=== PATIENT | female | born 1990 ===

== ENCOUNTER 2023-07-09 13:19 | Outpatient (REF) | payer OTHER, MEDICAID, SELFPAY ==
[2023-07-09 13:30] LABS: Appearance Urine Cloudy; Color Urine Yellow; Glucose Urine UA Negative (Negative); Leukocyte Esterase Urine Small (1+) (Negative); Nitrite Urine Negative (Negative); PH 7.5 (5.0-9.0); Specific Gravity - Urine 1.025 (1.005-1.025); UMIC TRIGGER UACC YES; Urine Blood Negative (Negative); Urine Ketones Negative (Negative); Urine Protein Trace mg/dL (Neg-Trace)
[2023-07-09 13:33] LABS: Bacteria Urine 2+ (None Seen); Hyaline Casts Urine 0-2 /LPF (0-2); UACC Culture Trigger YES
== END 2023-07-09 13:20 | disposition home or self-care (01) ==
LOC: HO.LNP 13:19
PROVIDERS: Visit Provider Family Medicine
DX: N30.00 Acute cystitis without hematuria (principal)
CPT/HCPCS: 81001; 87086

== ENCOUNTER 2023-07-23 13:32 | Outpatient (REF) | payer OTHER, MEDICAID, SELFPAY ==
[2023-07-23 17:03] LABS: Alanine Aminotransferase 17 U/L (0-31); Alkaline Phosphatase 90 U/L (39-117); Anion Gap 10 (12-20); Aspartate Amino Transferase 19 U/L (5-31); Bilirubin Direct 0.2 mg/dL (0.0-0.5); Bilirubin Total 0.3 mg/dL (0.0-1.0); Blood Urea Nitrogen 14 mg/dL (9-16); Calcium 8.4 mg/dL (8.4-10.2); Carbon Dioxide 28 mmol/L (22-29); Chloride 106 mmol/L (96-108); Estimated Glomerular Filt Rate > 60; Glucose Random 71 mg/dL (60-115); Lipase 12 U/L (8-78); Potassium 3.5 mmol/L (3.3-5.1); Sodium 140 mmol/L (135-145); Total Protein 7.1 g/dL (6.5-8.0)
== END 2023-07-23 13:33 | disposition home or self-care (01) ==
LOC: HO.HHCL 13:32
PROVIDERS: Visit Provider Nurse Practitioner Primary Care
DX: R10.84 Generalized abdominal pain (principal)
CPT/HCPCS: 36415; 80048; 80076; 83690

== ENCOUNTER 2023-08-11 10:12 | Emergency (ER) | payer OTHER, MEDICAID, SELFPAY ==
--- NOTE | ~2023-08-11 | CT_ITS ---
EXAMINATION: CT HEAD WITHOUT CONTRAST CLINICAL INFORMATION: Headache and blurred vision. COMPARISON: None available. TECHNIQUE: Contiguous axial imaging was performed from the skull base to vertex without intravenous administration of contrast. This CT examination was performed using dose optimization techniques as appropriate, variously including the following: *Automated exposure control *Adjustment of mA and/or kV according to patient size (this includes techniques or standardized protocols for targeted exams where dose is matched to indication/reason for exam; i.e. extremities or head) *Use of iterative reconstruction technique DLP: 689 mGy-cm FINDINGS: The brain parenchyma has normal attenuation. The anderson-white matter differentiation is well preserved. No evidence of an acute major vascular territory infarction. No intracranial hemorrhage, extra-axial fluid collection, focal mass effect or midline shift. The ventricles have normal size and configuration; no hydrocephalus. There is normal anatomic variation in terms of mild asymmetry of size of frontal horns. The brainstem and cerebellum have a normal appearance. The cerebellar tonsils are in normal position. The calvarium is intact. The visualized paranasal sinuses, mastoid air cells and middle ear cavities are well aerated. The orbits and globes are unremarkable. The temporomandibular joints are normal. CT/CT head/brain wo IV con IMPRESSION: No intracranial mass or hemorrhage. No acute intracranial pathology.
[2023-08-11 11:29] VITALS: BP 123/78; PULSE 79; RESP 18; TEMP 36.3; O2SAT 99; BMI 43.4
--- NOTE | 2023-08-11 11:36 | ED_ITS ---
HPI - Headache General Chief Complaint: Headache Stated Complaint: Migraine-blurry vision Related Data Allergies Allergy/AdvReac Type Severity Reaction Status Date / Time No Known Allergies Allergy Verified 08/11/23 11:27 COUNTS INCLUDE 234 BEDS AT THE [facility] Social History Social History Advance Directives: No Advance Directives Information Provided: No Physical Exam Vital Signs: Vital Signs: Last Vital Signs Temp 97.3 F 08/11/23 11:29 Pulse 79 08/11/23 11:29 Resp 18 08/11/23 11:29 BP 123/78 08/11/23 11:29 Pulse Ox 99 08/11/23 11:29 O2 Del Method Room Air 08/11/23 11:29 BMI result Body Mass Index 43.4 Course Course Course Narrative: This is an RME: Additional HPI, ROS, PE not included below will be deferred to primary provider. This is a 33-year-old female, with no known past medical problems, presenting to the emergency department with complaints of ongoing headache x5 days. She states that her vision is now blurry x 2 days. also having tightness in her bilateral shoulders. She is neurologically intact. GCS15, ambulatory, negative rhomberg. Strength 5/5 in upper and lower extremities she reports that she does not have a history of migraines. vital signs within normal limits. Plan: CT head, further ER evaluation needed Reevaluation(s) Reevaluation #1: pt left prior to completing treatment. Discharge Plan Discharge Clinical Impression: Headache Patient Disposition: Left W/O Completing Treatment Discharge Date/Time: 08/11/23 19:19
== END 2023-08-11 19:19 | disposition left against medical advice (07) ==
LOC: HO.ED 18:59
PROVIDERS: Emergency Provider Emergency Medicine
DX: R51.9 Headache, unspecified (principal)
CPT/HCPCS: 70450; 99281; 99284

== ENCOUNTER 2023-09-01 09:37 | Outpatient (REF) | payer OTHER, MEDICAID, SELFPAY ==
[2023-09-01 11:26] LABS: MANUAL DIFF FLAG NO
[2023-09-01 11:56] LABS: Basophils Absolute Auto 0.1 X10*3/uL (0.0-0.2); Basophils Percent Auto 0.8 % (0-2); Eosinophils Absolute Auto 0.2 X10*3/uL (0.0-0.4); Eosinophils Percent Auto 3.4 % (0-4); Hematocrit 43.7 % (37.0-47.0); Imm Gran Abs Auto 0.02 X10*3/uL (0.00-0.03); Imm Gran Pct Auto 0.3 % (0.0-0.4); Lymphocytes Absolute Auto 1.7 X10*3/uL (1.2-4.9); Lymphocytes Percent Auto 27.8 % (20-40); Mean Corpuscular Hemoglobin 28.2 pg (27.0-33.0); Mean Corpuscular Volume 88.1 fL (80.0-98.0); Mean Platelet Volume 10.8 fL (9.4-12.3); Monocytes Absolute Auto 0.3 X10*3/uL (0.1-1.2); Monocytes Percent Auto 5.4 % (2-11); Neutrophils Absolute Auto 3.8 x10*3/uL (2.0-8.3); Neutrophils Percent Auto 62.3 % (45-73); Platelet Count 296 X10*3/uL (160-400); Red Blood Count 4.96 X10*6/uL (4.20-5.50); Red Cell Distribution Width 13.2 % (11.0-16.0); White Blood Count 6.1 X10*3/uL (4.8-10.8)
[2023-09-01 12:37] LABS: TSH reflex Free T4 2.63 uIU/mL (0.32-4.0); Vitamin D 25-OH Total 9.2 ng/mL (>30)
== END 2023-09-01 09:38 | disposition home or self-care (01) ==
LOC: HO.HHCL 09:37
PROVIDERS: Visit Provider Emergency Medicine
DX: R22.2 Localized swelling, mass and lump, trunk (principal)
CPT/HCPCS: 36415; 82306; 84443; 85025

== ENCOUNTER 2023-09-22 09:41 | Outpatient (AMB) | payer OTHER, MEDICAID, SELFPAY ==
--- NOTE | 2023-09-22 10:00 | A.OFFVIS_ITS ---
Intake Vital Signs 3 09/22/23 10:08 Height 5 ft 6 in Weight 265 lb 6 oz BMI 42.8 BP 137/81 Blood Pressure Location Lt brachial Position Sitting Pulse 72 Intake Visit Reasons: Chest wall mass Intake Note: Patient is seen in office for evaluation and treatment of a chest wall mass. 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 Over the past several months however she began to notice increased discomfort associated with the lesion. She does not feel the lesion has increased in size significantly. She denies any skin changes or discharge. She never underwent surgery or sustain trauma in this location . Previous workup with ultrasound of the soft tissues revealed no suspicious findings in this location. She is very worried about cancer because of family history. [facility] Medical History Hypertension Surgical History Hx of cholecystectomy Hx of foot surgery Family History Maternal Grandmother Liver cancer Social History Alcohol intake: never Patient Tobacco Use Status: Never used Tobacco Review of Systems Const All systems reviewed & are unremarkable except as noted in HPI and below Denies chills, Denies fever(s), Denies headache(s), Denies poor appetite and Denies weakness ENT Denies headache(s) Card Denies chest pain, Denies irregular heart rhythm, Denies palpitations and Denies dyspnea Resp Denies cough, Denies excessive phlegm production and Denies dyspnea GI Denies abdominal pain, Denies bloating, Denies change in bowel habits, Denies constipation, Denies heartburn, Denies diarrhea, Denies nausea and Denies vomiting Denies urinary frequency Musc Denies back pain, Denies muscle weakness and Denies numbness Skin/Breast Denies changing lesions and Denies unusual bruising Neuro Denies headache(s), Denies numbness, Denies paresthesias and Denies weakness Psych Denies anxiety and Denies depression Endo Denies palpitations Sumit/Lymph Denies lymphadenopathy Physical Exam Const General: cooperative and no acute distress Nutritional Appearance: well nourished Orientation/consciousness: patient oriented x3 Limitations: no limitations HEENT Head: Yes normocephalic and Yes atraumatic Ears: hearing grossly normal bilaterally Chest Chest/axillae images: 2 1. Site of palpable soft tissue mass in the subcutaneous tissue over the xiphoid process, mobile within the subcutaneous tissue suggestive of a lipoma. No overlying skin changes are appreciated. Resp Effort & Inspection: normal respiratory effort, no audible wheezes, no cough and no respiratory distress Cardio Jugular venous distension: no JVD GI Inspection: Yes normal to inspection Skin Other: Warm, dry, no rash Neuro General: patient oriented x3 Extrem General: Yes no clubbing, cyanosis or edema Assessment & Plan Assessment & Plan (1) Lipoma: Code(s): D17.9 - Benign lipomatous neoplasm, unspecified Qualifiers: Lipoma location: trunk Qualified Code(s): D17.1 - Benign lipomatous neoplasm of skin and subcutaneous tissue of trunk Plan 33-year-old female patient presenting with a soft tissue mass located in the lower sternum which is now causing discomfort and anxiety. On examination the patient has a soft tissue mass which measures approximately 4 cm in length and 2 cm wide, mobile within the subcutaneous tissue most consistent with a lipoma. Patient is requested excision which can not be performed either under local or as a short-stay surgery. She is nervous about undergoing anesthesia therefore I recommended monitored anesthesia care. After discussion of the procedure, risks, and alternatives, she consents to the surgery. Coding Level of Care Code New Pt Level 4 (60467) Diagnoses Lipoma of torso D17.1 Lipoma location: trunk
[2023-09-22 10:08] VITALS: BP 137/81; PULSE 72; BMI 42.8
== END 2023-09-22 10:24 | disposition home or self-care (01) ==
PROVIDERS: Visit Provider Surgery
DX: D17.1 Benign lipomatous neoplasm of skin and subcutaneous tissue of trunk (principal)
CPT/HCPCS: 99204

== ENCOUNTER → 2023-09-22 09:41 | Outpatient (BNVA) | payer OTHER, SELFPAY | PROVIDERS: Visit Provider Surgery | DX: D17.1 Benign lipomatous neoplasm of skin and subcutaneous tissue of trunk (principal) | CPT/HCPCS: 99202 ==

== ENCOUNTER 2023-10-12 07:52 | Day surgery (SDC) | payer OTHER, SELFPAY ==
[2023-10-08 09:13] VITALS: BMI 42.8
[2023-10-12] VITALS (8 sets, daily range): BP systolic 108–127; BP diastolic 61–77; PULSE 70–112; RESP 16–18; TEMP 36.6–36.9; O2SAT 95–100; BMI 44.0
--- NOTE | 2023-10-12 08:01 | P.CONAN_ITS ---
[facility] Active Problems Active Problems: All Active Problems (Updated 09/22/23 @ 10:23 by Alex Willett MD) Lipoma (Acute) Hypertension (Acute) asthma Past Medical History Medical History Hypertension Family History Family History Maternal Grandmother Liver cancer Surgical History Surgical History Hx of cholecystectomy Hx of foot surgery History of Problems with Anesthesia: No Social History Social History Alcohol intake: never Patient Tobacco Use Status: Never used Tobacco Use of substances other than those prescribed or required for medical reasons: No Are you DNR?: No Advance Directives: No Advance Directives Information Provided: Yes Meds Allergies Allergy/AdvReac Type Severity Reaction Status Date / Time No Known Allergies Allergy Verified 09/22/23 10:05 Active Medications: Current Medications Cefazolin Sodium/Dextrose (Ancef) 2 gm in 50 mls @ 100 mls/hr IV PREOP ONE Stop: 10/12/23 08:23 Lactated Ringer's (Lr) 1,000 mls @ 100 mls/hr IVCONT .Q10H MARY Home Medications Medication Instructions Recorded Confirmed Last Taken Type albuterol sulfate 90 mcg/actuation 2 puff inhalation Q4-6H PRN 10/12/23 Unknown History aerosol inhaler (Ventolin HFA) wheezing cetirizine 10 mg tablet 10 mg PO DAILY 10/12/23 Unknown History cholecalciferol (vitamin D3) 25 25 mcg PO QAM 10/12/23 Unknown History mcg (1,000 unit) tablet epinephrine 0.3 mg/0.3 mL IM DIRECTED 10/12/23 Unknown History injection, auto-injector semaglutide 0.25 mg or 0.5 mg (2 mg subcut 10/12/23 08/09/23 History mg/3 mL) subcutaneous pen injector (Ozempic) sumatriptan succinate 50 mg tablet mg PO 10/12/23 Unknown History tizanidine 2 mg tablet 2 mg PO QD-TID PRN muscle pain 10/12/23 Unknown History topiramate 25 mg tablet mg PO 10/12/23 Unknown History valacyclovir 1 gram tablet 1,000 mg PO TID 10/12/23 Unknown History Exam Height,Weight and Vital Signs: Height 5 ft 6 in Weight 123.604 kg Airway Mallampati Class: II TM Dist: >3cm Neck ROM: Full Loose/Missing/Broken Teeth: No Heart: RRR Lungs: CTA Assessment and Plan Assessment Anesthesia Assessment: Anesthesia Plan Discussed and Chart Reviewed Final Anesthetic Review History of Problems with Anesthesia: No NPO: Yes ASA Class: III Final Preanesthetic Review: Meds/Allgs Chart Reviewed, Consent Obtained/Reviewed and Anes Risks/Benef Reviewed Patient Risk: Intermediate Procedure Risk: Low Anesthetic Plan Anesthetic Plan: GA Disposition: Standard PACU
[2023-10-12 08:24] LABS: UPreg QC Valid YES; Urine Pregnancy NEGATIVE (NEGATIVE)
[2023-10-12] MEDS: Lactated Ringers 1,000 ML 100 ML IVCONT (08:38)
--- NOTE | 2023-10-12 08:46 | MHC.SHP ---
Pre-Procedural Eval Section A - 24 Hr Update-Section A only Date of Service: 10/12/23 The patient is an INPATIENT: No Changes since office visit: Yes Patient answered all questions; No Cold of Flu in the past 2 weeks, No New Medical Problems and No Changes in Medication The patient has been examined within 24 hours of the surgical procedure. The History & Physical has been completed within 30 days and I have reviewed it.: Yes Section B - Complete if H&P > 30 days Chief Complaint: Benign lipomatous neoplasm of skin and subcutaneou Allergies: Allergies Allergy/AdvReac Type Severity Reaction Status Date / Time No Known Allergies Allergy Verified 09/22/23 10:05 Plan Diagnosis/Plan: Unchanged I have reviewed the history and physical and performed a pertinent physical examination on my patient. No changes have occurred unless specified. Time Spent With Patient Time: Total time managing care of this patient today ____ minutes.
--- NOTE | 2023-10-12 09:25 | W.PM.OPN ---
Operative Note Operative Note Date of Service: 10/12/23 Narrative: Preoperative diagnosis: Lipoma mid chest Postoperative diagnosis: Same Procedure: Excision of lipoma mid chest Surgeon: Alex Willett MD Core Sucker: Ana Roth PA-C Anesthesia: General LMA Indications for procedure: 33-year-old female patient presenting with a painful lipoma of the mid chest measuring approximately 3 cm in diameter. Operative findings: Lipoma mid chest 3 cm diameter Specimen: Lipoma mid chest Estimated blood loss: Less than 2 mL Complications: None Procedure details: Patient was brought to the OR placed in a supine position. After administering general anesthesia the patient's mid chest was prepped with ChloraPrep and draped in a sterile fashion. A surgical time-out was called the consent confirmed. Patient received preoperative antibiotics and Venodyne boots were placed. Local anesthesia was then infiltrated over the lipoma in a transverse fashion. Incision was then made over the lipoma and carried out through subcutaneous tissue. Electrocautery was then used to dissect the palpable lipoma from the surrounding subcutaneous tissue. This was sent to pathology for further examination. Hemostasis was then assured using electrocautery. Wounds were irrigated with saline solution and suctioned dry. Deep subcutaneous tissue was then reapproximated using interrupted 3-0 Polysorb sutures. Dermis was reapproximated using interrupted 3-0 Polysorb sutures. Skin was closed using a running subcuticular 4-0 Polysorb suture. Steri-Strips, 2 x 2 gauze and Tegaderm were then applied. The patient tolerated the procedure well. Sponge, instrument, needle counts reported as correct. The patient was transferred to PACU in stable condition.
[2023-10-12] MEDS: oxyCODONE HCl Immed Release 5 MG TABLET PO (09:57)
[2023-10-12] MEDS: Albuterol Sulfate (0.083%) 2.5 MG/3 ML VIAL.NEB INHALE (09:59)
== END 2023-10-12 10:48 | disposition home or self-care (01) ==
PROVIDERS: PCP Nurse Practitioner Primary Care; Visit Provider Surgery
PROC: (CPT 21552; principal; 2023-10-12 09:00)
DX: D17.1 Benign lipomatous neoplasm of skin and subcutaneous tissue of trunk (principal); I10 Essential (primary) hypertension; J45.909 Unspecified asthma, uncomplicated; Z79.899 Other long term (current) drug therapy; Z79.85 Long-term (current) use of injectable non-insulin antidiabetic drugs; Z98.890 Other specified postprocedural states
CPT/HCPCS: 21552; 81025; 88304; 94640; J0690; J1100; J1885; J2250; J2405; J2704; J2795; J3010

== ENCOUNTER → 2023-10-12 07:52 | Outpatient (BNV) | payer OTHER, SELFPAY | PROVIDERS: PCP Nurse Practitioner Primary Care; Visit Provider Surgery | DX: D17.1 Benign lipomatous neoplasm of skin and subcutaneous tissue of trunk (principal) | CPT/HCPCS: 21552 ==

== ENCOUNTER → 2023-10-19 09:17 | Outpatient (BNVA) | payer OTHER, SELFPAY | PROVIDERS: PCP Nurse Practitioner Primary Care; Visit Provider Surgery | DX: Z48.00 Encounter for change or removal of nonsurgical wound dressing (principal) | CPT/HCPCS: 99211 ==

== ENCOUNTER 2023-10-23 11:18 | Outpatient (AMB) | payer OTHER, SELFPAY ==
--- NOTE | 2023-10-23 11:23 | A.OFFVIS_ITS ---
Intake Vital Signs 10/23/23 11:29 Height 5 ft 6 in Weight 273 lb 6 oz BMI 44.1 BP 132/77 Blood Pressure Location Lt brachial Position Sitting Pulse 77 Intake Visit Reasons: s/p excision chest wall Intake Note: Patient is seen in office for post op assessment post excision of chest wall mass. 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 She tolerated the procedure well. Pathology confirmed a lipoma. She returns today for wound check. [facility] Medical History Hypertension Surgical History S/P excision of lipoma (10/12/23) Hx of cholecystectomy Hx of foot surgery Family History Maternal Grandmother Liver cancer Social History Alcohol intake: never Patient Tobacco Use Status: Never used Tobacco Physical Exam Vital Signs: Last Vital Signs Pulse 77 10/23/23 11:29 BP 132/77 10/23/23 11:29 BMI result Body Mass Index 44.1 Chest Other: Transverse incision in the anterior chest is clean, dry and intact. Steri- Strips are off. Extrem General: No edema Assessment & Plan Assessment & Plan (1) Lipoma: Code(s): D17.9 - Benign lipomatous neoplasm, unspecified Qualifiers: Lipoma location: trunk Qualified Code(s): D17.1 - Benign lipomatous neoplasm of skin and subcutaneous tissue of trunk Plan Sweta returns 1 week following excision of a lipoma of the anterior chest. Pathology did confirm a lipoma. She tolerated the procedure well and denies any ongoing symptoms. She should follow up as needed. Coding Level of Care Code Global (04918) Diagnoses Lipoma of torso D17.1 Lipoma location: trunk
[2023-10-23 11:29] VITALS: BP 132/77; PULSE 77; BMI 44.1
== END 2023-10-23 11:42 | disposition home or self-care (01) ==
PROVIDERS: PCP Nurse Practitioner Primary Care; Visit Provider Surgery
DX: D17.1 Benign lipomatous neoplasm of skin and subcutaneous tissue of trunk (principal)
CPT/HCPCS: 99024

== ENCOUNTER → 2023-10-23 11:18 | Outpatient (BNVA) | payer OTHER, SELFPAY | PROVIDERS: PCP Nurse Practitioner Primary Care; Visit Provider Surgery | DX: Z09 Encounter for follow-up examination after completed treatment for conditions other than malignant neoplasm (principal); D17.1 Benign lipomatous neoplasm of skin and subcutaneous tissue of trunk | CPT/HCPCS: 99212 ==

== ENCOUNTER 2023-10-28 06:53 | Emergency (ER) | payer OTHER, SELFPAY ==
--- NOTE | 2023-10-28 | ECG_ITS ---
Test Reason : cp Blood Pressure : / mmHG Vent. Rate : 092 BPM Atrial Rate : 092 BPM P-R Int : 138 ms QRS Dur : 080 ms QT Int : 352 ms P-R-T Axes : 032 038 018 degrees QTc Int : 435 ms Normal sinus rhythm Normal ECG No previous ECGs available Referred By: Generic ED Physician Electronically Signed By:JANIYA HOLCOMB
--- NOTE | ~2023-10-28 | XR_ITS ---
EXAMINATION: XR CHEST 2 VIEW CLINICAL INFORMATION: Cough COMPARISON: None TECHNIQUE: PA and lateral views of the chest obtained. FINDINGS: The lungs are clear. There are no pleural effusions. The cardiomediastinal silhouette is normal. XR/XR chest 2V IMPRESSION: No acute cardiopulmonary disease.
[2023-10-28 07:21] VITALS: BP 122/78; PULSE 91; RESP 20; TEMP 36.6; O2SAT 97; BMI 42.0
--- NOTE | 2023-10-28 07:27 | ED.URI ---
HPI - URI/Sore Throat General Chief Complaint: Upper Respiratory Symptoms Stated Complaint: chest pain induced by cough Time Seen by Provider: 10/28/23 07:26 Source: patient Mode of arrival: ambulatory Limitations: no limitations History of Present Illness HPI Narrative: 33 year old female with pmhx significant for hypertension presents to the ED today for evaluation cough, headache, nasal congestion, and fever (T-max 102? last night) that began yesterday. Additionally she endorses chest pain on coughing. She has been taking Robitussin, theraflu and Tylenol at home without relief. She last took Tylenol at 2100 last night. She reports taking TheraFlu around 2:00 a.m. this morning. She admits that her son tested positive for flu 5 days ago and her daughter tested positive for flu 2 days ago. She began having symptoms yesterday. Denies recent travel or long car rides. Denies chills, sore throat, palpitations, shortness of breath, wheezing, dyspnea, nausea vomiting, abdominal pain. Related Data Home Medications Medication Instructions Recorded Confirmed albuterol sulfate 90 mcg/actuation 2 puff inhalation Q4-6H PRN 10/12/23 aerosol inhaler (Ventolin HFA) wheezing cetirizine 10 mg tablet 10 mg PO DAILY 10/12/23 cholecalciferol (vitamin D3) 25 25 mcg PO QAM 10/12/23 mcg (1,000 unit) tablet epinephrine 0.3 mg/0.3 mL IM DIRECTED 10/12/23 injection, auto-injector semaglutide 0.25 mg or 0.5 mg (2 mg subcut 10/12/23 mg/3 mL) subcutaneous pen injector (Ozempic) sumatriptan succinate 50 mg tablet mg PO 10/12/23 tizanidine 2 mg tablet 2 mg PO QD-TID PRN muscle pain 10/12/23 topiramate 25 mg tablet mg PO 10/12/23 valacyclovir 1 gram tablet 1,000 mg PO TID 10/12/23 Previous Rx's Medication Instructions Recorded benzonatate 100 mg capsule 100 mg PO BID PRN cough #20 caps 10/28/23 Allergies Allergy/AdvReac Type Severity Reaction Status Date / Time No Known Allergies Allergy Verified 10/28/23 07:21 Review of Systems Review of Systems: Constitutional: No fever, chills, fatigue, night sweats, weight changes ENT/Mouth: No ear pain, hearing loss, sinus pain, rhinorrhea, sore throat, + congestion Eyes: No eye pain, swelling, redness, vision changes, discharge Cardio: No chest pain, palpitations, MIRZA, orthopnea, peripheral edema Pulm: No SOB, sputum, wheezing, dyspnea, hemoptysis, + cough GI: No nausea, vomiting, hematemesis, abdominal pain, diarrhea, constipation, hematochezia, melena : No irregular bleeding, dysuria, frequency, urgency, hesitancy, hematuria, flank pain, urinary flow changes, urinary incontinence or retention MSK: No back pain, neck pain, joint pain, +myalgias Skin: No lesions, rashes Neuro: No weakness, numbness, paresthesias, LOC, dizziness, +headache Psych: No anxiety/panic, depression, SI/HI, AH/VH All other systems reviewed and are negative. [facility] Past Medical History Attestation statement: The following information was validated with the patient. Source: old records reviewed and nursing notes reviewed Medical History Hypertension Surgical History S/P excision of lipoma (10/12/23) Hx of cholecystectomy Hx of foot surgery Family History Family History Maternal Grandmother Liver cancer Social History Social History Alcohol intake: never Patient Tobacco Use Status: Never used Tobacco Advance Directives: No Advance Directives Information Provided: No Physical Exam Vital Signs: Vital Signs: Last Vital Signs Temp 97.9 F 10/28/23 07:21 Pulse 91 10/28/23 07:21 Resp 20 10/28/23 07:21 BP 122/78 10/28/23 07:21 Pulse Ox 97 10/28/23 07:21 O2 Del Method Room Air 10/28/23 07:21 BMI result Body Mass Index 42.0 Vital signs stable, afebrile Const: General: cooperative, healthy appearing, comfortable and no acute distress Orientation/consciousness: patient oriented x3 Limitations: no limitations HEENT: Other: + posterior oropharynx without erythema edema. No tonsillar exudates or peritonsillar masses. Uvula midline. Controlling secretions speaking in complete sentences. Head: Yes normal to inspection, Yes No palpable skull fracture present, Yes normocephalic and Yes atraumatic Ears: hearing grossly normal bilaterally, external ears normal, TM's normal bilaterally, EAC's normal, mastoids normal and no periauricular adenopathy General nose exam: Normal external nose present and No nasal discharge present Eyes: General: appearance normal, both eyes and all related structures Conjunctivae: conjunctivae normal Sclerae: sclerae normal Pupils: Equal, round and reactive pupils present Neck: Other: + no cervical, submental or submandibular lymphadenopathy Neck: Yes normal visual inspection, Yes full ROM and Yes no meningeal signs Chest: Chest palpation & inspection: normal inspection of the chest and normal palpation of entire chest wall Resp: Effort & Inspection: normal respiratory effort and able to speak in complete sentences Auscultation: clear to auscultation bilaterally, no crackles and no wheezes Cardio: Jugular venous distension: no JVD Rate: regular rate Rhythm: regular rhythm GI: Inspection: Yes normal to inspection Palpation (GI): Soft to palpation and nontender : General: Yes no CVA tenderness Back/Spine/Pelvis: Back: no CVA tenderness Skin: General skin exam: no rashes or lesions noted Neuro: General: patient oriented x3 and no meningeal signs Cranial nerves: Yes Equal, round and reactive pupils present Extrem: General: Yes normal to inspection, Yes full ROM, Yes capillary refill normal and Yes no calf tenderness Course Course Course Narrative: 829-- Patient tested negative for COVID, flu, RSV. Chest x-ray unremarkable. On my interpretation, no signs of pneumonia or effusion. Discussed all results with patient. Will send her home with Evangelina Ring. Patient has remained stable throughout ED visit today. Discussed worrisome signs and symptoms and when to return to the ED. All questions answered at this time. Patient is agreeable with disposition and stable for discharge. Medical Decision Making Medical Decision Making MDM Narrative: 33 year old female with pmhx significant for hypertension presents to the ED today for evaluation cough, headache, nasal congestion, and fever (T-max 102? last night) that began yesterday. Vital signs stable, afebrile. She is nontoxic-appearing and in no acute distress. Lungs are CTA bilaterally. No crackles, rhonchi or wheezes. Actively coughing on exam. RRR. No JVD or peripheral edema. No calf tenderness bilaterally. Ambulating with steady gait. Differential diagnosis includes viral syndrome, pneumonia, bronchitis. Low suspicion for mono, strep throat, [employer], retropharyngeal abscess, epiglottitis, pleural effusion, pulmonary embolism, ACS, arrhythmia. Favor viral etiology, EKG, chest x-ray and re-evaluation. Differential Diagnosis Differential Diagnoses: The differential diagnosis associated with the presentation includes As above Admission/Observation Consideration of admission/observation: Escalation of care including admission/observation considered Not indicated Lab Data MDM Lab Attestation statement: I reviewed the patient's lab results. As above Labs: Lab Results 10/28/23 Range/Units 07:06 Influenza Type A (PCR) NEGATIVE (Negative) Influenza Type B (PCR) NEGATIVE (Negative) RSV RNA Qual (PCR) NEGATIVE (Negative) SARS-CoV-2 RNA (RT-PCR) NEGATIVE (Negative) Independent Interpretation I performed an independent interpretation of an: EKG and Plain X-Ray Interpretation: EKG showing normal sinus rhythm at a rate of 92 beats per minute, QT 352, QTC 435, no acute ischemic changes or ST elevations. I personally reviewed chest x-ray and agree with radiologist's interpretation. Radiology Impression Discussion of test interpretation with radiology: I have reviewed the radiologist's reading. Radiologist Impression: EXAMINATION: XR CHEST 2 VIEW CLINICAL INFORMATION: Cough COMPARISON: None TECHNIQUE: PA and lateral views of the chest obtained. FINDINGS: The lungs are clear. There are no pleural effusions. The cardiomediastinal silhouette is normal. XR/XR chest 2V IMPRESSION: No acute cardiopulmonary disease. External Record Review External record reviewed: Inpatient record, Office record, Outpatient record, Prior outpatient labs, Prior outpatient radiology, Primary care record and Outside ED record Prescription Management I considered prescription management with: Other (Tessalon Perles, Chloraseptic spray) Social Determinants Patient?s care significantly limited by Social Determinants of Health including: Other Social Determinant of Health Discharge Plan Discharge Clinical Impression: Viral infection Patient Disposition: Home, Self-Care Instructions: Viral Syndrome (ED) Additional Instructions: You tested negative for COVID, flu, and RSV. Your chest x-ray does not show signs of pneumonia. Your EKG is normal. You likely have a viral upper respiratory infection that does not require antibiotic treatment. Evangelina Ring and sent to your pharmacy for you to take for cough. Keep these out of reach of children as they can be toxic. Alter ibuprofen and Tylenol for fevers and body aches. You may also purchase [id number] Chloraseptic spray tp spray at the back of the throat for throat pain. Follow-up with your PCP. If symptoms persist or worsen please return to the emergency department. The case of an emergency call 911. Prescriptions: New benzonatate 100 mg capsule 100 mg PO BID PRN (Reason: cough) Qty: 20 0RF No Action tizanidine 2 mg tablet 2 mg PO QD-TID PRN (Reason: muscle pain) cetirizine 10 mg tablet 10 mg PO DAILY valacyclovir 1 gram tablet 1,000 mg PO TID sumatriptan succinate 50 mg tablet PO topiramate 25 mg tablet PO epinephrine 0.3 mg/0.3 mL auto-injector IM DIRECTED albuterol sulfate [Ventolin HFA] 90 mcg/actuation HFA aerosol inhaler 2 puff INHALATION Q4-6H PRN (Reason: wheezing) cholecalciferol (vitamin D3) 25 mcg (1,000 unit) tablet 25 mcg PO QAM Ozempic 0.25 mg or 0.5 mg (2 mg/3 mL) pen injector subcut Stand Alone Forms: Work/School Release
[2023-10-28 08:08] LABS: Influenza A PCR NEGATIVE (Negative); Influenza B PCR NEGATIVE (Negative); Resp Syncy Virus RNA Qual PCR NEGATIVE (Negative); SARS COV2 PCR INHOUSE NEGATIVE (Negative)
[2023-10-28 09:21] VITALS: BP 126/68; PULSE 86; RESP 20; TEMP 37.1; O2SAT 97
== END 2023-10-28 09:22 | disposition home or self-care (01) ==
PROVIDERS: Emergency Provider Emergency Medicine; PCP Nurse Practitioner Primary Care
DX: B34.9 Viral infection, unspecified (principal); I10 Essential (primary) hypertension; Z11.52 Encounter for screening for COVID-19; Z20.828 Contact with and (suspected) exposure to other viral communicable diseases
CPT/HCPCS: 0241U; 71046; 93005; 99283

== ENCOUNTER → 2023-10-28 07:02 | Outpatient (BNV) | payer OTHER, SELFPAY | PROVIDERS: Emergency Provider Emergency Medicine; PCP Nurse Practitioner Primary Care; Visit Provider Internal Medicine | DX: R07.9 Chest pain, unspecified (principal) | CPT/HCPCS: 93010 ==

== ENCOUNTER 2024-01-05 20:08 | Outpatient (REF) | payer OTHER, SELFPAY | END 2024-01-05 20:09 | disposition home or self-care (01) | LOC: HO.HHCLNP 20:08 | PROVIDERS: Visit Provider Nurse Practitioner Family | DX: R35.0 Frequency of micturition (principal) | CPT/HCPCS: 87086 ==

== ENCOUNTER 2024-01-12 09:35 | Outpatient (REF) | payer OTHER, SELFPAY ==
--- NOTE | ~2024-01-12 | US_ITS ---
EXAMINATION: US ABDOMEN COMPLETE CLINICAL INFORMATION: Abdominal pain x3 months, increasingly getting worse. COMPARISON: None available. TECHNIQUE: Real-time imaging of the abdominal viscera. FINDINGS: PANCREAS: The pancreas could not be evaluated as it was obscured by bowel gas. ABDOMINAL AORTA: Only the proximal aorta could be seen and was of normal caliber. The mid and distal abdominal aorta could not be visualized secondary to overlying bowel gas. INFERIOR VENA CAVA: Visualized portions are normal. LIVER: The liver is normal in size. The liver contour is normal. There is slightly increased liver parenchymal echogenicity suggesting hepatic steatosis. No focal hepatic lesion. There is no intrahepatic biliary duct dilatation seen. GALLBLADDER: Surgically absent. COMMON BILE DUCT: Normal in caliber measuring 0.2 cm in diameter. RIGHT KIDNEY: Normal. No hydronephrosis. No renal calculi or focal parenchymal lesions. The kidney measures 11.6 cm in maximum dimension. LEFT KIDNEY: Normal. No hydronephrosis. No renal calculi or focal parenchymal lesions. The kidney measures 12.2 cm in maximum dimension. SPLEEN: Normal. The spleen measures 10.5 cm in maximum dimension. FREE FLUID: None. US/US abdomen complete IMPRESSION: Echogenic liver suggesting hepatic steatosis.
== END 2024-01-12 09:36 | disposition home or self-care (01) ==
LOC: HO.US 09:35
PROVIDERS: PCP Nurse Practitioner Primary Care; Visit Provider Nurse Practitioner Family
DX: R10.84 Generalized abdominal pain (principal)
CPT/HCPCS: 76700

== ENCOUNTER 2024-01-19 09:13 | Emergency (ER) | payer OTHER, SELFPAY ==
[2024-01-19 09:32] VITALS: BP 132/93; PULSE 72; RESP 18; TEMP 37; O2SAT 96; BMI 45.2
[2024-01-19 09:58] LABS: MANUAL DIFF FLAG NO
[2024-01-19 09:59] LABS: Basophils Absolute Auto 0.1 X10*3/uL (0.0-0.2); Basophils Percent Auto 0.8 % (0-2); Eosinophils Absolute Auto 0.1 X10*3/uL (0.0-0.4); Eosinophils Percent Auto 2.3 % (0-4); Hematocrit 42.1 % (37.0-47.0); Hemoglobin 13.7 g/dl (12.0-16.0); Imm Gran Abs Auto 0.01 X10*3/uL (0.00-0.03); Imm Gran Pct Auto 0.2 % (0.0-0.4); Lymphocytes Absolute Auto 1.8 X10*3/uL (1.2-4.9); Lymphocytes Percent Auto 29.9 % (20-40); Mean Corpuscular HGB Conc 32.5 g/dl (31.0-35.0); Mean Corpuscular Hemoglobin 28.1 pg (27.0-33.0); Mean Corpuscular Volume 86.3 fL (80.0-98.0); Mean Platelet Volume 9.7 fL (9.4-12.3); Monocytes Absolute Auto 0.4 X10*3/uL (0.1-1.2); Monocytes Percent Auto 6.5 % (2-11); Neutrophils Absolute Auto 3.6 x10*3/uL (2.0-8.3); Neutrophils Percent Auto 60.3 % (45-73); Platelet Count 308 X10*3/uL (160-400); Red Blood Count 4.88 X10*6/uL (4.20-5.50); Red Cell Distribution Width 13.2 % (11.0-16.0)
[2024-01-19 10:21] LABS: Alanine Aminotransferase 24 U/L (0-31); Alkaline Phosphatase 86 U/L (39-117); Anion Gap 11 (12-20); Aspartate Amino Transferase 20 U/L (5-31); Bilirubin Direct 0.2 mg/dL (0.0-0.5); Bilirubin Total 0.5 mg/dL (0.0-1.0); Blood Urea Nitrogen 13 mg/dL (9-16); Calcium 8.8 mg/dL (8.4-10.2); Carbon Dioxide 27 mmol/L (22-29); Chloride 105 mmol/L (96-108); Creatinine Clr Calc Pharmacy 165.8; Estimated Glomerular Filt Rate > 60; Glucose Random 101 mg/dL (60-115); Lipase 10 U/L (8-78); Sodium 139 mmol/L (135-145); Total Protein 7.1 g/dL (6.5-8.0)
[2024-01-19 11:00] VITALS: BP 122/69; PULSE 64; RESP 18; TEMP 36.7; O2SAT 99
--- NOTE | 2024-01-19 11:05 | ED_ITS ---
HPI - Abdominal Pain General Chief Complaint: Abdominal Pain Stated Complaint: stomach pain Time Seen by Provider: 01/19/24 11:02 Source: patient Mode of arrival: ambulatory Limitations: no limitations History of Present Illness ED Provider: Leonard Arevalo PA-C HPI narrative: 33 y/o female with history of HTN, morbid obesity, s/p cholecystectomy in the past presents to the ER for evaluation of intermittent right upper quadrant pain for the last 2 months. Patient states last night it got worse and she did not sleep, prompting ER evaluation today. She denies any associated nausea or vomiting. She has had change in bowel habits where she had 1 episode of green stool 2 days ago and then 1 episode of ?shredded? stool yesterday. No blood in her bowel movements. She reports the pain is worse with eating. It is along the right side of her abdomen, mostly in the upper portion. No back pain. She has an IUD and does not get her period. Denies any vaginal bleeding or discharge. No urinary symptoms aside from increased urinary frequency. MD elicited complaint: abdominal pain Pertinent past history: other (History of cholecystectomy) Onset (ago): month(s) Pain Consistency: intermittent Location: RUQ Severity: moderate Pain scale (0-10): 7 Quality: stabbing Radiation: none Migration to: no migration Exacerbating factors: eating Relieving factors: nothing Context: history of similar episodes Associated symptoms: diarrhea Related Data Home Medications ?Medication ?Instructions ?Recorded ?Confirmed albuterol sulfate 90 mcg/actuation 2 puff inhalation Q4-6H PRN 10/12/23 aerosol inhaler (Ventolin HFA) wheezing cetirizine 10 mg tablet 10 mg PO DAILY 10/12/23 cholecalciferol (vitamin D3) 25 25 mcg PO QAM 10/12/23 mcg (1,000 unit) tablet epinephrine 0.3 mg/0.3 mL IM DIRECTED 10/12/23 injection, auto-injector semaglutide 0.25 mg or 0.5 mg (2 mg subcut 10/12/23 mg/3 mL) subcutaneous pen injector (Ozempic) sumatriptan succinate 50 mg tablet mg PO 10/12/23 tizanidine 2 mg tablet 2 mg PO QD-TID PRN muscle pain 10/12/23 topiramate 25 mg tablet mg PO 10/12/23 valacyclovir 1 gram tablet 1,000 mg PO TID 10/12/23 Previous Rx's ?Medication ?Instructions ?Recorded albuterol sulfate 90 mcg/actuation 1 inh inhalation Q20M PRN 10/28/23 aerosol inhaler shortness of breath or wheezing #8.5 grams benzonatate 100 mg capsule 100 mg PO BID PRN cough #20 caps 10/28/23 dicyclomine 20 mg tablet 20 mg PO TID PRN abdominal pain 01/19/24 #20 tabs famotidine 40 mg tablet (Pepcid) 40 mg PO DAILY #14 tabs 01/19/24 nitrofurantoin 100 mg PO Q12H 5 days #10 caps 01/19/24 monohydrate/macrocrystals 100 mg capsule (Macrobid) Allergies Allergy/AdvReac Type Severity Reaction Status Date / Time No Known Allergies Allergy Verified 01/19/24 09:35 Review of Systems Review of Systems Yes all other systems are reviewed and are negative [facility] Past Medical History Medical History Hypertension Surgical History S/P excision of lipoma (10/12/23) Hx of cholecystectomy Hx of foot surgery Family History Family History Maternal Grandmother Liver cancer Social History Social History Alcohol intake: never Patient Tobacco Use Status: Never used Tobacco Advance Directives: No Advance Directives Information Provided: No Physical Exam ED Vital Signs: Vital Signs - 24 hr 01/19/24 09:32 01/19/24 11:00 01/19/24 12:04 Temperature 98.6 F 98.1 F 98.1 F Pulse Rate 72 64 64 Respiratory Rate 18 18 18 Blood Pressure 132/93 H 122/69 122/69 Pulse Oximetry 96 99 99 Oxygen Delivery Method Room Air Room Air BMI result Body Mass Index 45.2 Appearance: Alert. Oriented X3. No acute distress. Head: normocephalic, atraumatic. Eyes: Pupils equal, round and reactive to light. ENT: Pharynx normal. No tonsillar swelling or exudate. Neck: Normal inspection. Neck supple. CVS: Normal heart rate and rhythm. Pulses normal. Respiratory: No respiratory distress. Breath sounds normal. Abdomen: Obese Soft with mild diffuse tenderness, no rebound or guarding, normal active +BS x4 Skin: Skin warm and dry. Normal skin color. Normal skin turgor. No rashes. Extremities: No lower extremity edema. No joint swelling. Neuro/psych: Oriented X 3. No motor deficit. No sensory deficit. CN II-XII intact. Normal speech and cognition. Medical Decision Making Medical Decision Making [facility] Narrative: 33-year-old female status post cholecystectomy urethral several years ago presents to the ER for evaluation of intermittent right upper quadrant pain for the last several months. Pain is worse with food. She had an outpatient ultrasound that is still pending. Lab workup today is unremarkable with normal LFTs, normal CBC. Her exam revealing for a soft abdomen was diffuse tenderness, slightly worse on the right. No guarding or rebound. Nonacute abdomen. Her urinalysis is concerning for infection. She has no symptoms of UTI aside from urinary frequency. No CVA tenderness on examination. Low clinical suspicion for pyelonephritis in the absence of leukocytosis and fever. Patient frustrated that her outpatient ultrasound is still pending. Attempted to call [facility], the report is dictated and done however unable to be read per their report. Unknown when this will be available for review as they are experiencing down time right now. Discussed this with the patient. She would like to go home with treatment for UTI, will start PPI and Bentyl for abdominal pain. She will keep a food diary and follow-up with Gastroenterology. She will also follow-up with [facility] for results of her ultrasound. She was given strict return precautions and will come back if her symptoms get significantly worse. Comfortable discharge home with outpatient follow-up. Differential Diagnosis Differential Diagnoses: The differential diagnosis associated with the presentation includes Retained common bile duct stone, ascending cholangitis, UTI, pyelonephritis, GERD, IBS, appendicitis Admission/Observation Consideration of admission/observation: Escalation of care including admission/observation considered Worsening pain, considered observation/admission Lab Data [facility] Lab Attestation statement: I reviewed the patient's lab results. No leukocytosis, normal renal function and LFTs 01/19/24 09:50 01/19/24 09:50 Labs: Lab Results 01/19/24 01/19/24 Range/Units 09:50 11:13 WBC 6.0 (4.8-10.8) X10*3/uL RBC 4.88 (4.20-5.50) X10*6/uL Hgb 13.7 (12.0-16.0) g/dl Hct 42.1 (37.0-47.0) % MCV 86.3 (80.0-98.0) fL MCH 28.1 (27.0-33.0) pg MCHC 32.5 (31.0-35.0) g/dl RDW 13.2 (11.0-16.0) % Plt Count 308 (160-400) X10*3/uL MPV 9.7 (9.4-12.3) fL Immature Gran % (Auto) 0.2 (0.0-0.4) % Neut % (Auto) 60.3 (45-73) % Lymph % (Auto) 29.9 (20-40) % Petroleum % (Auto) 6.5 (2-11) % Eos % (Auto) 2.3 (0-4) % Baso % (Auto) 0.8 (0-2) % Lymph # (Auto) 1.8 (1.2-4.9) X10*3/uL Petroleum # (Auto) 0.4 (0.1-1.2) X10*3/uL Eos # (Auto) 0.1 (0.0-0.4) X10*3/uL Baso # (Auto) 0.1 (0.0-0.2) X10*3/uL Abs Immat Gran (auto) 0.01 (0.00-0.03) X10*3/uL Absolute Neuts (auto) 3.6 (2.0-8.3) x10*3/uL Absolute Nucleated RBC 0.000 (0.0-0.012) X10*3/uL Nucleated RBC % (auto) 0.0 (0.0-0.2) /100WBC Sodium 139 (135-145) mmol/L Potassium 4.0 (3.3-5.1) mmol/L Chloride 105 (96-108) mmol/L Carbon Dioxide 27 (22-29) mmol/L Anion Gap 11 L (12-20) BUN 13 (9-16) mg/dL Creatinine 0.67 (0.5-1.4) mg/dL Estim Creat Clear Calc 165.8 Estimated GFR > 60 Random Glucose 101 (60-115) mg/dL Calcium 8.8 (8.4-10.2) mg/dL Total Bilirubin 0.5 (0.0-1.0) mg/dL Direct Bilirubin 0.2 (0.0-0.5) mg/dL AST 20 (5-31) U/L ALT 24 (0-31) U/L Alkaline Phosphatase 86 (39-117) U/L Total Protein 7.1 (6.5-8.0) g/dL Albumin 4.0 (3.5-5.0) g/dL Lipase 10 (8-78) U/L Urine Color Yellow Urine Appearance Cloudy Urine pH 7.5 (5.0-9.0) Ur Specific [place] 1.020 (1.005-1.025) Urine Protein Trace (Neg-Trace) mg/dL Urine Glucose (UA) Negative (Negative) mg/dL Urine Ketones Negative (Negative) mg/dL Urine Blood Negative (Negative) Urine Nitrite Negative (Negative) Ur Leukocyte Esterase Large (3+) H (Negative) Urine RBC 0-2 (0-2) /HPF Urine WBC 21-50 H (0-5) /HPF Ur Squamous Epith Cells 3-5 (0-2) /HPF Urine Bacteria 4+ (None Seen) Hyaline Casts 0-2 (0-2) /LPF Urine Test NEGATIVE (NEGATIVE) Independent Interpretation I performed an independent interpretation of an: Ultrasound Interpretation: Overlying bowel gas, no significant abnormality appreciated External Record Review External record reviewed: Outpatient record, Prior outpatient labs and Prior outpatient radiology Prescription Management I considered prescription management with: Pain Medication and Antibiotic Chronic Conditions Patient?s care impacted by: Other (Obesity) Critical Care Time Critical Care Time Critical Care Time: No Discharge Plan Discharge Clinical Impression: Abdominal pain Qualifiers: Abdominal location: right upper quadrant Qualified Code(s): R10.11 - Right upper quadrant pain UTI (urinary tract infection) Qualifiers: Urinary tract infection type: acute cystitis Hematuria presence: without hematuria Qualified Code(s): N30.00 - Acute cystitis without hematuria Patient Disposition: Home, Self-Care Instructions: Urinary Tract Infection in Women (DC), Abdominal Pain (ED) Additional Instructions: Your lab workup today was normal which is reassuring. Your right upper quadrant ultrasound is read however we are unable to see it due to downtime on the radiology and. It is unknown when the report will be available. Follow-up with the [facility] as they will hopefully get the read soon. Recommend following a both Gastroenterology, call for an appointment. Name and number below. Recommend keeping a food diary to see if there any specific foods that make her pain worse. Take the prescribed medication as needed for abdominal pain. Your urine test showed infection. Take the prescribed antibiotics as directed, complete the entire course and do not miss any doses Drink plenty of fluids. If you develop new or worsening symptoms call 911 or come back to the ER for further evaluation. Prescriptions: New nitrofurantoin monohyd/m-cryst [Macrobid] 100 mg capsule 100 mg PO Q12H 5 Days Qty: 10 0RF Rx Instructions: must administer with a meal/food dicyclomine 20 mg tablet 20 mg PO TID PRN (Reason: abdominal pain) Qty: 20 0RF famotidine [Pepcid] 40 mg tablet 40 mg PO DAILY Qty: 14 0RF No Action benzonatate 100 mg capsule 100 mg PO BID PRN (Reason: cough) Qty: 20 0RF albuterol sulfate 90 mcg/actuation HFA aerosol inhaler 1 inh inhalation Q20M PRN (Reason: shortness of breath or wheezing) Qty: 8.5 0RF tizanidine 2 mg tablet 2 mg PO QD-TID PRN (Reason: muscle pain) cetirizine 10 mg tablet 10 mg PO DAILY valacyclovir 1 gram tablet 1,000 mg PO TID sumatriptan succinate 50 mg tablet PO topiramate 25 mg tablet PO epinephrine 0.3 mg/0.3 mL auto-injector IM DIRECTED albuterol sulfate [Ventolin HFA] 90 mcg/actuation HFA aerosol inhaler 2 puff INHALATION Q4-6H PRN (Reason: wheezing) cholecalciferol (vitamin D3) 25 mcg (1,000 unit) tablet 25 mcg PO QAM Ozempic 0.25 mg or 0.5 mg (2 mg/3 mL) pen injector subcut Interventions: ED Discharge Assessment Last Done: 01/19/24 12:04 Discharge Date/Time: 01/19/24 12:04 Print Language: [place]
[2024-01-19 11:21] LABS: Appearance Urine Cloudy; Color Urine Yellow; Glucose Urine UA Negative (Negative); Leukocyte Esterase Urine Large (3+) (Negative); Nitrite Urine Negative (Negative); PH 7.5 (5.0-9.0); UMIC TRIGGER UACC YES; Urine Blood Negative (Negative); Urine Ketones Negative (Negative); Urine Protein Trace mg/dL (Neg-Trace)
[2024-01-19 11:24] LABS: Bacteria Urine 4+ (None Seen); Hyaline Casts Urine 0-2 /LPF (0-2); RBC Urine 0-2 /HPF (0-2); UACC Culture Trigger YES; UPreg QC Valid YES; Urine Pregnancy NEGATIVE (NEGATIVE); WBC Urine 21-50 /HPF (0-5)
[2024-01-19 12:04] VITALS: BP 122/69; PULSE 64; RESP 18; TEMP 36.7; O2SAT 99
== END 2024-01-19 12:04 | disposition home or self-care (01) ==
PROVIDERS: Physician Assistant; Emergency Provider Emergency Medicine; PCP Nurse Practitioner Primary Care
DX: N30.00 Acute cystitis without hematuria (principal); R10.11 Right upper quadrant pain; Z79.899 Other long term (current) drug therapy
CPT/HCPCS: 36415; 80053; 81001; 81025; 82248; 83690; 85025; 87086; 99283; 99284

== ENCOUNTER 2024-05-17 08:47 | Outpatient (AMB) | payer OTHER, SELFPAY ==
--- NOTE | 2024-05-17 08:51 | MHC.OFFVIS ---
Vital Signs 05/17/24 09:03 Height 5 ft 6 in Weight 280 lb BMI 45.2 BP 160/90 H Blood Pressure Location Lt brachial Position Sitting Pulse 68 Intake Visit Reasons: Lipoma chest growing and painful Intake Note: Patient is seen in office for recurrent lipoma of the chest. Pt c/o: recurrent lipoma, onset about a month ago, painful when lifting more than 30 lbs, denies discharge, redness or other concerns Underwriting Support Specialist Required: No Accompanied by: Self / Same As Patient Allergies No Known Allergies Allergy (Verified 01/19/24 09:35) Medication List - Last Reconciled 05/17/24 by Alex Willett MD albuterol sulfate 90 mcg/actuation (Ventolin HFA) 2 puffs inhalation Q4-6H PRN albuterol sulfate 90 mcg/actuation 1 inh inhalation Q20M PRN benzonatate 100 mg PO BID PRN cetirizine 10 mg PO DAILY cholecalciferol (vitamin D3) 25 mcg PO QAM dicyclomine 20 mg PO TID PRN epinephrine IM DIRECTED famotidine (Pepcid) 40 mg PO DAILY nitrofurantoin monohyd/m-cryst 100 mg (Macrobid) 100 mg PO Q12H 5 days semaglutide (Ozempic) mg subcut sumatriptan succinate mg PO tizanidine 2 mg PO QD-TID PRN topiramate mg PO valacyclovir 1,000 mg PO TID HPI Comments Details: 34-year-old female patient with a previous history of lipoma in the mid chest status post excision now presenting with complaints of pain at the site of previous surgery. She reports feeling swelling in this location and feels the lipoma as increased in size. She reports having difficulty lifting more than 30 lb due to the pain. She reports taking Motrin for the pain. [facility] Medical History Hypertension Surgical History S/P excision of lipoma (10/12/23) Hx of cholecystectomy Hx of foot surgery Family History Maternal Grandmother Liver cancer Social History Alcohol intake: never Patient Tobacco Use Status: Never used Tobacco Review of Systems Const All systems reviewed & are unremarkable except as noted in HPI and below Physical Exam Vital Signs: Last Vital Signs Pulse 68 05/17/24 09:03 BP 160/90 H 05/17/24 09:03 BMI result Body Mass Index 45.2 Const General: no acute distress Nutritional Appearance: obese Orientation/consciousness: patient oriented x3 Limitations: no limitations Chest Chest/axillae images: 1. Previous incision over the xiphoid. Patient points to this area as the site of a lipoma although examination reveals no definite lipoma. There is tenderness to deep palpation over the chest wall. No overlying skin changes noted. Resp Effort & Inspection: normal respiratory effort, no audible wheezes, no cough and no respiratory distress Skin General skin exam: no rashes or lesions noted Neuro General: patient oriented x3 Extrem General: Yes no clubbing, cyanosis or edema Assessment & Plan Assessment & Plan (1) Lipoma: Code(s): D17.9 - Benign lipomatous neoplasm, unspecified Category: Medical Qualifiers: Lipoma location: trunk Qualified Code(s): D17.1 - Benign lipomatous neoplasm of skin and subcutaneous tissue of trunk Plan Patient presents with pain at the site of her previous excision site in the lower chest. Examination today reveals no definite recurrent lipoma to my examination. I recommended further evaluation with ultrasound of the chest wall. She should return following the study to review the results and discuss treatment options. Orders: Orders US chest Today D17.1 - Benign lipomatous neoplasm of skin and subcutaneous tissue of trunk Coding Level of Care Code Est Pt Level 3 (40533) Diagnoses Lipoma of torso D17.1 Lipoma location: trunk
[2024-05-17 09:03] VITALS: BP 160/90; PULSE 68; BMI 45.2
== END 2024-05-17 09:57 | disposition home or self-care (01) ==
PROVIDERS: PCP Nurse Practitioner Primary Care; Visit Provider Surgery
DX: D17.1 Benign lipomatous neoplasm of skin and subcutaneous tissue of trunk (principal)
CPT/HCPCS: 99213

== ENCOUNTER → 2024-05-17 08:47 | Outpatient (BNVA) | payer OTHER, SELFPAY | PROVIDERS: PCP Nurse Practitioner Primary Care; Visit Provider Surgery | DX: Z98.890 Other specified postprocedural states (principal); Z87.2 Personal history of diseases of the skin and subcutaneous tissue | CPT/HCPCS: 99212 ==

== ENCOUNTER 2024-05-20 15:20 | Outpatient (REF) | payer OTHER, SELFPAY ==
--- NOTE | ~2024-05-20 | US_ITS ---
EXAMINATION: US CHEST CLINICAL INFORMATION: History of lipoma excision adjacent to the xiphoid process. COMPARISON: None available. TECHNIQUE: Targeted sonographic evaluation of the soft tissues adjacent to a surgical scar within the mid line chest, xiphoid region. FINDINGS: Adjacent to the surgical scar in the superficial soft tissues, there is a 0.9 x 0.3 x 2.8 cm mildly heterogeneous hypoechoic nodularity without associated vascularity on color Doppler. US/US chest IMPRESSION: Indeterminate 2.8 cm nodule adjacent to the surgical scar, differential considerations include but are not limited to nodular-like scarring and atypical lipoma. Recommend clinical correlation and follow up accordingly with short-term ultrasound or further characterization with MRI. Electronically signed by: Lydia Murray MD 05/26/2024 11:18 AM EDT
== END 2024-05-20 15:21 | disposition home or self-care (01) ==
LOC: HO.HMGCX 15:20
PROVIDERS: PCP Nurse Practitioner Primary Care; Visit Provider Surgery
DX: D17.1 Benign lipomatous neoplasm of skin and subcutaneous tissue of trunk (principal)
CPT/HCPCS: 76604

== ENCOUNTER 2024-07-22 15:34 | Outpatient (REF) | payer OTHER, SELFPAY ==
[2024-07-22 17:25] LABS: MANUAL DIFF FLAG NO
[2024-07-22 17:46] LABS: Basophils Absolute Auto 0.1 X10*3/uL (0.0-0.2); Basophils Percent Auto 0.6 % (0-2); Eosinophils Absolute Auto 0.1 X10*3/uL (0.0-0.4); Eosinophils Percent Auto 1.3 % (0-4); Hematocrit 41.8 % (37.0-47.0); Hemoglobin 13.4 g/dl (12.0-16.0); Imm Gran Abs Auto 0.03 X10*3/uL (0.00-0.03); Imm Gran Pct Auto 0.4 % (0.0-0.4); Lymphocytes Absolute Auto 1.9 X10*3/uL (1.2-4.9); Lymphocytes Percent Auto 22.4 % (20-40); Mean Corpuscular HGB Conc 32.1 g/dl (31.0-35.0); Mean Corpuscular Hemoglobin 27.7 pg (27.0-33.0); Mean Corpuscular Volume 86.4 fL (80.0-98.0); Mean Platelet Volume 10.2 fL (9.4-12.3); Monocytes Absolute Auto 0.5 X10*3/uL (0.1-1.2); Monocytes Percent Auto 5.7 % (2-11); Neutrophils Absolute Auto 5.8 x10*3/uL (2.0-8.3); Neutrophils Percent Auto 69.6 % (45-73); Platelet Count 336 X10*3/uL (160-400); Red Blood Count 4.84 X10*6/uL (4.20-5.50); Red Cell Distribution Width 13.2 % (11.0-16.0); White Blood Count 8.4 X10*3/uL (4.8-10.8)
[2024-07-22 17:49] LABS: Alanine Aminotransferase 20 U/L (0-31); Albumin Level 3.9 g/dL (3.5-5.0); Alkaline Phosphatase 86 U/L (39-117); Anion Gap 10 (12-20); Aspartate Amino Transferase 23 U/L (5-31); Bilirubin Direct 0.1 mg/dL (0.0-0.5); Bilirubin Total 0.3 mg/dL (0.0-1.0); Blood Urea Nitrogen 15 mg/dL (9-16); Calcium 8.8 mg/dL (8.4-10.2); Carbon Dioxide 31 mmol/L (22-29); Chloride 103 mmol/L (96-108); Estimated Glomerular Filt Rate > 60; Glucose Random 95 mg/dL (60-115); Iron 35 mcg/dL (30-160); Lipase 14 U/L (8-78); Percent Iron Saturation 12 % (15-50); Potassium 3.7 mmol/L (3.3-5.1); Sodium 140 mmol/L (135-145); Total Iron Binding Capacity 282 mcg/dL (228-428); Total Protein 6.9 g/dL (6.5-8.0); Unsaturated Iron Binding 247 ug/dL
[2024-07-22 17:49] LABS: Estimated Average Glucose 105 mg/dL; Hemoglobin A1c % 5.3 % (<6.0); Total Hemoglobin (HGBA1C) 3426.8809 umol/L
[2024-07-22 17:49] LABS: Estimated Average Glucose 105 mg/dL; Hemoglobin A1c % 5.3 % (<6.0); Total Hemoglobin (HGBA1C) 3444.0261 umol/L
[2024-07-22 18:09] LABS: Ferritin 42 ng/mL (10-122); HCG Quantitative < 2 mIU/mL; TSH reflex Free T4 3.95 uIU/mL (0.32-4.0); Vitamin D 25-OH Total 18.1 ng/mL (>30)
[2024-07-22 18:15] LABS: Folate 18.2 ng/mL (> or = 4.0); Vitamin B12 372 pg/mL (200-900)
[2024-07-23 08:43] LABS: HIV AB/AG Nonreactive (Nonreactive); HIV Num 1 0.11 S/CO (0.00-0.99); ~HepC Num1 0.14 S/CO (0.00-0.79); ~Hepatitis C Antibody Nonreactive (Nonreactive)
== END 2024-07-22 15:35 | disposition home or self-care (01) ==
LOC: HO.HHCL 15:34
PROVIDERS: Nurse Practitioner Primary Care; Visit Provider Internal Medicine
DX: G47.10 Hypersomnia, unspecified (principal); N92.6 Irregular menstruation, unspecified; R10.84 Generalized abdominal pain; R53.83 Other fatigue; Z13.1 Encounter for screening for diabetes mellitus
CPT/HCPCS: 36415; 80053; 82248; 82306; 82607; 82728; 82746; 83036; 83540; 83690; 84443; 84702; 85025; 86803; 87389

== ENCOUNTER 2024-09-07 11:04 | Emergency (ER) | payer OTHER, SELFPAY ==
--- NOTE | ~2024-09-07 | US_ITS ---
EXAMINATION: US PELVIS TRANSABDOMINAL AND TRANSVAGINAL HISTORY: pelvic pain with vaginal bleeding COMPARISON: There are no prior studies for comparison. TECHNIQUE: Transabdominal and endovaginal real-time 2D anderson-scale ultrasound was performed. Color Doppler was also performed. FINDINGS: Uterus: The uterus is normal in size, measuring 8.5 x 5.3 x 5.3 cm. Myometrium has a normal echotexture. No fibroids are identified. Endometrium: The endometrial stripe in the fundus measures 5 mm in thickness. However, there is focal thickening of the endometrial stripe in the midportion of the uterus measuring up to 8 mm in thickness. Right ovary: The right ovary measures 4.9 x 2.8 x 3.6 cm. There is a 2.2 x 3.2 x 2.2 cm septated cyst. Left ovary: The left ovary is not identified. Pelvic fluid: There is a small amount of free fluid in the cul-de-sac. US/US pelvic and transvaginal IMPRESSION: 1. Focal thickening of the endometrial stripe in the midportion of the uterus. This could represent a polyp. Hysteroscopy should be considered. 2. 2.2 x 3.2 x 2.2 cm septated right ovarian cyst. Follow-up is recommended to document resolution. Electronically signed by: Carlin Rivera MD 09/07/2024 03:38 PM [facility]
[2024-09-07 11:36] VITALS: BP 149/87; PULSE 70; RESP 19; TEMP 36.1; O2SAT 100; BMI 45.0
--- NOTE | 2024-09-07 11:39 | ED_ITS ---
HPI - Abdominal Pain General Chief Complaint: Vaginal Bleeding Stated Complaint: Abdominal Pain Time Seen by Provider: 09/07/24 12:14 History of Present Illness ED Provider: Christiano Ye DO HPI narrative: 34-year-old female with past medical history of hypertension, morbid obesity, status post cholecystectomy presents to the emergency department for vaginal bleeding over the last 18 days. Patient states she had her IUD removed in May 2024. She had a couple of weeks of bleeding at that time but has not had a menstrual periods since. She reports bilateral lower abdominal pain over the last 2 days today. She states she is sexually active and she denies dysuria, urgency, frequency or better on discharge. She states her last sexual contact was a month ago and she did not use contraception. She denies fevers or chills. She states she was going through a pad every 15 minutes which prompted her visit today. The bleeding has been variable, occasionally slowing down. She has had some dizziness no near syncope or syncope. She denies anticoagulation use. She denies trauma. Related Data Home Medications ?Medication ?Instructions ?Recorded ?Confirmed albuterol sulfate 90 mcg/actuation 2 puff inhalation Q4-6H PRN 10/12/23 05/17/24 aerosol inhaler (Ventolin HFA) wheezing cetirizine 10 mg tablet 10 mg PO DAILY 10/12/23 05/17/24 cholecalciferol (vitamin D3) 25 25 mcg PO QAM 10/12/23 05/17/24 mcg (1,000 unit) tablet epinephrine 0.3 mg/0.3 mL IM DIRECTED 10/12/23 05/17/24 injection, auto-injector semaglutide 0.25 mg or 0.5 mg (2 mg subcut 10/12/23 mg/3 mL) subcutaneous pen injector (Ozempic) sumatriptan succinate 50 mg tablet mg PO 10/12/23 05/17/24 tizanidine 2 mg tablet 2 mg PO QD-TID PRN muscle pain 10/12/23 topiramate 25 mg tablet mg PO 10/12/23 valacyclovir 1 gram tablet 1,000 mg PO TID 10/12/23 Previous Rx's ?Medication ?Instructions ?Recorded albuterol sulfate 90 mcg/actuation 1 inh inhalation Q20M PRN 10/28/23 aerosol inhaler shortness of breath or wheezing #8.5 grams benzonatate 100 mg capsule 100 mg PO BID PRN cough #20 caps 10/28/23 dicyclomine 20 mg tablet 20 mg PO TID PRN abdominal pain 01/19/24 #20 tabs famotidine 40 mg tablet (Pepcid) 40 mg PO DAILY #14 tabs 01/19/24 nitrofurantoin 100 mg PO Q12H 5 days #10 caps 01/19/24 monohydrate/macrocrystals 100 mg capsule (Macrobid) azithromycin 250 mg tablet 250 mg PO DAILY 6 days #6 tabs 09/07/24 Allergies Allergy/AdvReac Type Severity Reaction Status Date / Time doxycycline Allergy Dizziness Verified 09/07/24 17:01 Review of Systems Review of Systems Yes all other systems are reviewed and are negative [facility] Past Medical History Medical History Hypertension Surgical History S/P excision of lipoma (10/12/23) Hx of cholecystectomy Hx of foot surgery Family History Family History Maternal Grandmother Liver cancer Social History Social History Alcohol intake: never Patient Tobacco Use Status: Never used Tobacco Advance Directives: No Advance Directives Information Provided: Yes Do you have a plan to hurt others: No Plan Physical Exam ED Vital Signs: Vital Signs - 24 hr 09/07/24 11:36 09/07/24 16:20 Temperature 97 F 98.5 F Pulse Rate 70 65 Respiratory Rate 19 18 Blood Pressure 149/87 H 122/68 Pulse Oximetry 100 99 Oxygen Delivery Method Room Air Room Air BMI result Body Mass Index 45.0 Constitutional: ?Alert, oriented, speaking in full sentences HEENT: ?Normocephalic, atraumatic. ?Moist mucous membranes Eyes: ?PERRL, EOMI Neck: ?Supple, nontender Chest: ?No chest wall tenderness Respiratory: ?Lungs clear to auscultation, no increased work of breathing Cardio: ?Regular rate and rhythm, no murmur, 2+ radial and DP pulses symmetrically GI: ?Soft, nondistended, mild tenderness to palpation diffusely but greatest in the lower abdomen. : Exam performed with retail event and sales assistant, Martha, bertrand. There is a small amount of blood noted in the vaginal vault, cleared with 3 cotton swabs. There is a small amount of mucus that appears yellow and thick from the cervical os. No vaginal wall lacerations. Bimanual exam shows no mass, some bilateral adnexal tenderness as well as cervical motion tenderness. Back: ?Normal range of motion, nontender Skin: ?No rash, no lesions Neuro: ?Alert and oriented to person, place and time, moves all 4 extremities, no focal deficits Extremities: ?No swelling or tenderness, full range of motion Psych: ?Calm, alert and cooperative, appropriate behavior Course Course Course Narrative: This is an RME: Additional HPI, ROS, PE not included below will be deferred to primary provider. RME assessment and note performed by: Nadja Gilliland PA-C This is a 34-year-old female who presents emergency department with complaints of vaginal bleeding x2 weeks. Patient states that she had her IUD removed in May. She bled for 2 weeks after the removal in May, has not had a menstrual period since. She states that over the last 2 days she has had lower abdominal pain. She was sexually active. No urinary symptoms. She states that she was going through a pad every 15 minutes. She does endorse some dizziness. Denies history of similar symptoms in the past. Plan: Labs, pelvic examination plus or minus diagnostic imaging. Medical Decision Making Medical Decision Making MDM Narrative: Patient presenting with vaginal bleeding and lower abdominal pain. Differential diagnosis includes ectopic , vaginal bleeding in the setting of the menstrual cycle without IUD, infection or mass. Patient noted to have mild hypertension which is expected given her history, otherwise unremarkable vital signs. Her hemoglobin today is 12.8 which is similar to priors. Unremarkable chemistry with negative hCG. Equivocal urinalysis for cystitis but no symptoms to suggest so. Exam shows only a small amount of blood. The patient does have a little bit of discharge and will be tested for sexually transmitted infection versus bacterial vaginosis. We will also further evaluate with pelvic ultrasound given her pain. No recurrent vaginal bleeding. We will treat empirically for PID. Ultrasound shows septal ovarian cysts and possible polyp. The patient has close follow up with OBGYN which has been instructed. She has an ultrasound again tomorrow. Return precautions provided for any worsening condition including persistent and profuse vaginal bleeding. Patient reported that she has significant dizziness to doxycycline in the past and does not want to take it. I discussed with her that this medication has much better coverage for treatment for pelvic inflammatory disorder. She instead would prefer to take azithromycin. Prior to discharge, the Trichomonas prep returns negative. We will discontinue metronidazole. Admission/Observation Consideration of admission/observation: Escalation of care including admission/observation considered Lab Data 09/07/24 12:24 09/07/24 12:24 Labs: Lab Results 09/07/24 09/07/24 09/07/24 Range/Units 12:24 13:02 16:11 WBC 7.5 (4.8-10.8) X10*3/uL RBC 4.60 (4.20-5.50) X10*6/uL Hgb 12.8 (12.0-16.0) g/dl Hct 40.3 (37.0-47.0) % MCV 87.6 (80.0-98.0) fL MCH 27.8 (27.0-33.0) pg MCHC 31.8 (31.0-35.0) g/dl RDW 13.1 (11.0-16.0) % Plt Count 276 (160-400) X10*3/uL MPV 9.9 (9.4-12.3) fL Immature Gran % (Auto) 0.3 (0.0-0.4) % Neut % (Auto) 66.2 (45-73) % Lymph % (Auto) 24.7 (20-40) % Power % (Auto) 6.0 (2-11) % Eos % (Auto) 2.0 (0-4) % Baso % (Auto) 0.8 (0-2) % Lymph # (Auto) 1.8 (1.2-4.9) X10*3/uL Power # (Auto) 0.5 (0.1-1.2) X10*3/uL Eos # (Auto) 0.2 (0.0-0.4) X10*3/uL Baso # (Auto) 0.1 (0.0-0.2) X10*3/uL Abs Immat Gran (auto) 0.02 (0.00-0.03) X10*3/uL Absolute Neuts (auto) 4.9 (2.0-8.3) x10*3/uL Absolute Nucleated RBC 0.000 (0.0-0.012) X10*3/uL Nucleated RBC % (auto) 0.0 (0.0-0.2) /100WBC PT 12.4 (10.9-12.4) SEC INR 1.1 (0.9-1.1) Sodium 137 (135-145) mmol/L Potassium 4.0 (3.3-5.1) mmol/L Chloride 107 (96-108) mmol/L Carbon Dioxide 27 (22-29) mmol/L Anion Gap 7 L (12-20) BUN 13 (9-16) mg/dL Creatinine 0.73 (0.5-1.4) mg/dL Estim Creat Clear Calc 150.5 Estimated GFR > 60 Random Glucose 89 (60-115) mg/dL Calcium 8.1 L D (8.4-10.2) mg/dL Magnesium 2.0 (1.6-2.6) mg/dL Total Bilirubin 0.3 (0.0-1.0) mg/dL Direct Bilirubin 0.1 (0.0-0.5) mg/dL AST 20 (5-31) U/L ALT 16 (0-31) U/L Alkaline Phosphatase 81 (39-117) U/L Total Protein 6.9 (6.5-8.0) g/dL Albumin 3.7 (3.5-5.0) g/dL Beta HCG, Quant < 2 mIU/mL Urine Color Red A Urine Appearance Turbid Urine pH 8.0 (5.0-9.0) Ur Specific Willits 1.025 (1.005-1.025) Urine Protein 30 (1+) H (Neg-Trace) mg/dL Urine Glucose (UA) Negative (Negative) mg/dL Urine Ketones Negative (Negative) mg/dL Urine Blood Large (3+) H (Negative) Urine Nitrite Negative (Negative) Ur Leukocyte Esterase Small (1+) H (Negative) Urine RBC >20 H (0-2) /HPF Urine WBC 11-20 H (0-5) /HPF Ur Squamous Epith Cells 0-2 (0-2) /HPF Urine Bacteria Trace (None Seen) Hyaline Casts 0-2 (0-2) /LPF T. vaginalis Amp RNA Cancelled Blood Type A Positive Antibody Screen NEGATIVE Independent Interpretation I performed an independent interpretation of an: EKG Interpretation: Normal sinus rhythm at 63 beats per minute, normal axis, unremarkable intervals, no diagnostic ST or T-wave abnormalities. Medications Administered Discontinued Medications Generic Name Dose Route Start Last Admin Trade Name Yelena PRN Reason Stop Dose Admin Doxycycline Monohydrate 100 mg 09/07/24 16:30 09/07/24 17:03 Doxycycline Monohydrate 100 Mg Capsule PO 09/07/24 16:31 Not Given ONCE ONE Ketorolac Tromethamine 15 mg 09/07/24 13:49 09/07/24 13:57 Ketorolac Tromethamine 15 Mg/Ml Vial IVPUSH 09/07/24 13:50 15 mg ONCE ONE Administration Discharge Plan Discharge Clinical Impression: Vaginal bleeding, Vaginal discharge Patient Disposition: Home, Self-Care Instructions: Menorrhagia (ED), Vaginal Discharge (ED) Additional Instructions: You were evaluated for vaginal bleeding. This seemed to slow down and your hemoglobin was close to your normal value at 12.8 today. Your test was negative. Based on the discharge noted on speculum exam and abdominal pain, we will treat you for possible pelvic inflammatory disorder. Your swabs are pending and if the results are positive or negative, you will receive further instructions to either continue the antibiotics were stopped the antibiotics. Until you finish the complete course of antibiotics or told that you do not have infection, please avoid sexual intercourse. If you are positive for infection it is very important that your partner is treated to help prevent recurrent infections as well as treat your partner. Return with any persistent vaginal bleeding, especially if your soaking through a pad every hour for at least 4 hours or if you develop fevers or any other acute concerns. Follow-up with your webfocus developer due to possible polyp that could cause a bleeding as well as a septated cyst which can be further evaluated with repeat ultrasound. Please take ibuprofen 600 mg every 6 hours with food which will help with the pain and possibly with the bleeding. Ultrasound IMPRESSION: 1. Focal thickening of the endometrial stripe in the midportion of the uterus. This could represent a polyp. Hysteroscopy should be considered. 2. 2.2 x 3.2 x 2.2 cm septated right ovarian cyst. Follow-up is recommended to document resolution. Prescriptions: New azithromycin 250 mg tablet 250 mg PO DAILY 6 Days Qty: 6 0RF Rx Instructions: start on day 2 of therapy No Action benzonatate 100 mg capsule 100 mg PO BID PRN (Reason: cough) Qty: 20 0RF albuterol sulfate 90 mcg/actuation HFA aerosol inhaler 1 inh inhalation Q20M PRN (Reason: shortness of breath or wheezing) Qty: 8.5 0RF nitrofurantoin monohyd/m-cryst [Macrobid] 100 mg capsule 100 mg PO Q12H 5 Days Qty: 10 0RF Rx Instructions: must administer with a meal/food dicyclomine 20 mg tablet 20 mg PO TID PRN (Reason: abdominal pain) Qty: 20 0RF famotidine [Pepcid] 40 mg tablet 40 mg PO DAILY Qty: 14 0RF tizanidine 2 mg tablet 2 mg PO QD-TID PRN (Reason: muscle pain) cetirizine 10 mg tablet 10 mg PO DAILY valacyclovir 1 gram tablet 1,000 mg PO TID sumatriptan succinate 50 mg tablet PO topiramate 25 mg tablet PO epinephrine 0.3 mg/0.3 mL auto-injector IM DIRECTED albuterol sulfate [Ventolin HFA] 90 mcg/actuation HFA aerosol inhaler 2 puff INHALATION Q4-6H PRN (Reason: wheezing) cholecalciferol (vitamin D3) 25 mcg (1,000 unit) tablet 25 mcg PO QAM Ozempic 0.25 mg or 0.5 mg (2 mg/3 mL) pen injector subcut Stand Alone Forms: Work/School Release Print Language: Cypriot
--- NOTE | 2024-09-07 11:40 | ECG_ITS ---
Test Reason : DIZZY Blood Pressure : */* mmHG Vent. Rate : 63 BPM Atrial Rate : 63 BPM P-R Int : 116 ms QRS Dur : 82 ms QT Int : 418 ms P-R-T Axes : 48 49 28 degrees QTcB Int : 427 ms Normal sinus rhythm Normal ECG When compared with ECG of 28-Oct-2023 07:02, T wave amplitude has increased in Anterior leads Referred By: Nadja Gilliland Electronically Signed By: JANIYA HOLCOMB
[2024-09-07 12:28] LABS: MANUAL DIFF FLAG NO
[2024-09-07 12:30] LABS: Basophils Absolute Auto 0.1 X10*3/uL (0.0-0.2); Basophils Percent Auto 0.8 % (0-2); Eosinophils Absolute Auto 0.2 X10*3/uL (0.0-0.4); Hematocrit 40.3 % (37.0-47.0); Hemoglobin 12.8 g/dl (12.0-16.0); Imm Gran Abs Auto 0.02 X10*3/uL (0.00-0.03); Imm Gran Pct Auto 0.3 % (0.0-0.4); Lymphocytes Absolute Auto 1.8 X10*3/uL (1.2-4.9); Lymphocytes Percent Auto 24.7 % (20-40); Mean Corpuscular HGB Conc 31.8 g/dl (31.0-35.0); Mean Corpuscular Hemoglobin 27.8 pg (27.0-33.0); Mean Corpuscular Volume 87.6 fL (80.0-98.0); Mean Platelet Volume 9.9 fL (9.4-12.3); Monocytes Absolute Auto 0.5 X10*3/uL (0.1-1.2); Neutrophils Absolute Auto 4.9 x10*3/uL (2.0-8.3); Neutrophils Percent Auto 66.2 % (45-73); Platelet Count 276 X10*3/uL (160-400); Red Cell Distribution Width 13.1 % (11.0-16.0); White Blood Count 7.5 X10*3/uL (4.8-10.8)
[2024-09-07 12:38] LABS: INTERNATIONAL NORM RATIO 1.1 (0.9-1.1); Prothrombin Time 12.4 SEC (10.9-12.4)
[2024-09-07 12:52] LABS: Alanine Aminotransferase 16 U/L (0-31); Albumin Level 3.7 g/dL (3.5-5.0); Alkaline Phosphatase 81 U/L (39-117); Anion Gap 7 (12-20); Aspartate Amino Transferase 20 U/L (5-31); Bilirubin Direct 0.1 mg/dL (0.0-0.5); Bilirubin Total 0.3 mg/dL (0.0-1.0); Blood Urea Nitrogen 13 mg/dL (9-16); Calcium 8.1 mg/dL (8.4-10.2); Carbon Dioxide 27 mmol/L (22-29); Chloride 107 mmol/L (96-108); Creatinine Clr Calc Pharmacy 150.5; Estimated Glomerular Filt Rate > 60; Glucose Random 89 mg/dL (60-115); HCG Quantitative < 2 mIU/mL; Sodium 137 mmol/L (135-145); Total Protein 6.9 g/dL (6.5-8.0)
[2024-09-07 13:23] LABS: Appearance Urine Turbid; Color Urine Red; Glucose Urine UA Negative (Negative); Leukocyte Esterase Urine Small (1+) (Negative); Nitrite Urine Negative (Negative); Specific Gravity - Urine 1.025 (1.005-1.025); UMIC TRIGGER UACC YES; Urine Blood Large (3+) (Negative); Urine Ketones Negative (Negative); Urine Protein 30 (1+) mg/dL (Neg-Trace)
[2024-09-07 13:25] LABS: Bacteria Urine Trace (None Seen); Hyaline Casts Urine 0-2 /LPF (0-2); RBC Urine >20 /HPF (0-2); Squamous Epithelial Cell Urine 0-2 /HPF (0-2); UACC Culture Trigger YES
[2024-09-07] MEDS: Ketorolac Tromethamine 15 MG/ML VIAL IVPUSH (13:57)
--- OUTSIDE RECORDS SUMMARY | 2024-09-07 14:40 | XMS_ITS | Clinical Summary ---
Author Organization [facility] ity Address [address] [place] [address] Care Team Providers Care Painter Ordnance Name Role Phone Unavailable Primary Care Provider Unavailabl e Social History Tobacco Use Types Packs/Day Years Used Date Smoking Tobacco: Never Assessed Sex and Gender Information Value Date Recorded Sex Assigned at Not on file Gender Identity Not on file Sexual Orientation Not on file Plan of Treatment Health Maintenance Due Date Last Done Comments DTaP,Tdap,and Td Vaccines (6 - Tdap) 2003 05/04/1996, 05/20/1995, 05/20/1995, Additional history exists Cervical Cancer Screening: Pap Smear 2013 Depression Screening 07/13/2022 HIV Screening 07/13/2022 Hepatitis C Screening 07/13/2022 Social Influencers of Health Screening 07/13/2022 COVID-19 Vaccine ( season) 2024 Influenza Vaccine (#1) 2024 Hepatitis B Vaccines Completed 1992, 1992, 1992 HIB Vaccines Completed 05/20/1995, 08/1992, 1992 IPV Vaccines Completed 05/04/1996, 05/10, 11/11/1993, Additional history exists MMR Vaccines Completed 02/12/1998, 05/20/1995 HPV Vaccines Aged Out No longer eligi ble based on patient's age to complete this topic Hepatitis A Vaccines Aged Out No long er eligible based on patient's age to complete this topic Meningococcal ACWY Vaccine Aged Out N o longer eligible based on patient's age to complete this topic Pneumococcal Vaccine: Pediatrics (0 to 5 Years) and At-Risk Patients (6 to 64 Years) Aged Out No longer eligible based on patient's age to complete this topic RSV Immunization Patients Under 20 months Aged Out No longer eligible based on patient's age to complete this topic Varicella Vaccines Aged Out No longer eligible based on patient's age to complete this topic
--- OUTSIDE RECORDS SUMMARY | 2024-09-07 14:40 | XMS_ITS | Encounter Summary ---
Author Organization [employer] Address [address] [place] [address] [address] [place] [address] Care Team Providers Care Concrete Mixer Truck Driver Name Role Phone Disha Lackey Primary Care Provider [phone] Reason for Visit * Reason Onset Date Comments Results 01/07/2024 Encounter Details Date Type Department Care Team ([facility] st Contact Info) Description 01/07/2024 Telephone [facility] [address], [place] [phone] Disha Lackey ANP [address] [place], [place] [phone] Results Social History Tobacco Use Types Packs/Day Years Used Date Smoking Tobacco: Never Passive Smoke Exposure: Never Smokeless Tobacco: Never Alcohol Use Standard Drinks/Week Comments Never 0 (1 standard drink = 0.6 oz pur e alcohol) Depression Answer Date Recorded Patient Health Questionnaire-9 Score 0 01/09/2023 Housing Stability Answer Date Recorded What is your housing situation today? I have katecory steiner 06/08/[address] you li ve. Do you have problems with any of the following? None of the above 06/08/2023 Food Insecurity Answer Date Recorded Within the past 12 months, y ou worried that your food would run out before you got money to buy more: Never True 06/08/2023 Within the past 12 months,th e food you bought just didn't last and you didn't have enough money to get more: Never True Transportation Answer Date Recorded In the past 12 months, has l ack of transportation kept you from medical appts, meetings, work or from getting things needed for daily living? No 06/08/2023 Utilities Answer Date Recorded In the past 12 months, has t he electric, gas, oil or water company threatened to shut off services in your home? No 06/08/2023 Depression Answer Date Recorded Patient Health Questionnaire-2 Score 0 01/09/2023 Comments Unknown Sex and Gender Information Value Date Recorded Sex Assigned at Female 11/06/2022 10:17 AM EDT Legal Sex Female 10:14 AM EDT Gender Identity Female 11/06/2022 10:17 AM EDT Sexual Orientation Choose not to disclose 2022 10:17 AM EDT documented as of this encounter Miscellaneous Notes * Telephone Encounter - Maurizio Shields RN - 01/07/2024 10:28 AM EDT Please review and advise for below request. Result is in pt.'s chart. * Telephone Encounter - Tammy Antony - 01/07/2024 9:38 AM EDT TC from pt requesting call back regarding Results. Type of results: culture Date when done: 01/04 Facility: [facility] Please contact pt at [phone] documented in this encounter Plan of Treatment Upcoming Encounters Date Type Department Care Team (Late st Contact Info) Description 09/08/2024 11:30 AM EST Office Visit [facility] [address] [place] [phone] Disha Lackey ANP [address] [place] [address] documented as of this encounter Visit Diagnoses Not on filedocumented in this encounter Additional Health Concerns Assessment Noted Time PHQ-9 Depression Total Score: 0 01/10/20 1:11 PM EDT documented as of this encounter Care Teams Concrete Mixer Truck Driver Relationship Specialty Start Date End Date Disha Lackey ANP [address] [place] [phone] PCP - General Family Medicine 01/09/23 documented as of this encounter
--- OUTSIDE RECORDS SUMMARY | 2024-09-07 14:42 | XMS_ITS | Encounter Summary ---
Author Organization [employer] Address [address] [place] [address] [address] [place] [address] Care Team Providers Care Relay Operator Name Role Phone Disha Lackey Primary Care Provider [phone] Encounter Details Date Type Department Care Team (Late st Contact Info) Description 09/07/2024 Orders Only GENERIC EXTERNAL DATA DEPARTMENT Provider, Generic External Data Social History Tobacco Use Types Packs/Day Years Used Date Smoking Tobacco: Never Passive Smoke Exposure: Never Smokeless Tobacco: Never Alcohol Use Standard Drinks/Week Comments Never 0 (1 standard drink = 0.6 oz pur e alcohol) Depression Answer Date Recorded Patient Health Questionnaire-9 Score 0 01/09/2023 Housing Stability Answer Date Recorded What is your housing situation today? I have kate steiner 06/08/[address] you [...] Recorded Patient Health Questionnaire-2 Score 0 01/09/2023 Internet Access Answer Date Recorded Internet Access Q1 Yes 04/11/2024 Internet Access Q2 Not on file 04/11/2024 Comments Unknown Sex and Gender Information Value Date Recorded Sex Assigned at Female 11/06/2022 10:17 AM EDT Legal Sex Female 10:14 AM EDT Gender Identity Female 11/06/2022 10:17 AM EDT Sexual Orientation Choose not to disclose 2022 10:17 AM EDT documented as of this encounter Plan of Treatment Upcoming Encounters Date Type Department Care Team (Late st Contact Info) Description 09/08/2024 11:30 AM EST Office Visit [facility] [address] [place], [place] [phone] Disha Lackey, ANP [address] [place] [address] documented as of this encounter Procedures Procedure Name Priority Date/Time Associated Diagnosis Comments URINALYSIS, COMPLETE, WITH REFLEX TO CULTURE Routine 09/07/2024 1:02 PM EST CBC WITH AUTO DIFFERENTIAL Routine 09/07/2024 12:24 PM EST PROTHROMBIN TIME-INR Routine 09/07/2024 12:24 PM EST TYPE AND SCREEN Routine 09/07/2024 12:24 PM EST HCG, TOTAL, QN Routine 09/07/2024 12:24 PM EST MAGNESIUM Routine 09/07/2024 12:24 PM EST HEPATIC FUNCTION PANEL Routine 09/07/2024 12:24 PM EST BASIC METABOLIC PANEL Routine 09/07/2024 12:24 PM EST documented in this encounter Results * (ABNORMAL) Urinalysis, Complete, with Reflex to Culture (09/07/2024 1:02 PM EST) Color Urine Red(A) [facility] Appearance Urine Turbid [facility] PH 8.0 5.0 - 9.0 [facility] Glucose Urine UA Negative Negative mg/dL [facility] Urine Blood Large (3+)(A) Negative [facility] Specific [place] - Urine 1.025 1.005 - 1.025 [facility] Urine Protein 30 (1+)(A) Neg-Trace mg/dL [facility] Urine Ketones Negative Negative mg/dL [facility] Nitrite Urine Negative Negative [facility] Leukocyte Esterase Urine Small (1+)(A) Negative [facility] RBC Urine >20(A) 0 - 2 /HPF [facility] Urine WBC 11-20(A) 0 - 5 /HPF [facility] Urine Squamous Epithelial Cell 0-2 0 - 2 /HPF [facility] Urine Bacteria Trace None Seen [facility] Hyaline Casts, Urine 0-2 0 - 2 /LPF [facility] 09/07/2024 1:02 PM EST 09/07/2024 1:17 PM EST Narrative [facility] - 09/07/2024 1:25 PM EST Urine, Clean Catch Generic External Data Provider LAB URINE ORDERAB LES Final Result Performing Organization Address [facility] de Phone Number [facility] [address] [place] [phone] * Type and screen (09/07/2024 12:24 PM EST) [facility] Blood Type AP [facility] Comment:RH IMMUNE GLOBULIN I NDICATED: NO Antibody Screen NEGATIVE [facility] 09/07/2024 12:2 4 PM EST 09/07/2024 12:29 PM EST Narrative [facility] - 09/07/2024 1:14 PM EST n Generic External Data Provider LAB BLOOD BANK TE ST ORDERABLES Final Result Performing Organization Address [facility] Co de Phone Number [facility] [address] [place] [address] [phone] * hCG, Total, Quantitative (09/07/2024 12:24 PM EST) [facility] HCG Quantitative <2 mIU/mL [facility] Comment:Weeks post LMP Appro ximate hCG(Last Menstrual Period) Range (mIU/ml)3 - 4 weeks 9 - 1304 - 5 weeks 75 - 2,6005 - 6 weeks 850 - 20,8006 - 7 weeks 4000 - 100,2007 - 12 weeks 11,500 - 289,71739 - 16 weeks 18,300 - 137,34406 - 29 weeks (2nd trimester) 1,400 - 53,43121 - 41 weeks (3rd trimester) 940 - 60,000The Vargas B- hCG assay is used for the early detection ofpregnancy; it cannot be used to diagnose any conditionunrelated to . If a B-hCG level is not supportedby the clinical evidence, results should be confirmed by analternative method (qualitative urine hCG, for example). 09/07/2024 12:2 4 PM EST 09/07/2024 12:27 PM EST Generic External Data Provider LAB BLOOD ORDERAB LES Final Result Performing Organization Address [facility]/ZIP Co de Phone Number [facility] [address] [place] [phone] * Magnesium (09/07/2024 12:24 PM EST) [facility] Magnesium 2.0 1.6 - 2.6 mg/dL [facility] 09/07/2024 12:2 4 PM EST 09/07/2024 12:27 PM EST [employer] External Data Provider LAB BLOOD ORDERAB LES Final Result Performing Organization Address [facility] Co de Phone Number [facility] [address] [place] [phone] * (ABNORMAL) Basic Metabolic Panel (09/07/2024 12:24 PM EST) [facility] Sodium 137 135 - 145 mmol/L [facility] Potassium 4.0 3.3 - 5.1 mmol/L [facility] Chloride 107 96 - 108 mmol/L [facility] Carbon Dioxide 27 22 - 29 mmol/L [facility] Anion Gap 7(L) 12 - 20 [facility] Urea Nitrogen (BUN) 13 9 - 16 mg/dL [facility] Creatinine, Serum 0.73 0.5 - 1.4 mg/dL [facility] Creatinine Clr Calc Pharmacy 150.5 [facility] Comment:Provided height and weight: 167.64 cm,126.552 kg.eGFR (calculated from the MDRD study equation) and eCrCl(calculated from the Cockcroft-Gault equation) are based ondifferent parameters and may not yield comparable results.If eCrCl result is absurd, please check patient'sheight/weight. Estimated Glomerular Filt Rate >60 [facility] Comment:Chronic Kidney Disea se: Estimated GFR < 60 mL/min/[id number] Kidney Disease: Estimated GFR < 15 mL/min/1.73m2 Glucose 89 60 - 115 mg/dL [facility] Calcium 8.1(L) 8.4 - 10.2 mg/dL [facility] 09/07/2024 12:2 4 PM EST 09/07/2024 12:27 PM EST us Generic External Data Provider LAB BLOOD ORDERAB LES Final Result [facility] [address] [place] [phone] * Hepatic Function Panel (09/07/2024 12:24 PM EST) Bilirubin, Total 0.3 0.0 - 1.0 mg/dL [facility] Bilirubin, Direct 0.1 0.0 - 0.5 mg/dL [facility] Aspartate Amino Transferase 20 5 - 31 U/L [facility] Alanine Aminotransferase 16 0 - 31 U/L [facility] Total Protein 6.9 6.5 - 8.0 g/dL [facility] Albumin Level 3.7 3.5 - 5.0 g/dL [facility] Alkaline Phosphatase 81 39 - 117 U/L [facility] 09/07/2024 12:2 4 PM EST 09/07/2024 12:27 PM EST Generic External Data Provider LAB BLOOD ORDERAB LES Final Result Performing Organization Address [facility] Co de Phone Number [facility] [address] [place] [phone] * Prothrombin Time-INR (09/07/2024 12:24 PM EST) Prothrombin Time 12.4 10.9 - 12.4 SEC [facility] INTERNATIONAL NORM RATIO 1.1 0.9 - 1.1 [facility] Comment:INTERNATIONAL NORMAL IZED RATIO (INR) REFERENCE RANGES Reference RangeFor patients not on anticoagulant therapy: 0.9 - 1.1INR ranges for oral anticoagulanttherapy:For prevention and treatment of venous thrombosis and pulmonary embolism: 2.0 - 3.0For acute myocardial infarction with aspirin therapy: 2.0 - 3.0For acute myocardial infarction without aspirin therapy: 3.0 - 4.0For patients with mechanical prosthetic heart valves: 2.5 - 3.5 09/07/2024 12:2 4 PM EST 09/07/2024 12:27 PM EST us Generic External Data Provider LAB BLOOD ORDERAB LES Final Result Performing Organization Address City/[facility] Co de Phone Number [facility] [address] [place] [address] [phone] * CBC auto differential (09/07/2024 12:24 PM EST) White Blood Count 7.5 4.8 - 10.8 X10*3/uL [facility] Red Blood Count 4.60 4.20 - 5.50 X10*6/uL [facility] Hemoglobin 12.8 12.0 - 16.0 g/dl [facility] Hematocrit 40.3 37.0 - 47.0 % [facility] Mean Corpuscular Volume 87.6 80.0 - 98.0 fL [facility] Mean Corpuscular Hemoglobin 27.8 27.0 - 33.0 pg [facility] Mean Corpuscular HGB Conc 31.8 31.0 - 35.0 g/dl [facility] Red Cell Distribution Width 13.1 11.0 - 16.0 % [facility] Platelet Count 276 160 - 400 X10*3/uL [facility] Mean Platelet Volume 9.9 9.4 - 12.3 fL [facility] Neutrophils Percent Auto 66.2 45 - 73 % [facility] Imm Gran Pct Auto 0.3 0.0 - 0.4 % [facility] Lymphocytes Percent Auto 24.7 20 - 40 % [facility] Monocytes Percent Auto 6.0 2 - 11 % [facility] Eosinophils Percent Auto 2.0 0 - 4 % [facility] Basophils Percent Auto 0.8 0 - 2 % [facility] NRBC Pct Auto 0.0 0.0 - 0.2 /100WBC [facility] Neutrophils Absolute Auto 4.9 2.0 - 8.3 x10*3/uL [facility] Imm Gran Abs Auto 0.02 0.00 - 0.03 X10*3/uL [facility] Lymphocytes Absolute Auto 1.8 1.2 - 4.9 X10*3/uL [facility] Monocytes Absolute Auto 0.5 0.1 - 1.2 X10*3/uL [facility] Eosinophils Absolute Auto 0.2 0.0 - 0.4 X10*3/uL [facility] Basophils Absolute Auto 0.1 0.0 - 0.2 X10*3/uL [facility] NRBC Abs Auto 0.000 0.0 - 0.012 X10*3/uL [facility] 09/07/2024 12:2 4 PM EST 09/07/2024 12:27 PM EST us Generic External Data Provider LAB BLOOD ORDERAB LES Final Result [facility] [address] [place] [phone] documented in this encounter Visit Diagnoses Not on filedocumented in this encounter Additional Health Concerns Assessment Noted Time PHQ-9 Depression Total Score: 0 01/10/20 23 1:11 PM EDT documented as of this encounter Care Teams Relay Operator Relationship Specialty Start Date End Date Disha Lackey ANP [address] [place] [address] PCP - General Family Medicine 01/09/23 documented as of this encounter
--- OUTSIDE RECORDS SUMMARY | 2024-09-07 14:42 | XMS_ITS | Clinical Summary ---
Author Organization [employer] Address [address] [place] [address] [address] [place] [address] Care Team Providers Care Senior Javascript Developer Name Role Phone Disha Lackey Primary Care Provider [phone] Allergies Active Allergy Reactions Criticality Noted Date Comments [place] Oil Anaphylaxis High 11/06/2022 Doxycycline 11/06/2022 Other reaction(s): Gastrointestinal upset Potato 11/06/2022 Other reaction(s): Hives Medications EPINEPHrine (Epipen) 0.3 MG/0.3ML injection syringeIndications :Food allergy Inject 0.3 mL (0.3 mg) as directed 1 (one) time for 1 dose. use as directed for allergic reaction and then call 911 2 each 1 01/10/20 23 Active semaglutide (Ozempic) 2 MG/1.5ML solution pen-injectorIndica tions:BMI 40.0-44.9, adult ([facility]),Hidraden itis suppurativa,Class 3 severe obesity with body mass index (BMI) of 45.0 to 49.9 in adult, unspecified obesity type, unspecified whether serious comorbidity present ([facility]) Inject 0.25 mg under the skin 1 (one) time per week. For 4 weeks, then increase dose to 0.5mg once weekly 1 each 12 04/30/20 23 Active SUMAtriptan (Imitrex) 50 MG tabletIndications: Migraine without aura and without status migrainosus, not intractable Take 1 tablet (50 mg) by mouth 1 (one) time if needed for migraine. May repeat dose once in 2 hours if no relief. Do not exceed 2 doses in 24 hours. 9 tablet 08/13/19 24 Active triamcinolone (Kenalog) 0.1 % creamIndications:E czema, unspecified type Apply topically if needed in the morning and at bedtime for rash. 30 g 09/18/19 24 Active losartan (Cozaar) 25 MG tabletIndications: Primary hypertension Take 1 tablet (25 mg) by mouth in the morning. 90 tablet 1 09/18/19 24 Active ipratropium-albute rol (Duo-Neb) 0.5-2.5 mg/3 mL nebulizer solutionIndication s:Mild persistent asthma with exacerbation Take 3 mL by nebulization every 6 (six) hours if needed for wheezing. 360 mL 11/03/19 24 Active albuterol 108 (90 Base) MCG/ACT inhalerIndications :Mild asthma without complication, unspecified whether persistent 2 puffs as needed every 4-6 hrs for wheezing 18 g 1 11/24/19 24 Active cetirizine (ZyrTEC) 10 MG tabletIndications: Non-seasonal allergic rhinitis due to other allergic trigger Take 1 tablet (10 mg) by mouth Once per day. 90 tablet 1 12/11/19 24 Active cromolyn (Opticrom) 4 % ophthalmic solutionIndication s:Allergic conjunctivitis of both eyes 1-2 drops into each eye 4-6 times daily as needed for allergies 10 mL 12/11/19 24 Active albuterol (2.5 MG/3ML) 0.083% nebulizer solutionIndication s:Moderate persistent asthma with acute exacerbation Take 3 mL (2.5 mg) by nebulization every 6 (six) hours if needed for wheezing or shortness of breath. 75 mL 1 12/11/19 24 025 Active Nebulizer misc 1 Device every 6 (six) hours if needed. The patient was prescribed a nebulizer from the [facility] vendor [employer] on 12/11/23. Instructions on how to use the nebulizer were provided. Active fluticasone furoate (Arnuity Ellipta) 100 MCG/ACT inhalerIndications :Asthma Inhale 1 PUFF EVERY DAY RINSE MOUTH AFTER USING. 30 each 2 12/21/19 24 Active omeprazole OTC (PriLOSEC OTC) 20 MG EC tablet Take 1 tablet (20 mg) by mouth before breakfast. Do not crush, chew, or split. 30 tablet 01/19/20 24 025 Active cholecalciferol (Vitamin D-3) 25 MCG (1000 UT) tablet Take 1 tablet (25 mcg) by mouth Once per day. 30 tablet 11 01/19/20 24 Active cyclobenzaprine (Flexeril) 5 MG tablet TAKE 1 TABLET BY MOUTH 3 TIMES A DAY NEEDED FOR MUSCLE SPASM 12/26/19 24 Active dicyclomine (Bentyl) 20 MG tablet TAKE 1 TAB (20 MG) ORALLY 3 TIMES A DAY NEEDED FOR ABDOMINAL PAIN 01/19/20 24 Active famotidine (Pepcid) 40 MG tablet Take 40 mg by mouth Once per day. 01/19/20 24 Active nitrofurantoin, macrocrystal-monoh ydrate, (Macrobid) 100 MG capsule TAKE 1 CAPSULE BY MOUTH EVERY 12 HOURS FOR 5 DAYS MUST ADMINISTER WITH A MEAL/FOOD 01/19/20 24 Active omeprazole (PriLOSEC) [address] capsule TAKE 1 CAPSULE BY MOUTH EVERY DAY , DO NOT BREAK, CRUSH, DISSOLVE OR CHEW 01/19/20 24 Active COVID-19 Antigen Test kit 1 each by In Vitro route if needed each day (COVID symptoms). 4 kit 3 03/23/20 24 Active Nirmatrelvir&Riton avir 300/100 (Paxlovid, 300/100,) 20 x 150 MG & 10 x 100MG tablet therapy packIndications:Ac rosanne COVID-19 Take 1 Dose by mouth 2 times daily. 30 each 03/23/20 24 Active ferrous sulfate (Fe Tabs) 325 (65 Fe) MG EC tabletIndications: Iron deficiency Take 1 tablet (325 mg) by mouth every other day. Do not crush, chew, or split. 15 tablet 2 07/27/20 24 025 Active cholecalciferol (Vitamin D-3) 25 MCG (1000 UT) tabletIndications: Vitamin D deficiency Take 1 tablet (25 mcg) by mouth Once per day. 60 tablet 1 07/27/20 24 Active Blood Pressure kit 1 each 2 times daily. 1 kit 09/01/19 24 025 Active Problems Problem Noted Date Diagnosed Date Hypersomnia 07/22/2024 Assessment & Plan (07/22/2024 4:38 PM EST): Labs ordered patient will be contacted with results F/u with PCP Loud snoring 07/22/2024 Missed period 07/22/2024 Acute COVID-19 03/23/2024 Assessment & Plan (03/23/2024 3:26 PM EDT): Paxlovid (normal kidney function) Additional COVID tests ordered Tylenol/Motrin for pain and fever Letter for work to cover next three days, return to work with a mask x 5 days on 03/28/24 Alarm symptoms for chest pain, SOB, no improvement with Paxlovid to ER Mild persistent asthma with exacerbation 024 Assessment & Plan (11/08/2023 11:52 AM EDT): Pt with persistent nocturnal wheeze post viral uri and subsequent asthma exacerbation Reassuring pulmonary exam today Add inahled steroid Medication Indications, side effects and duration of therapy reviewed, pt aware to call clinic for worsening symptoms or failure to resolve Dyspepsia 10/30/2023 Headache 10/30/2023 Hypertension 10/30/2023 Lipoma 10/30/2023 Morbid obesity with BMI of 45.0-49.9, adult 10/09 Severe obesity 10/30/2023 Elevated blood pressure read ing in office without diagnosis of hypertension 09/18/2023 Cholelithiases 01/09/2023 Overview (01/09/2023): [facility] w/o contrast 05/27/14; no acute process. bilat cystic adenexal mass, similar to 2013 study/ s/p cholecystectomy Cyst of ovary 01/09/2023 Eczema 01/09/2023 Hidradenitis suppurativa 01/09/2023 Vitamin D deficiency 01/09/2023 Lump in chest 02/15/2022 Overview (10/30/2023): 02/14/2022: US of chest: [facility]: Impression; No suspicious finding at the area of concern and over the sternum. Allergic rhinitis 11/13/2014 Tinea pedis 11/13/2014 Asthma 08/30/2014 Proteinuria 08/30/2014 Low back pain at multiple sites 11/23/2013 Encounters Date Type Department Care Team Description 09/07/2024 Orders Only GENERIC EXTERNAL DATA DEPARTMENT Provider, Generic External Data 09/07/[address] [address] Aretha Almendarez MA chart prep 08/31/[address] [address] Disha Lackey ANP ER Follow-up 08/30/2024 Orders Only [address] [address] Sravani Groves MD Hypersomnia (Primary Dx) 08/30/2024 Telephone [place] [facility] [address] [place] [phone] Sravani Groves MD 07/27/2024 Telephone [facility] [address] [place] [phone] Sravani Groves MD 07/27/2024 Orders Only [address] [address] Sravani Groves MD Iron deficiency (Primary Dx); Vitamin D deficiency 07/25/[address] [address] Disha Lackey ANP Results 07/22/2024 3:00 PM EST Office Visit [facility] [address] [address] Sravani Groves MD Hypersomnia (Primary Dx); Loud snoring; Missed period 07/22/2024 Orders Only [address] [address] Disha Lackey ANP 07/22/2024 Telephone [facility] [address] [place] [phone] Roz Petty RN 07/09/24 Visit note [facility] 07/21/[address] [address] Disha Lackey ANP Nurse Triage 07/15/[address] [place] [address] Sushma Fonseca, RN NTTS from Last 3 Months Immunizations Name Administration Dates Next Due HPV, Quadrivalent 07/04/2019,12/11/2015 Hep B, adult 1992 HepB-CpG 02/11/2022 Influenza, IIV3, injectable 07/04/2019, 6,05/31/2014 MMR 1993 Tdap 10/03/2020,11/30/2016,06/12/2016 Social History Tobacco Use Types Packs/Day Years Used Date Smoking Tobacco: Never Passive Smoke Exposure: Never Smokeless Tobacco: Never Tobacco Cessation:Counseling Given: Not Answered Alcohol Use Standard Drinks/Week Comments Never 0 (1 standard drink = 0.6 oz pur e alcohol) Depression Answer Date Recorded Patient Health Questionnaire-9 Score 0 01/09/2023 Housing Stability Answer Date Recorded What is your housing situation today? I have kate stenier 06/08/[address] you li [...] not to disclose 2022 10:17 AM EDT Last Filed Vital Signs Vital Sign Reading Time Taken Comments Blood Pressure 131/82 07/22/2024 2:47 PM EST Pulse 81 07/22/2024 2:47 PM EST Temperature 36.6 ??C (97.9 ??F) 07/22/2024 2:47 PM ES T Respiratory Rate 17 07/22/2024 2:47 PM EST Oxygen Saturation 100% 07/22/2024 2:47 PM EST Inhaled Oxygen Concentration - - Weight 99.4 kg (219 lb 3.2 oz) 07/22/2024 2:47 P M EST Height 167.6 cm (5' 6 ) 12/11/2023 11:27 AM EDT Body Mass Index 35.38 12/11/2023 11:27 AM EDT Plan of Treatment Upcoming Encounters Date Type Department Care Team (Late st Contact Info) Description 09/08/2024 11:30 AM EST Office Visit [facility] [address] [place], [place] [phone] Disha Lackey, ANP [address] [place] [address] Health Maintenance Due Date Last Done Comments Dental Oral Exam 1992 Dental Prophylaxis 1992 Dental X-Ray: Full Mouth 1992 Lipid Panel 1992 IPV Vaccines (4 of 4 - 4-dose series) 1996 05/20/1995, 1992, 1992 Alcohol/Substance Use Screening 2004 Family Planning (PISQ) 2007 Pneumococcal Vaccine: Pediatrics (0 to 5 Years) and At-Risk Patients (6 to 49) Years) (1 of 2 - PCV) 2011 HPV Vaccines (3 - 3-dose series) 09/26/2019 07/04/2019, 12/11/2015 Dental X-Ray: Bitewings 11/08/2023 11/06/2022 Depression Screening 01/10/2024 01/09/2023, 01/10/20 23 COVID-19 Vaccine ( season) 2024 11/25/2021, 11/04/2021 Influenza Vaccine (#1) 2024 9, 07/04/2019, 11/26/2015, Additional history exists SDOH Screening 09/08/2024 09/08/2023 Tobacco Screening 03/23/2025 03/23/2024 Cervical Cancer Screening 05/29/2026 HPV/Cotest 05/29/2026 05/29/2021 Pap Smear 05/29/2026 05/29/2021 DTaP/Tdap/Td Vaccines (9 - Td or Tdap) 10/03/2030 10/03/2020, 11/30/2016, 06/12/2016, Additional history exists Zoster Vaccines (1 of 2) 2042 RSV Patients and Patients Aged 60 years or older (1 - 1-dose 75+ series) 2067 HIB Vaccines Completed 05/20/1995, 08/1992, 1992 Hepatitis B Vaccines Completed 02/11/2022, 1992, 1992, Additional history exists HIV Screening Completed 07/22/2024 Hepatitis C Screening Completed 07/22/2024 Hepatitis A Vaccines Aged Out No long er eligible based on patient's age to complete this topic Meningococcal Vaccine Aged Out No ulisses coretta eligible based on patient's age to complete this topic RSV under 20 months Aged Out No longe r eligible based on patient's age to complete this topic Rotavirus Vaccines Aged Out No longer eligible based on patient's age to complete this topic Procedures Procedure Name Priority Date/Time Associated Diagnosis Comments URINALYSIS, COMPLETE, WITH REFLEX TO CULTURE Routine 09/07/2024 1:02 PM EST TYPE AND SCREEN Routine 09/07/2024 12:24 PM EST HCG, TOTAL, QN Routine 09/07/2024 12:24 PM EST MAGNESIUM Routine 09/07/2024 12:24 PM EST BASIC METABOLIC PANEL Routine 09/07/2024 12:24 PM EST HEPATIC FUNCTION PANEL Routine 12:24 PM EST PROTHROMBIN TIME-INR Routine 09/07/2024 12:24 PM EST CBC WITH AUTO DIFFERENTIAL Routine 09/07/2024 12:24 PM EST VITAMIN B12/FOLATE, SERUM PANEL Routine 07/22/2024 3:38 PM EST Hypersomnia HEPATITIS C AB W/REFL TO HCV RNA, QN, PCR Routine 07/22/2024 3:38 PM EST Hypersomnia HIV 1/2 ANTIGEN/ANTIBODY, FOURTH GENERATION W/RFL Routine 07/22/2024 3:38 PM EST Hypersomnia CBC WITH AUTO DIFFERENTIAL Routine 07/22/2024 3:38 PM EST Hypersomnia HEMOGLOBIN A1C Routine 07/22/2024 3:38 PM EST Other fatigue LIPASE Routine 07/22/2024 3:34 PM EST HEPATIC FUNCTION PANEL Routine 3:34 PM EST HCG, TOTAL, QN Routine 07/22/2024 3:34 PM EST Missed period FERRITIN Routine 07/22/2024 3:34 PM EST Hypersomnia IRON AND TOTAL IRON BINDING CAPACITY Routine 07/22/2024 3:34 PM EST Hypersomnia TSH W/REFLEX TO FT4 Routine 07/22/2024 3 :34 PM EST Hypersomnia VITAMIN D,25-OH,TOTAL,IA Routine 07/22/2024 3:34 PM EST Hypersomnia COMPREHENSIVE METABOLIC PANEL Routine 07/22/2024 3:34 PM EST Hypersomnia POCT , URINE Routine 07/22/2024 3:32 PM EST Hypersomnia HEMOGLOBIN A1C Routine 07/22/2024 3:30 PM EST Hypersomnia BITEWING - SINGLE RADIOGRAPHIC IMAGE Routine 11/06/2022 1:00 PM EDT Maxillary sinusitis, unspecified chronicity HM PAP/HPV Routine 05/29/2021 from Last 3 Months or Most Recently Relevant to Health Maintenance Results * (ABNORMAL) Urinalysis, Complete, with Reflex to Culture (09/07/2024 1:02 PM EST) Color Urine Red(A) [facility] Appearance Urine Turbid [facility] PH 8.0 5.0 - 9.0 [facility] Glucose Urine UA Negative Negative mg/dL [facility] Urine Blood Large (3+)(A) Negative [facility] Specific [place] - Urine 1.025 1.005 - 1.025 [facility] Urine Protein 30 (1+)(A) Neg-Trace mg/dL [facility] Urine Ketones Negative Negative mg/dL [facility] Nitrite Urine Negative Negative [facility] Leukocyte Esterase Urine Small (1+)(A) Negative [facility] RBC Urine >20(A) 0 - 2 /HPF [facility] Urine WBC 11-20(A) 0 - 5 /HPF [facility] Urine Squamous Epithelial Cell 0-2 0 - 2 /HPF [facility] Urine Bacteria Trace None Seen [facility] Hyaline Casts, Urine 0-2 0 - 2 /LPF [facility] 09/07/2024 1:0 2 PM EST 09/07/2024 1:17 PM EST Narrative [facility] - 09/07/2024 1:25 PM EST Urine, Clean Catch us Generic External Data Provider LAB URINE ORDERAB LES Final Result [facility] [address] [place] [phone] * CBC auto differential (09/07/2024 12:24 PM EST) Only the most recent of2 resultswithin the time period is included. White Blood Count 7.5 4.8 - 10.8 X10*3/uL [facility] Red Blood Count 4.60 4.20 - 5.50 X10*6/uL [facility] Hemoglobin 12.8 12.0 - 16.0 g/dl [facility] Hematocrit 40.3 37.0 - 47.0 % [facility] Mean Corpuscular Volume 87.6 80.0 - 98.0 fL [facility] Mean Corpuscular Hemoglobin 27.8 27.0 - 33.0 pg [facility] Mean Corpuscular HGB Conc 31.8 31.0 - 35.0 g/dl [facility] Red Cell Distribution Width 13.1 11.0 - 16.0 % [facility] Platelet Count 276 160 - 400 X10*3/uL [facility] Mean Platelet Volume 9.9 9.4 - 12.3 fL [facility] Neutrophils Percent Auto 66.2 45 - 73 % [facility] Imm Gran Pct Auto 0.3 0.0 - 0.4 % [facility] Lymphocytes Percent Auto 24.7 20 - 40 % [facility] Monocytes Percent Auto 6.0 2 - 11 % [facility] Eosinophils Percent Auto 2.0 0 - 4 % [facility] Basophils Percent Auto 0.8 0 - 2 % [facility] NRBC Pct Auto 0.0 0.0 - 0.2 /100WBC [facility] Neutrophils Absolute Auto 4.9 2.0 - 8.3 x10*3/uL [facility] Imm Gran Abs Auto 0.02 0.00 - 0.03 X10*3/uL [facility] Lymphocytes Absolute Auto 1.8 1.2 - 4.9 X10*3/uL [facility] Monocytes Absolute Auto 0.5 0.1 - 1.2 X10*3/uL [facility] Eosinophils Absolute Auto 0.2 0.0 - 0.4 X10*3/uL [facility] Basophils Absolute Auto 0.1 0.0 - 0.2 X10*3/uL [facility] NRBC Abs Auto 0.000 0.0 - 0.012 X10*3/uL [facility] 09/07/2024 12:2 4 PM EST 09/07/2024 12:27 PM EST Generic External Data Provider LAB BLOOD ORDERAB LES Final Result Performing Organization Address [facility] Co de Phone Number [facility] [address] [place] [phone] * Prothrombin Time-INR (09/07/2024 12:24 PM EST) Prothrombin Time 12.4 10.9 - 12.4 SEC [facility] INTERNATIONAL NORM RATIO 1.1 0.9 - 1.1 [facility] Comment:INTERNATIONAL NORMAL IZED RATIO (INR) REFERENCE [...] 4 PM EST 09/07/2024 12:27 PM EST [email or web address] External Data Provider LAB BLOOD ORDERAB LES Final Result Performing Organization Address [facility] Co de Phone Number [facility] [address] [place] [phone] * Type and screen (09/07/2024 12:24 PM EST) Blood Type AP [facility] Comment:RH IMMUNE GLOBULIN I NDICATED: NO Antibody Screen NEGATIVE [facility] 09/07/2024 12:2 4 PM EST 09/07/2024 12:29 PM EST Narrative [facility] - 09/07/2024 1:14 PM EST n Generic External Data Provider LAB BLOOD BANK TE ST ORDERABLES Final Result Performing Organization Address [facility]/ZIP Co de Phone Number [facility] [address] [place] [address] [phone] * hCG, Total, Quantitative (09/07/2024 12:24 PM EST) Only the most recent of2 resultswithin the time period is included. HCG Quantitative <2 mIU/mL [facility] Comment:Weeks post LMP Appro ximate hCG(Last Menstrual Period) Range (mIU/ml)3 - 4 weeks 9 - 1304 - 5 weeks 75 - 2,6005 - 6 weeks 850 - 20,8006 - 7 weeks 4000 - 100,2007 - 12 weeks 11,500 - 289,36416 - 16 weeks 18,300 - 137,66829 - 29 weeks (2nd trimester) 1,400 - 53,27150 - 41 weeks (3rd trimester) 940 - [...] ORDERAB LES Final Result Performing Organization Address [facility]/ZIP Co de Phone Number [facility] [address] [place] [phone] [phone] * Magnesium (09/07/2024 12:24 PM EST) Magnesium 2.0 1.6 - 2.6 mg/dL [facility] 09/07/2024 12:2 4 PM EST 09/07/2024 12:27 PM EST Generic External Data Provider LAB BLOOD ORDERAB LES Final Result Performing Organization Address [facility]/ZIP Co de Phone Number [facility] [address] [place] [phone] * Hepatic Function Panel (09/07/2024 12:24 PM EST) Only the most recent of2 resultswithin the time period is included. Bilirubin, Total 0.3 0.0 - 1.0 mg/dL [facility] Bilirubin, Direct 0.1 0.0 - 0.5 mg/dL [facility] Aspartate Amino Transferase 20 5 - 31 U/L [facility] Alanine Aminotransferase 16 0 - 31 U/L [facility] Total Protein 6.9 6.5 - 8.0 g/dL [facility] Albumin Level 3.7 3.5 - 5.0 g/dL [facility] Alkaline Phosphatase 81 39 - 117 U/L [facility] 09/07/2024 12:2 4 PM EST 09/07/2024 12:27 PM EST Generic External Data Provider LAB BLOOD ORDERAB LES Final Result Performing Organization Address [facility] Co de Phone Number [facility] [address] [place] [phone] * (ABNORMAL) Basic Metabolic Panel (09/07/2024 12:24 PM EST) Sodium 137 135 - 145 mmol/L [facility] Potassium 4.0 3.3 - 5.1 mmol/L [facility] Chloride 107 96 - 108 mmol/L [facility] Carbon Dioxide 27 22 - 29 mmol/L [facility] Anion Gap 7(L) 12 - 20 [facility] Urea Nitrogen (BUN) 13 9 - 16 mg/dL [facility] Creatinine, Serum 0.73 0.5 - 1.4 mg/dL [facility] Creatinine Clr Calc Pharmacy 150.5 [facility] Comment:Provided height and weight: 167.64 cm,126.552 kg.eGFR (calculated from the MDRD study equation) and eCrCl(calculated from the Cockcroft-Gault equation) are based ondifferent parameters and may not yield comparable results.If eCrCl result is absurd, please check patient'sheight/weight. Estimated Glomerular Filt Rate >60 [facility] Comment:Chronic Kidney Disea se: Estimated GFR < 60 mL/min/[id number] Kidney Disease: Estimated GFR < 15 mL/min/1.73m2 Glucose 89 60 - 115 mg/dL [facility] Calcium 8.1(L) 8.4 - 10.2 mg/dL [facility] 09/07/2024 12:2 4 PM EST 09/07/2024 12:27 PM EST us Generic External Data Provider LAB BLOOD ORDERAB LES Final Result Performing Organization Address City/State/[facility] Co de Phone Number [facility] [address] [place] [phone] * Vitamin B12 (Cobalamin) and Folate Panel, Serum (07/22/2024 3:38 PM EST) Vitamin B12 372 200 - 900 pg/mL [facility] Comment:NORMAL 200-900 PG/ML INDETERMINATE 160-199 PG/ML DEFICIENT < 160 PG/ML Folate 18.2 > or = 4.0 ng/mL [facility] Comment:Reference Values:> o r = 4.0 ng/mL< 4.0 ng/mL suggests folate deficiency Methotrexate, aminopterin and folinic acid(leucovorin) are chemotherapeutic agents whose molecularstructures are similar to folate; therefore, the Architectfolate assay cannot be used for patients using these drugs. Blood Venous blood specimen / Unknown 07/22/2024 3:38 PM EST 07/22/2024 5:20 PM EST us Sravani Haines MD LAB BLOOD ORDERABLES Final Result Performing Organization Address City/State/[facility] Co de Phone Number [facility] [address] [place] [phone] * Hepatitis C Antibody with Reflex to HCV, RNA, Quantitative, Real-Time PCR (07/22/2024 3:38 PM EST) Hepatitis C Antibody Nonreactive Nonreactive [facility] Comment:Antibodies to HCV no t detected; does not exclude early acuteHCV infection. Blood Venous blood specimen / Unknown 07/22/2024 3:38 PM EST 07/22/2024 5:20 PM EST us Sravani Haines MD LAB BLOOD ORDERABLES Final Result Performing Organization Address [facility] de Phone Number [facility] [address] [place] [phone] * HIV-1/2 Antigen and Antibodies, Fourth Generation, with Reflexes (07/22/2024 3:38 PM EST) HIV AB/AG Nonreactive Nonreactive [facility] Comment:HIV-1 p24 Ag and/or HIV-1/HIV-2 Ab not detected.A test result that is nonreactive does not exclude thepossibility of exposure to or infection with HIV-1 and/orHIV-2. Nonreactive results in this assay for individualswith prior exposure to HIV-1 and/or HIV-2 may be due toantigen and antibody levels that are below the limit ofdetection of this assay.The [employer] HIV Ag/Ab Combo assay result andsupplemental assay results should be interpreted inconjunction with the patient's clinical presentation,history and other laboratory results. If the results areinconsistent with clinical evidence, additional testing issuggested to confirm the result. Blood Venous blood specimen / Unknown 07/22/2024 3:38 PM EST 07/22/2024 5:20 PM EST us Sravani Haines MD LAB BLOOD ORDERABLES Final Result Performing Organization Address [facility] Co de Phone Number [facility] [address] [place] [address] [phone] * Hemoglobin A1c (07/22/2024 3:38 PM EST) Only the most recent of2 resultswithin the time period is included. Hemoglobin A1c 5.3 <6.0 % [facility] Comment:Hemoglobin A1C Refer ence Range Adults: 4.8 - 6.0 % Non diabetic: < 6.0 % Goal: < 7.0 %Additional Action Suggested: > 8.0 %Note: Hemoglobin A1c results are invalid for patients with abnormal amounts of HbF. Blood transfusions may impact the HbA1c concentration in the patient sample. Estimated Average Glucose 105 mg/dL [facility] Comment:eAG = Estimated ave rage glucose which is %A1C expressed asaverage glucose, using the formula of the S5T-GpjajksSzsqtkh Glucose study (ADAG), Diabetes Care, Vol.31,#8,2007 Blood Venous blood specimen / Unknown 07/22/2024 3:38 PM EST 07/22/2024 5:20 PM EST [facility] LAB BLOOD ORDERABLES Final Resul t Performing Organization Address [facility]/ZIP Co de Phone Number [facility] [address] [place] [phone] * (ABNORMAL) Vitamin D, 25-Hydroxy, Total, Immunoassay (07/22/2024 3:34 PM EST) Vitamin D 25-OH Total 18.1(L) >30 ng/mL [facility] Comment:Health Based Referen ce Values*< 20 ng/mL Rxdtirxaf37-33 ng/mL Insufficient> 30 ng/mL Sufficient*Laura AGUIRRE. N Engl J Med. 2007;357:266-280Care must be taken in interpreting Vitamin D results fromdifferent laboratories and methodologies. Published datademonstrated that results from patients undergoinghemodialysis may show a negative bias when tested withvarious automated 25-OH vitamin D assays when compared toLC-MS/MS.When testing samples from patients whose predominant form ofVitamin D is Vitamin D2, such as patients receiving VitaminD2 supplementation, results that are subtherapeutic shouldbe confirmed with another method such as LC-MS/MS. Blood Venous blood specimen / Unknown 07/22/2024 3:34 PM EST 07/22/2024 5:20 PM EST us Sravani Haines MD LAB BLOOD ORDERABLES Final Result Performing Organization Address [facility] Co de Phone Number [facility] [address] [place] [phone] * TSH with Reflex to Free T4 (07/22/2024 3:34 PM EST) TSH reflex Free T4 3.95 0.32 - 4.0 uIU/mL [facility] Blood Venous blood specimen / Unknown 07/22/2024 3:34 PM EST 07/22/2024 5:20 PM EST us Sravani Haines MD LAB BLOOD ORDERABLES Final Result Performing Organization Address [facility] de Phone Number [facility] [address] [place] [phone] * (ABNORMAL) Iron And Total Iron Binding Capacity (07/22/2024 3:34 PM EST) Iron 35 30 - 160 mcg/dL [facility] Total Iron Binding Capacity 282 228 - 428 mcg/dL [facility] Percent Iron Saturation 12(L) 15 - 50 % [facility] Unsaturated Iron Binding 247 ug/dL [facility] Blood Venous blood specimen / Unknown 07/22/2024 3:34 PM EST 07/22/2024 5:20 PM EST us Sravani Haines MD LAB BLOOD ORDERABLES Final Result Performing Organization Address [facility] Co de Phone Number [facility] [address] [place] [phone] * Lipase (07/22/2024 3:34 PM EST) Pathologist [facility] Lipase 14 8 - 78 U/L [facility] 07/22/2024 3:34 PM EST 07/22/2024 5:20 PM EST us Disha FONSECA LAB BLOOD ORDERABLES Final Resul t Performing Organization Address City/[facility]/ZIP Co de Phone Number [facility] [address] [place] [phone] * Ferritin (07/22/2024 3:34 PM EST) Pathologist [facility] Ferritin 42 10 - 122 ng/mL [facility] Blood Venous blood specimen / Unknown 07/22/2024 3:34 PM EST 07/22/2024 5:20 PM EST us Sravani Haines MD LAB BLOOD ORDERABLES Final Result Performing Organization Address [facility] Co de Phone Number [facility] [address] [place] [phone] * (ABNORMAL) Comprehensive Metabolic Panel (07/22/2024 3:34 PM EST) Pathologist [facility] Sodium 140 135 - 145 mmol/L [facility] Potassium 3.7 3.3 - 5.1 mmol/L [facility] Chloride 103 96 - 108 mmol/L [facility] Carbon Dioxide 31(H) 22 - 29 mmol/L [facility] Anion Gap 10(L) 12 - 20 [facility] Urea Nitrogen (BUN) 15 9 - 16 mg/dL [facility] Creatinine, Serum 0.85 0.5 - 1.4 mg/dL [facility] Estimated Glomerular Filt Rate >60 [facility] Comment:Chronic Kidney Disea se: Estimated GFR < 60 mL/min/1.58i3Ojqfda Kidney Disease: Estimated GFR < 15 mL/min/1.73m2 Glucose 95 60 - 115 mg/dL [facility] Calcium 8.8 8.4 - 10.2 mg/dL [facility] Bilirubin, Total 0.3 0.0 - 1.0 mg/dL [facility] Aspartate Amino Transferase 23 5 - 31 U/L [facility] Alanine Aminotransferase 20 0 - 31 U/L [facility] Total Protein 6.9 6.5 - 8.0 g/dL [facility] Albumin Level 3.9 3.5 - 5.0 g/dL [facility] Alkaline Phosphatase 86 39 - 117 U/L [facility] Blood Venous blood specimen / Unknown 07/22/2024 3:34 PM EST 07/22/2024 5:20 PM EST Result [facility] Sravani Haines MD LAB BLOOD ORDERABLES Final Result Performing Organization Address City/State/[facility] Co de Phone Number [facility] [address] [place] [phone] * POCT , urine manually resulted (07/22/2024 3:32 PM EST) Preg Test, Ur Negative Negative, Indeterminate, None Detected, Invalid, Specimen unsatisfactory for evaluation, Weakly Positive Urine 07/22/2024 3:32 PM EST Result [facility] Sravani Haines MD POINT OF CARE TEST EN TER/EDIT ORDERABLES Final Result * Hm Pap Smear (05/29/2021) Pap Negative for intraephithelial lesion or malignancy Negative for intraephithelial lesion or malignancy, Other HPV Undetected Undetected, Indeterminate, Quantitative, Not Detected Rusty Nickerson MD HEALTH MAINTENANCE Final Result from Last 3 Months or Most Recently Relevant to Health Maintenance Insurance [facility] MEDICA[employer] STAND ADULT Care Teams Senior Javascript Developer Relationship Specialty Start Date End Date Disha Lackey ANP [address] [place] [phone] PCP - General Family Medicine 01/09/23
--- OUTSIDE RECORDS SUMMARY | 2024-09-07 14:42 | XMS_ITS | Encounter Summary ---
Author Organization [employer] Address [address] [place] [address] 7[address] [place] [address] Care Team Providers Care Retail Support Specialist Name Role Phone Disha Lackey Primary Care Provider [phone] Reason for Referral * Hospital - Outpatient (Routine) - Pending Review Specialty Diagnoses / Procedures Referred By Antoni fischer Referred To Contact Diagnoses Hypersomnia Procedures Home sleep test Sravani Groves MD [address] [place] [address] Phone: tel: fax: [address] Phone: tel: fax: Referral ID Status Reason Start Date Expiration Date V isits Requested Visits Authorized [id number] Pending Review 08/30/2024 08/30/2025 1 1 Encounter Details Date Type Department Care Team (Late st Contact Info) Description 08/30/2024 Orders Only [facility] [address] [place], [place] [phone] Sravani Groves MD [address] [place], [place] [phone] Hypersomnia (Primary Dx) Social History Tobacco Use Types Packs/Day Years [...] Description 09/08/2024 11:30 AM EST Office Visit [facility] [address] [place] [address] Disha Lackey ANP [address] [place] [address] Scheduled Orders Name Type Priority Associated Diagnoses Orde r Schedule Home sleep test Sleep Center Routine Hypersomnia Expected: 08/30/2024 (Approximate), Expires: 08/30/2025 documented as of this encounter Visit Diagnoses Diagnosis Hypersomnia- Primary Hypersomnia, unspecified documented in this encounter Additional Health Concerns Assessment Noted Time PHQ-9 Depression Total Score: 0 01/10/20 23 1:11 PM EDT documented as of this encounter Care Teams Retail Support Specialist Relationship Specialty Start Date End Date Disha Lackey ANP [address] [place] [address] PCP - General Family Medicine 01/09/23 documented as of this encounter
--- OUTSIDE RECORDS SUMMARY | 2024-09-07 14:42 | XMS_ITS | Encounter Summary ---
Author Organization [employer] Address [address] [facility] 7t [place] [address] Care Team Providers Care Garment Looper Name Role Phone Disha Lackey Primary Care Provider [phone] Encounter Details Date Type Department Care Team (Late st Contact Info) Description 08/30/2024 Telephone [employer] [facility] [address] [place], [place] [phone] Sravani Groves MD [address] [place] [address] Social History Tobacco Use Types Packs/Day Years [...] encounter Miscellaneous Notes * Telephone Encounter - Stacie Bolanos - 08/30/2024 10:06 AM EST Per Izabela at [facility] , patient was not interested in scheduling an in-lab sleep study and prefers a Home Sleep study. Please review and advise . documented in this encounter Plan of Treatment Upcoming Encounters Date Type Department Care Team (Late st Contact Info) Description 09/08/2024 11:30 AM EST Office Visit [facility] [address] [place] [address] Disha Lackey ANP [address] [place] [address] documented as of this encounter Visit Diagnoses Not on filedocumented in this encounter Additional Health Concerns Assessment Noted Time PHQ-9 Depression Total Score: 0 01/10/20 23 1:11 PM EDT documented as of this encounter Care Teams Garment Looper Relationship Specialty Start Date End Date Disha Lackey ANP [address] [place] [address] PCP - General Family Medicine 01/09/23 documented as of this encounter
--- OUTSIDE RECORDS SUMMARY | 2024-09-07 14:42 | XMS_ITS | Encounter Summary ---
Author Organization [employer] Address [address] [facility] 7t [place] [address] Care Team Providers Care Insulation Engineman Name Role Phone Disha Lackey Primary Care Provider Reason for Visit * Reason Onset Date Comments chart prep 09/07/2024 Encounter Details Date Type Department Care Team (Late st Contact Info) Description 09/07/2024 Telephone [facility] [address] [place], [place] [phone] Aretha Almendarez MA chart prep Social History Tobacco Use Types Packs/Day Years [...] encounter Miscellaneous Notes * Telephone Encounter - Aretha Almendarez MA - 09/07/2024 11:21 AM EST Chart Prep Labs: done Images: done Vaccines due: yes Referrals: pending Screenings: none Overdue care gaps: Sbirt, PHQ-9 documented in this encounter Plan of Treatment Upcoming Encounters Date Type Department Care Team (Late st Contact Info) Description 09/08/2024 11:30 AM EST Office Visit [facility] [address] [place] [address] Disha Lackey ANP [address] [place] [address] documented as of this encounter Visit Diagnoses Not on filedocumented in this encounter Additional Health Concerns Assessment Noted Time PHQ-9 Depression Total Score: 0 01/10/20 23 1:11 PM EDT documented as of this encounter Care Teams Insulation Engineman Relationship Specialty Start Date End Date Disha Lackey ANP [address] [place] [address] PCP - General Family Medicine 01/09/23 documented as of this encounter
--- OUTSIDE RECORDS SUMMARY | 2024-09-07 14:42 | XMS_ITS | Encounter Summary ---
Author Organization [employer] Address [address] [place] [address] 7t [place] [address] Care Team Providers Care Leader Assembler Name Role Phone Aleah Scherer Primary Care Provider [phone] Reason for Referral * Imaging (Routine) - Closed Specialty Diagnoses / Procedures Referred By Antoni fischer Referred To Contact Radiology Diagnoses Generalized abdominal pain Procedures US Abdomen Complete Annetta Mead FNP [address] [place] [address] Phone: tel: fax: [address] Phone: tel: fax: Referral ID Status Reason Start Date Expiration Date Visits Re quested Visits Authorized [id number] Closed 01/08/2024 01/07/2025 1 1 Encounter Details Date Type Department Care Team ([facility] st Contact Info) Description 01/08/[address] [facility] [address] [place], [place] [phone] Annetta Mead FNP [address] [place] [address] Generalized abdominal pain (Primary Dx) Social History Tobacco Use Types [...] Description 09/08/2024 11:30 AM EST Office [address] [facility]IC[facility] [address] [place] [address] Aleah Scherer ANP [address] [place] [address] documented as of this encounter Procedures Procedure Name Priority Date/Time Associated Diagnosis Comments US ABDOMEN COMPLETE Routine 01/12/2024 1 0:07 AM EDT Generalized abdominal pain documented in this encounter Results * US Abdomen Complete (01/12/2024 10:07 AM EDT) Anatomical Region Laterality Modality Abdomen Ultrasound 01/12/2024 10:0 7 AM EDT Narrative 01/19/2024 11:45 AM EDT ? [facility] ?[address] ?[place] [address] ? Ultrasound Report ? Signed ? Patient: Corbin,Sweta ?MR#: [id number] ?? 6 ? : 1990 ?Acct:[id number] ? Age/Sex: 33 / F ?ADM Date: 01/12/24 ? Loc: HO.US ? Attending Dr: Annetta Mead WALL INSULATION SPRAYER ? Ordering Physician: Annetta Mead NP ?? Date of Service: 01/12/24 ?? Procedure(s): US abdomen complete ?? Accession Number(s): [id number] ? cc: Annetta Mead WALL INSULATION SPRAYER; ALEAH SCHERER WALL INSULATION SPRAYER ? EXAMINATION: ?? US ABDOMEN COMPLETE ? CLINICAL INFORMATION: ?? Abdominal pain x3 months, increasingly getting worse. ? COMPARISON: ?? None available. ? TECHNIQUE: ?? Real-time imaging of the abdominal viscera. ? FINDINGS: ? PANCREAS: The pancreas could not be evaluated as it was obscured by ?? bowel gas. ? ABDOMINAL AORTA: Only the proximal aorta could be seen and was of ?? normal caliber. The mid and distal abdominal aorta could not be ?? visualized secondary to overlying bowel gas. ? INFERIOR VENA CAVA: Visualized portions are normal. ? LIVER: The liver is normal in size. The liver contour is normal. There ?? is slightly increased liver parenchymal echogenicity suggesting hepatic ?? steatosis. No focal hepatic lesion. There is no intrahepatic biliary ?? duct dilatation seen. ? GALLBLADDER: Surgically absent. ? COMMON BILE DUCT: Normal in caliber measuring 0.2 cm in diameter. ? RIGHT KIDNEY: Normal. No hydronephrosis. No renal calculi or focal ?? parenchymal lesions. The kidney measures 11.6 cm in maximum dimension. ? LEFT KIDNEY: Normal. No hydronephrosis. No renal calculi or focal ?? parenchymal lesions. The kidney measures 12.2 cm in maximum dimension. ? SPLEEN: Normal. The spleen measures 10.5 cm in maximum dimension. ? FREE FLUID: None. ? US/US abdomen complete ?? IMPRESSION: ?? Echogenic liver suggesting hepatic steatosis. ? Dictated By: ?Christiano Cantu MD ? Signed By: ?<Electronically signed by Christiano Cantu MD in OV> ? 01/19/24 0945 ? DD/ 1007 ? TD/TT: ? Historiography Teacher: SS ? Procedure Note Donotuseinterpreter, Image - 01/19/[address] [address] Ultrasound Report Signed Patient: Sweta CorbinMR#: [id number] 6 : 1990Acct:[id number] Age/Sex: 33 / FADM Date: 01/12/24 Loc: HO.US Attending Dr: Annetta Mead NP Ordering Physician: Annetta Mead NP Date of Service: 01/12/24 Procedure(s): US abdomen complete Accession Number(s): [id number] cc: Annetta Mead WALL INSULATION SPRAYER; ALEAH SCHERER NP EXAMINATION: US ABDOMEN COMPLETE CLINICAL INFORMATION: Abdominal pain x3 months, increasingly getting worse. COMPARISON: None available. TECHNIQUE: Real-time imaging of the abdominal viscera. FINDINGS: PANCREAS: The pancreas could not be evaluated as it was obscured by bowel gas. ABDOMINAL AORTA: Only the proximal aorta could be seen and was of normal caliber. The mid and distal abdominal aorta could not be visualized secondary to overlying bowel gas. INFERIOR VENA CAVA: Visualized portions are normal. LIVER: The liver is normal in size. The liver contour is normal. There is slightly increased liver parenchymal echogenicity suggesting hepatic steatosis. No focal hepatic lesion. There is no intrahepatic biliary duct dilatation seen. GALLBLADDER: Surgically absent. COMMON BILE DUCT: Normal in caliber measuring 0.2 cm in diameter. RIGHT KIDNEY: Normal. No hydronephrosis. No renal calculi or focal parenchymal lesions. The kidney measures 11.6 cm in maximum dimension. LEFT KIDNEY: Normal. No hydronephrosis. No renal calculi or focal parenchymal lesions. The kidney measures 12.2 cm in maximum dimension. SPLEEN: Normal. The spleen measures 10.5 cm in maximum dimension. FREE FLUID: None. US/US abdomen complete IMPRESSION: Echogenic liver suggesting hepatic steatosis. Dictated By: Christiano Cantu MD Signed By: <Electronically signed by Christiano Cantu MD in OV> 01/19/24 0945 DD/ 1007 TD/TT: Historiography Teacher: ANGELIQUE us Annetta Mead RIM FIRE PRIMING OPERATOR IMG US PROCEDURES Final Result documented in this encounter Visit Diagnoses Diagnosis Generalized abdominal pain- Primary Abdominal pain, generalized documented in this encounter Additional Health Concerns Assessment Noted Time PHQ-9 Depression Total Score: 0 01/10/20 1:11 PM EDT documented as of this encounter Care Teams Leader Assembler Relationship Specialty Start Date End Date Aleah Scherer ANP [address] [place] [phone] PCP - General Family Medicine 01/09/23 documented as of this encounter
--- OUTSIDE RECORDS SUMMARY | 2024-09-07 14:42 | XMS_ITS | Encounter Summary ---
Author Organization [employer] Address [address] [place] [address] 7t [place] [address] Care Team Providers Care Blending Tank Helper Name Role Phone Disha Lackey Primary Care Provider [phone] Reason for Visit * Reason Onset Date Comments Results 01/22/2024 Encounter Details Date Type Department Care Team ([facility] st Contact Info) Description 01/22/2024 Telephone [facility] MED[facility]INE [address] [place], [place] [phone] Disha Lackey ANP [address] [place], [place] [phone] Results Social History Tobacco Use Types Packs/Day [...] encounter Miscellaneous Notes * Telephone Encounter - Kishor Romero - 01/22/2024 9:48 AM EDT TC from pt requesting call back regarding Results. Type of results: Ultrasound Date when done: 01/11 Facility: [facility] documented in this encounter Plan of Treatment Upcoming Encounters Date Type Department Care Team (Late st Contact Info) Description 09/08/2024 11:30 AM EST Office Visit [facility] MED[facility] [address] [place] [address] Disha Lackey ANP [address] [place] [address] documented as of this encounter Visit Diagnoses Not on filedocumented in this encounter Additional Health Concerns Assessment Noted Time PHQ-9 Depression Total Score: 0 01/10/20 1:11 PM EDT documented as of this encounter Care Teams Blending Tank Helper Relationship Specialty Start Date End Date Disha Lackey ANP [address] [place] [address] PCP - General Family Medicine 01/09/23 documented as of this encounter
--- OUTSIDE RECORDS SUMMARY | 2024-09-07 14:42 | XMS_ITS | Encounter Summary ---
Author Organization [employer] Address [address] [place] [address] 7t [place] [address] Care Team Providers Care Cash Applications Associate Name Role Phone Disha Lackey Primary Care Provider [phone] Reason for Visit * Reason Onset Date Comments ER Follow-up 08/31/2024 Encounter Details Date Type Department Care Team ([facility] st Contact Info) Description 08/31/2024 Telephone [facility] [address] [place], [place] [phone] Disha Lackey ANP [address] [place], [place] [phone] ER Follow-up Social History Tobacco Use Types Packs/Day Years [...] encounter Miscellaneous Notes * Telephone Encounter - Zohreh Cotton RN - 08/31/2024 12:29 PM EST Triage call Pt was seen in ED, [facility], 08/29/24. Pt had IUD removed 3 months ago and had vaginal bleeding for 2 weeks not long after that. Pt had no further bleeding until recently. Pt has had vaginal bleeding for 2 weeks with cramping . Pt is neg for . Pt was prescribed provera 10mgdaily for 5 days and has been compliant. Pt continues to have vaginal bleeding and cramping. ED follow up apt with PCP offered 09/05/24 but, Pt declined. ASK apt with PCP Lackey 09/08/24 @ 1130am. Pt agrees with disposition. Insurance is verified as active prior to booking. Protocol Used: Vaginal Bleeding - Abnormal (Adult) Protocol-Based Disposition: See in Office or Video Visit within 2 Weeks Positive Triage Questions: * Periods last > 7 days * Missed period has occurred 2 or more times in the last year and the cause is not known * All higher-acuity triage questions were negative Care Advice Discussed: * Reasons To Call Back - Severe abdomen pain or lightheadedness occurs - test is positive - Bleeding worsens - Bleeding or spotting lasts over 7 days - You become worse * Telephone Encounter - Cody Banks - 08/31/2024 11:24 AM EST Patient calling to report ED visit on : Date: 08/29 Hospital: [facility] Seen for: Excessive Bleeding Symptomatic Yes *if yes message should go to Triage Patient advised will forward to team nurse for follow up Contact pt at [phone] documented in this encounter Plan of Treatment Upcoming Encounters Date Type Department Care Team (Late st Contact Info) Description 09/08/2024 11:30 AM EST Office Visit [facility] [address] [place] [address] Disha Lackey ANP [address] [place] [address] documented as of this encounter Visit Diagnoses Not on filedocumented in this encounter Additional Health Concerns Assessment Noted Time PHQ-9 Depression Total Score: 0 01/10/20 23 1:11 PM EDT documented as of this encounter Care Teams Cash Applications Associate Relationship Specialty Start Date End Date Disha Lackey ANP [address] [place] [phone] PCP - General Family Medicine 01/09/23 documented as of this encounter
--- OUTSIDE RECORDS SUMMARY | 2024-09-07 14:42 | XMS_ITS | Encounter Summary ---
Author Organization [employer] Address [address] [facility] 7t [place] [address] Care Team Providers Care Suction Roller Name Role Phone Disha Lackey Primary Care Provider [phone] Reason for Visit * Reason Comments Med Refill Encounter Details Date Type Department Care Team (Late st Contact Info) Description 04/14/2024 Refill [facility] MEDICINE [address] [place], [place] [phone] Lauren Vizcarra MD [address] [place], [place] [phone] Acute COVID-19 Social History Tobacco Use Types Packs/Day Years [...] 11:30 AM EST Office Visit [facility] MEDICINE [address] [place] [address] Disha Lackey ANP [address] [place] [address] documented as of this encounter Visit Diagnoses Diagnosis Acute COVID-19 documented in this encounter Additional Health Concerns Assessment Noted Time PHQ-9 Depression Total Score: 0 01/10/20 23 1:11 PM EDT documented as of this encounter Care Teams Suction Roller Relationship Specialty Start Date End Date Disha Lackey ANP [address] [place] [address] PCP - General Family Medicine 01/09/23 documented as of this encounter
[2024-09-07 16:20] VITALS: BP 122/68; PULSE 65; RESP 18; TEMP 36.9; O2SAT 99
[2024-09-07 17:29] LABS: Bacterial Vaginosis PCR POSITIVE (Negative); Candida Group PCR NOT DETECTED (Not Detect); Candida glab krusei PCR NOT DETECTED (Not Detect); Trichomonas vaginalis PCR NOT DETECTED (Not Detect)
[2024-09-07] MEDS: cefTRIAXone sodium 500 MG VIAL IM (17:30)
[2024-09-07] MEDS: Azithromycin 500 MG in 0.9 % Sodium Chloride 250 ML 125 MG IV (17:36)
[2024-09-07 18:00] LABS: CT PCR NOT DETECTED (Not Detect.); NG PCR NOT DETECTED (Not Detect.)
[2024-09-07 18:12] VITALS: BP 122/68; PULSE 65; RESP 18; TEMP 36.9; O2SAT 99
== END 2024-09-07 18:13 | disposition home or self-care (01) ==
PROVIDERS: Physician Assistant Medical; Emergency Provider Emergency Medicine; PCP Nurse Practitioner Primary Care
DX: N83.201 Unspecified ovarian cyst, right side (principal); R10.2 Pelvic and perineal pain; N89.8 Other specified noninflammatory disorders of vagina; R42 Dizziness and giddiness; Z79.899 Other long term (current) drug therapy
CPT/HCPCS: 36415; 76830; 76856; 80048; 80076; 81001; 81515; 83735; 84702; 85025; 85610; 86850; 86900; 86901; 87086; 87491; 87591; 93005; 96372; 96374; 96375; 99284; J0456; J0696; J1885

== ENCOUNTER → 2024-09-07 11:40 | Outpatient (BNV) | payer OTHER, SELFPAY | PROVIDERS: Emergency Provider Emergency Medicine; PCP Nurse Practitioner Primary Care; Visit Provider Internal Medicine | DX: R42 Dizziness and giddiness (principal) | CPT/HCPCS: 93010 ==

== ENCOUNTER → 2024-09-07 13:50 | Outpatient (BNV) | payer OTHER, SELFPAY | PROVIDERS: Emergency Provider Emergency Medicine; PCP Nurse Practitioner Primary Care; Visit Provider Radiology Diagnostic Radiology | DX: R10.2 Pelvic and perineal pain (principal) | CPT/HCPCS: 76830; 76856 ==

== ENCOUNTER 2024-09-11 00:49 | Emergency (ER) | payer OTHER, SELFPAY ==
[2024-09-11 00:58] VITALS: BP 141/97; PULSE 71; RESP 18; TEMP 36.6; O2SAT 98; BMI 41.9
--- NOTE | 2024-09-11 01:42 | PC.NURSE ---
pt reports large amount of blood when peeing at this time, architectural design professor made aware.
[2024-09-11 02:22] LABS: MANUAL DIFF FLAG NO
--- OUTSIDE RECORDS SUMMARY | 2024-09-11 02:23 | XMS_ITS | Encounter Summary ---
Author Organization [employer] Address [address] [place] [address] 7t [place] [address] Care Team Providers Care Counselor Education Professor Name Role Phone Disha Lackey Primary Care Provider Reason for Referral * Hospital - Outpatient (Routine) - Pending Review Specialty Diagnoses / Procedures Referred By Antoni fischer Referred To Contact Diagnoses Hypersomnia Procedures Home sleep test Sravani Groves MD [address] [place] [address] Phone: tel: fax: [address] Phone: tel: fax: Referral ID Status Reason Start Date Expiration Date V isits Requested Visits Authorized [id number] Pending Review 08/30/2024 08/30/2025 1 1 Encounter Details Date Type Department Care Team (Late st Contact Info) Description 08/30/2024 Orders Only [facility] MEDICINE [address] [place], [place] [phone] Sravani Groves MD [address] [place], [place] [phone] Hypersomnia (Primary Dx) Social History Tobacco Use [...] as of this encounter Plan of Treatment Scheduled Orders Name Type Priority Associated Diagnoses Orde r Schedule Home sleep test Sleep Center Routine Hypersomnia Expected: 08/30/2024 (Approximate), Expires: 08/30/2025 documented as of this encounter Visit Diagnoses Diagnosis Hypersomnia- Primary Hypersomnia, unspecified documented in this encounter Additional Health Concerns Assessment Noted Time PHQ-9 Depression Total Score: 0 01/10/20 23 1:11 PM EDT documented as of this encounter Care Teams Counselor Education Professor Relationship Specialty Start Date End Date Disha Lackey ANP [address] [place] [address] PCP - General Family Medicine 01/09/23 documented as of this encounter
--- OUTSIDE RECORDS SUMMARY | 2024-09-11 02:23 | XMS_ITS | Encounter Summary ---
Author Organization [employer] Address [address] [place] [address] 7t [place] [address] Care Team Providers Care Packing Line Worker Name Role Phone Disha Lackey Primary Care Provider Reason for Visit * Reason Onset Date Comments Results 01/22/2024 Encounter Details Date Type Department Care Team ([facility] st Contact Info) Description 01/22/2024 Telephone [facility] MEDICINE [address] [place], [place] [phone] Disha Lackey ANP [address] [place], [place] [phone] Results Social History Tobacco Use Types Packs/Day [...] results: Ultrasound Date when done: 01/11 Facility: [facility] documented in this encounter Plan of Treatment Not on file documented as of this encounter Visit Diagnoses Not on filedocumented in this encounter Additional Health Concerns Assessment Noted Time PHQ-9 Depression Total Score: 0 01/10/20 1:11 PM EDT documented as of this encounter Care Teams Packing Line Worker Relationship Specialty Start Date End Date Disha Lackey ANP [address] [place] [address] PCP - General Family Medicine 01/09/23 documented as of this encounter
--- OUTSIDE RECORDS SUMMARY | 2024-09-11 02:23 | XMS_ITS | Clinical Summary ---
Author Organization [facility] Address [address] [place] [address] Care Team Providers Care Windshield Repair Technician Name Role Phone Unavailable Primary Care Provider [...]
--- OUTSIDE RECORDS SUMMARY | 2024-09-11 02:23 | XMS_ITS | Encounter Summary ---
Author Organization [employer] Address [address] [place] [address] 7t [place] [address] Care Team Providers Care Concrete Precast Moulder Name Role Phone Disha Lackey Primary Care Provider [phone] Encounter Details Date Type Department Care Team (Latest Contact Info) Description 09/08/2024 Travel Social History Tobacco Use Types Packs/Day Years [...] as of this encounter Plan of Treatment Not on file documented as of this encounter Visit Diagnoses Not on filedocumented in this encounter Additional Health Concerns Assessment Noted Time PHQ-9 Depression Total Score: 0 01/10/20 1:11 PM EDT documented as of this encounter Care Teams Concrete Precast Moulder Relationship Specialty Start Date End Date Disha Lackey ANP [address] [place] [address] PCP - General Family Medicine 01/09/23 documented as of this encounter
--- OUTSIDE RECORDS SUMMARY | 2024-09-11 02:23 | XMS_ITS | Encounter Summary ---
Author Organization [employer] Address [address] [facility] 7t [place] [address] Care Team Providers Care Putty Tinter Maker Name Role Phone Disha Laceky Primary Care Provider [phone] Reason for Visit * Reason Onset Date Comments chart prep 09/07/2024 Encounter Details Date Type Department Care Team (Late st Contact Info) Description 09/07/2024 Telephone [facility] MEDICINE [address] [place], [place] [phone] Aretha Almendarez [place] chart prep Social History [...] documented as of this encounter Care Teams Putty Tinter Maker Relationship Specialty Start Date End Date Disha Lackey ANP 230 [place] [address] PCP - General Family Medicine 01/09/23 documented as of this encounter
--- OUTSIDE RECORDS SUMMARY | 2024-09-11 02:23 | XMS_ITS | Encounter Summary ---
Author Organization [employer] Address [address] [place] [address] 7t [place] [address] Care Team Providers Care Sustainability Executive Director Name Role Phone Aleah Scherer Primary Care Provider [phone] Reason for Referral * Imaging (Routine) - Closed Specialty Diagnoses / Procedures Referred By Antoni fischer Referred To Contact Radiology Diagnoses Generalized abdominal pain Procedures US Abdomen Complete Annetta Mead FNP [address] [place] [address] Phone: tel: fax: [address] Phone: tel: fax: Referral ID Status Reason Start Date Expiration Date Visits Re quested Visits Authorized [id number] Closed 01/08/2024 01/07/2025 1 1 Encounter Details Date Type Department Care Team (Late st Contact Info) Description 01/08/2024 Orders Only [facility] [address] [place], [place] [phone] Annetta Mead FNP [address] [place] [address] Generalized abdominal pain (Primary Dx) Social History [...] on file documented as of this encounter Procedures Procedure Name Priority Date/Time Associated Diagnosis Comments US ABDOMEN COMPLETE Routine 01/12/2024 1 0:07 AM EDT Generalized abdominal pain documented in this encounter Results * US Abdomen Complete (01/12/2024 10:07 AM EDT) Anatomical Region Laterality Modality Abdomen Ultrasound 01/12/2024 10:0 7 AM EDT Narrative 01/19/2024 11:45 AM EDT ? [facility] ?[address] ?[place] [address] ? Ultrasound Report ? Signed ? Patient: Corbin,Sweta ?MR#: [id number] ?? 6 ? : 1990 ?Acct:[id number] ? Age/Sex: 33 / F ?ADM Date: 06/04/24 ? Loc: HO.US ? Attending Dr: Annetta Mead PET CREMATORY WORKER ? Ordering Physician: Annetta Mead PET CREMATORY WORKER ?? Date of Service: 01/12/24 ?? Procedure(s): US abdomen complete ?? Accession Number(s): [id number] ? cc: Annetta Mead PET CREMATORY WORKER; ALEAH SCHERER PET CREMATORY WORKER ? EXAMINATION: ?? US ABDOMEN COMPLETE ? [...] 0945 ? DD/ 1007 ? TD/TT: ? Polysomnography Tech: SS ? Procedure Note Mendy Collins - 01/19/[address] [address] Ultrasound Report Signed Patient: Aroldo CorbinLasha#: [id number] 6 : 1990Acct:[id number] Age/Sex: 33 / FADM Date: 01/12/24 Loc: HO.US Attending Dr: Annetta Mead PET CREMATORY WORKER Ordering Physician: Annetta Mead NP Date of Service: 01/12/24 Procedure(s): US abdomen complete Accession Number(s): [id number] cc: Annetta Mead PET CREMATORY WORKER; ALEAH SCHERER PET CREMATORY WORKER EXAMINATION: US ABDOMEN COMPLETE CLINICAL INFORMATION: Abdominal [...] in OV> 01/19/24 0945 DD/ 1007 TD/TT: Polysomnography Tech: SS Annetta Mead REFRIGERATION TECHNICIAN IMG US PROCEDURES Final Result documented in this encounter Visit Diagnoses Diagnosis Generalized abdominal pain- Primary Abdominal pain, generalized documented in this encounter Additional Health Concerns Assessment Noted Time PHQ-9 Depression Total Score: 0 01/10/20 23 1:11 PM EDT documented as of this encounter Care Teams Sustainability Executive Director Relationship Specialty Start Date End Date Aleah Scherer ANP [address] [place] [address] PCP - General Family Medicine 01/09/23 documented as of this encounter
--- OUTSIDE RECORDS SUMMARY | 2024-09-11 02:23 | XMS_ITS | Encounter Summary ---
Author Organization [employer] Address [address] [facility] 7t [place] [address] Care Team Providers Care Painter And Decorator Apprentice Name Role Phone Disha Lackey Primary Care Provider [phone] Encounter Details Date Type Department Care Team (Late st Contact Info) Description 08/30/2024 Telephone [facility] [address] [place], [place] [phone] Sravani Groves MD [address] [place] [address] Social History Tobacco Use Types Packs/Day Years [...] 08/30/2024 10:06 AM EST Per Izabela at [facility] , patient was not interested in scheduling [...] documented as of this encounter Care Teams Painter And Decorator Apprentice Relationship Specialty Start Date End Date Disha Lackey ANP [address] [place] [address] PCP - General Family Medicine 01/09/23 documented as of this encounter
--- OUTSIDE RECORDS SUMMARY | 2024-09-11 02:23 | XMS_ITS | Encounter Summary ---
Author Organization [employer] Address [address] [facility] 7t [place] [address] Care Team Providers Care Crystalizer Tender Name Role Phone Disha Lackey Primary Care Provider [phone] Reason for Visit * Reason Comments Med Refill Encounter Details Date Type Department Care Team (Late st Contact Info) Description 04/14/2024 Refill [facility] MEDICINE [address] [place], [place] [phone] Lauren Vizcarra MD [address] [place], [place] [phone] Acute COVID-19 Social History Tobacco Use Types [...] documented as of this encounter Care Teams Crystalizer Tender Relationship Specialty Start Date End Date Disha Lackey ANP [address] [place] [address] PCP - General Family Medicine 01/09/23 documented as of this encounter
--- OUTSIDE RECORDS SUMMARY | 2024-09-11 02:23 | XMS_ITS | Encounter Summary ---
Author Organization [employer] Address [address] [place] [address] 7t [place] [address] Care Team Providers Care Scale Tester Name Role Phone Disha Lackey Primary Care Provider [phone] Reason for Visit * Reason Comments sick on site Encounter Details Date Type Department Care Team (Late st Contact Info) Description 09/08/2024 11:30 AM EST Office Visit [facility] MEDICINE [address] [place], [place] [phone] Disha Lackey ANP [address] [place], [place] [phone] Vaginal bleeding (Primary Dx); Bacterial vaginosis Social History Tobacco Use Types Packs/Day Years [...] AM EDT documented as of this encounter Last Filed Vital Signs Vital Sign Reading Time Taken Comments Blood Pressure 139/81 09/08/2024 11:37 AM EST Pulse 90 09/08/2024 11:37 AM EST Temperature 36.6 ??C (97.8 ??F) 09/08/2024 11:[address] Respiratory Rate 16 09/08/2024 11:37 AM EST Oxygen Saturation 95% 09/08/2024 11:37 AM EST Inhaled Oxygen Concentration - - Weight 128 kg (283 lb) 09/08/2024 11:37 AM EST Height - - Body Mass Index 45.68 12/11/2023 11:27 AM EDT documented in this encounter Plan of Treatment Scheduled Orders Name Type Priority Associated Diagnoses Orde r Schedule Hemoglobin and Hematocrit Lab Routine Vaginal bleeding Expected: 09/08/2024, Expires: 09/08/2025 TSH W/Reflex to FT4 Lab Routine Vaginal bleeding Expected: 09/08/2024 (Approximate), Expires: 09/08/2025 documented as of this encounter Visit Diagnoses Diagnosis Vaginal bleeding- Primary Other specified noninflammatory disorder of vagina Bacterial vaginosis Unspecified vaginitis and vulvovaginitis documented in this encounter Additional Health Concerns Assessment Noted Time PHQ-9 Depression Total Score: 0 01/10/20 23 1:11 PM EDT documented as of this encounter Care Teams Scale Tester Relationship Specialty Start Date End Date Disha Lackey ANP [address] [place] [address] PCP - General Family Medicine 01/09/23 documented as of this encounter
--- OUTSIDE RECORDS SUMMARY | 2024-09-11 02:23 | XMS_ITS | Encounter Summary ---
Author Organization [employer] Address [address] [place] [address] 7t [place] [address] Care Team Providers Care Advertising Consultant Name Role Phone Disha Lackey Primary Care Provider [phone] Reason for Visit * Reason Onset Date Comments ER Follow-up 08/31/2024 Encounter Details Date Type Department Care Team ([facility] st Contact Info) Description 08/31/2024 Telephone [facility] MEDICINE 230 [place], [place] [phone] Disha Lackey ANP 230 [place], [place] [phone] ER Follow-up Social History Tobacco Use Types [...] Triage call Pt was seen in ED, [facility], 08/29/24. Pt had IUD removed 3 months [...] ED visit on : Date: 08/29 Hospital: [facility] Seen for: Excessive Bleeding Symptomatic Yes *if yes message should go to Triage Patient advised will forward to team nurse for follow up Contact pt at [phone] documented in this encounter Plan of Treatment Not on file documented as of this encounter Visit Diagnoses Not on filedocumented in this encounter Additional Health Concerns Assessment Noted Time PHQ-9 Depression Total Score: 0 01/10/20 1:11 PM EDT documented as of this encounter Care Teams Advertising Consultant Relationship Specialty Start Date End Date Disha Lackey ANP [address] [place] [address] PCP - General Family Medicine 01/09/23 documented as of this encounter
--- OUTSIDE RECORDS SUMMARY | 2024-09-11 02:23 | XMS_ITS | Encounter Summary ---
Author Organization [employer] Address [address] [place] [address] [address] [place] [address] Care Team Providers Care Regulation Supervisor Name Role Phone Aleah Scherer Primary Care Provider [phone] Encounter Details Date Type Department Care Team [...] as of this encounter Miscellaneous Notes * Result Encounter Note - MARIAN Martin - 09/07/2024 12:30 PM EST Discussed result with patient today at appointment. Patient also had ultrasound with COMMISSARY MANAGER this morning. documented in this encounter Plan of Treatment Not on file documented as of this encounter Procedures Procedure Name Priority Date/Time Associated Diagnosis Comments WET PREP, GENITAL Routine 09/07/2024 4: 18 PM EST BACTERIAL VAGINOSIS PANEL Routine 09/07/2024 4:05 PM EST CHLAMYDIA/N. GONORRHOEAE RNA, TMA, UROGENITAL Routine 09/07/2024 4:05 PM EST US PELVIS TRANSVAGINAL Routine 09/07/2024 3:00 PM EST URINALYSIS, COMPLETE, WITH REFLEX TO CULTURE Routine [...] METABOLIC PANEL Routine 09/07/2024 12:24 PM EST CULTURE, URINE, ROUTINE Routine 09/07/2024 12:00 AM EST documented in this encounter Results * Wet prep, genital (09/07/2024 4:18 PM EST) Vaginal Fluid Vaginal structure / Unknown 09/07/2024 4:18 PM EST 09/07/2024 5:09 PM EST Comment:Vaginal Narrative [facility] - 09/07/2024 5:23 PM EST Trichomonas Prep Direct Microscopic Exam Trichomonas Prep No trichomonads or yeast seen Specimen Source: Vaginal us Generic External Data Provider LAB MICROBIOLOGY - GENERAL ORDERABLES Final Result [facility] [address] [place] [phone] * Chlamydia/N. Gonorrhoeae RNA, TMA, Urogenitial (09/07/2024 4:05 PM EST) CT PCR NOT DETECTED Not Detect. [facility] Comment:A not detected test result does not exclude the possibilityof infection because test results can be affected byimproper specimen collection, concurrent antibiotic therapy,or the number of organisms in the specimen which may bebelow the sensitivity of the test. As with many diagnostictests, results from the Xpert CT/NG assay should beinterpreted in conjunction with other laboratory andclinical data available to the clinician.Xpert CT/NG performance has not been evaluated in patientsless than 14 years of age. The assay should not be used forthe evaluationof suspected sexual abuse or for other medico-legalindications. Additional testing is recommended in anycircumstance when false positive or false negative resultscould lead to adverse medical, social or psychologicalconsequences. NG PCR NOT DETECTED Not Detect. [facility] Comment:A not detected test result does not exclude the possibilityof infection because test results can be affected byimproper specimen collection, concurrent antibiotic therapy,or the number of organisms in the specimen which may bebelow the sensitivity of the test. As with many diagnostictests, results from the Xpert CT/NG assay should beinterpreted in conjunction with other laboratory andclinical data available to the clinician.Xpert CT/NG performance has not been evaluated in patientsless than 14 years of age. The assay should not be used forthe evaluationof suspected sexual abuse or for other medico-legalindications. Additional testing is recommended in anycircumstance when false positive or false negative resultscould lead to adverse medical, social or psychologicalconsequences. 09/07/2024 4:05 PM EST 09/07/2024 4:27 PM EST Narrative [facility] - 09/07/2024 6:00 PM EST Vaginal Generic External Data Provider LAB MICROBIOLOGY - GENERAL ORDERABLES Final Result Performing Organization Address [facility] Co de Phone Number [facility] [address] [place] [phone] * (ABNORMAL) Bacterial Vaginosis (09/07/2024 4:05 PM EST) TRICHOMONAS VAGINALIS DETECTION BY PCR NOT DETECTED Not Detect [facility] BACTERIAL VAGINOSIS DETECTION BY PCR POSITIVE(A) Negative [facility] Comment:The BV organism targ ets of the Xpert Xpress MVP test can becommensal in women; Xpert Xpress MVP positive results forbacterial vaginosis should be considered in conjunction withother clinical and patient information to determine thedisease status. Organisms that are not detected by the XpertXpress MVP test have also been reported to be associatedwith BV and aerobic vaginitis.The Xpert Xpress MVP test performance has not been evaluatedin patients under the age of 14. PAZ GROUP DETECTION BY PCR NOT DETECTED Not Detect [facility] Paz glab krusei PCR NOT DETECTED Not Detect [facility] 09/07/2024 4:05 PM EST 09/07/2024 4:14 PM EST us Generic External Data Provider LAB MICROBIOLOGY - GENERAL ORDERABLES Final Result Performing Organization Address City/[facility]/ZIP Co de Phone Number [facility] [address] [place] [phone] * US Pelvis Transvaginal (09/07/2024 3:00 PM EST) Anatomical Region Laterality Modality Pelvis Ultrasound 09/07/2024 3:00 PM EST Narrative 09/07/2024 3:41 PM EST ? [facility] ?[address] ?[place] [address] ? Ultrasound Report ? Signed ? Patient: Corbin,Sweta ?MR#: [id number] ?? 6 ? : 1990 ?Acct:[id number] ? Age/Sex: 34 / F ?ADM Date: 09/07/24 ? Loc: HO.ED ? Attending Dr: ? Ordering Physician: Christiano Ye DO ?? Date of Service: 09/07/24 ?? Procedure(s): US pelvic and transvaginal ?? Accession Number(s): [id number] ? cc: Christiano Ye DO; ALEAH SCHERER NP ? EXAMINATION: ??US PELVIS TRANSABDOMINAL AND TRANSVAGINAL ? HISTORY: pelvic pain with vaginal bleeding ? COMPARISON: There are no prior studies for comparison. ? TECHNIQUE: ? Transabdominal and endovaginal real-time 2D anderson-scale ultrasound was ?? performed. ?? Color Doppler was also performed. ? FINDINGS: ? Uterus: ??The uterus is normal in size, measuring 8.5 x 5.3 x 5.3 cm. ? Myometrium has a normal echotexture. ??No fibroids are identified. ? Endometrium: ??The endometrial stripe in the fundus measures 5 mm in ?? thickness. However, there is focal thickening of the endometrial stripe ?? in the midportion of the uterus measuring up to 8 mm in thickness. ? Right ovary: ??The right ovary measures 4.9 x 2.8 x 3.6 cm. ??There is a ?? 2.2 x 3.2 x 2.2 cm septated cyst. ? Left ovary: ?? The left ovary is not identified. ? Pelvic fluid: There is a small amount of free fluid in the cul-de-sac. ? US/US pelvic and transvaginal ?? IMPRESSION: ? 1. Focal thickening of the endometrial stripe in the midportion of the ?? uterus. This could represent a polyp. Hysteroscopy should be considered. ? 2. 2.2 x 3.2 x 2.2 cm septated right ovarian cyst. Follow-up is ?? recommended to document resolution. ? Electronically signed by: ??Carlin Rivera MD ??09/07/2024 03:38 PM EST ?? RP ? Dictated By: ?Carlin Rivera MD ? Signed By: ?<Electronically signed by Carlin Rivera MD in OV> ?09/07/24 1538 ? DD/ 1500 ? TD/TT: 09/07/24 1529 ? Emergency Generator Mechanic: ? Procedure Note Donitaloter, Image - 09/07/2024 [place] [address] Ultrasound Report Signed Patient: Sweta CorbinMR#: [id number] 6 : 1990Acct:[id number] Age/Sex: 34 / FADM Date: 09/07/24 Loc: .ED Attending Dr: Ordering Physician: Christiano Ye DO Date of Service: 09/07/24 Procedure(s): US pelvic and transvaginal Accession Number(s): [id number] cc: Christiano Ye DO; ALEAH SCHERER NP EXAMINATION: US PELVIS TRANSABDOMINAL AND TRANSVAGINAL HISTORY: pelvic pain with vaginal bleeding COMPARISON: There are no prior studies for comparison. TECHNIQUE: Transabdominal and endovaginal real-time 2D anderson-scale ultrasound was performed. Color Doppler was also performed. FINDINGS: Uterus: The uterus is normal in size, measuring 8.5 x 5.3 x 5.3 cm. Myometrium has a normal echotexture. No fibroids are identified. Endometrium: The endometrial stripe in the fundus measures 5 mm in thickness. However, there is focal thickening of the endometrial stripe in the midportion of the uterus measuring up to 8 mm in thickness. Right ovary: The right ovary measures 4.9 x 2.8 x 3.6 cm. There is a 2.2 x 3.2 x 2.2 cm septated cyst. Left ovary: The left ovary is not identified. Pelvic fluid: There is a small amount of free fluid in the cul-de-sac. US/US pelvic and transvaginal IMPRESSION: 1. Focal thickening of the endometrial stripe in the midportion of the uterus. This could represent a polyp. Hysteroscopy should be considered. 2. 2.2 x 3.2 x 2.2 cm septated right ovarian cyst. Follow-up is recommended to document resolution. Electronically signed by: Carlin Rivera MD 09/07/2024 03:38 PM EST Dictated By: Carlin Rivera MD Signed By: <Electronically signed by Carlin Rivera MD in OV> 09/07/24 1538 DD/ 1500 TD/TT: 09/07/24 1529 Emergency Generator Mechanic: us [facility] External Provider IMG US PROCEDURES Edited Result - Final * (ABNORMAL) Urinalysis, Complete, with Reflex to Culture (09/07/2024 1:02 PM EST) Color Urine Red(A) [facility] Appearance Urine Turbid [facility] PH 8.0 5.0 - 9.0 [facility] Glucose Urine UA Negative Negative mg/dL [facility] Urine Blood Large (3+)(A) Negative [facility] Specific [facility] - Urine 1.025 1.005 - 1.025 [facility] Urine Protein 30 (1+)(A) Neg-Trace mg/dL [facility] Urine Ketones Negative Negative mg/dL [facility] Nitrite Urine Negative Negative [facility] Leukocyte Esterase Urine Small (1+)(A) Negative [facility] RBC Urine >20(A) 0 - 2 /HPF [facility] Urine WBC 11-20(A) 0 - 5 /HPF [facility] Urine Squamous Epithelial Cell 0-2 0 - 2 /HPF [facility] Urine Bacteria Trace None Seen [facility] Hyaline Casts, Urine 0-2 0 - 2 /LPF [facility] 09/07/2024 1:02 PM EST 09/07/2024 1:17 PM EST Narrative [facility] - 09/07/2024 1:25 PM EST Urine, Clean Catch Generic External Data Provider LAB URINE ORDERAB LES Final Result Performing Organization Address [facility]/ZIP Co de Phone Number [facility] [address] [place] [phone] * Type and screen (09/07/2024 12:24 PM EST) Blood Type AP [facility] Comment:RH IMMUNE GLOBULIN I NDICATED: NO Antibody Screen NEGATIVE [facility] 09/07/2024 12:2 4 PM EST 09/07/2024 12:29 PM EST Narrative [facility] - 09/07/2024 1:14 PM EST n Generic External Data Provider LAB BLOOD BANK TE ST ORDERABLES Final Result Performing Organization Address [facility] Co de Phone Number [facility] [address] [place] [phone] * hCG, Total, Quantitative (09/07/2024 12:24 PM EST) HCG Quantitative <2 mIU/mL [facility] Comment:Weeks post LMP Appro ximate hCG(Last Menstrual Period) Range (mIU/ml)3 - 4 weeks 9 - 1304 - 5 weeks 75 - 2,6005 - 6 weeks 850 - 20,8006 - 7 weeks 4000 - 100,2007 - 12 weeks 11,500 - 289,11837 - 16 weeks 18,300 - 137,60543 - 29 weeks (2nd trimester) 1,400 - 53,47436 - 41 weeks (3rd trimester) 940 - [...] ORDERAB LES Final Result Performing Organization Address [facility]/ZIP Co de Phone Number [facility] [address] [place] [phone] * Magnesium (09/07/2024 12:24 PM EST) Pathologist [facility] Magnesium 2.0 1.6 - 2.6 mg/dL [facility] 09/07/2024 12:2 4 PM EST 09/07/2024 12:27 PM EST Generic External Data Provider LAB BLOOD ORDERAB LES Final Result Performing Organization Address [facility] Co de Phone Number [facility] [address] [place] [phone] * (ABNORMAL) Basic Metabolic Panel (09/07/2024 12:24 PM EST) Sodium 137 135 - 145 mmol/L [facility] Potassium 4.0 3.3 - 5.1 mmol/L [facility] Chloride 107 96 - 108 mmol/L [facility] Carbon Dioxide 27 22 - 29 mmol/L [facility] Anion Gap 7(L) 12 - 20 [facility] Urea Nitrogen (BUN) 13 9 - 16 mg/dL [facility] Creatinine, Serum 0.73 0.5 - 1.4 mg/dL [facility] Creatinine Clr Calc Pharmacy 150.5 [facility] Comment:Provided height and weight: 167.64 cm,126.552 kg.eGFR (calculated from the MDRD study equation) and eCrCl(calculated from the Cockcroft-Gault equation) are based ondifferent parameters and may not yield comparable results.If eCrCl result is absurd, please check patient'sheight/weight. Estimated Glomerular Filt Rate >60 [facility] Comment:Chronic Kidney Disea se: Estimated GFR < 60 mL/min/1.76l0Fynimi Kidney Disease: Estimated GFR < 15 mL/min/1.73m2 Glucose 89 60 - 115 mg/dL [facility] Calcium 8.1(L) 8.4 - 10.2 mg/dL [facility] 09/07/2024 12:2 4 PM EST 09/07/2024 12:27 PM EST Generic External Data Provider LAB BLOOD ORDERAB LES Final Result Performing Organization Address [facility]/ZIP Co de Phone Number [facility] [address] [place] [phone] * Hepatic Function Panel (09/07/2024 12:24 PM EST) Bilirubin, Total 0.3 0.0 - 1.0 mg/dL [facility] Bilirubin, Direct 0.1 0.0 - 0.5 mg/dL [facility] Aspartate Amino Transferase 20 5 - 31 U/L [facility] Alanine Aminotransferase 16 0 - 31 U/L [facility] Total Protein 6.9 6.5 - 8.0 g/dL [facility] Albumin Level 3.7 3.5 - 5.0 g/dL [facility] Alkaline Phosphatase 81 39 - 117 U/L [facility] 09/07/2024 12:2 4 PM EST 09/07/2024 12:27 PM EST Generic External Data Provider LAB BLOOD ORDERAB LES Final Result Performing Organization Address City/[facility]/ZIP Co de Phone Number [facility] [address] [place] [phone] * Prothrombin Time-INR (09/07/2024 12:24 PM EST) Pathologist [facility] Prothrombin Time 12.4 10.9 - 12.4 SEC [facility] INTERNATIONAL NORM RATIO 1.1 0.9 - 1.1 [facility] Comment:INTERNATIONAL NORMAL IZED RATIO (INR) [...] ORDERAB LES Final Result Performing Organization Address City/State/[facility] de Phone Number [facility] [address] [place] [phone] * CBC auto differential (09/07/2024 12:24 PM EST) Pathologist [facility] White Blood Count 7.5 4.8 - 10.8 X10*3/uL [facility] Red Blood Count 4.60 4.20 - 5.50 X10*6/uL [facility] Hemoglobin 12.8 12.0 - 16.0 g/dl [facility] Hematocrit 40.3 37.0 - 47.0 % [facility] Mean Corpuscular Volume 87.6 80.0 - 98.0 fL [facility] Mean Corpuscular Hemoglobin 27.8 27.0 - 33.0 pg [facility] Mean Corpuscular HGB Conc 31.8 31.0 - 35.0 g/dl [facility] Red Cell Distribution Width 13.1 11.0 - 16.0 % [facility] Platelet Count 276 160 - 400 X10*3/uL [facility] Mean Platelet Volume 9.9 9.4 - 12.3 fL [facility] Neutrophils Percent Auto 66.2 45 - 73 % [facility] Imm Gran Pct Auto 0.3 0.0 - 0.4 % [facility] Lymphocytes Percent Auto 24.7 20 - 40 % [facility] Monocytes Percent Auto 6.0 2 - 11 % [facility] Eosinophils Percent Auto 2.0 0 - 4 % [facility] Basophils Percent Auto 0.8 0 - 2 % [facility] NRBC Pct Auto 0.0 0.0 - 0.2 /100WBC [facility] Neutrophils Absolute Auto 4.9 2.0 - 8.3 x10*3/uL [facility] Imm Gran Abs Auto 0.02 0.00 - 0.03 X10*3/uL [facility] Lymphocytes Absolute Auto 1.8 1.2 - 4.9 X10*3/uL [facility] Monocytes Absolute Auto 0.5 0.1 - 1.2 X10*3/uL [facility] Eosinophils Absolute Auto 0.2 0.0 - 0.4 X10*3/uL [facility] Basophils Absolute Auto 0.1 0.0 - 0.2 X10*3/uL [facility] NRBC Abs Auto 0.000 0.0 - 0.012 X10*3/uL [facility] 09/07/2024 12:2 4 PM EST 09/07/2024 12:27 PM EST us Generic External Data Provider LAB BLOOD ORDERAB LES Final Result [facility] [address] [place] [phone] * Culture, Urine, Routine (09/07/2024 12:00 AM EST) Urine Urine specimen obtained by clean catch procedure / Unknown 09/07/2024 09/07/2024 Comment:UACC Narrative [facility] - 09/08/2024 11:07 AM EST Urine Culture Report Result Urine Culture < 10,000 cfu/ml Specimen Source: Urine clean catch us Generic External Data Provider LAB MICROBIOLOGY - GENERAL ORDERABLES Final Result [facility] [address] [place] [phone] documented in this encounter Visit Diagnoses Not on filedocumented in this encounter Additional Health Concerns Assessment Noted Time PHQ-9 Depression Total Score: 0 01/10/20 23 1:11 PM EDT documented as of this encounter Care Teams Regulation Supervisor Relationship Specialty Start Date End Date Aleah Scherer ANP [address] [place] [phone] PCP - General Family Medicine 01/09/23 documented as of this encounter
--- OUTSIDE RECORDS SUMMARY | 2024-09-11 02:23 | XMS_ITS | Encounter Summary ---
Author Organization [employer] Address [address] [place] [address] [address] [place] [address] Care Team Providers Care Zoning Assistant Name Role Phone Disha Lackey Primary Care Provider Reason for Visit * Reason Onset Date Comments Results 01/07/2024 Encounter Details Date Type Department Care Team ([facility] st Contact Info) Description 01/07/2024 Telephone [facility] MEDICINE [address] [place], [place] [phone] Disha Lackey ANP [address] [place], [place] [phone] Results Social History Tobacco Use Types Packs/Day [...] culture Date when done: 01/04 Facility: [facility] Please contact pt at [phone] documented in this encounter Plan of Treatment Not on file documented as of this encounter Visit Diagnoses Not on filedocumented in this encounter Additional Health Concerns Assessment Noted Time PHQ-9 Depression Total Score: 0 01/10/20 1:11 PM EDT documented as of this encounter Care Teams Zoning Assistant Relationship Specialty Start Date End Date Disha Lackey ANP [address] [place] [phone] PCP - General Family Medicine 01/09/23 documented as of this encounter
--- OUTSIDE RECORDS SUMMARY | 2024-09-11 02:23 | XMS_ITS | Clinical Summary ---
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 60 Tab 2 4 Active loratadine (CLARITIN) 10 mg tabletIndication s:Allergic rhinitis Take 1 Tab by mouth once daily as needed for allergies. 30 Tab 4 5 Active fluticasone (FLONASE) 50 mcg/actuation nasal sprayIndications :Allergic rhinitis Place [address] [place] into the nostril(s) once daily. 16 g 1 5 Active triamcinolone (KENALOG) 0.1 % lotionIndication s:Eczema Apply topically 2 (two) times daily. 60 mL 0 5 Active ketoconazole (NIZORAL) 2 % shampooIndicatio ns:Tinea pedis of right foot Apply topically once daily as needed for itching. 120 mL 1 5 Active clotrimazole (LOTRIMIN) 1 % creamIndications :Tinea pedis of right foot Apply topically 2 (two) times daily. 15 g 1 5 Active benzonatate (TESSALON) 100 mg capsuleIndicatio ns:Acute URI Take 1 Capsule by mouth 3 (three) times daily as needed for cough 15 Capsule 2 Active acetaminophen (TYLENOL) 500 mg tabletIndication s:Costochondriti s Take 1 Tablet by mouth every 6 (six) hours as needed for pain 30 Tablet 2 Active lidocaine (LIDODERM) 5 % patchIndications :Lumps on the skin,Mid sternal chest pain Place 1 Patch onto the skin once daily (every 24 hours) Daily at mid chest pain lump region. 30 Patch 1 2 Active nabumetone (RELAFEN) 750 mg tabletIndication s:Abscess Take 1 Tablet by mouth 2 (two) times daily as needed for pain 40 Tablet 1 2 Active omeprazole (PRILOSEC) [address] capsuleIndicatio ns:Epigastric pain TAKE 1 CAPSULE BY MOUTH 2 (TWO) TIMES DAILY BEFORE A MEAL FOR HEARTBURN 180 Capsule 2 Active albuterol HFA 90 mcg/actuation inhalerIndicatio ns:Acute cough,SOB (shortness of breath) Inhale 2 Puffs into the lungs every 6 (six) hours as needed for shortness of breath or wheezing 18 g 2 Active dextromethorphan -guaifenesin 15-400 mg tabIndications:A cute cough,COVID-19 Take 1 Tablet by mouth 4 (four) times daily as needed (cough) 60 Tablet 2 Active promethazine (PHENERGAN) 6.25 mg/5 mL syrupIndications :Acute cough Take 10 mL by mouth 4 (four) times daily as needed for other reason (cough) 240 mL 2 Active ipratropium-albu teroL (DUONEB) 0.5 mg-3 mg(2.5 mg base)/3 mL nebulizer solutionIndicati ons:Asthma attack,Mild persistent asthma with acute exacerbation Take 3 mL by nebulization 4 (four) times daily 90 mL 3 Active predniSONE (DELTASONE) 20 mg tabletIndication s:Mild persistent asthma with acute exacerbation Take 1 Tablet by mouth once daily 10 Tablet 3 Active albuterol HFA 90 mcg/actuation inhalerIndicatio ns:Mild persistent asthma with acute exacerbation Inhale 2 Puffs into the lungs every 4 to 6 (four to six) hours as needed for shortness of breath or wheezing 18 g 1 3 Active fluticasone furoate-vilanter oL (BREO ELLIPTA) 100-25 mcg/dose dsdv Inhale 1 Puff into the lungs daily Rinse mouth after use 1 Each 2 3 Active Active Problems Problem Noted Date Diagnosed Date Lump in chest 02/15/2022 Overview (02/15/2022): 02/14/2022: US of chest: [facility]: Impression; No suspicious finding at the area of concern and over the sternum. Tinea pedis, bilateral 11/13/2014 Allergic rhinitis 11/13/2014 Proteinuria 08/30/2014 Asthma 08/30/2014 Low back pain 11/23/2013 h/o Asthma attack 11/09/2013 Overview (05/31/2014): Nava CXR 05/27/14; normal exam of the chest evidence of prev cholecystectomy, no chg since 02/12/2014 Eczema Dyspepsia Cholelithiases Overview (05/31/2014): Nava Abd Ct w/o contrast 05/27/14; no acute process. bilat cystic adenexal mass, similar to 2013 study/ s/p cholecystectomy Vitamin D deficiency Resolved Problems Problem Noted Date Diagnosed Date Resolved Date Bronchial asthma 03/25/2013 Immunizations Name Administration Dates Next Due HEP B,ADULT 1992 HPV, QUADRIVALENT 07/04/2019,12/11/2015 Hep B,adult,adjuvanted (HEPLISAV) 02/11/2022 INFLUENZA, SEASONAL, INJECTABLE 07/04/2019,11/25,05/31/2014 MMR (MMR II/Priorix) 1993 TDAP 10/03/2020,11/30/2016,06/12/2016 Family History Medical History Relation Name Comments No Known Problems Brother No Known Problems Father Other Mother killed by a per son Lupus Sister Relation Name Status Comments Brother Alive Father Alive Mother Sister Alive Social History Tobacco Use Types Packs/Day Years Used Date Smoking Tobacco: Never Smokeless Tobacco: Never Alcohol Use Standard Drinks/Week Comments No 0 (1 standard drink = 0.6 oz pur e alcohol) Social Connections Answer Date Recorded Connectedness 0 04/15/2024 Financial Resource Strain Answer Date R ecorded Financial Resource Strain 0 2021 Stress Answer Date Recorded Stress 0 01/24/2022 Physical Activity Answer Date Recorded Physical Activity 0 01/24/2022 Food Insecurity Answer Date Recorded Food 0 05/05/2024 Transportation Needs Answer Date Record ed Transportation 0 01/24/2022 Housing Stability Answer Date Recorded Housing 0 01/24/2022 Safety and Environment Answer Date Denny rded Safety 0 01/28/2022 Utilities Answer Date Recorded Utilities 0 01/24/2022 Employment Answer Date Recorded Employment 0 01/24/2022 Comments No Sex and Gender Information Value Date Recorded Sex Assigned at Female 02/11/2022 7:40 AM PDT Legal Sex Female 11:36 AM PDT Gender Identity Female 02/11/2022 7:40 AM PDT Sexual Orientation Straight 02/11/2022 7: 40 AM PDT Last Filed Vital Signs Vital Sign Reading Time Taken Comments Blood Pressure 98/66 02/18/2022 3:35 PM EDT Pulse 83 02/18/2022 3:35 PM EDT Temperature 36.8 ??C (98.3 ??F) 02/18/2022 3:35 PM ED T Respiratory Rate 16 02/18/2022 3:35 PM EDT Oxygen Saturation 99% 02/18/2022 3:35 PM EDT Inhaled Oxygen Concentration - - Weight 119.2 kg (262 lb 12.8 oz) 02/18/2022 3:35 PM EDT Height 167.6 cm (5' 6 ) 02/18/2022 3:35 PM EDT Body Mass Index 42.42 02/18/2022 3:35 PM EDT Plan of Treatment Health Maintenance Due Date Last Done Comments HPV Screening 1992 Pap + HPV 1992 Tobacco Screening 1992 Medicare Annual Wellness Visit 2010 Imm-Pneumococcal (1 of 2 - PCV) 2011 Cervical Cancer Screening 10/23/2013 Pap Smear 10/23/2013 10/23/2010, 10/23/2010 Annual Preventive Care Visit 08/30/2015, 11/09/2013, 11/07/2013 Imm-Hepatitis B (3 of 3 - 3- dose series) 04/08/2022 02/11/2022, 1992 Relationship Safety Screening/Counseling 01/28/2023 01/28/2022 Hypertension Screening (#1) 02/18/2023 05/31/2014 [id number] (1 season) 2024 Imm-Influenza (#1) 2024 07/04/2019, 0 11/26/2015, 05/31/2014, Additional history exists Alcohol and Drug Screen 08/10/2024 01/28/2022 Depression Annual Screen 08/10/2024 01/28/2022 Imm-DTaP/Tdap/Td (4 - Td or Tdap) 10/03/2030 10/03/2020, 11/30/2016, 06/12/2016 HIV Screening Completed 05/31/2014 Hepatitis C Screening Completed 05/31/2014 Cervical Ablation/Cold-Knife Conization Discontinued Cervical Cryotherapy Discontinued Colposcopy Discontinued Endometrial Biopsy Discontinued Excision/Leep Discontinued HPV Genotyping Discontinued Vaginal Pap Discontinued Vulvoscopy Discontinued Procedures Procedure Name Priority Date/Time Associated Diagnosis Comments ANTIBODY HIV-1&HIV-2 SINGLE RESULT Routine 05/31/2014 7:44 PM EDT Abdominal pain, acute HEPATITIS A,B,C PANEL Routine 05/31/2014 7:44 PM EDT Abdominal pain, acute from Last 3 Months or Most Recently Relevant to Health Maintenance Results * HEPATITIS A,B,C PANEL (05/31/2014 7:44 PM EDT) HEPATITIS B SURFACE ANTIBODY NEGATIVE NEGATIVE [facility] HEPATITIS B SURFACE ANTIGEN NEGATIVE [facility]GATIVE [facility] VIRUS ANTIBODY NEGATIVE NEGATIVE [facility] A ANTIBODY TOTAL NEGATIVE NEGATIVE [facility] HEPATITIS B CORE ANTIBODY TNP NEGATIVE [facility] Comment: Quantity not sufficient, please resubmit CALLED TO [facility] ON 06/01/14 AT 0907 BY VLADIMIR MONTENEGRO. Blood specimen (specimen) Blood / Unknown 05/31/2014 7:44 PM EDT 05/31/2014 9:37 PM EDT [facility] - 06/01/2014 12:07 PM EDT [address] [place] [address] PT ID [id number] ORD# [id number] Leonora Nina [facility] - BLOOD DRAW Edited Res ult - Final Performing Organization Address [facility] de Phone Number [facility] [address] [place] [address], [place] [phone] * HIV-1 & HIV-2 ANTIBODIES (05/31/2014 7:44 PM EDT) [facility] HIV 1 AND 2 ANTIBODY SCREEN TNP NEGATIVE [facility] Comment: Quantity not sufficient, please resubmit CALLED TO [facility] ON 06/01/14 AT 0907 BY VLADIMIR MONTENEGRO. Blood specimen (specimen) Blood / Unknown 05/31/2014 7:44 PM EDT 05/31/2014 9:37 PM EDT [facility] - 06/01/2014 12:08 PM EDT [address] [place] [id number] [place] ID [id number] ORD# [id number] Leonora Nina [facility] - BLOOD DRAW Final Resu lt Performing Organization Address [facility] de Phone Number [facility] [address] [place] [address], [place] [phone] from Last 3 Months or Most Recently Relevant to Health Maintenance Insurance MEDICARE - [place] MEDICAID Care Teams 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
--- OUTSIDE RECORDS SUMMARY | 2024-09-11 02:23 | XMS_ITS | Clinical Summary ---
Author Organization [employer] Address [address] [place] [address] [address] [place] [address] Care Team Providers Care Dairy Associate Name Role Phone Aleah Scherer Primary Care Provider [phone] Allergies Active Allergy Reactions Criticality Noted Date Comments [place] Oil Anaphylaxis High 11/06/2022 Doxycycline 11/06/2022 Other reaction(s): Gastrointestinal upset Potato 11/06/2022 Other reaction(s): Hives Medications EPINEPHrine (Epipen) 0.3 MG/0.3ML injection syringeIndication s:Food allergy Inject 0.3 mL (0.3 mg) as directed 1 (one) time for 1 dose. use as directed for allergic reaction and then call 911 2 each 1 01/10/20 23 Active SUMAtriptan (Imitrex) 50 MG tabletIndications :Migraine without aura and without status migrainosus, not intractable Take 1 tablet (50 mg) by mouth 1 (one) time if needed for migraine. May repeat dose once in 2 hours if no relief. Do not exceed 2 doses in 24 hours. 9 tablet 08/13/19 24 Active triamcinolone (Kenalog) 0.1 % creamIndications: Eczema, unspecified type Apply topically if needed in the morning and at bedtime for rash. 30 g 09/18/19 24 Active ipratropium-albut francisco j (Duo-Neb) 0.5-2.5 mg/3 mL nebulizer solutionIndicatio ns:Mild persistent asthma with exacerbation Take 3 mL by nebulization every 6 (six) hours if needed for wheezing. 360 mL 11/03/19 24 Active albuterol 108 (90 Base) MCG/ACT inhalerIndication s:Mild asthma without complication, unspecified whether persistent 2 puffs as needed every 4-6 hrs for wheezing 18 g 1 11/24/19 24 Active cetirizine (ZyrTEC) 10 MG tabletIndications :Non-seasonal allergic rhinitis due to other allergic trigger Take 1 tablet (10 mg) by mouth Once per day. 90 tablet 1 12/11/19 24 Active cromolyn (Opticrom) 4 % ophthalmic solutionIndicatio ns:Allergic conjunctivitis of both eyes 1-2 drops into each eye 4-6 times daily as needed for allergies 10 mL 12/11/19 24 Active albuterol (2.5 MG/3ML) 0.083% nebulizer solutionIndicatio ns:Moderate persistent asthma with acute exacerbation Take 3 mL (2.5 mg) by nebulization every 6 (six) hours if needed for wheezing or shortness of breath. 75 mL 1 12/11/19 24 025 Active Nebulizer misc 1 Device every 6 (six) hours if needed. The patient was prescribed a nebulizer from the [facility] vendor [employer] on 12/11/23. Instructions on how to use the nebulizer were provided. Active fluticasone furoate (Arnuity Ellipta) 100 MCG/ACT inhalerIndication s:Asthma Inhale 1 PUFF EVERY DAY RINSE MOUTH AFTER USING. 30 each 2 12/21/19 24 Active omeprazole OTC (PriLOSEC OTC) 20 MG EC tablet Take 1 tablet (20 mg) by mouth before breakfast. Do not crush, chew, or split. 30 tablet 11 01/19/20 24 025 Active cholecalciferol (Vitamin D-3) 25 MCG (1000 UT) tablet Take 1 tablet (25 mcg) by mouth Once per day. 30 tablet 01/19/20 24 Active cyclobenzaprine (Flexeril) 5 MG tablet TAKE 1 TABLET BY MOUTH 3 TIMES A DAY NEEDED FOR MUSCLE SPASM 12/26/19 24 Active dicyclomine (Bentyl) 20 MG tablet TAKE 1 TAB (20 MG) ORALLY 3 TIMES A DAY NEEDED FOR ABDOMINAL PAIN 01/19/20 24 Active famotidine (Pepcid) 40 MG tablet Take 40 mg by mouth Once per day. 01/19/20 24 Active omeprazole (PriLOSEC) [address] capsule TAKE 1 CAPSULE BY MOUTH EVERY DAY , DO NOT BREAK, CRUSH, DISSOLVE OR CHEW 01/19/20 24 Active COVID-19 Antigen Test kit 1 each by In Vitro route if needed each day (COVID symptoms). 4 kit 3 03/23/20 24 Active ferrous sulfate (Fe Tabs) 325 (65 Fe) MG EC tabletIndications :Iron deficiency Take 1 tablet (325 mg) by mouth every other day. Do not crush, chew, or split. 15 tablet 2 07/27/20 24 025 Active cholecalciferol (Vitamin D-3) 25 MCG (1000 UT) tabletIndications :Vitamin D deficiency Take 1 tablet (25 mcg) by mouth Once per day. 60 tablet 1 07/27/20 24 Active metroNIDAZOLE (Flagyl) 500 MG tabletIndications :Bacterial vaginosis Take 1 tablet (500 mg) by mouth 2 times daily for 7 days. 14 tablet 09/08/19 25 025 Active ibuprofen 800 MG tabletIndications :Vaginal bleeding Take 1 tablet (800 mg) by mouth 3 times daily. For 7 days, then as needed 60 tablet 09/08/19 25 Active semaglutide (Ozempic) 2 MG/1.5ML solution pen-injectorIndic ations:BMI 40.0-44.9, adult ([facility]),Hidrade nitis suppurativa,Class 3 severe obesity with body mass index (BMI) of 45.0 to 49.9 in adult, unspecified obesity type, unspecified whether serious comorbidity present ([facility]) Inject 0.25 mg under the skin 1 (one) time per week. For 4 weeks, then increase dose to 0.5mg once weekly 1 each 12 04/30/20 025 Discontinu ed(Therapy completed) Blood Pressure kit 1 each 2 times daily. 1 kit 09/01/19 24 025 losartan (Cozaar) 25 MG tabletIndications :Primary hypertension Take 1 tablet (25 mg) by mouth in the morning. 90 tablet 1 09/18/19 24 025 Discontinu ed(Therapy completed) nitrofurantoin, macrocrystal-mono hydrate, (Macrobid) 100 MG capsule TAKE 1 CAPSULE BY MOUTH EVERY 12 HOURS FOR 5 DAYS MUST ADMINISTER WITH A MEAL/FOOD 01/19/20 24 025 Discontinu ed(Therapy completed) Nirmatrelvir&Hugo navir 300/100 (Paxlovid, 300/100,) 20 x 150 MG & 10 x 100MG tablet therapy packIndications:Mirna cedeño COVID-19 Take 1 Dose by mouth 2 times daily. 30 each 03/23/20 24 025 Discontinu ed(Therapy completed) Active Problems Problem Noted Date Diagnosed Date [...] Encounters Date Type Department Care Team Description 09/08/2024 11:30 AM EST Office Visit [facility] [address] [place] [phone] Aleah Scherer ANP Vaginal bleeding (Primary Dx); Bacterial vaginosis 09/08/2024 Travel 09/07/2024 Orders Only GENERIC EXTERNAL DATA DEPARTMENT Provider, Generic External Data 09/07/[address] [address] Aretha Almendarez MA chart prep 08/31/[address] [phone] Aleah Scherer ANP ER Follow-up 08/30/2024 Orders Only [address] [phone] Sravani Groves MD Hypersomnia (Primary Dx) 08/30/2024 Telephone [facility] [address] [place] [phone] Sravani Groves MD 07/27/2024 Telephone [facility] [address] [place] [phone] Sravani Groves MD 07/27/2024 Orders Only [facility] [address] [place] [phone] Sravani Groves MD Iron deficiency (Primary Dx); Vitamin D deficiency 07/25/[address] [phone] Aleah Scherer ANP Results 07/22/2024 3:00 PM EST Office Visit [facility] [address] [place], [place] [phone] Sravani Groves MD Hypersomnia (Primary Dx); Loud snoring; Missed period 07/22/2024 Orders Only [facility] [address] [place] [phone] Aleah Scherer ANP 07/22/2024 Telephone [facility] [address] [place] [address] [phone] Roz Petty RN 07/09/24 Visit note [facility] 07/21/2024 Telephone [facility] [address] [place] [address] [phone] Aleah Scherer ANP Nurse Triage 07/15/[address] [phone] Sushma Fonseca, RN NTTS from Last 3 [...] your housing situation today? I have kate jatin 06/08/[address] you li [...] (283 lb) 09/08/2024 11:37 AM EST Height 167.6 cm (5' 6 ) 12/11/2023 11:27 AM EDT Body Mass Index 45.68 12/11/2023 11:27 AM EDT Plan of Treatment Health Maintenance Due Date Last Done Comments Dental Oral Exam 1992 Dental Prophylaxis 1992 Dental X-Ray: Full Mouth 1992 Lipid Panel 1992 IPV Vaccines (4 of 4 - 4-dose series) 1996 05/20/1995, 1992, 1992 Family Planning (PISQ) 2007 Pneumococcal Vaccine: Pediatrics [...] Additional history exists SDOH Screening 09/08/2024 09/08/2023 Alcohol/Substance Use Screening 09/08/2025 09/08/2024 Tobacco Screening 09/08/2025 09/08/2024 Cervical Cancer Screening 05/29/2026 HPV/Cotest 05/29/2026 05/29/2021 [...] Diagnosis Comments WET PREP, GENITAL Routine 09/07/2024 4:1 8 PM EST CHLAMYDIA/N. GONORRHOEAE RNA, TMA, UROGENITAL Routine 09/07/2024 4:05 PM EST BACTERIAL VAGINOSIS PANEL Routine 09/07/2024 4:05 PM EST US PELVIS TRANSVAGINAL Routine 3:00 PM EST URINALYSIS, COMPLETE, WITH REFLEX [...] AUTO DIFFERENTIAL Routine 09/07/2024 12:24 PM EST CULTURE, URINE, ROUTINE Routine 09/07/2024 12:00 AM EST VITAMIN B12/FOLATE, SERUM PANEL Routine 07/22/2024 [...] Recently Relevant to Health Maintenance Results * Wet prep, genital (09/07/2024 4:18 PM EST) Vaginal Fluid Vaginal structure / Unknown 09/07/2024 4:18 PM EST 09/07/2024 5:09 PM EST Comment:Vaginal Narrative [facility] - 09/07/2024 5:23 PM EST Trichomonas Prep Direct Microscopic Exam Trichomonas Prep No trichomonads or yeast seen Specimen Source: Vaginal us Generic External Data Provider LAB MICROBIOLOGY - GENERAL ORDERABLES Final Result [facility] [address] [place] [phone] [phone] * (ABNORMAL) Bacterial Vaginosis (09/07/2024 4:05 PM EST) Pathologist [facility] TRICHOMONAS VAGINALIS DETECTION BY PCR NOT DETECTED Not Detect [facility] BACTERIAL VAGINOSIS DETECTION BY PCR POSITIVE(A) Negative [facility] Comment:The BV organism targ ets [...] DETECTION BY PCR NOT DETECTED Not Detect [facility] Paz glab krusei PCR NOT DETECTED Not Detect [facility] 09/07/2024 4:05 PM EST 09/07/2024 4:14 PM EST us Generic External Data Provider LAB MICROBIOLOGY - GENERAL ORDERABLES Final Result [facility] [address] [place] [phone] * Chlamydia/N. Gonorrhoeae RNA, TMA, Urogenitial (09/07/2024 4:05 PM EST) Pathologist [facility] CT PCR NOT DETECTED Not Detect. [facility] Comment:A not detected test result [...] psychologicalconsequences. NG PCR NOT DETECTED Not Detect. [facility] Comment:A not detected test result [...] PM EST 09/07/2024 4:27 PM EST Narrative [facility] - 09/07/2024 6:00 PM EST Vaginal us Generic External Data Provider LAB MICROBIOLOGY - GENERAL ORDERABLES Final Result Performing Organization Address City/State/[facility] Co de Phone Number [facility] [address] [place] [phone] * US Pelvis Transvaginal (09/07/2024 3:00 PM EST) Anatomical Region Laterality Modality Pelvis Ultrasound 09/07/2024 3:00 PM EST Narrative 09/07/2024 3:41 PM EST ? [facility] ?[address] ?[place] [address] ? Ultrasound Report ? Signed ? Patient: Corbin,Sweta ?MR#: [id number] ?? 6 ? : 1990 ?Acct:[id number] ? Age/Sex: 34 / F ?ADM Date: 01/29/25 ? Loc: HO.ED ? Attending Dr: ? Ordering Physician: Christiano Ye DO ?? Date of Service: 09/07/24 ?? Procedure(s): US pelvic and transvaginal ?? Accession Number(s): [id number] ? cc: Christiano Ye DO; ALEAH SCHERER [...] DD/ 1500 ? TD/TT: 09/07/24 1529 ? Computer Mechanic: ? Procedure Note Donotuseinterpreter, Image - 09/07/[address] [address] Ultrasound Report Signed Patient: Sweta CorbinMR#: [id number] 6 : 1990Acct:[id number] Age/Sex: 34 / FADM Date: 09/07/24 Loc: HO.ED Attending Dr: Ordering Physician: Christiano Ye DO Date of Service: 09/07/24 Procedure(s): US pelvic and transvaginal Accession Number(s): [id number] cc: Christiano Ye DO; ALEAH SCHERER NP [...] Carlin Rivera MD 09/07/2024 03:38 PM EST RP Dictated By: Carlin Rivera MD Signed By: <Electronically signed by Carlin Rivera MD in OV> 09/07/24 1538 DD/ 1500 TD/TT: 09/07/24 1529 Computer Mechanic: us [facility] External Provider IMG US PROCEDURES Edited Result - Final * (ABNORMAL) Urinalysis, Complete, with Reflex to Culture (09/07/2024 1:02 PM EST) Color Urine Red(A) [facility] Appearance Urine Turbid [facility] PH 8.0 5.0 - 9.0 [facility] Glucose Urine UA Negative Negative mg/dL [facility] Urine Blood Large (3+)(A) Negative [facility] Specific [place] - Urine 1.025 1.005 - 1.025 [facility] Urine Protein 30 (1+)(A) Neg-Trace mg/dL [facility] Urine Ketones Negative Negative mg/dL [facility] Nitrite Urine Negative Negative [facility] Leukocyte Esterase Urine Small (1+)(A) Negative [facility] RBC Urine >20(A) 0 - 2 /HPF [facility] Urine WBC 11-20(A) 0 - 5 /HPF [facility] Urine Squamous Epithelial Cell 0-2 0 - 2 /HPF [facility] Urine Bacteria Trace None Seen [facility] Hyaline Casts, Urine 0-2 0 - 2 /LPF [facility] 09/07/2024 1:02 PM EST 09/07/2024 1:17 PM EST Narrative [facility] - 09/07/2024 1:25 PM EST Urine, Clean Catch Generic External Data Provider LAB URINE ORDERAB LES Final Result [facility] [address] [place] [address] [phone] * CBC auto differential (09/07/2024 12:24 PM EST) Only the most recent of2 resultswithin the time period is included. White Blood Count 7.5 4.8 - 10.8 X10*3/uL [facility] Red Blood Count 4.60 4.20 - 5.50 X10*6/uL [facility] Hemoglobin 12.8 12.0 - 16.0 g/dl [facility] Hematocrit 40.3 37.0 - 47.0 % [facility] Mean Corpuscular Volume 87.6 80.0 - 98.0 fL [facility] Mean Corpuscular Hemoglobin 27.8 27.0 - 33.0 pg [facility] Mean Corpuscular HGB Conc 31.8 31.0 - 35.0 g/dl [facility] Red Cell Distribution Width 13.1 11.0 - 16.0 % [facility] Platelet Count 276 160 - 400 X10*3/uL [facility] Mean Platelet Volume 9.9 9.4 - 12.3 fL [facility] Neutrophils Percent Auto 66.2 45 - 73 % [facility] Imm Gran Pct Auto 0.3 0.0 - 0.4 % [facility] Lymphocytes Percent Auto 24.7 20 - 40 % [facility] Monocytes Percent Auto 6.0 2 - 11 % [facility] Eosinophils Percent Auto 2.0 0 - 4 % [facility] Basophils Percent Auto 0.8 0 - 2 % [facility] NRBC Pct Auto 0.0 0.0 - 0.2 /100WBC [facility] Neutrophils Absolute Auto 4.9 2.0 - 8.3 x10*3/uL [facility] Imm Gran Abs Auto 0.02 0.00 - 0.03 X10*3/uL [facility] Lymphocytes Absolute Auto 1.8 1.2 - 4.9 X10*3/uL [facility] Monocytes Absolute Auto 0.5 0.1 - 1.2 X10*3/uL [facility] Eosinophils Absolute Auto 0.2 0.0 - 0.4 X10*3/uL [facility] Basophils Absolute Auto 0.1 0.0 - 0.2 X10*3/uL [facility] NRBC Abs Auto 0.000 0.0 - 0.012 X10*3/uL [facility] 09/07/2024 12:2 4 PM EST 09/07/2024 12:27 PM EST Generic External Data Provider LAB BLOOD ORDERAB LES Final Result Performing Organization Address [facility] de Phone Number [facility] [address] [place] [phone] * Prothrombin Time-INR (09/07/2024 12:24 PM EST) Prothrombin Time 12.4 10.9 - 12.4 SEC [facility] INTERNATIONAL NORM RATIO 1.1 0.9 - 1.1 [facility] Comment:INTERNATIONAL NORMAL IZED RATIO (INR) [...] 4 PM EST 09/07/2024 12:27 PM EST [employer] External Data Provider LAB BLOOD ORDERAB LES Final Result Performing Organization Address [facility] de Phone Number [facility] [address] [place] [phone] * Type and screen (09/07/2024 12:24 PM EST) Blood Type AP [facility] Comment:RH IMMUNE GLOBULIN I NDICATED: NO Antibody Screen NEGATIVE [facility] 09/07/2024 12:2 4 PM EST 09/07/2024 12:29 PM EST Narrative [facility] - 09/07/2024 1:14 PM EST n Generic External Data Provider LAB BLOOD BANK TE ST ORDERABLES Final Result Performing Organization Address [facility] Co de Phone Number [facility] [address] [place] [address] [phone] * hCG, Total, Quantitative (09/07/2024 12:24 PM EST) Only the most recent of2 resultswithin the time period is included. HCG Quantitative <2 mIU/mL [facility] Comment:Weeks post LMP Appro ximate hCG(Last Menstrual Period) Range (mIU/ml)3 - 4 weeks 9 - 1304 - 5 weeks 75 - 2,6005 - 6 weeks 850 - 20,8006 - 7 weeks 4000 - 100,2007 - 12 weeks 11,500 - 289,77068 - 16 weeks 18,300 - 137,03349 - 29 weeks (2nd trimester) 1,400 - 53,87659 - 41 weeks (3rd trimester) 940 - [...] ORDERAB LES Final Result Performing Organization Address [facility]/ZIP Co de Phone Number [facility] [address] [place] [address] [phone] * Magnesium (09/07/2024 12:24 PM EST) Magnesium 2.0 1.6 - 2.6 mg/dL [facility] 09/07/2024 12:2 4 PM EST 09/07/2024 12:27 PM EST Generic External Data Provider LAB BLOOD ORDERAB LES Final Result Performing Organization Address [facility]/ZIP Co de Phone Number [facility] [address] [place] [phone] * Hepatic Function Panel (09/07/2024 12:24 PM EST) Only the most recent of2 resultswithin the time period is included. Bilirubin, Total 0.3 0.0 - 1.0 mg/dL [facility] Bilirubin, Direct 0.1 0.0 - 0.5 mg/dL [facility] Aspartate Amino Transferase 20 5 - 31 U/L [facility] Alanine Aminotransferase 16 0 - 31 U/L [facility] Total Protein 6.9 6.5 - 8.0 g/dL [facility] Albumin Level 3.7 3.5 - 5.0 g/dL [facility] Alkaline Phosphatase 81 39 - 117 U/L [facility] 09/07/2024 12:2 4 PM EST 09/07/2024 12:27 PM EST Generic External Data Provider LAB BLOOD ORDERAB LES Final Result Performing Organization Address [facility] Co de Phone Number [facility] [address] [place] [phone] * (ABNORMAL) Basic Metabolic Panel (09/07/2024 12:24 PM EST) Sodium 137 135 - 145 mmol/L [facility] Potassium 4.0 3.3 - 5.1 mmol/L [facility] Chloride 107 96 - 108 mmol/L [facility] Carbon Dioxide 27 22 - 29 mmol/L [facility] Anion Gap 7(L) 12 - 20 [facility] Urea Nitrogen (BUN) 13 9 - 16 mg/dL [facility] Creatinine, Serum 0.73 0.5 - 1.4 mg/dL [facility] Creatinine Clr Calc Pharmacy 150.5 [facility] Comment:Provided height and weight: 167.64 cm,126.552 kg.eGFR (calculated from the MDRD study equation) and eCrCl(calculated from the Cockcroft-Gault equation) are based ondifferent parameters and may not yield comparable results.If eCrCl result is absurd, please check patient'sheight/weight. Estimated Glomerular Filt Rate >60 [facility] Comment:Chronic Kidney Disea se: Estimated GFR < 60 mL/min/1.99x5Gohjyv Kidney Disease: Estimated GFR < 15 mL/min/1.73m2 Glucose 89 60 - 115 mg/dL [facility] Calcium 8.1(L) 8.4 - 10.2 mg/dL [facility] 09/07/2024 12:2 4 PM EST 09/07/2024 12:27 PM EST Generic External Data Provider LAB BLOOD ORDERAB LES Final Result Performing Organization Address City/[facility]/ZIP Co de Phone Number [facility] [address] [place] [phone] * Culture, Urine, Routine (09/07/2024 12:00 AM EST) Urine Urine specimen obtained by clean catch procedure / Unknown 09/07/2024 09/07/2024 Comment:UACC Narrative [facility] - 09/08/2024 11:07 AM EST Urine Culture Report Result Urine Culture < 10,000 cfu/ml Specimen Source: Urine clean catch Generic External Data Provider LAB MICROBIOLOGY - GENERAL ORDERABLES Final Result Performing Organization Address City/[facility]/ZIP Co de Phone Number [facility] [address] [place] [phone] * Vitamin B12 (Cobalamin) and Folate Panel, Serum (07/22/2024 3:38 PM EST) Vitamin B12 372 200 - 900 pg/mL [facility] Comment:NORMAL 200-900 PG/ML INDETERMINATE 160-199 PG/ML DEFICIENT < 160 PG/ML Folate 18.2 > or = 4.0 ng/mL [facility] Comment:Reference Values:> o r = 4.0 ng/mL< 4.0 ng/mL suggests folate deficiency Methotrexate, aminopterin and folinic acid(leucovorin) are chemotherapeutic agents whose molecularstructures are similar to folate; therefore, the Architectfolate assay cannot be used for patients using these drugs. Blood Venous blood specimen / Unknown 07/22/2024 3:38 PM EST 07/22/2024 5:20 PM EST Sravani Haines MD LAB BLOOD ORDERABLES Final Result Performing Organization Address [facility]/ZIP Co de Phone Number [facility] [address] [place] [phone] * Hepatitis C Antibody with Reflex to HCV, RNA, Quantitative, Real-Time PCR (07/22/2024 3:38 PM EST) Hepatitis C Antibody Nonreactive Nonreactive [facility] Comment:Antibodies to HCV no t detected; does not exclude early acuteHCV infection. Blood Venous blood specimen / Unknown 07/22/2024 3:38 PM EST 07/22/2024 5:20 PM EST us Sravani Hainse MD LAB BLOOD ORDERABLES Final Result Performing Organization Address [facility] Co de Phone Number [facility] [address] [place] [phone] * HIV-1/2 Antigen and Antibodies, Fourth Generation, with Reflexes (07/22/2024 3:38 PM EST) HIV AB/AG Nonreactive Nonreactive [facility] Comment:HIV-1 p24 Ag and/or HIV-1/HIV-2 Ab not detected.A test result that is nonreactive does not exclude thepossibility of exposure to or infection with HIV-1 and/orHIV-2. Nonreactive results in this assay for individualswith prior exposure to HIV-1 and/or HIV-2 may be due toantigen and antibody levels that are below the limit ofdetection of this assay.The [employer]i3 Digital HIV Ag/Ab Combo assay result andsupplemental assay results should be interpreted inconjunction with the patient's clinical presentation,history and other laboratory results. If the results areinconsistent with clinical evidence, additional testing issuggested to confirm the result. Blood Venous blood specimen / Unknown 07/22/2024 3:38 PM EST 07/22/2024 5:20 PM EST us Sravani Haines MD LAB BLOOD ORDERABLES Final Result Performing Organization Address City/[facility]/ZIP Co de Phone Number [facility] [address] [place] [phone] * Hemoglobin A1c (07/22/2024 3:38 PM EST) Only the most recent of2 resultswithin the time period is included. Hemoglobin A1c 5.3 <6.0 % [facility] Comment:Hemoglobin A1C Refer ence Range Adults: 4.8 - 6.0 % Non diabetic: < 6.0 % Goal: < 7.0 %Additional Action Suggested: > 8.0 %Note: Hemoglobin A1c results are invalid for patients with abnormal amounts of HbF. Blood transfusions may impact the HbA1c concentration in the patient sample. Estimated Average Glucose 105 mg/dL [facility] Comment:eAG = Estimated ave rage glucose which is %A1C expressed asaverage glucose, using the formula of the U7L-IqcqcupRzgsgwo Glucose study (ADAG), Diabetes Care, Vol.31,#8,Mar. 2007 Blood Venous blood specimen / Unknown 07/22/2024 3:38 PM EST 07/22/2024 5:20 PM EST us Aleah FONSECA LAB BLOOD ORDERABLES Final Resul t Performing Organization Address City/[facility]/ZIP Co de Phone Number [facility] [address] [place] [address] [phone] * (ABNORMAL) Vitamin D, 25-Hydroxy, Total, Immunoassay (07/22/2024 3:34 PM EST) Vitamin D 25-OH Total 18.1(L) >30 ng/mL [facility] Comment:Health Based Referen ce Values*< 20 ng/mL Befrjjrxr69-49 ng/mL Insufficient> 30 ng/mL Sufficient*Laura AGUIRRE. N [...] BLOOD ORDERABLES Final Result Performing Organization Address City/[facility]/ZIP Co de Phone Number [facility] [address] [place] [phone] * TSH with Reflex to Free T4 (07/22/2024 3:34 PM EST) TSH reflex Free T4 3.95 0.32 - 4.0 uIU/mL [facility] Blood Venous blood specimen / Unknown 07/22/2024 3:34 PM EST 07/22/2024 5:20 PM EST us Sravani Haines MD LAB BLOOD ORDERABLES Final Result Performing Organization Address City/[facility]/ZIP Co de Phone Number [facility] [address] [place] [address] [phone] * (ABNORMAL) Iron And Total Iron Binding Capacity (07/22/2024 3:34 PM EST) Iron 35 30 - 160 mcg/dL [facility] Total Iron Binding Capacity 282 228 - 428 mcg/dL [facility] Percent Iron Saturation 12(L) 15 - 50 % [facility] Unsaturated Iron Binding 247 ug/dL [facility] Blood Venous blood specimen / Unknown 07/22/2024 3:34 PM EST 07/22/2024 5:20 PM EST us Sravani Haines MD LAB BLOOD ORDERABLES Final Result Performing Organization Address City/[facility]/ZIP Co de Phone Number [facility] [address] [place] [address] [phone] * Lipase (07/22/2024 3:34 PM EST) Lipase 14 8 - 78 U/L [facility] 07/22/2024 3:34 PM EST 07/22/2024 5:20 PM EST us Aleah FONSECA LAB BLOOD ORDERABLES Final Resul t Performing Organization Address [facility] Co de Phone Number [facility] [address] [place] [address] [phone] * Ferritin (07/22/2024 3:34 PM EST) Ferritin 42 10 - 122 ng/mL [facility] Blood Venous blood specimen / Unknown 07/22/2024 3:34 PM EST 07/22/2024 5:20 PM EST us Sravani Haines MD LAB BLOOD ORDERABLES Final Result Performing Organization Address [facility] Co de Phone Number [facility] [address] [place] [address] [phone] * (ABNORMAL) Comprehensive Metabolic Panel (07/22/2024 3:34 PM EST) Sodium 140 135 - 145 mmol/L [facility] Potassium 3.7 3.3 - 5.1 mmol/L [facility] Chloride 103 96 - 108 mmol/L [facility] Carbon Dioxide 31(H) 22 - 29 mmol/L [facility] Anion Gap 10(L) 12 - 20 [facility] Urea Nitrogen (BUN) 15 9 - 16 mg/dL [facility] Creatinine, Serum 0.85 0.5 - 1.4 mg/dL [facility] Estimated Glomerular Filt Rate >60 [facility] Comment:Chronic Kidney Disea se: Estimated GFR < 60 mL/min/[id number] Kidney Disease: Estimated GFR < 15 mL/min/1.73m2 Glucose 95 60 - 115 mg/dL [facility] Calcium 8.8 8.4 - 10.2 mg/dL [facility] Bilirubin, Total 0.3 0.0 - 1.0 mg/dL [facility] Aspartate Amino Transferase 23 5 - 31 U/L [facility] Alanine Aminotransferase 20 0 - 31 U/L [facility] Total Protein 6.9 6.5 - 8.0 g/dL [facility] Albumin Level 3.9 3.5 - 5.0 g/dL [facility] Alkaline Phosphatase 86 39 - 117 U/L [facility] Blood Venous blood specimen / Unknown 07/22/2024 3:34 PM EST 07/22/2024 5:20 PM EST us Sravani Haines MD LAB BLOOD ORDERABLES Final Result [facility] [address] [place] [phone] * POCT , urine manually resulted (07/22/2024 3:32 PM EST) Preg Test, Ur Negative Negative, Indeterminate, None Detected, Invalid, Specimen unsatisfactory for evaluation, Weakly Positive Urine 07/22/2024 3:32 PM EST Sravani Haines MD POINT OF CARE TEST EN TER/EDIT ORDERABLES Final Result * Hm Pap Smear (05/29/2021) Pap Negative for intraephithelial lesion or malignancy Negative for intraephithelial lesion or malignancy, Other HPV Undetected Undetected, Indeterminate, Quantitative, Not Detected us Historical Provider HEALTH MAINTENANCE Final Result from Last 3 Months or Most Recently Relevant to Health Maintenance Insurance [facility] MEDICAID [facility] AD[facility] Care Teams Dairy Associate Relationship Specialty Start Date End Date Aleah Scherer ANP [address] [place] [phone] PCP - General Family Medicine 01/09/23
[2024-09-11 02:26] LABS: Basophils Absolute Auto 0.1 X10*3/uL (0.0-0.2); Basophils Percent Auto 0.6 % (0-2); Eosinophils Absolute Auto 0.2 X10*3/uL (0.0-0.4); Hematocrit 38.5 % (37.0-47.0); Hemoglobin 12.6 g/dl (12.0-16.0); Imm Gran Abs Auto 0.03 X10*3/uL (0.00-0.03); Imm Gran Pct Auto 0.4 % (0.0-0.4); Lymphocytes Absolute Auto 2.3 X10*3/uL (1.2-4.9); Lymphocytes Percent Auto 29.3 % (20-40); Mean Corpuscular HGB Conc 32.7 g/dl (31.0-35.0); Mean Corpuscular Hemoglobin 27.9 pg (27.0-33.0); Mean Corpuscular Volume 85.2 fL (80.0-98.0); Mean Platelet Volume 9.9 fL (9.4-12.3); Monocytes Absolute Auto 0.4 X10*3/uL (0.1-1.2); Monocytes Percent Auto 4.9 % (2-11); Neutrophils Absolute Auto 4.9 x10*3/uL (2.0-8.3); Neutrophils Percent Auto 61.8 % (45-73); Platelet Count 315 X10*3/uL (160-400); Red Blood Count 4.52 X10*6/uL (4.20-5.50); White Blood Count 7.9 X10*3/uL (4.8-10.8)
[2024-09-11 02:38] LABS: Alanine Aminotransferase 11 U/L (0-31); Albumin Level 3.6 g/dL (3.5-5.0); Anion Gap 11 (12-20); Aspartate Amino Transferase 20 U/L (5-31); Bilirubin Total 0.2 mg/dL (0.0-1.0); Blood Urea Nitrogen 18 mg/dL (9-16); Calcium 8.6 mg/dL (8.4-10.2); Carbon Dioxide 26 mmol/L (22-29); Chloride 107 mmol/L (96-108); Creatinine Clr Calc Pharmacy 146.5; Estimated Glomerular Filt Rate > 60; Glucose Random 100 mg/dL (60-115); Potassium 3.8 mmol/L (3.3-5.1); Sodium 140 mmol/L (135-145); Total Protein 6.8 g/dL (6.5-8.0)
[2024-09-11 02:44] LABS: HCG Quantitative < 2 mIU/mL
[2024-09-11 02:47] LABS: Alkaline Phosphatase 75 U/L (39-117)
[2024-09-11] MEDS: Ketorolac Tromethamine 15 MG/ML VIAL IVPUSH (03:46)
[2024-09-11 03:49] VITALS: BP 124/76; PULSE 70; RESP 14; TEMP 37.1; O2SAT 98
--- NOTE | 2024-09-11 04:00 | PC.NURSE ---
pt, requesting to be seen by provider, informed that provider is with another pt and will see you once your turn is up, pt requested pain meds, md made aware, pain meds ordered and given
--- NOTE | 2024-09-11 07:16 | ED_ITS ---
HPI - General Adult General Chief complaint: Vaginal Bleeding Stated complaint: abd pain Time Seen by Provider: 09/11/24 07:11 Source: patient and family Mode of arrival: ambulatory Limitations: no limitations History of Present Illness ED Provider: DR. Lopez HPI narrative: 34-year-old female came in for evaluation of abdominal pain started 20 days ago, session was seen on 09/07 4 seen pain and vaginal bleeding patient had ultrasound done showed uterine polyp, patient is been waiting for 6 hours now patient is requesting to leave without full assessment, VS was reviewed and stable, labs was reviewed and stable no anemia. Patient will be leaving without full assessment. Related Data Home Medications ?Medication ?Instructions ?Recorded ?Confirmed albuterol sulfate 90 mcg/actuation 2 puff inhalation Q4-6H PRN 10/12/23 05/17/24 aerosol inhaler (Ventolin HFA) wheezing cetirizine 10 mg tablet 10 mg PO DAILY 10/12/23 05/17/24 cholecalciferol (vitamin D3) 25 25 mcg PO QAM 10/12/23 05/17/24 mcg (1,000 unit) tablet epinephrine 0.3 mg/0.3 mL IM DIRECTED 10/12/23 05/17/24 injection, auto-injector semaglutide 0.25 mg or 0.5 mg (2 mg subcut 10/12/23 mg/3 mL) subcutaneous pen injector (Ozempic) sumatriptan succinate 50 mg tablet mg PO 10/12/23 05/17/24 tizanidine 2 mg tablet 2 mg PO QD-TID PRN muscle pain 10/12/23 topiramate 25 mg tablet mg PO 10/12/23 valacyclovir 1 gram tablet 1,000 mg PO TID 10/12/23 Previous Rx's ?Medication ?Instructions ?Recorded albuterol sulfate 90 mcg/actuation 1 inh inhalation Q20M PRN 10/28/23 aerosol inhaler shortness of breath or wheezing #8.5 grams benzonatate 100 mg capsule 100 mg PO BID PRN cough #20 caps 10/28/23 dicyclomine 20 mg tablet 20 mg PO TID PRN abdominal pain 01/19/24 #20 tabs famotidine 40 mg tablet (Pepcid) 40 mg PO DAILY #14 tabs 01/19/24 nitrofurantoin 100 mg PO Q12H 5 days #10 caps 01/19/24 monohydrate/macrocrystals 100 mg capsule (Macrobid) azithromycin 250 mg tablet 250 mg PO DAILY 6 days #6 tabs 09/07/24 Allergies Allergy/AdvReac Type Severity Reaction Status Date / Time doxycycline Allergy Dizziness Verified 09/11/24 00:59 Review of Systems 2 Review of Systems: Patient declines given history and want to leave. [facility] Past Medical History Medical History Hypertension Surgical History S/P excision of lipoma (10/12/23) Hx of cholecystectomy Hx of foot surgery Family History Family History Maternal Grandmother Liver cancer Social History Social History Alcohol intake: never Patient Tobacco Use Status: Never used Tobacco Smoked in Last 30 Days: No Advance Directives: No Do you have a plan to hurt others: No Plan Physical Exam ED Vital Signs: Vital Signs - 24 hr 09/11/24 00:58 09/11/24 03:49 Temperature 97.9 F 98.7 F Pulse Rate 71 70 Respiratory Rate 18 14 Blood Pressure 141/97 H 124/76 Pulse Oximetry 98 98 Oxygen Delivery Method Room Air Room Air BMI result Body Mass Index 41.9 Vital signs have been reviewed and appear to be correct. Blood pressure elevated. Heart rate normal. Respiratory rate normal. Temperature normal. Oxygen saturation normal. Patient declines physical exam. Course Reevaluation(s) Reevaluation #1: Came in for evaluation of 20 days of abdominal pain because patient was waiting last night in the emergency department does not want to be seen anymore, patient fully understand risk of leaving without full assessment and patient will sign against medical advice. risk including bleeding, anemia, syncope, this was included. Patient left before signing AMA paper. Time: 07:20 Medications Administered Discontinued Medications Generic Name Dose Route Start Last Admin Trade Name Freq PRN Reason Stop Dose Admin Ketorolac Tromethamine 15 mg 09/11/24 03:42 09/11/24 03:46 Ketorolac Tromethamine 15 Mg/Ml Vial IVPUSH 09/11/24 03:43 15 mg ONCE ONE Administration Medical Decision Making Differential Diagnosis Differential Diagnoses: The differential diagnosis associated with the presentation includes ( Abdominal pain) Admission/Observation Consideration of admission/observation: Escalation of care including admission/observation considered Lab Data 09/11/24 02:15 09/11/24 02:15 Labs: Lab Results 09/11/24 Range/Units 02:15 WBC 7.9 (4.8-10.8) X10*3/uL RBC 4.52 (4.20-5.50) X10*6/uL Hgb 12.6 (12.0-16.0) g/dl Hct 38.5 (37.0-47.0) % MCV 85.2 (80.0-98.0) fL MCH 27.9 (27.0-33.0) pg MCHC 32.7 (31.0-35.0) g/dl RDW 13.0 (11.0-16.0) % Plt Count 315 (160-400) X10*3/uL MPV 9.9 (9.4-12.3) fL Immature Gran % (Auto) 0.4 (0.0-0.4) % Neut % (Auto) 61.8 (45-73) % Lymph % (Auto) 29.3 (20-40) % Cochran % (Auto) 4.9 (2-11) % Eos % (Auto) 3.0 (0-4) % Baso % (Auto) 0.6 (0-2) % Lymph # (Auto) 2.3 (1.2-4.9) X10*3/uL Cochran # (Auto) 0.4 (0.1-1.2) X10*3/uL Eos # (Auto) 0.2 (0.0-0.4) X10*3/uL Baso # (Auto) 0.1 (0.0-0.2) X10*3/uL Abs Immat Gran (auto) 0.03 (0.00-0.03) X10*3/uL Absolute Neuts (auto) 4.9 (2.0-8.3) x10*3/uL Absolute Nucleated RBC 0.000 (0.0-0.012) X10*3/uL Nucleated RBC % (auto) 0.0 (0.0-0.2) /100WBC Sodium 140 (135-145) mmol/L Potassium 3.8 (3.3-5.1) mmol/L Chloride 107 (96-108) mmol/L Carbon Dioxide 26 (22-29) mmol/L Anion Gap 11 L (12-20) BUN 18 H (9-16) mg/dL Creatinine 0.72 (0.5-1.4) mg/dL Estim Creat Clear Calc 146.5 Estimated GFR > 60 Random Glucose 100 (60-115) mg/dL Calcium 8.6 D (8.4-10.2) mg/dL Total Bilirubin 0.2 (0.0-1.0) mg/dL AST 20 (5-31) U/L ALT 11 (0-31) U/L Alkaline Phosphatase 75 (39-117) U/L Total Protein 6.8 (6.5-8.0) g/dL Albumin 3.6 (3.5-5.0) g/dL Beta HCG, Quant < 2 mIU/mL Discharge Plan Discharge Clinical Impression: Abdominal pain Patient Disposition: Elopement Prescriptions: No Action benzonatate 100 mg capsule 100 mg PO BID PRN (Reason: cough) Qty: 20 0RF albuterol sulfate 90 mcg/actuation HFA aerosol inhaler 1 inh inhalation Q20M PRN (Reason: shortness of breath or wheezing) Qty: 8.5 0RF nitrofurantoin monohyd/m-cryst [Macrobid] 100 mg capsule 100 mg PO Q12H 5 Days Qty: 10 0RF Rx Instructions: must administer with a meal/food dicyclomine 20 mg tablet 20 mg PO TID PRN (Reason: abdominal pain) Qty: 20 0RF famotidine [Pepcid] 40 mg tablet 40 mg PO DAILY Qty: 14 0RF azithromycin 250 mg tablet 250 mg PO DAILY 6 Days Qty: 6 0RF Rx Instructions: start on day 2 of therapy tizanidine 2 mg tablet 2 mg PO QD-TID PRN (Reason: muscle pain) cetirizine 10 mg tablet 10 mg PO DAILY valacyclovir 1 gram tablet 1,000 mg PO TID sumatriptan succinate 50 mg tablet PO topiramate 25 mg tablet PO epinephrine 0.3 mg/0.3 mL auto-injector IM DIRECTED albuterol sulfate [Ventolin HFA] 90 mcg/actuation HFA aerosol inhaler 2 puff INHALATION Q4-6H PRN (Reason: wheezing) cholecalciferol (vitamin D3) 25 mcg (1,000 unit) tablet 25 mcg PO QAM Ozempic 0.25 mg or 0.5 mg (2 mg/3 mL) pen injector subcut Print Language: Luxembourgish
[2024-09-11 07:24] VITALS: BP 00/00; PULSE 0; RESP 0; TEMP -17.7; TEMP 0; O2SAT 0
== END 2024-09-11 07:26 | disposition left against medical advice (07) ==
PROVIDERS: Emergency Provider Emergency Medicine; PCP Nurse Practitioner Primary Care
DX: R10.2 Pelvic and perineal pain (principal); N93.9 Abnormal uterine and vaginal bleeding, unspecified; Z79.899 Other long term (current) drug therapy
CPT/HCPCS: 36415; 80053; 84702; 85025; 96374; 99284; 99285; J1885

== ENCOUNTER 2024-10-23 15:01 | Emergency (ER) | payer OTHER, SELFPAY ==
[2024-10-23] VITALS (7 sets, daily range): BP systolic 114–134; BP diastolic 68–80; PULSE 71–114; RESP 16–18; TEMP 36.7–37.1; O2SAT 97–99; BMI 43.6
--- NOTE | ~2024-10-23 | CT_ITS ---
CLINICAL HISTORY: pain, no bowel movement CT abdomen and pelvis with contrast Comparison: CT - CT ABDOMEN PELVIS W IV CON - 10/23/24 18:22 EDT Findings: Lung bases clear. Cholecystectomy. No biliary ductal dilatation. Solid organs normal. Unremarkable uterus and ovaries. No free fluid or free air. Stercoral proctitis with large rectal stool bolus. Moderate colonic fecal retention. Small bowel and stomach normal. Bones intact. IMPRESSION: Stercoral proctitis with large volume rectal stool bolus and moderate colonic fecal retention. Correlate for constipation. Consider disimpaction. This document has been electronically signed by: Shawn Grubbs MD on 10/23/2024 19:21:29
--- NOTE | 2024-10-23 16:54 | ED.GENADULT ---
HPI - General Adult General Chief complaint: Abdominal Pain Stated complaint: LOWER ABD PAIN HEADACHE Time Seen by Provider: 10/23/24 16:15 Source: patient, RN notes reviewed and old records reviewed Mode of arrival: EMS Limitations: no limitations History of Present Illness ED Provider: Mary AGUILA narrative: 34-year-old female presents for evaluation of lower abdominal pain and constipation Patient had ankle surgery 4 days ago at [facility] due to a fracture. She reports that she has not had a bowel movement since 2 days before the surgery. She has been taking oxycodone since prior to surgery and post surgery for her pain She reports that she is not passing gas. She reports taking Dulcolax at home and the enema with no relief from her constipation She was status post cholecystectomy but denies any other abdominal surgeries Denies any fevers or chills. Her pain is an 8/10 to her lower abdomen Related Data Home Medications ?Medication ?Instructions ?Recorded ?Confirmed albuterol sulfate 90 mcg/actuation 2 puff inhalation Q4-6H PRN 10/12/23 05/17/24 aerosol inhaler (Ventolin HFA) wheezing cetirizine 10 mg tablet 10 mg PO DAILY 10/12/23 05/17/24 cholecalciferol (vitamin D3) 25 25 mcg PO QAM 10/12/23 05/17/24 mcg (1,000 unit) tablet epinephrine 0.3 mg/0.3 mL IM DIRECTED 10/12/23 05/17/24 injection, auto-injector semaglutide 0.25 mg or 0.5 mg (2 mg subcut 10/12/23 mg/3 mL) subcutaneous pen injector (Ozempic) sumatriptan succinate 50 mg tablet mg PO 10/12/23 05/17/24 tizanidine 2 mg tablet 2 mg PO QD-TID PRN muscle pain 10/12/23 topiramate 25 mg tablet mg PO 10/12/23 valacyclovir 1 gram tablet 1,000 mg PO TID 10/12/23 Previous Rx's ?Medication ?Instructions ?Recorded albuterol sulfate 90 mcg/actuation 1 inh inhalation Q20M PRN 10/28/23 aerosol inhaler shortness of breath or wheezing #8.5 grams benzonatate 100 mg capsule 100 mg PO BID PRN cough #20 caps 10/28/23 dicyclomine 20 mg tablet 20 mg PO TID PRN abdominal pain 01/19/24 #20 tabs famotidine 40 mg tablet (Pepcid) 40 mg PO DAILY #14 tabs 01/19/24 nitrofurantoin 100 mg PO Q12H 5 days #10 caps 01/19/24 monohydrate/macrocrystals 100 mg capsule (Macrobid) azithromycin 250 mg tablet 250 mg PO DAILY 6 days #6 tabs 09/07/24 peg 3350-electrolytes 236 240 ml PO Q10M #4,000 mL 10/23/24 gram-22.74 gram-6.74 gram-5.86 gram solution (GaviLyte-G) polyethylene glycol 3350 17 17 g PO DAILY 2 weeks #238 grams 10/23/24 gram/dose oral powder (Miralax) Allergies Allergy/AdvReac Type Severity Reaction Status Date / Time doxycycline Allergy Dizziness Verified 10/23/24 15:41 Review of Systems Constitutional: Constitutional: Denies body ache(s), Denies chills and Denies fever(s) Cardiovascular: Cardiovascular: Denies chest pain and Denies dyspnea Respiratory: Respiratory: Denies cough and Denies dyspnea Gastrointestinal: Gastrointestinal: Reports abdominal pain, Reports constipation, Reports GI cramping, Denies nausea and Denies vomiting Genitourinary: Genitourinary: Denies dysuria and Denies pelvic pain Musculoskeletal: Musculoskeletal: Denies back pain Integumentary/Breasts: Skin/Breast: Denies rash PMFSH Past Medical History Medical History Hypertension Surgical History S/P excision of lipoma (10/12/23) Hx of cholecystectomy Hx of foot surgery Family History Family History Maternal Grandmother Liver cancer Social History Social History Alcohol intake: never Patient Tobacco Use Status: Never used Tobacco Smoked in Last 30 Days: No Use of substances other than those prescribed or required for medical reasons: No Advance Directives: No Advance Directives Information Provided: Yes Physical Exam ED Vital Signs: Vital Signs - 24 hr 10/23/24 15:40 10/23/24 15:43 10/23/24 18:00 Temperature 98.4 F 98.8 F Pulse Rate 102 H 83 Respiratory Rate 18 18 18 Blood Pressure 114/76 120/69 Pulse Oximetry 99 98 Oxygen Delivery Method Room Air Room Air 10/23/24 19:51 Temperature 98.2 F Pulse Rate 71 Respiratory Rate 16 Blood Pressure 134/71 Pulse Oximetry 99 Oxygen Delivery Method Room Air BMI result Body Mass Index 43.6 Const General: healthy appearing, comfortable, no acute distress, alert and awake Nutritional Appearance: well nourished Orientation/consciousness: patient oriented x3 HENMT Head: Yes normocephalic and Yes atraumatic Eyes Eyelids: Yes eyelids normal Conjunctivae: conjunctivae normal Sclerae: sclerae normal Corneas: corneas normal Pupils: Equal, round and reactive pupils present EOM: EOMs intact bilaterally Neck Neck: Yes full ROM Resp Effort & Inspection: normal respiratory effort, able to speak in complete sentences and not labored GI Other: Soft, obese abdomen Palpation (GI): Soft to palpation, not firm, Tenderness to palpation present (GI) in the LLQ, in the RLQ and suprapubicly; not in the LUQ and not in the RUQ, Guarding due to palpation present (GI) and not rigid Skin General skin exam: elasticity normal Neuro General: patient oriented x3 Cranial nerves: Yes Equal, round and reactive pupils present and Yes Bilaterally intact EOM present Cognition (Neuro): normal cognition Extrem Other: Moving all extremities well without any obvious deformities Course Reevaluation(s) Reevaluation #1: CT scan shows large stool volume in the rectal vault with stercoral colitis. Discussed treatment options with the patient including digital rectal disimpaction. The patient would prefer to try an enema to see if she was able to have a bowel movement without a manual disimpaction. Time: 20:21 Reevaluation #2: Patient had a small bowel movement after the enema but not a large bowel movement. I discussed options with the patient, she agreed to attempt manual digital rectal disimpaction. The patient was placed in a lateral decubitus position, I attempted digital rectal disimpaction and was only able to remove a small amount of soft stool. The patient is encouraged to discontinue oxycodone, we will put her on a bowel regimen he will be discharged to follow-up Time: 21:34 Medications Administered Discontinued Medications Generic Name Dose Route Start Last Admin Trade Name Yelena PRN Reason Stop Dose Admin Sodium Chloride 1,000 mls @ 999 mls/hr 10/23/24 16:45 10/23/24 18:21 Ns IV 10/23/24 17:45 Infused .Q1H1M MARY Infusion Iohexol 100 ml 10/23/24 18:25 10/23/24 18:25 Iohexol 350 Mg/Ml 100 Ml Infus..Btl IV 10/23/24 18:26 100 ml ONCE ONE Administration Ketorolac Tromethamine 30 mg 10/23/24 16:43 10/23/24 17:01 Ketorolac Tromethamine 30 Mg/Ml Vial IVPUSH 10/23/24 16:44 30 mg ONCE ONE Administration Mineral Oil 133 ml 10/23/24 20:07 10/23/24 20:19 Mineral Oil Enema 133 Ml Enema ME 10/23/24 20:08 133 ml ONCE ONE Administration Medical Decision Making Medical Decision Making MDM Narrative: 34-year-old female is postop day 4 from a right reports not having had a bowel movement since the procedure. She was quite tender on exam. Her abdomen is obese, so difficult to determine if she was truly distended. Her to be in his soft with a again tender with some guarding. We will get a CT scan of the abdomen pelvis to evaluate for obstruction/ileus. Differential Diagnosis Differential Diagnoses: The differential diagnosis associated with the presentation includes Abdominal pain Constipation Ileus Small bowel obstruction less likely he Lab Data 10/23/24 17:22 10/23/24 17:22 Labs: Lab Results 10/23/24 10/23/24 Range/Units 17:22 18:11 WBC 10.3 (4.8-10.8) X10*3/uL RBC 4.78 (4.20-5.50) X10*6/uL Hgb 13.2 (12.0-16.0) g/dl Hct 41.0 (37.0-47.0) % MCV 85.8 (80.0-98.0) fL MCH 27.6 (27.0-33.0) pg MCHC 32.2 (31.0-35.0) g/dl RDW 13.3 (11.0-16.0) % Plt Count 391 (160-400) X10*3/uL MPV 9.5 (9.4-12.3) fL Immature Gran % (Auto) 0.3 (0.0-0.4) % Neut % (Auto) 81.4 H (45-73) % Lymph % (Auto) 12.9 L (20-40) % Callaway % (Auto) 4.7 (2-11) % Eos % (Auto) 0.2 (0-4) % Baso % (Auto) 0.5 (0-2) % Lymph # (Auto) 1.3 (1.2-4.9) X10*3/uL [place]away # (Auto) 0.5 (0.1-1.2) X10*3/uL Eos # (Auto) 0.0 (0.0-0.4) X10*3/uL Baso # (Auto) 0.1 (0.0-0.2) X10*3/uL Abs Immat Gran (auto) 0.03 (0.00-0.03) X10*3/uL Absolute Neuts (auto) 8.4 H (2.0-8.3) x10*3/uL Absolute Nucleated RBC 0.000 (0.0-0.012) X10*3/uL Nucleated RBC % (auto) 0.0 (0.0-0.2) /100WBC Sodium 140 (135-145) mmol/L Potassium 4.1 (3.3-5.1) mmol/L Chloride 106 (96-108) mmol/L Carbon Dioxide 24 (22-29) mmol/L Anion Gap 14 (12-20) BUN 15 (9-16) mg/dL Creatinine 0.75 (0.5-1.4) mg/dL Estim Creat Clear Calc 143.7 Estimated GFR > 60 Random Glucose 98 (60-115) mg/dL Calcium 9.0 (8.4-10.2) mg/dL Total Bilirubin 0.6 (0.0-1.0) mg/dL AST 34 H (5-31) U/L ALT 42 H (0-31) U/L Alkaline Phosphatase 107 (39-117) U/L Total Protein 7.6 (6.5-8.0) g/dL Albumin 4.0 (3.5-5.0) g/dL Lipase 6 L (8-78) U/L Beta HCG, Quant < 2 mIU/mL Urine Color Yellow Urine Appearance Clear Urine pH 8.0 (5.0-9.0) Ur Specific Bosler 1.015 (1.005-1.025) Urine Protein Negative (Neg-Trace) mg/dL Urine Glucose (UA) Negative (Negative) mg/dL Urine Ketones Negative (Negative) mg/dL Urine Blood Trace H (Negative) Urine Nitrite Negative (Negative) Ur Leukocyte Esterase Trace H (Negative) Urine RBC 3-5 H (0-2) /HPF Urine WBC 0-5 (0-5) /HPF Ur Squamous Epith Cells 0-2 (0-2) /HPF Urine Bacteria None Seen (None Seen) Hyaline Casts 0-2 (0-2) /LPF Discharge Plan Discharge Clinical Impression: Abdominal pain, Constipation Patient Disposition: Home, Self-Care Instructions: Constipation (ED), High Fiber Diet (ED) Additional Instructions: Your CT scan showed a significant amount of constipation. I recommend increasing fluid and fiber intake in your diet. I recommend taking MiraLax every night for the next 2 weeks You may also use an enema 1 more time tomorrow. Take GoLYTELY, you may drink 1 cup every 10-15 minutes until you have a sufficient bowel movement Prescriptions: New peg 3350-electrolytes [GaviLyte-G] 236-22.74-6.74 -5.86 gram recon soln 240 ml PO Q10M Qty: 4000 0RF Rx Instructions: until you have a large bowel movement polyethylene glycol 3350 [Miralax] 17 gram/dose powder 17 g PO DAILY 14 Days Qty: 238 0RF No Action benzonatate 100 mg capsule 100 mg PO BID PRN (Reason: cough) Qty: 20 0RF albuterol sulfate 90 mcg/actuation HFA aerosol inhaler 1 inh inhalation Q20M PRN (Reason: shortness of breath or wheezing) Qty: 8.5 0RF nitrofurantoin monohyd/m-cryst [Macrobid] 100 mg capsule 100 mg PO Q12H 5 Days Qty: 10 0RF Rx Instructions: must administer with a meal/food dicyclomine 20 mg tablet 20 mg PO TID PRN (Reason: abdominal pain) Qty: 20 0RF famotidine [Pepcid] 40 mg tablet 40 mg PO DAILY Qty: 14 0RF azithromycin 250 mg tablet 250 mg PO DAILY 6 Days Qty: 6 0RF Rx Instructions: start on day 2 of therapy tizanidine 2 mg tablet 2 mg PO QD-TID PRN (Reason: muscle pain) cetirizine 10 mg tablet 10 mg PO DAILY valacyclovir 1 gram tablet 1,000 mg PO TID sumatriptan succinate 50 mg tablet PO topiramate 25 mg tablet PO epinephrine 0.3 mg/0.3 mL auto-injector IM DIRECTED albuterol sulfate [Ventolin HFA] 90 mcg/actuation HFA aerosol inhaler 2 puff INHALATION Q4-6H PRN (Reason: wheezing) cholecalciferol (vitamin D3) 25 mcg (1,000 unit) tablet 25 mcg PO QAM Ozempic 0.25 mg or 0.5 mg (2 mg/3 mL) pen injector subcut Print Language: Upper Sorbian
[2024-10-23] MEDS: 0.9 % Sodium Chloride 1,000 ML 999 ML IV (17:00)
[2024-10-23] MEDS: Ketorolac Tromethamine 30 MG/ML VIAL IVPUSH (17:01)
[2024-10-23 17:27] LABS: Basophils Absolute Auto 0.1 X10*3/uL (0.0-0.2); Basophils Percent Auto 0.5 % (0-2); Eosinophils Percent Auto 0.2 % (0-4); Hemoglobin 13.2 g/dl (12.0-16.0); Imm Gran Abs Auto 0.03 X10*3/uL (0.00-0.03); Imm Gran Pct Auto 0.3 % (0.0-0.4); Lymphocytes Absolute Auto 1.3 X10*3/uL (1.2-4.9); Lymphocytes Percent Auto 12.9 % (20-40); MANUAL DIFF FLAG NO; Mean Corpuscular HGB Conc 32.2 g/dl (31.0-35.0); Mean Corpuscular Hemoglobin 27.6 pg (27.0-33.0); Mean Corpuscular Volume 85.8 fL (80.0-98.0); Mean Platelet Volume 9.5 fL (9.4-12.3); Monocytes Absolute Auto 0.5 X10*3/uL (0.1-1.2); Monocytes Percent Auto 4.7 % (2-11); Neutrophils Absolute Auto 8.4 x10*3/uL (2.0-8.3); Neutrophils Percent Auto 81.4 % (45-73); Platelet Count 391 X10*3/uL (160-400); Red Blood Count 4.78 X10*6/uL (4.20-5.50); Red Cell Distribution Width 13.3 % (11.0-16.0); White Blood Count 10.3 X10*3/uL (4.8-10.8)
[2024-10-23 17:58] LABS: Alanine Aminotransferase 42 U/L (0-31); Alkaline Phosphatase 107 U/L (39-117); Anion Gap 14 (12-20); Aspartate Amino Transferase 34 U/L (5-31); Bilirubin Total 0.6 mg/dL (0.0-1.0); Blood Urea Nitrogen 15 mg/dL (9-16); Carbon Dioxide 24 mmol/L (22-29); Chloride 106 mmol/L (96-108); Creatinine Clr Calc Pharmacy 143.7; Estimated Glomerular Filt Rate > 60; Glucose Random 98 mg/dL (60-115); Lipase 6 U/L (8-78); Potassium 4.1 mmol/L (3.3-5.1); Sodium 140 mmol/L (135-145); Total Protein 7.6 g/dL (6.5-8.0)
[2024-10-23 18:00] LABS: HCG Quantitative < 2 mIU/mL
--- NOTE | 2024-10-23 18:18 | PC.NURSE ---
Bladder scanned for 700mls, provider aware, straight cathed for 800mls
[2024-10-23 18:23] LABS: Appearance Urine Clear; Color Urine Yellow; Glucose Urine UA Negative (Negative); Leukocyte Esterase Urine Trace (Negative); Nitrite Urine Negative (Negative); Specific Gravity - Urine 1.015 (1.005-1.025); UMIC TRIGGER UACC YES; Urine Blood Trace (Negative); Urine Ketones Negative (Negative); Urine Protein Negative (Neg-Trace)
[2024-10-23] MEDS: iohexoL 350 MG/ML 100 ML INFUS..BTL IV (18:25)
[2024-10-23 18:28] LABS: Bacteria Urine None Seen (None Seen); Hyaline Casts Urine 0-2 /LPF (0-2); Squamous Epithelial Cell Urine 0-2 /HPF (0-2); WBC Urine 0-5 /HPF (0-5)
[2024-10-23] MEDS: Mineral OiL enema 133 ML ENEMA PR (20:19)
--- NOTE | 2024-10-23 21:01 | PC.NURSE ---
pt given fleet enema as ordered. only small amount of stool put out in commode. SHAMIR Ramos now going in for disimpaction. pt in agreeance with plan.
== END 2024-10-23 21:55 | disposition home or self-care (01) ==
PROVIDERS: Physician Assistant; Emergency Provider Emergency Medicine; PCP Nurse Practitioner Primary Care
DX: K59.00 Constipation, unspecified (principal); R10.30 Lower abdominal pain, unspecified; I10 Essential (primary) hypertension; Z90.49 Acquired absence of other specified parts of digestive tract; Z79.899 Other long term (current) drug therapy
CPT/HCPCS: 36415; 74177; 80053; 81001; 83690; 84702; 85025; 96361; 96374; 99284; 99285; J1885; Q9967

== ENCOUNTER → 2024-10-23 16:43 | Outpatient (BNV) | payer OTHER, SELFPAY | PROVIDERS: Emergency Provider Emergency Medicine; PCP Nurse Practitioner Primary Care; Visit Provider Radiology Diagnostic Radiology | DX: R10.30 Lower abdominal pain, unspecified (principal) | CPT/HCPCS: 74177 ==

== ENCOUNTER 2024-10-24 12:36 | Emergency (ER) | payer OTHER, SELFPAY ==
[2024-10-24 12:44] VITALS: BP 130/73; BP 158/102; PULSE 92; PULSE 95; RESP 20; TEMP 37; O2SAT 100; O2SAT 95; BMI 43.6
--- NOTE | 2024-10-24 12:45 | ED.GENADULT ---
HPI - General Adult General Chief complaint: Abdominal Pain Stated complaint: ABD PAIN Related Data Home Medications ?Medication ?Instructions ?Recorded ?Confirmed albuterol sulfate 90 mcg/actuation 2 puff inhalation Q4-6H PRN 10/12/23 05/17/24 aerosol inhaler (Ventolin HFA) wheezing cetirizine 10 mg tablet 10 mg PO DAILY 10/12/23 05/17/24 cholecalciferol (vitamin D3) 25 25 mcg PO QAM 10/12/23 05/17/24 mcg (1,000 unit) tablet epinephrine 0.3 mg/0.3 mL IM DIRECTED 10/12/23 05/17/24 injection, auto-injector semaglutide 0.25 mg or 0.5 mg (2 mg subcut 10/12/23 mg/3 mL) subcutaneous pen injector (Ozempic) sumatriptan succinate 50 mg tablet mg PO 10/12/23 05/17/24 tizanidine 2 mg tablet 2 mg PO QD-TID PRN muscle pain 10/12/23 topiramate 25 mg tablet mg PO 10/12/23 valacyclovir 1 gram tablet 1,000 mg PO TID 10/12/23 Previous Rx's ?Medication ?Instructions ?Recorded albuterol sulfate 90 mcg/actuation 1 inh inhalation Q20M PRN 10/28/23 aerosol inhaler shortness of breath or wheezing #8.5 grams benzonatate 100 mg capsule 100 mg PO BID PRN cough #20 caps 10/28/23 dicyclomine 20 mg tablet 20 mg PO TID PRN abdominal pain 01/19/24 #20 tabs famotidine 40 mg tablet (Pepcid) 40 mg PO DAILY #14 tabs 01/19/24 nitrofurantoin 100 mg PO Q12H 5 days #10 caps 01/19/24 monohydrate/macrocrystals 100 mg capsule (Macrobid) azithromycin 250 mg tablet 250 mg PO DAILY 6 days #6 tabs 09/07/24 peg 3350-electrolytes 236 240 ml PO Q10M #4,000 mL 10/23/24 gram-22.74 gram-6.74 gram-5.86 gram solution (GaviLyte-G) polyethylene glycol 3350 17 17 g PO DAILY 2 weeks #238 grams 10/23/24 gram/dose oral powder (Miralax) Allergies Allergy/AdvReac Type Severity Reaction Status Date / Time doxycycline Allergy Dizziness Verified 10/24/24 12:49 [facility] Past Medical History Medical History Hypertension Surgical History S/P excision of lipoma (10/12/23) Hx of cholecystectomy Hx of foot surgery Family History Family History Maternal Grandmother Liver cancer Social History Social History Alcohol intake: never Patient Tobacco Use Status: Never used Tobacco Advance Directives: No Advance Directives Information Provided: Yes Physical Exam ED Vital Signs: BMI result Body Mass Index 43.6 Course Course Course Narrative: This is a rapid medical exam performed by Sincere Lobo NP: Additional HPI, ROS, PE not included below will be deferred to primary provider. Patient is a 34-year-old female with history of hypertension, cholecystectomy seen in this ED yesterday presenting with complaint of lower abdominal pain, constipation and is unable to urinate. Patient had ankle surgery 5 days ago at [facility] for a fracture. Discharged from here yesterday with GoLytely and Miralax. States she drank all the GoLytely, finished this am and has not been able to urinate. Required straight cath in ED yesterday, has not been able to urinate since. Discharge Plan Discharge Clinical Impression: Abdominal pain Patient Disposition: Left W/O Completing Treatment Prescriptions: No Action benzonatate 100 mg capsule 100 mg PO BID PRN (Reason: cough) Qty: 20 0RF albuterol sulfate 90 mcg/actuation HFA aerosol inhaler 1 inh inhalation Q20M PRN (Reason: shortness of breath or wheezing) Qty: 8.5 0RF nitrofurantoin monohyd/m-cryst [Macrobid] 100 mg capsule 100 mg PO Q12H 5 Days Qty: 10 0RF Rx Instructions: must administer with a meal/food dicyclomine 20 mg tablet 20 mg PO TID PRN (Reason: abdominal pain) Qty: 20 0RF famotidine [Pepcid] 40 mg tablet 40 mg PO DAILY Qty: 14 0RF azithromycin 250 mg tablet 250 mg PO DAILY 6 Days Qty: 6 0RF Rx Instructions: start on day 2 of therapy peg 3350-electrolytes [GaviLyte-G] 236-22.74-6.74 -5.86 gram recon soln 240 ml PO Q10M Qty: 4000 0RF Rx Instructions: until you have a large bowel movement polyethylene glycol 3350 [Miralax] 17 gram/dose powder 17 g PO DAILY 14 Days Qty: 238 0RF tizanidine 2 mg tablet 2 mg PO QD-TID PRN (Reason: muscle pain) cetirizine 10 mg tablet 10 mg PO DAILY valacyclovir 1 gram tablet 1,000 mg PO TID sumatriptan succinate 50 mg tablet PO topiramate 25 mg tablet PO epinephrine 0.3 mg/0.3 mL auto-injector IM DIRECTED albuterol sulfate [Ventolin HFA] 90 mcg/actuation HFA aerosol inhaler 2 puff INHALATION Q4-6H PRN (Reason: wheezing) cholecalciferol (vitamin D3) 25 mcg (1,000 unit) tablet 25 mcg PO QAM Ozempic 0.25 mg or 0.5 mg (2 mg/3 mL) pen injector subcut Discharge Date/Time: 10/24/24 14:42
== END 2024-10-24 14:42 | disposition left against medical advice (07) ==
PROVIDERS: Emergency Provider Emergency Medicine; PCP Nurse Practitioner Primary Care
DX: R10.2 Pelvic and perineal pain (principal); K59.00 Constipation, unspecified; R33.9 Retention of urine, unspecified; Z79.899 Other long term (current) drug therapy
CPT/HCPCS: 51798; 99283

== ENCOUNTER 2025-02-02 09:14 | Outpatient (AMB) | payer OTHER, SELFPAY ==
--- NOTE | 2025-02-02 09:23 | A.OFFVIS_ITS ---
Vital Signs 3 02/02/25 09:33 Height 5 ft 6 in Weight 278 lb BMI 44.9 BP 134/94 H Blood Pressure Location Lt brachial Position Sitting Pulse 76 Intake Visit Reasons: lipoma growing and painful Intake Note: Patient is seen in office for ultrasound results, following lipoma of the chest. Pt c/o: per pt lipoma more painful, swelling and some redness, denies discharge us: 05/10/24 Salt Cutter Required: No Accompanied by: Self / Same As Patient Allergies doxycycline Allergy (Verified 02/02/25 09:33) Dizziness Medication List - Last Reconciled 02/02/25 by Alex Willett MD albuterol sulfate 90 mcg/actuation (Ventolin HFA) 2 puffs inhalation Q4-6H PRN albuterol sulfate 90 mcg/actuation 1 inh inhalation Q20M PRN azithromycin 250 mg PO DAILY 6 days benzonatate 100 mg PO BID PRN cetirizine 10 mg PO DAILY cholecalciferol (vitamin D3) 25 mcg PO QAM dicyclomine 20 mg PO TID PRN epinephrine IM DIRECTED famotidine (Pepcid) 40 mg PO DAILY nitrofurantoin monohyd/m-cryst 100 mg (Macrobid) 100 mg PO Q12H 5 days peg 3350-electrolytes 236-22.74-6.74 -5.86 gram (GaviLyte-G) 240 mL PO Q10M polyethylene glycol 3350 (Miralax) 17 grams PO DAILY 2 weeks semaglutide (Ozempic) mg subcut sumatriptan succinate mg PO tizanidine 2 mg PO QD-TID PRN topiramate mg PO valacyclovir 1,000 mg PO TID HPI Comments Details: 34-year-old female patient with a previous history of a lipoma over the sternum returning with complaints of pain below this incision. She previously was evaluated and no palpable lipoma was appreciated. An ultrasound of the chest soft tissue was performed in the area of the surgical scar in the xiphoid region. This revealed a indeterminate 2.8 cm nodule adjacent to the surgical scar, differential considerations include but are not limited to nodular like scarring and atypical lipoma. She feels that the pain has increased in the size of the lump has increased. She denies any new skin changes of redness or discharge. [facility] Medical History Hypertension Surgical History S/P excision of lipoma (10/12/23) Hx of cholecystectomy Hx of foot surgery Family History Maternal Grandmother Liver cancer Social History Alcohol intake: never Patient Tobacco Use Status: Never used Tobacco Review of Systems Const All systems reviewed & are unremarkable except as noted in HPI and below Physical Exam Vital Signs: Last Vital Signs Pulse 76 02/02/25 09:33 BP 134/94 H 02/02/25 09:33 BMI result Body Mass Index 44.9 Const General: no acute distress Nutritional Appearance: obese Orientation/consciousness: patient oriented x3 Limitations: no limitations Chest Other: Palpable tenderness noted in the region of the xiphoid but no definite masses appreciated. Incision slightly superior to this is clean and intact without any unusual scar tissue noted. No redness or fluctuance is appreciated. Symptoms appear to be related to the xiphoid process rather than any palpable lipoma. Chest/axillae images: 2 1. Site of palpable tenderness. No masses appreciated. 2. Previous incision for lipoma Resp Effort & Inspection: normal respiratory effort, no audible wheezes, no cough and no respiratory distress Skin General skin exam: no rashes or lesions noted Neuro General: patient oriented x3 Extrem General: Yes no clubbing, cyanosis or edema Assessment & Plan Assessment & Plan (1) Lipoma: Code(s): D17.9 - Benign lipomatous neoplasm, unspecified Category: Medical Qualifiers: Lipoma location: trunk Qualified Code(s): D17.1 - Benign lipomatous neoplasm of skin and subcutaneous tissue of trunk (2) Sternal pain: Code(s): R07.89 - Other chest pain Category: Medical Plan No definite palpable lipoma is appreciated at this time. Ultrasound is suggestive of either scar or atypical lipoma but on examination I can not clearly feel this. The patient does have tenderness with palpation of the xiphoid which seems to be the source of her pain. I recommended further evaluation with a CT of the chest for evaluation of the soft tissue and sternum. Expressed understanding and agrees with the plan. She will return following the study to review the results and discuss treatment options. Orders: Orders 2 CT chest wo IV con Today D17.1 - Benign lipomatous neoplasm of skin and subcutaneous tissue of trunk, R07.89 - Other chest pain Coding Level of Care Code Est Pt Level 3 (88097) Diagnoses Lipoma of torso D17.1 Lipoma location: trunk Sternal pain R07.89
[2025-02-02 09:33] VITALS: BP 134/94; PULSE 76; BMI 44.9
--- OUTSIDE RECORDS SUMMARY | 2025-02-02 10:07 | XMS_ITS | Clinical Summary ---
Author Organization [facility] ity Address [address] [place] [address] Care Team Providers Care Training Technician Name Role Phone Unavailable Primary Care Provider Unavailabl e Social History Tobacco Use Types Packs/Day Years Used Date Smoking Tobacco: Never Assessed Comments Unknown Sex and Gender Information Value Date Recorded Sex Assigned at Not on file Legal Sex Female 8:58 AM EST Gender Identity Not on file Sexual Orientation Not on file Plan of Treatment Health Maintenance Due Date Last Done Comments DTaP,Tdap,and Td Vaccines (6 - Tdap) 2003 05/04/1996, 05/20/1995, 05/20/1995, Additional history exists Cervical Cancer Screening: Pap Smear 2013 Depression Screening 07/13/2022 HIV Screening 07/13/2022 Hepatitis C Screening 07/13/2022 Social Influencers of Health Screening 07/13/2022 COVID-19 Vaccine ( season) 2024 Influenza Vaccine (Season Ended) 2025 Hepatitis B Vaccines Completed 1992, 1992, 1992 [...] patient's age to complete this topic Meningococcal B Vaccine Aged Out No l onger eligible based on patient's age to complete [...]
== END 2025-02-02 09:43 | disposition home or self-care (01) ==
LOC: HO.HGS 09:14
PROVIDERS: PCP Nurse Practitioner Primary Care; Visit Provider Surgery
DX: D17.1 Benign lipomatous neoplasm of skin and subcutaneous tissue of trunk (principal); R07.89 Other chest pain
CPT/HCPCS: 99213

== ENCOUNTER → 2025-02-02 09:14 | Outpatient (BNVA) | payer OTHER, SELFPAY | PROVIDERS: PCP Nurse Practitioner Primary Care; Visit Provider Surgery | DX: Z71.2 Person consulting for explanation of examination or test findings (principal); D17.1 Benign lipomatous neoplasm of skin and subcutaneous tissue of trunk; R07.89 Other chest pain | CPT/HCPCS: 99212 ==

== ENCOUNTER 2025-02-25 08:26 | Outpatient (REF) | payer OTHER, SELFPAY ==
--- NOTE | ~2025-02-25 | CT_ITS ---
EXAMINATION: CT CHEST WITHOUT IV CONTRAST INDICATION: D17.1 - Benign lipomatous neoplasm of skin and subcutaneous tissue of trunk COMPARISON: Correlation is made with an ultrasound of the chest wall dated 05/20/2024. TECHNIQUE: Helical CT scan of the chest was performed without intravenous contrast. Coronal and sagittal reformatted images were generated and reviewed. This CT exam was performed with one or more of the following dose reduction techniques: automated exposure control, adjustment of the mA and/or kV according to patient size, use of iterative reconstruction technique. DLP: 176 mGy-cm CHEST: THYROID: The thyroid is unremarkable. LUNGS: There is a punctate nodule in the left upper lobe (series 4, image 49). The lungs are otherwise clear. MEDIASTINUM: Amorphous soft tissue density in the anterior mediastinum likely represents residual thymus. There is no mediastinal lymphadenopathy. VLADIMIR: Evaluation of the hilar regions is limited by lack of intravenous contrast material. CARDIOVASCULATURE: The heart is normal in size. There is no pericardial effusion. The thoracic aorta is normal in caliber. DEGREE OF CORONARY CALCIFICATION: none PLEURA: There is no pleural effusion. No pneumothorax. MAIN AIRWAYS: The mainstem bronchi and proximal branches are patent. AXILLA: There is no axillary lymphadenopathy. BONES AND SOFT TISSUES: Unremarkable UPPER ABDOMEN: The visualized portions of the liver, spleen, and adrenals have an unremarkable unenhanced appearance. CT/CT chest wo IV con IMPRESSION: Probable residual thymus in the anterior mediastinum. Punctate left upper lobe nodule. Otherwise unremarkable unenhanced chest CT. Electronically signed by: Carlin Rivera MD 02/27/2025 07:20 AM EDT
--- OUTSIDE RECORDS SUMMARY | 2025-02-25 08:28 | XMS_ITS | Clinical Summary ---
Author Organization [facility] Address [address] [place] [address] Care Team Providers Care Sports Medicine Masseur Name Role Phone Unavailable Primary Care Provider Unavailabl e Source Comments PLEASE NOTE, if this patient [...] mcg/actuation nasal sprayIndications :Allergic rhinitis Place 1 [place] into the nostril(s) once daily. 16 g [...] mg(2.5 mg base)/3 mL nebulizer solutionIndicati ons:Asthma attack ([facility]-HCC),Mild persistent asthma with acute exacerbation ([facility]HS-HCC) Take 3 mL by nebulization 4 (four) times daily 90 mL 3 Active predniSONE (DELTASONE) 20 mg tabletIndication s:Mild persistent asthma with acute exacerbation ([facility]HS-HCC) Take 1 Tablet by mouth once daily 10 Tablet 3 Active albuterol HFA 90 mcg/actuation inhalerIndicatio ns:Mild persistent asthma with acute exacerbation ([facility]) Inhale 2 Puffs into the lungs every [...] 02/15/2022 Overview (02/15/2022): 02/14/2022: US of chest: [facility]: Impression; No suspicious finding at the area of concern and over the sternum. Tinea pedis, bilateral 11/13/2014 Allergic rhinitis 11/13/2014 Proteinuria 08/30/2014 Asthma ([facility]) 08/30/2014 Low back pain 11/23/2013 h/o Asthma [...] Date Diagnosed Date Resolved Date Bronchial asthma ([facility]) 0 03/25/2013 Immunizations Immunization Administration Dates Next Due HEP B,ADULT 1992 [...] 83 02/18/2022 3:35 PM EDT Temperature 36.8 C (98.3 F) 02/18/2022 3:35 PM EDT Respiratory Rate 16 02/18/2022 3:35 PM EDT Oxygen Saturation 99% 02/18/2022 3:35 PM EDT Inhaled Oxygen Concentration - - Weight 119.2 kg (262 lb 12.8 oz) 02/18/2022 3:35 PM EDT Height 167.6 cm (5' 6 ) 02/18/2022 3:35 PM EDT Body Mass Index 42.42 02/18/2022 3:35 PM EDT Plan of Treatment Not on file Insurance [place]
--- OUTSIDE RECORDS SUMMARY | 2025-02-25 08:28 | XMS_ITS | Encounter Summary ---
Author Organization [employer] Address [address] [place] [address] [address] [place] [address] Care Team Providers Care Facility Maintenance Worker Name Role Phone Disha Lackey Primary Care Provider [phone] Reason for Visit * Reason Onset Date Comments Results 01/07/2024 Encounter Details Date Type Department Care Team (Late st Contact Info) Description 01/07/2024 Telephone [facility] MEDICINE [address], [place] [phone] Disha Lackey ANP [address] [place] [address] Results Social History Tobacco Use Types Packs/Day [...] results: culture Date when done: 01/04 Facility: [facility] Please contact pt at [phone] documented in this encounter Plan of Treatment Not on file documented as of this encounter Visit Diagnoses Not on filedocumented in this encounter Additional Health Concerns Assessment Noted Time PHQ-9 Depression Total Score: 0 01/10/20 1:11 PM EDT documented as of this encounter Care Teams Facility Maintenance Worker Relationship Specialty Start Date End Date Disha Lackey ANP [address] [place] [phone] PCP - General Family Medicine 01/09/23 documented as of this encounter
--- OUTSIDE RECORDS SUMMARY | 2025-02-25 08:29 | XMS_ITS | Data Portability ---
Author Organization [employer], [employer] [facility] Address [address] [place] [address] Care Team Providers Care Complaint Adjuster Name Role Phone NIESHA ALEAH Primary Care Provider [phone] HIM SANDRA OTHER Assessment Encounter Date Assessment Date Assessment LastModified by Organization Details LastModified Time 10/11/2024 10/11/2024 Ms. Corbin is a 34 yo F with Hypertension, COPD/Asthma, Cholecystectomy who recently had a fall and now RLE fracture who has been managing pain at home calling today with nausea, constipation and urinary sx. Per medic and patient, since her fall, with planned surgery and since has been managing her pain with oxycodone. Has been more constipated, has rx for doculax but hasn't started them. Has been having nausea and constipation. Now with some dysuria and malodorous urine for the last few days. PCP prescribed macrobid for the urine sx, but hasn't yet started. No fever or chills. Denies abdominal pain. Sx all sound r/t her oxycodone r/t the constipation, already has meds for that but hasn't started them. Macrobid already called in for UTI sx, but urine culture to be sent by us. UA c/w LE, tested by PCP as well. Sx support for the nausea and dehydration sx. Likely 2/2 oxycodone side effects. BMP reassuring with medic. 1L LR hung for dehydration sx. Will call in rx for zofran and encourage hydration. Has ortho outpatient scheduled f/u, good sensation in RLE. Plan: -4mg IV zofran, 1L LR bolus -POC UA -Urine Cx I provided real -time medical direction via phone for this encounter, and was available for additional phone based assistance as needed. I have reviewed and agree with the Assessment and Plan as documented by the Grain Broker. We discussed the diagnostic uncertainty of home visits and the risk associated with this. In this case the patient and I felt this to be an acceptable and reasonable amount of risk given the benefit of avoiding an ED visit. The patient given the opportunity to ask questions. Follow up with primary care was recommended, as needed. Advised if develops CP/severe SOB/turning blue/uncontrolled n/v/d or black/bloody emesis or stool/ AMS/ syncope/ high fever unresponsive to APAP to call 911- verbalized understanding of instruction. [email or web address] Not available 10/11/2024 09:39:26 11/28/2024 11/28/2024 I have reviewed and agree with the assessment and plan as documented by the bundler. I provided real-time medical direction for this encounter and was immediately available to provide additional phone-based assistance as needed. History as noted in EMR and by bundler. I would add / emphasize: Pt seen for URI sxs. AVSS afebrile well appearing w/ clear lungs and unlabored respirations per report. Otoscopic exam w/ no e/o OE or AOM. Covid and flu POC testing negative. Advised on supportive care and precautions for call back. To follow up with primary care. [email or web address] Not available 11/28/2024 17:57:43 01/02/2025 01/02/2025 As noted, we carlos e called to see this patient regarding concerns of Hypertension. Evaluation in the field was performed by my bundler colleague, as noted above, I provided real-time direction and supervision for this visit. Patient has a history of hypertension however she has not been on antihypertensive medications recently. Patient states her only symptom was chest pain that she has been having on-and-off for six months. It is located on the scar on her chest from where she had lymph node removed. Medic states it is tender to palpation and there is no signs of infection. Patient does repeatedly state that she had lymphoma removed. However when asked if she has ever been diagnosed with cancer are received chemotherapy she states no. She states she just had a lymph node removed. Her EKG does not reveal any ischemic findings. Labs are not actionable. Patient states that she's been having this chest pain on and off for over a year. Patient was advised that we could send her to the emergency department to have her heart evaluated by checking for troponin levels. Patient states this does not feel like her heart but rather the lymph node issue she had in the past. Medic does state that patient has tenderness to palpation making it muscular in nature. Patient also states that she is an appointment with her primary care physician this week. I've advised her that if she were to feel this chest pain is worsening or changing or if she has any additional symptoms that should go to the emergency department for further evaluation. Patient was also advised to continue to record her blood pressure and to follow up with her primary care physician to determine if she needs to be restarted on antihypertensives. Impression: Hypertension Plan: follow up PCP Primary care, consider Troponins, chest x-ray Disposition: We discussed the diagnostic uncertainty of home visits and the risk associated with this. In this case, the patient and I felt this to be an acceptable and reasonable amount of risk given the benefit of avoiding an ED visit. We discussed the need to seek care urgently/emergentl y in the setting of any new or worsening serious symptoms, particularly chest pain, shortness of breath. [email or web address] Not available 01/02/2025 13:38:57 Plan of Treatment Reminders Order Date Submit Date Provider Last Modified By Organization Details Last Modified Time Details Appointments None recorded. Lab BMP, serum or plasma [address], [id number] 14:45:45 glucose, fingerstick , blood [address], [id number] 14:46:08 rapid SARS CoV 2 Ag, QL IA, respiratory specimen [address], [id number] 5 18:12:07 rapid flu (A+B) [address], [id number] 18:12:25 culture, urine 2024 025 [place] [facility] (Centralized Electronic Ordering - All Locations), Patient Can Go To The Location Of Their Choice, [facility] 18:05:49 urinalysis, dipstick 2024 025 [facility], [address] [place] [address], [id number] 17:57:41 BMP, serum or plasma [address], [address] 17:31:00 Referral None recorded. Procedures None recorded. Surgeries None recorded. Imaging electrocard iogram 2024 025 [facility], [address] [place] [address], [id number] 15:16:44 Medication Orders ondansetron HCl (PF) 4 mg/2 mL injection solution [address]/[facility] #[id number], [address] [place] [address], [id number], 09:37:12 lactated Ringers intravenous solution [address]/[facility] #[id number], [address] [place] [address], [address], 09:37:42 ondansetron 4 mg disintegrat ing tablet 2024 025 [id number], [address] [place] [address], [id number], 09:38:30 prednisone 20 mg tablet 2023 024 [facility] #[id number], [address] [place] [address], [id number], 4 10:54:06 prednisone 20 mg tablet 2023 024 [email or web address] [facility]acy #[id number], [address] [place] [address], [id number], 4 10:55:17 ipratropium 0.5 mg-albutero l 3 mg (2.5 mg base)/3 mL nebulizatio n soln 2023 024 [email or web address] [facility]armacy #[id number], [address] [place], [address], 10:55:17 Patient TargetsNo targets recorded. Patient InstructionsNo instructions recorded. Reason for Referral None Reported. Results Created Date Observation Date Name Description Value Unit Range Abnormal Flag Note LastModifiedBy Organization Detail LastModifiedTime 10/12/1910/12/2024 URINE CULTU RE, ROUTI NE urine culture, routine Final report Not Available [facility] ([facility]) [address] [place], [address], 10/12/2024 18:05:49 10/12/1910/12/2024 URINE CULTU RE, ROUTI NE result 1 COMMEN T Mixed uroge nital joanne 25,00 0-50, 000 colon y formi ng units per mL Not Available [facility] ([facility]) [address] [place], [address], 10/12/2024 18:05:49 01/03/2001/02/2025 julienne storey am No observ ation record ed. [email or web address] [address], [address] 01/02/2025 14:45:16 Result Notes None recorded. Medical Equipment None Reported. Allergies Allergen ID Allergen Name Allergen Category Reaction Reaction Severity Criticality Documentation Date Start Date Code Code System Note Provider Name and Address Organization Details Recorded Time 9405 doxycycli ne Not available Not available Not available Not available 06/07/2024 3640 RxNorm Not Available [employer] - [facility] 04:12:01 Medications Name Sig Start Date Stop Date Status Note LastModified by Organization Details LastModified Time cyclobenzapr ine 10 mg tablet TAKE 1 TABLET BY MOUTH THREE TIMES DAILY FOR 10 DAYS active Not Available Not Available Not Available medroxyproge sterone 10 mg tablet TAKE 1 TABLET BY MOUTH TWICE A DAY active Not Available Not Available No t Available methocarbamo l 500 mg tablet TAKE 1 TABLET BY MOUTH 4 TIMES A DAY FOR 7 DAYS active Not Available Not Available N ot Available ipratropium 0.5 mg-albuterol 3 mg (2.5 mg base)/3 mL nebulization soln active Not Available Not Available Not Available tizanidine 2 mg tablet TAKE 1 TABLET BY MOUTH NEEDED UP TO 3 TIMES A DAY FOR MUSCLE PAIN & TENSION active Not Available Not Available No t Available albuterol sulfate 2.5 mg/3 mL (0.083 %) solution for nebulization INHALE 1 AMPULE USING A NEBULIZER EVERY 6 HOURS NEEDED FOR WHEEZING OR SHORTNESS OF BREATH active Not Available Not Available No t Available cetirizine 10 mg tablet TAKE 1 TABLET BY MOUTH EVERY DAY active Not Available Not Available No t Available azithromycin 250 mg tablet TAKE 2 TABLETS BY MOUTH TODAY, THEN TAKE 1 TABLET DAILY FOR 4 DAYS DIRECTED active Not Available Not Available No t Available ibuprofen 800 mg tablet TAKE 1 TABLET (800 MG) BY MOUTH 3 TIMES DAILY. FOR 7 DAYS, THEN NEEDED active Not Available Not Available No t Available valacyclovir 1 gram tablet TAKE 1 TABLET BY MOUTH 3 TIMES A DAY FOR 7 DAYS active Not Available Not Available N ot Available metronidazol e 0.75 % (37.5 mg/5 gram) vaginal gel INSERT 1 APPLICATORF UL VAGINALLY EVERY DAY FOR 5 DAYS active Not Available Not Available N ot Available ondansetron HCl 4 mg tablet TAKE 1 TABLET BY MOUTH EVERY 8 HOURS FOR 7 DAYS active Not Available Not Available No t Available famotidine 40 mg tablet TAKE 1 TABLET BY MOUTH EVERY DAY active Not Available Not Available No t Available prednisone 20 mg tablet TAKE 1 TABLET BY MOUTH TWICE A DAY FOR 5 DAYS active Not Available Not Available No t Available benzoyl peroxide 10 % topical cleanser APPLY TOPICALLY TO AFFECTED AREA(S) TWICE DAILY active Not Available Not Available Not Available cromolyn 4 % eye drops PLACE 1 TO 2 DROPS IN EACH EYE 4 TO 6 TIMES DAILY NEEDED FOR ALLERGIES active Not Available Not Available No t Available sumatriptan 50 mg tablet PLEASE SEE ATTACHED FOR DETAILED DIRECTIONS active Not Available Not Available N ot Available penicillin V potassium 500 mg tablet TAKE 1 TABLET BY MOUTH TWICE A DAY FOR 10 DAYS active Not Available Not Available No t Available topiramate 25 mg tablet TAKE 1 TABLET BY MOUTH EVERY DAY FOR 7 DAYS THEN INCREASE TO 1 TABLET TWICE DAILY active Not Available Not Available Not Available metronidazol e 500 mg tablet TAKE 1 TABLET BY MOUTH 2 TIMES DAILY FOR 7 DAYS active Not Available Not Available N ot Available ciprofloxaci n 500 mg tablet TAKE 1 TABLET BY MOUTH TWICE A DAY active Not Available Not Available No t Available sulfamethoxa zole 800 mg-trimethop rim 160 mg tablet TAKE 1 TABLET BY MOUTH TWICE DAILY FOR 5 DAYS active Not Available Not Available No t Available tramadol 50 mg tablet TAKE 1 TABLET (50 MG) BY MOUTH EVERY 6 (SIX) HOURS IF NEEDED FOR SEVERE PAIN FOR UP TO 5 DAYS. active Not Available Not Available No t Available acetaminophe n 500 mg tablet TAKE 2 TABLETS BY MOUTH EVERY 8 HOURS NEEDED FOR PAIN. (LIMIT 4000MG OF TYLENOL/LUIS A TAMINOPHEN PER DAY) active Not Available Not Available No t Available acetaminophe n ER 650 mg tablet,exten ded release TAKE 1 TABLET BY MOUTH EVERY 8 HOURS NEEDED FOR MODERATE PAIN FOR UP TO 10 DAYS. DO NOT BREAK, CRUSH, DISSOLVE OR CHEW active Not Available Not Available No t Available amoxicillin 875 mg tablet TAKE 1 TABLET BY MOUTH TWICE A DAY FOR 10 DAYS active Not Available Not Available No t Available famotidine 20 mg tablet TAKE 1 TABLET BY MOUTH TWICE A DAY active Not Available Not Available No t Available aspirin 325 mg tablet,delay ed release TAKE 1 TABLET BY MOUTH EVERY DAY. active Not Available Not Available No t Available dicyclomine 20 mg tablet TAKE 1 TAB (20 MG) ORALLY 3 TIMES A DAY NEEDED FOR ABDOMINAL PAIN active Not Available Not Available No t Available benzonatate 100 mg capsule TAKE 1 CAPSULE BY MOUTH 2 TIMES A DAY NEEDED FOR COUGH. NOT COVERED BY EITHER INS. active Not Available Not Available No t Available erythromycin 5 mg/gram (0.5 %) eye ointment APPLY 1/2 INCH RIBBON IN LEFT EYE 4 TIMES A DAY FOR 5 DAYS active Not Available Not Available No t Available losartan 25 mg tablet TAKE 1 TABLET BY MOUTH EVERY MORNING active Not Available Not Available No t Available omeprazole 20 mg capsule,brett yed release TAKE 1 CAPSULE BY MOUTH EVERY DAY , DO NOT BREAK, CRUSH, DISSOLVE OR CHEW active Not Available Not Available No t Available mupirocin 2 % topical ointment APPLY TOPICALLY TWICE A DAY FOR 10 DAYS active Not Available Not Available Not Available norethindron e acetate 5 mg tablet TAKE 1 TABLET 4 TIMES A DAY FOR 2 DAYS, THEN 1 TAB 3 TIMES A DAY FOR 3 DAYS, THEN 1 TAB TWICE A DAY active Not Available Not Available No t Available epinephrine 0.3 mg/0.3 mL injection, auto-injecto r INJECT INTRAMUSCUL ETTA DIRECTED ON PACKAGE AND GO TO EMERGENCY ROOM active Not Available Not Available No t Available ibuprofen 600 mg tablet TAKE 1 TABLET BY MOUTH EVERY 6 HOURS NEEDED FOR PAIN active Not Available Not Available No t Available ferrous sulfate 325 mg (65 mg iron) tablet,delay ed release TAKE 1 TABLET (325 MG) BY MOUTH EVERY OTHER DAY. DO NOT CRUSH, CHEW, OR SPLIT. active Not Available Not Available No t Available norethindron e (contracepti ve) 0.35 mg tablet TAKE 1 TABLET BY MOUTH EVERY DAY FOR 84 DAYS active Not Available Not Available No t Available ondansetron 4 mg disintegrati ng tablet DISSOLVE 1 TABLET ON THE TONGUE EVERY 8 HOURS FOR 7 DAYS NEEDED active Not Available Not Available No t Available dicyclomine 10 mg capsule TAKE 1 CAPSULE BY MOUTH 4 TIMES A DAY FOR ABDOMINAL PAIN active Not Available Not Available No t Available amoxicillin 875 mg-potassium clavulanate 125 mg tablet TAKE 1 TABLET BY MOUTH TWICE A DAY active Not Available Not Available No t Available Ventolin HFA 90 mcg/actuatio n aerosol inhaler INHALE 2 PUFFS BY MOUTH EVERY 4 TO 6 HOURS NEEDED FOR WHEEZING active Not Available Not Available No t Available oxycodone 5 mg tablet TAKE 1 TO 2 TABLETS BY MOUTH EVERY 4 TO 6 HOURS NEEDED FOR PAIN active Not Available Not Available No t Available hydroxyzine pamoate 25 mg capsule TAKE 1 TO 2 CAPSULES AT BEDTIME NEEDED FOR INSOMNIA active Not Available Not Available No t Available Vitamin D3 25 mcg (1,000 unit) tablet TAKE 1 TABLET (25 MCG) BY MOUTH ONCE PER DAY. active Not Available Not Available No t Available cyclobenzapr ine 5 mg tablet TAKE 1 TABLET BY MOUTH 3 TIMES A DAY NEEDED FOR MUSCLE SPASM active Not Available Not Available No t Available Senna Plus 8.6 mg-50 mg tablet TAKE 1 TABLET BY MOUTH ONCE A DAY active Not Available Not Available No t Available nitrofuranto in monohydrate/ macrocrystal s 100 mg capsule TAKE 1 CAPSULE BY MOUTH EVERY 12 HOURS FOR 5 DAYS MUST ADMINISTER WITH A MEAL/FOOD active Not Available Not Available No t Available GaviLyte-G 236 gram-22.74 gram-6.74 gram-5.86 gram oral solution MIX AND DRINK 240 ML BY MOUTH EVERY 10 MINUTES DIRECTED UNTIL YOU HAVE A LARGE BOWEL MOVEMENT. active Not Available Not Available No t Available blood pressure test kit-large cuff USE TO CHECK BLOOD PRESSURE TWICE DAILY active Not Available Not Available Not Available Gavilax 17 gram/dose oral powder DISSOLVE 17 GRAMS IN BEVERAGE OF CHOICE AND DRINK BY MOUTH ONCE DAILY FOR 14 DAYS. active Not Available Not Available No t Available tranexamic acid 650 mg tablet TAKE 2 TABLETS BY MOUTH 3 TIMES A DAY FOR 5 DAYS active Not Available Not Available N ot Available Arnuity Ellipta 100 mcg/actuatio n powder for inhalation PLEASE SEE ATTACHED FOR DETAILED DIRECTIONS active Not Available Not Available N ot Available BinaxNOW COVID-19 Ag Self Test kit DIRECTED active Not Available Not Available Not Available Paxlovid 300 mg (150 mg x 2)-100 mg tablets in a dose pack TAKE 3 TABLETS BY MOUTH TWICE A DAY FOR 5 DAYS active Not Available Not Available No t Available Ozempic 0.25 mg or 0.5 mg (2 mg/3 mL) subcutaneous pen injector INJECT 25 MG SUBCUTANEOU SLY ONCE A WEEK FOR 4 WEEKS THEN INCREASE TO 0.5mg ONCE A WEEK active Not Available Not Available No t Available Vitals Date Recorded Oxygen saturation Oxygen saturation in Arterial blood by Pulse oximetry Heart rate Respiratory rate Body temperature Systolic And Diastolic Provider Name and Address Organization Details Last Updated DateTime 5 98 % 98 % 82 /min 16 /min 97.9 [degF] 138/89 mm[Hg] Not Available [employer] 5 09:12:27 Date Recorded Body weight Heart rate Oxygen saturation Oxygen saturation in Arterial blood by Pulse oximetry Respiratory rate Body temperature Systolic And Diastolic Provider Name and Address Organization Details Last Updated DateTime 4 260656. 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 392 g 98 % 98 % 167.64 cm 129/90 mm[Hg] Not Available [employer] [facility] 13:01:41 Social History None recorded. Functional Status None recorded. Mental Status None recorded. Family History Nothing Reported. Medical History No medical history recorded. Gynecological HistoryNo gynecological history recorded. Obstetrics History GPAL:G 0 P 0 0 0 0 Past Encounters Encounter ID Performer Location Encounter Start Date Encounter Closed Date Diagnosis/Indication Diagnosis SNOMED-CT Code Diagnosis ICD10 Code Diagnosis Note [id number] Bertram Cevallos MD [facility] [address] [place] [phone] 10/30/2023 10:45:53 10/30/2023 18:06:25 Moderate acute exacerbation of asthma 763834865 J45.901 Patient with symptoms of asthma; has inhaler at home which says does not help. In hospital yesterday with negative covid and flu. Requesting prednisone which has helped for asthma excarbatio ns and cough and will give burst for 5 days. Discussed red flag symptoms for which to seek higher level of care. [id number] LEDA GERMAIN MD [facility] [address] [place] [phone] 10/11/2024 09:05:04 10/11/2024 12:39:53 Dehydration 84056666 E86.0 Acute urin galindo tract infection [id number] N39.0 [id number] Guillermo Friedman MD [facility] [address] [place] [id number] 11/28/2024 17:13:18 11/28/2024 18:27:11 Acute upper respiratory infection [id number] J06.9 [id number] Darrell Chew MD [facility] [address] [place] [id number] 01/02/2025 13:01:39 01/02/2025 20:10:50 Hypertensive disorder 79262148 I10 Health Concerns Section Related Observation LastModified by Organization Detai ls LastModified Time None Recorded Concern Status LastModified by Organization Details LastModified Time None Recorded Advance Directives Directive None Recorded Payers Insurance Date Sequence Insurance Name Policy Number Policy Davis Covered Member ID Davis Member ID Guarantor Name 01/02/2025 1 [facility] - DOS ON OR AFTER 2022 - DUAL ELIGIBLE - [employer] OPTIONS AND ONE C[employer] (MEDICARE REPLACEMENT/ADV ANTAGE - HMO) Swetashameka Patels [id number] Sweta Corbin Notes Date Note Type Note Provider Name and Address Organization Details Recorded Time 10/30/2023 text/html HPI: HX: Removal of Lipoma mid chest on 10/12/23 with General Anesthesia. In ED 10/28/23 and was negative for COVID, FLU had been sick for many days. Family with Flu. Given Tessalon and inhaler that have been ineffective at present. Congestion in chest with inability to cough up mucous. No fever. ....................... ....................... ....................... ....................... ....................... ....................... ... [facility] Nurse Triage Notes (Walt Johns): Comments: Reviewed HPI ....................... ....................... ....................... ....................... ....................... ....................... ... Grain Broker Note From Robert Vazquez: Pt co cough for two weeks. Pt has been to ER yesterday X-rays revealed no signs pneumonia or bacteria. Covid flu rsv all negative. Pt denies fever NC NVD. Sts cough hurts. Pt was very upset during visit. Pt already using inhaler and taking benzonatate with little relief. Baseline vitals assessed, lungs clear all field bilaterally. C contacted and 40mg prednisone PO, RX for 5 days of prednisone. Duo neb treatment. Pt sts felt some relief after treatment. Pt advised to follow up with pcp if symptoms persist. Pt education on signs indicating the ER. Grain Broker Allergies: Doxycycline ....................... ....................... ....................... ....................... ....................... ....................... ... Disposition: Fulfilled Bertram Cevallos MD [address] [place] [address],[address], [place], [phone], [employer] 10/30/2023 16:14:38 10/11/2024 text/html [facility] Nurse Triage Notes (Sweta Fay): Reason For Request: Patient broke her leg in 2 spots, Patient feels Dizzy, light headed, dehydrated.Denies: Worst Headache of life New onset of vision loss Sudden onset -unilateral weakness/gait disturbance Fall with head strike and altered LOC New onset of Slurred speech or difficulty finding words Sudden Mental status changes Head pain with fever chills and neck pain Seizure activity Chief Complaints: Dizziness, Extremity Pain, Headache, Urinary Symptoms, WeaknessPMH: Hypertension, COPD/Asthma, CholecystectomyPMH Reviewed at 10/10/2024 - :39Allergies Reviewed at 10/10/2024:39Comments: Patient calling in to place a referral, identified via name and . Patient reports breaking her right leg on Thursday. She now is having dizziness, headache, lightheadedness, fees dehydrated, as well as painful urination and dysuria. Patient endorses poor mobility, not intaking much by mouth, but does report good urine output. Symptoms are with movement and laying down, no history of vertigo, she denies blurry vision. She is taking tylenol and oxycodone 5mg for pain. She denies any fever/chills, no nausea/vomiting, no abdominal or flank pain, no discoloration or odor to her urine. She would like to be evaluated. Grain Broker Organization Information for [facility] Legal Name: [facility] Transportation Address: [address] [place] [address], [place] [address], Steel Welder: Floyd Solo MD CLIA No.: [id number] Grain Broker POC Test Results from [facility] (09:25:42) pH: 7.37 pH units pCO2: 48.0 mmHg pO2: 33.3 mmHg Na: 143 mmol/L K: 4.0 mmol/L iCa: 1.20 mmol/L Cl: 102 mmol/L TCO2: 27.2 mEq/L Hct: 40 % Hb: 13.6 g/dL Glu: 99 mg/dL Lac: 0.97 mmol/L Cr: 0.71 mg/dL BUN: 20 mg/dL A mmol/L HCO3: 27.9 mmol/L Urine Dipstick (09:25:43) Urine leukocytes: 2+ ROXANNA Urine nitrites: - NIT Urine urobilinogen: - URO Urine protein: 3+ PRO Urine pH: 5.0 pH Urine blood: - BLO Urine specific gravity: 1.025 SG Urine ketones: - KET Urine bilirubin: - RAFAELA Urine glucose: - GLU ....................... ....................... ....................... ....................... ....................... ....................... ... Grain Broker Note From Kenny Beth: This 34-year-old female with a history including but not limited to HTN, COPD requested a visit today to address multiple complaints. Patient states she's had several days of dysuria and dark, cloudy, malodorous urine. Patient spoke to her PCP who prescribed Macrobid, which she has not started yet. PCP is requesting we send out a urine culture. Patient also states that she fell down a flight of stairs and fractured her lower right leg on Thursday, was prescribed oxycodone and Tylenol for pain. Patient states she is constipated however her PCP sent in a prescription for her which she also has not started yet. Patient is reporting decreased PO intake and feels dehydrated, lightheaded, dizzy and nauseous. Patient is also requesting I rewrap her lower right extremity with LUIS A wraps. Patient denies any chest pain, shortness of breath, abdominal or flank pain, fevers, vomiting, diarrhea. Allergy to doxycycline. Patient presents awake and alert, in no acute distress and speaking full sentences. Her vital signs are reasonably stable and she is afebrile. Nonfocal neurological exam. Lungs are clear throughout auscultation. Abdomen is soft, nontender, nondistended. No CVA tenderness. Patient is normal pulses and sensation all extremities. Urinalysis is suggestive of infection. Urine culture will be sent to [facility]. Unremarkable POC labs are uploaded. I treated this patient with lactated ringer's 1 L IV and ondansetron 4 mg IVP which resolved the nausea. We discussed the diagnostic uncertainty of home visits and the risk associated with this. In this case, the patient and I felt this to be an acceptable and reasonable amount of risk given the benefit of avoiding an ED visit. I provided education on the patient's prescription as well as additional supportive care/OTC therapy. I recommend she follow up with her primary care physician regarding the urine culture, increase oral hydration and present to the emergency department for any new or worsening severe symptoms such as chest pain, shortness of breath, severe abdominal and flank pain, high fever, altered mental status. The patient and her were given the opportunity to ask questions and are agreeable to this plan. [facility] Lab Orders: culture, urine: Performed urinalysis, dipstick: Performed BMP, serum or plasma: Performed [facility] Medication Orders: ondansetron HCl (PF) 4 mg/2 mL injection solution: Administered lactated Ringers intravenous solution: Administered ....................... ....................... ....................... ....................... ....................... ....................... ... [facility] Consulted: Leda Germain ....................... ....................... ....................... ....................... ....................... ....................... ... Disposition: Fulfilled LEDA GERAMIN MD [address] [place] [address],[address], [place], [address], [employer] 10/11/2024 10:18:55 11/28/2024 text/html CRC Nurse Triage Notes (Sweta Fay): Reason For Request: throat/ears/body/head all hurt Denies: Sudden onset of dental pain, unable to manage own secretions Nosebleed lasting longer than one hour; unable to stop bleeding Throat swelling/difficult swallowing Chief Complaints: Cough, Sore Throat, Weakness PMH: Hypertension, COPD/Asthma, Cholecystectomy PMH Reviewed at 11/28/2024 - 16:23 Allergies Reviewed at 11/28/2024 Comments: 34 y.o female Patient calling in to place a referral, identified via name and . Patient with a 2 day history of sore throat, earache, headache and body aches. She reports swollen glands, pain with and without swallowing. Her ears are painful and itchy internally, denies any external redness, warmth or swelling. She endorses a light nonproductive cough, no chest congestion or wheezes, no chest pain or shortness of breath no fever/chills, no nausea, vomiting or diarrhea. She does have an inhaler and nebulizer, but has not used. She would like to be evaluated. I provided information on the mobile health provider response time and advised the patient and/or caregiver to monitor reported signs and symptoms. I discussed the warning signs of when to seek emergency care. Grain Broker Organization Information for Carlosmariya Kenny Tapia [employer] Legal Name: [facility] Address: [address] [place] [address], [place] [address], Steel Welder: Floyd Solo MD CLIA No.: [id number] Grain Broker POC Test Results from Kenny Beth Rapid COVID antigen (17:18:02) COVID: - Rapid influenza antigen (17:18:08) Flu: - Rapid strep test (17:18:09) Strep: - ....................... ....................... ....................... ....................... ....................... ....................... ... Grain Broker Note From Kenny Beth: This 34-year-old female with a history including but not limited to HTN, asthma, cholecystectomy requested a visit today to address two days of bilateral your pain, sore throat and mild dry cough. Patient states for 4-year-old daughter is also ill with similar symptoms, likely contracted in daycare. Patient denies any chest pain, shortness of breath, dizziness, fevers, nausea, vomiting, diarrhea. Patient using Tylenol cold/flu with mild relief. Patient presents awake and alert, in no acute distress and speaking full sentences. Her vital signs are reasonably stable and she is afebrile. Nonfocal neurological exam. No sinus tenderness. Normal ear exam, pictures uploaded. Unremarkable oropharynx exam. Lungs are clear throughout auscultation. Abdomen is soft, nontender, nondistended. No lower extremity edema. Rapid COVID, flu and strep testing are all negative. We discussed the diagnostic uncertainty of home visits and the risk associated with this. In this case, the patient and I felt this to be an acceptable and reasonable amount of risk given the benefit of avoiding an ED visit. I provided education on additional OTCs/supportive care therapy and recommend PCP follow-up if symptoms persist. I instructed her to present to the emergency department for any new or worsening severe symptoms such as chest pain, shortness of breath, high fever, altered mental status. The patient interfamily were given the opportunity to ask questions and are agreeable to this plan. ....................... ....................... ....................... ....................... ....................... ....................... ... [facility] Consulted: Guillerom Friedman ....................... ....................... ....................... ....................... ....................... ....................... ... Disposition: Regis Guillermo Friedman MD [address] [facility],[address], [place], [address], [employer] 11/28/2024 17:57:53 01/02/2025 text/html CRC Nurse Triage Notes (Gregorio Duncan): Reason For Request: High BP. Denies: Worst Headache of life New onset of vision loss Sudden onset -unilateral weakness/gait disturbance Fall with head strike and altered LOC New onset of Slurred speech or difficulty finding words Sudden Mental status changes Head pain with fever chills and neck pain Seizure activity Chief Complaints: High Blood Pressure PMH: Hypertension, COPD/Asthma, Cholecystectomy, Cancer PMH Reviewed at 01/02/2025 - :07 Allergies Reviewed at 01/02/2025 - :07 Comments: Additional PMH: Lymphoma 34 y.o female complains of High Blood Pressure Patient calling reporting she checked her blood pressure earlier today and found BP to be 150/100. Patient reports she is feeling shaky. Patient denies headache or visual changes. Patient reports her blood pressure has been elevated for the last two days. Patient does not currently take any antihypertensives. Patient reports she has checked her BP three times already today, states systolic BP has been in the 140s-150s and diastolic in the 100s. Patient reports some chest discomfort in the middle of her chest starting approx 2 days ago, pt reports she had surgery last year in similar area for lymphoma and pt is unsure if this is pain from previous surgery. Patient denies shortness of breath. Patient speaking in full, complete, clear sentences at time of call. I provided information on the mobile health provider response time and advised the patient and/or caregiver to monitor reported signs and symptoms. I discussed the warning signs of when to seek emergency care -Radha Duncan RN Grain Broker Organization Information for [employer] Legal Name: [employer]. Address: [address] [place] [id number], Steel Welder: Ryan Holbrook MD CLIA No.: [id number] Grain Broker POC Test Results from Israel Hsieh [employer] Blood Glucose Measurement (12:51:48) Blood Glucose: 93 mg/dL EKG (13:11:51) EKG test performed. Attachments uploaded as part of this test result can be found under Documents section. [employer] (13:22:05) Na: 141 mEq/L K: 3.5 mEq/L Cl: 105 mEq/L iCa: 1.21 mmol/L TCO2: 24 mmol/L Glu: 92 mg/dL BUN: 13 mg/dL Crea: 0.8 mg/dL Hct: 44 % Hb: 15.0 g/dL A mmol/L Cartridge Number: [id number] Attachments uploaded as part of this test result can be found under Documents section. ....................... ....................... ....................... ....................... ....................... ....................... ... Grain Broker Note From Israel Hsieh: [facility] makes pt contact. She opens the door and invites [facility] inside. She turns and leads [facility] up two steep flights of stairs to her bedroom where she sits in a wheelchair. She walks w/ a slight limp due to her R foot being in an ankle boot. She says she had surgery on her ankle in October after fracturing it in a fall down the stairs in the apartment. She is generally well appearing. Her skin is w/p/d, no facial droop, slurred speech, or one-sided weakness are observed and she is not bleeding anywhere. Pt endorses having elevated bp for the past couple days. She took it last night and it was 150/100 and again this morning and it was the same. She has taken it several more times today and she hasn't been able to get it to go down. She has a hx of HTN and was placed on hypertensive meds several months ago, but quit taking them. Her PCP is aware she quit the medication. Pt says her foot was very painful yesterday and she has an upcoming surgery on to remove an ovarian cyst. She is denying any recent illness, cough, sore throat, fevers/chills, n/v/d, gill, blurred vision, balance issues, or weakness and confusion. She was concerned about her bp and the fact that she has been very shaky for the past couple days as well, especially this morning. She admits having a decreased appetite and decreased PO. 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 She says the pain she is having now is the same pain she was having before the removal of the tumor and she is nervous it may be coming back. She addressed her concerns about the cp w/ her PCP and he told her after examining it, the pain may be from scar tissue. She denies crushing, squeezing, or radiating pain at this time. [facility] obtains vital signs and pt is assessed. Head is atraumatic and normocephalic. Sclera are clear, pupils are PERRL, and extraocular movements are intact. Neck is supple and trachea is midline. Chest rises and falls equally w/ respirations and lung sounds are clear and equal bilaterally to auscultation. Pt has a small and well healed scar between her breasts over her sternum. Palpation reveals underlying scar tissue that moves well w/ tissue manipulation, but some sticking of scar can be felt to tissue underneath. Palpation and manipulation of the tissue increases pt's discomfort. Area is free of heat, rash, redness, drainage, or bleeding. Pt is neurologically intact and is able to answer all questions and follows all commands. [facility] contacts [facility] and discusses the above. [facility] orders and EKG and bmp. A 12 lead EKG is obtained and shows a sinus rhythm w/ no acute ST segment or T wave abnormalities. IV access is obtained in the dorsum of the R hand using a 23ga butterfly needle and blood is drawn for bmp. [facility] is recontacted and has a conversation w/ pt that [facility] cannot hear. [facility] informs [facility] nothing further is required. [facility] informs pt to seek emergency care if she develops a sudden severe gill, crushing cp, slurred speech, confusion, loss of control of one or both sides of her body, visual changes, or syncope. Pt gives her verbal understanding. MIH is clear. Report completed by ASHWIN Hsieh [id number]. [facility] Lab Orders: BMP, serum or plasma: Performed glucose, fingerstick, blood: Performed ....................... ....................... ....................... ....................... ....................... ....................... ... [facility] Consulted: Darrell Chew ....................... ....................... ....................... ....................... ....................... ....................... ... Disposition: Fulfilled Darrell Chew MD [address] [place] [address],[address], [place], [address], [employer] 01/02/2025 15:16:16 OBGyn Episode No OBEpisode recorded.
== END 2025-02-25 08:27 | disposition home or self-care (01) ==
LOC: HO.CT 08:26
PROVIDERS: PCP Nurse Practitioner Primary Care; Visit Provider Surgery
DX: R07.89 Other chest pain (principal); D17.1 Benign lipomatous neoplasm of skin and subcutaneous tissue of trunk
CPT/HCPCS: 71250

== ENCOUNTER → 2025-02-25 08:28 | Outpatient (BNV) | payer OTHER, SELFPAY | PROVIDERS: PCP Nurse Practitioner Primary Care; Visit Provider Radiology Diagnostic Radiology | DX: R91.1 Solitary pulmonary nodule (principal) | CPT/HCPCS: 71250 ==

== ENCOUNTER 2025-04-04 22:17 | Emergency (ER) | payer OTHER, SELFPAY ==
[2025-04-04 22:19] VITALS: BP 134/94; PULSE 99; RESP 20; TEMP 36.9; O2SAT 100; BMI 44.5
--- NOTE | 2025-04-04 22:28 | ED.ALLEREA ---
HPI - Allergic Reaction General Chief complaint: Allergic Reaction Stated complaint: allergic reaction, hives, closing throat Time Seen by Provider: 04/04/25 22:27 Source: patient Mode of arrival: ambulatory Limitations: no limitations History of Present Illness ED Provider: Jovany BARKSDALE HPI narrative: The patient is a 34-year-old female presenting to the ED for evaluation of possible allergic reaction. Patient reports she ate [employer] and approximately 15 minutes later began experiencing diffuse pruritus with urticarial rash and subjective swelling sensation of her throat. The patient reports multiple food allergies, and reports the meal she ate had a new sauce on it she has not previously encountered. The patient denies associated stridor or wheezing, patient has not taken any medication for her symptoms prior to arrival in the ED. Related Data Home Medications ?Medication ?Instructions ?Recorded ?Confirmed albuterol sulfate 90 mcg/actuation 2 puff inhalation Q4-6H PRN 10/12/23 02/02/25 aerosol inhaler (Ventolin HFA) wheezing cetirizine 10 mg tablet 10 mg PO DAILY 10/12/23 02/02/25 cholecalciferol (vitamin D3) 25 25 mcg PO QAM 10/12/23 02/02/25 mcg (1,000 unit) tablet epinephrine 0.3 mg/0.3 mL IM DIRECTED 10/12/23 02/02/25 injection, auto-injector semaglutide 0.25 mg or 0.5 mg (2 mg subcut 10/12/23 02/02/25 mg/3 mL) subcutaneous pen injector (Ozempic) sumatriptan succinate 50 mg tablet mg PO 10/12/23 02/02/25 tizanidine 2 mg tablet 2 mg PO QD-TID PRN muscle pain 10/12/23 02/02/25 topiramate 25 mg tablet mg PO 10/12/23 02/02/25 valacyclovir 1 gram tablet 1,000 mg PO TID 10/12/23 02/02/25 Previous Rx's ?Medication ?Instructions ?Recorded albuterol sulfate 90 mcg/actuation 1 inh inhalation Q20M PRN 10/28/23 aerosol inhaler shortness of breath or wheezing #8.5 grams benzonatate 100 mg capsule 100 mg PO BID PRN cough #20 caps 10/28/23 dicyclomine 20 mg tablet 20 mg PO TID PRN abdominal pain 01/19/24 #20 tabs famotidine 40 mg tablet (Pepcid) 40 mg PO DAILY #14 tabs 01/19/24 nitrofurantoin 100 mg PO Q12H 5 days #10 caps 01/19/24 monohydrate/macrocrystals 100 mg capsule (Macrobid) azithromycin 250 mg tablet 250 mg PO DAILY 6 days #6 tabs 09/07/24 peg 3350-electrolytes 236 240 ml PO Q10M #4,000 mL 10/23/24 gram-22.74 gram-6.74 gram-5.86 gram solution (GaviLyte-G) polyethylene glycol 3350 17 17 g PO DAILY 2 weeks #238 grams 10/23/24 gram/dose oral powder (Miralax) diphenhydramine HCl 25 mg capsule 25 mg PO TID PRN allergic reaction 04/04/25 #14 caps famotidine 20 mg tablet (Pepcid) 20 mg PO BID 5 days #10 tabs 04/04/25 prednisone 20 mg tablet 60 mg (3 x 20 mg) PO DAILY 5 days 04/04/25 #15 tabs Allergies Allergy/AdvReac Type Severity Reaction Status Date / Time doxycycline Allergy Dizziness Verified 04/04/25 22:21 Review of Systems Review of Systems: Yes all other systems are reviewed and are negative [facility] Past Medical History Medical History Hypertension Surgical History S/P excision of lipoma (10/12/23) Hx of cholecystectomy Hx of foot surgery Family History Family History Maternal Grandmother Liver cancer Social History Social History Alcohol intake: never Patient Tobacco Use Status: Never used Tobacco Smoked in Last 30 Days: No Use of substances other than those prescribed or required for medical reasons: No Advance Directives: No Advance Directives Information Provided: No Do you have a plan to hurt others: No Plan Patient : No Physical Exam ED Vital Signs: Vital Signs - 24 hr 04/04/25 22:19 Temperature 98.5 F Pulse Rate 99 Respiratory Rate 20 Blood Pressure 134/94 H Pulse Oximetry 100 Oxygen Delivery Method Room Air BMI result Body Mass Index 44.5 CONSTITUTIONAL: The patient appears non-toxic, well nourished and in no acute distress. Vital signs as documented. HEAD: Atraumatic, normocephalic. EYES: EOMs grossly intact, pupils equal, conjunctiva clear, no exudate. ENT: Nares patent, no discharge. Airway patent, no audible stridor, visible mucosa is pink and moist without noted lesions. Posterior pharynx shows midline nonedematous uvula, no peritonsillar or tonsillar swelling. NECK: Trachea is midline, no obvious masses or gross abnormalities. CHEST: Symmetric movement, normal appearance. LUNGS: LS present and CTAB, no w/r/r. Non-labored work of breathing. CARDIAC: Regular Rhythm, S1/S2 appreciated, no murmurs, rubs or gallops. ABDOMEN: Abdomen soft and non-tender x4 quadrants, no palpable masses or organomegaly. : Deferred. EXTREMITIES: Normal tone, moves all extremities spontaneously without reported pain. No obvious acute injury or deformity noted. NEURO: Alert and oriented x3, CN II-XII appear grossly intact. Cerebellar Functioning grossly intact. No obvious sensory or motor deficits. Speech clear and appropriate. PSYCH: normal affect, appropriate eye contact, fluid speech, with appropriate response to questioning. No reported suicidality or homicidality. SKIN: Warm, dry, color appropriate, normal turgor. There is a diffuse urticarial rash noted with active excoriation, no other rashes noted. Medications Administered Discontinued Medications Generic Name Dose Route Start Last Admin Trade Name Jackyq PRN Reason Stop Dose Admin Diphenhydramine HCl 50 mg 04/04/25 22:27 04/04/25 22:38 Diphenhydramine Hcl 50 Mg/Ml Vial IVPUSH 04/04/25 22:28 50 mg ONCE ONE Administration Famotidine 20 mg 04/04/25 22:27 04/04/25 22:38 Famotidine/Pf 20 Mg/2 Ml Vial IVPUSH 04/04/25 22:28 20 mg ONCE ONE Administration Methylprednisolone Sodium Succinate 125 mg 04/04/25 22:27 04/04/25 22:38 Methylprednisolone Sod Succ 125 Mg/2 Ml Vial IVPUSH 04/04/25 22:28 125 mg ONCE ONE Administration Medical Decision Making Medical Decision Making MDM Narrative: 10:28 PM 04/04/2025 (Delmar BARKSDALE): This provider was asked to see the patient emergently due to concern for allergic reaction. Patient is a 34-year-old female presenting to the ED for evaluation of diffuse hives and pruritus after eating a quesadilla at [employer] which had a new sauce on it she has not previously encountered. The patient reports multiple food allergies but reports only medication allergy is doxycycline. Upon evaluation patient has diffuse urticaria with active excoriation, no posterior pharyngeal swelling, no tongue or lip swelling, lung sounds are clear to auscultation bilaterally, no wheezes, no stridor. Patient will be treated with Solu-Medrol, Pepcid, and Benadryl, no indication for epinephrine at this time however we will continue to monitor. 11:43 PM 04/04/2025 (Delmar BARKSDALE): The patient reports feeling markedly improved following interventions in the ED, patient will will be discharged with Pepcid, prednisone, and prn Benadryl. Admission/Observation Consideration of admission/observation: Escalation of care including admission/observation considered External Record Review External record reviewed: Outpatient record Chronic Conditions Patient?s care impacted by: Hypertension Discharge Plan Discharge Clinical Impression: Allergic reaction Patient Disposition: Home, Self-Care Instructions: General Allergic Reaction (ED) Additional Instructions: Thank you for choosing [facility]'s Emergency Department for your care today. Your allergic reaction symptoms today improved significantly following interventions in the ED. At this time there is no indication for admission to the hospital or continued ED observation, and it is safe to discharge you home. The exact cause of your allergic reaction is not entirely clear. Given your history of food allergies in his possible the allergic reaction was secondary to your meal at [employer]. Please take prednisone. Pepcid for the next 5 days as prescribed. You may also take Benadryl as needed for additional symptoms. Please follow up with your primary care physician for re-evaluation, additional management of your symptoms, and continued preventative care. If you do not have a primary care physician, please call the [facility] at [phone] to establish a new primary care physician. While waiting to establish your new primary care physician, you can call our [facility] at [phone] for non-emergency needs. Please return to the emergency department if you develop a severe or sudden change in your symptoms, a fever over 100.4 that does not improve with Tylenol or Ibuprofen, recurrent vomiting, or any other new or worsening symptoms or concerns. Prescriptions: New prednisone 20 mg tablet 60 mg PO DAILY 5 Days Qty: 15 0RF famotidine [Pepcid] 20 mg tablet 20 mg PO BID 5 Days Qty: 10 0RF diphenhydramine HCl 25 mg capsule 25 mg PO TID PRN (Reason: allergic reaction) Qty: 14 0RF No Action benzonatate 100 mg capsule 100 mg PO BID PRN (Reason: cough) Qty: 20 0RF albuterol sulfate 90 mcg/actuation HFA aerosol inhaler 1 inh inhalation Q20M PRN (Reason: shortness of breath or wheezing) Qty: 8.5 0RF nitrofurantoin monohyd/m-cryst [Macrobid] 100 mg capsule 100 mg PO Q12H 5 Days Qty: 10 0RF Rx Instructions: must administer with a meal/food dicyclomine 20 mg tablet 20 mg PO TID PRN (Reason: abdominal pain) Qty: 20 0RF famotidine [Pepcid] 40 mg tablet 40 mg PO DAILY Qty: 14 0RF azithromycin 250 mg tablet 250 mg PO DAILY 6 Days Qty: 6 0RF Rx Instructions: start on day 2 of therapy peg 3350-electrolytes [GaviLyte-G] 236-22.74-6.74 -5.86 gram recon soln 240 ml PO Q10M Qty: 4000 0RF Rx Instructions: until you have a large bowel movement polyethylene glycol 3350 [Miralax] 17 gram/dose powder 17 g PO DAILY 14 Days Qty: 238 0RF tizanidine 2 mg tablet 2 mg PO QD-TID PRN (Reason: muscle pain) cetirizine 10 mg tablet 10 mg PO DAILY valacyclovir 1 gram tablet 1,000 mg PO TID sumatriptan succinate 50 mg tablet PO topiramate 25 mg tablet PO epinephrine 0.3 mg/0.3 mL auto-injector IM DIRECTED albuterol sulfate [Ventolin HFA] 90 mcg/actuation HFA aerosol inhaler 2 puff INHALATION Q4-6H PRN (Reason: wheezing) cholecalciferol (vitamin D3) 25 mcg (1,000 unit) tablet 25 mcg PO QAM Ozempic 0.25 mg or 0.5 mg (2 mg/3 mL) pen injector subcut Referrals: Physician,Unknown J [Primary Care Provider, Medical] Clinical Impression: Allergic reaction Print Language: Belizean
--- OUTSIDE RECORDS SUMMARY | 2025-04-04 22:35 | XMS_ITS | Clinical Summary ---
Author Organization [employer] Address [address] [place] [address] 7t [place] [address] Care Team Providers Care Harvest Contractor Name Role Phone Aleah Scherer Primary Care Provider [phone] Allergies Active Allergy Reactions Criticality Noted Date Comments [place] Oil Anaphylaxis High 11/06/2022 Doxycycline 11/06/2022 Other reaction(s): Gastrointestinal upset Potato 11/06/2022 Other reaction(s): Hives Medications EPINEPHrine (Epipen) 0.3 MG/0.3ML injection syringeIndication s:Food allergy Inject 0.3 mL (0.3 mg) as directed 1 (one) time for 1 dose. use as directed for allergic reaction and then call 911 2 each 1 023 Active SUMAtriptan (Imitrex) 50 MG tabletIndications :Migraine without aura and without status migrainosus, not intractable Take 1 tablet (50 mg) by mouth 1 (one) time if needed for migraine. May repeat dose once in 2 hours if no relief. Do not exceed 2 doses in 24 hours. 9 tablet 024 Active ipratropium-albut francisco j (Duo-Neb) 0.5-2.5 mg/3 mL nebulizer solutionIndicatio ns:Mild persistent asthma with exacerbation Take 3 mL by nebulization every 6 (six) hours if needed for wheezing. 360 mL 024 Active albuterol 108 (90 Base) MCG/ACT inhalerIndication s:Mild asthma without complication, unspecified whether persistent 2 puffs as needed every 4-6 hrs for wheezing 18 g 1 024 Active cetirizine (ZyrTEC) 10 MG tabletIndications :Non-seasonal allergic rhinitis due to other allergic trigger Take 1 tablet (10 mg) by mouth Once per day. 90 tablet 1 Active cromolyn (Opticrom) 4 % ophthalmic solutionIndicatio ns:Allergic conjunctivitis of both eyes 1-2 drops into each eye 4-6 times daily as needed for allergies 10 mL Active albuterol (2.5 MG/3ML) 0.083% nebulizer solutionIndicatio ns:Moderate persistent asthma with acute exacerbation Take 3 mL (2.5 mg) by nebulization every 6 (six) hours if needed for wheezing or shortness of breath. 75 mL 1 Active Nebulizer misc 1 Device every 6 (six) hours if needed. The patient was prescribed a nebulizer from the [employer] vendor [employer] on 12/11/23. Instructions on how to use the nebulizer were provided. Active fluticasone furoate (Arnuity Ellipta) 100 MCG/ACT inhalerIndication s:Asthma Inhale 1 PUFF EVERY DAY RINSE MOUTH AFTER USING. 30 each 2 Active cyclobenzaprine (Flexeril) 5 MG tablet Active dicyclomine (Bentyl) 20 MG tablet Active famotidine (Pepcid) 40 MG tablet Take 40 mg by mouth Once per day. Active COVID-19 Antigen Test kit 1 each by In Vitro route if needed each day (COVID symptoms). 4 kit 3 Active ferrous sulfate (Fe Tabs) 325 (65 Fe) MG EC tabletIndications :Iron deficiency Take 1 tablet (325 mg) by mouth every other day. Do not crush, chew, or split. 15 tablet 2 024 2024 Active senna-docusate sodium (Senokot-S) 8.6-50 MG tabletIndications :Constipation, unspecified constipation type Take 1 tablet by mouth Once per day. 30 tablet 11 025 2025 Active polyethylene glycol, PEG, 3350 (MiraLax) 17 GM/SCOOP powderIndications :Constipation, unspecified constipation type 17g once daily as needed for constipation 238 g Active pantoprazole (Protonix) 40 MG EC tabletIndications :Gastroesophageal reflux disease without esophagitis Take 1 tablet (40 mg) by mouth before breakfast. Do not crush, chew, or split. 30 tablet 2 025 2025 Active polycarbophil (FiberCon) 625 MG tabletIndications :Constipation, unspecified constipation type Take 1 tablet (625 mg) by mouth Once per day. 90 tablet 3 025 2025 Active ibuprofen 800 MG tabletIndications :Vaginal bleeding TAKE 1 TABLET (800 MG) BY MOUTH 3 TIMES DAILY. FOR 7 DAYS, THEN NEEDED 60 tablet Active D3-1000 25 MCG (1000 UT) tabletIndications :Vitamin D deficiency TAKE 1 TABLET (25 MCG) BY MOUTH ONCE PER DAY. 90 tablet 1 025 Active triamcinolone (Kenalog) 0.1 % creamIndications: Eczema, unspecified type Apply topically if needed in the morning and at bedtime for rash. 45 g 025 Active hydrOXYzine HCl (Atarax) 50 MG tabletIndications :Difficulty sleeping TAKE 1 TABLET (50 MG) BY MOUTH IF NEEDED AT BEDTIME FOR ANXIETY (INSOMNIA). 30 tablet 2 025 Active hydrOXYzine HCl (Atarax) 50 MG tabletIndications :Difficulty sleeping Take 1 tablet (50 mg) by mouth if needed at bedtime for anxiety (insomnia). 30 tablet 2 025 2024 Discontinued Active Problems Problem Noted Date Diagnosed Date Drug-induced constipation 10/24/2024 Assessment & Plan (10/25/2024 11:33 AM EDT): Reviewed options, Increase hydration, increase po fiber movement as tolerated Milk of magnesia every other day if needed Ducolax suppository if needed Aware of s/s to report requiring further evaluation Gastroesophageal reflux disease without esophagi tis 10/24/2024 Hypersomnia 07/22/2024 Assessment & Plan (07/22/2024 4:38 [...] Encounters Date Type Department Care Team Description 03/04/2025 Refill [facility] [address] [place] [address] Aleha Scherer ANP Difficulty sleeping 02/25/2025 Orders Only [facility] External Provider, [facility] 02/15/2025 Telephone [facility] [address] [facility] [place] [address] Aleah Scherer ANP April recall from Last 3 Months Immunizations Immunization Administration Dates Next Due HPV, Quadrivalent 07/04/2019,12/11/2015 [...] Date Recorded Patient Health Questionnaire-9 Score 0 12/01/2024 Patient Health Questionnaire-9 Score 0 12/01/2024 Last PHQ-9: Questionnaire Data Not on file 0 12/01/2024 Housing Stability Answer Date Recorded What is your housing situation today? I have katecory steiner 12/27/[address] you li ve. Do you have problems with any of the following? None of the above 12/27/2024 Food Insecurity Answer Date Recorded Within the past 12 months, y ou worried that your food would run out before you got money to buy more: Never True 12/27/2024 Within the past 12 months,th e food you bought just didn't last and you didn't have enough money to get more: Never True Transportation Answer Date Recorded In the past 12 months, has l ack of transportation kept you from medical appts, meetings, work or from getting things needed for daily living? No 12/27/2024 Utilities Answer Date Recorded In the past 12 months, has t he electric, gas, oil or water company threatened to shut off services in your home? No 12/27/2024 Depression Answer Date Recorded Patient Health Questionnaire-2 Score 0 12/01/2024 Internet Access Answer Date Recorded Internet Access [...] Sign Reading Time Taken Comments Blood Pressure 120/84 12/27/2024 9:23 AM EDT man ually Pulse 78 12/27/2024 9:23 AM EDT Temperature 36.3 C (97.3 F) 12/27/2024 9:23 AM EDT Respiratory Rate 18 12/27/2024 9:23 AM EDT Oxygen Saturation 98% 12/01/2024 9:33 AM EDT Inhaled Oxygen Concentration - - Weight 128 kg (281 lb 8 oz) 12/27/2024 9:23 AM E DT Height 167.6 cm (5' 6 ) 12/27/2024 9:23 AM EDT Body Mass Index 45.44 12/27/2024 9:23 AM EDT Plan of Treatment Health Maintenance Due Date Last Done Comments Dental Oral Exam 1992 Dental Prophylaxis 1992 Dental X-Ray: Full Mouth 1992 Lipid Panel 1992 IPV Vaccines (4 of 4 - 4-dose series) 1996 05/20/1995, 1992, 1992 Family Planning (PISQ) 2007 Pneumococcal Vaccine: Pediatrics (0 to 5 Years) and At-Risk Patients (6 to 49) Years (1 of 2 - PCV) 2011 HPV Vaccines (3 - 3-dose series) 09/26/2019 07/04/2019, 12/11/2015 Dental X-Ray: Bitewings 11/08/2023 11/06/2022 COVID-19 Vaccine (3 - season) 2024 11/25/2021, 11/04/2021 Influenza Vaccine (#1) 2025 , 07/04/2019, 11/26/2015, Additional history exists Alcohol/Substance Use Screening 09/08/2025 09/08/2024 Depression Screening 12/01/2025 12/01/2024, 12/02/19 Disability Screening 12/01/2025 12/01/2024 SDOH Screening 12/27/2025 12/27/2024 Tobacco Screening 12/27/2025 12/27/2024 Cervical Cancer Screening 05/29/2026 HPV/Cotest 05/29/2026 05/29/2021 [...] 1992, Additional history exists HIV Screening Completed 07/22/2024, 05/31/2014 Hepatitis C Screening Completed 07/22/2024 Hepatitis A [...] Procedure Name Priority Date/Time Associated Diagnosis Comments CT CHEST WO CONTRAST Routine 02/25/2025 8:40 AM EDT HEPATITIS C AB W/REFL TO HCV RNA, QN, PCR Routine 07/22/2024 3:38 PM EST Hypersomnia HIV 1/2 ANTIGEN/ANTIBODY, FOURTH GENERATION W/RFL Routine 07/22/2024 3:38 PM EST Hypersomnia BITEWING - SINGLE RADIOGRAPHIC IMAGE Routine 11/06/2022 1:00 PM EDT Maxillary sinusitis, unspecified chronicity HM PAP/HPV Routine 05/29/2021 from Last 3 Months or Most Recently Relevant to Health Maintenance Results * CT Chest w/o Contrast (02/25/2025 8:40 AM EDT) Anatomical Region Laterality Modality Body, Chest Computed Tomogra phy 02/25/2025 8:40 AM EDT Narrative 02/27/2025 7:23 AM EDT [place] [address] CT Scan Report Signed Patient: Sweta Corbin MR#: [id number] 6 : 1990 Acct:[id number] Age/Sex: 34 / F ADM Date: 02/25/25 Loc: HO.CT Attending Dr: Alex Willett MD Ordering Physician: Alex Willett MD Date of Service: 02/25/25 Procedure(s): CT chest wo IV con Accession Number(s): [id number] cc: Alex Willett MD; ALEAH SCHERER NP Report Number: [id number]: Total DLP = 176.00 mGy-cm EXAMINATION: CT CHEST WITHOUT IV CONTRAST INDICATION: D17.1 - Benign lipomatous neoplasm of skin and subcutaneous tissue of trunk COMPARISON: Correlation is made with an ultrasound of the chest wall dated 05/20/2024. TECHNIQUE: Helical CT scan of the chest was performed without intravenous contrast. Coronal and sagittal reformatted images were generated and reviewed. This CT exam was performed with one or more of the following dose reduction techniques: automated exposure control, adjustment of the mA and/or kV according to patient size, use of iterative reconstruction technique. DLP: 176 mGy-cm CHEST: THYROID: The thyroid is unremarkable. LUNGS: There is a punctate nodule in the left upper lobe (series 4, image 49). The lungs are otherwise clear. MEDIASTINUM: Amorphous soft tissue density in the anterior mediastinum likely represents residual thymus. There is no mediastinal lymphadenopathy. VLADIMIR: Evaluation of the hilar regions is limited by lack of intravenous contrast material. CARDIOVASCULATURE: The heart is normal in size. There is no pericardial effusion. The thoracic aorta is normal in caliber. DEGREE OF CORONARY CALCIFICATION: none PLEURA: There is no pleural effusion. No pneumothorax. MAIN AIRWAYS: The mainstem bronchi and proximal branches are patent. AXILLA: There is no axillary lymphadenopathy. BONES AND SOFT TISSUES: Unremarkable UPPER ABDOMEN: The visualized portions of the liver, spleen, and adrenals have an unremarkable unenhanced appearance. CT/CT chest wo IV con IMPRESSION: Probable residual thymus in the anterior mediastinum. Punctate left upper lobe nodule. Otherwise unremarkable unenhanced chest CT. Electronically signed by: Carlin Rivera MD 02/27/2025 07:20 AM EDT RP Dictated By: Carlin Rivera MD Signed By: <Electronically signed by Carlin Rivera MD in OV> 02/27/25 0720 DD/ 0840 TD/TT: 02/25/25 0914 Manager Transition: Procedure Note Donotuseinterpreter, Image - 02/27/[address] [place] [address] [address] Scan Report Signed Patient: Sweta CorbinMR#: [id number] 6 : 1990Acct:[id number] Age/Sex: 34 / FADM Date: 02/25/25 Loc: HO.CT Attending Dr: Alex Willett MD Ordering Physician: Alex Willett MD Date of Service: 02/25/25 Procedure(s): CT chest wo IV con Accession Number(s): [id number] cc: Alex Willett MD; ALEAH SCHERER NP Report Number: [id number]: Total DLP = 176.00 mGy-cm EXAMINATION: CT CHEST WITHOUT IV CONTRAST INDICATION: D17.1 - Benign lipomatous neoplasm of skin and subcutaneous tissue of trunk COMPARISON: Correlation is made with an ultrasound of the chest wall dated 05/20/2024. TECHNIQUE: Helical CT scan of the chest was performed without intravenous contrast. Coronal and sagittal reformatted images were generated and reviewed. This CT exam was performed with one or more of the following dose reduction techniques: automated exposure control, adjustment of the mA and/or kV according to patient size, use of iterative reconstruction technique. DLP: 176 mGy-cm CHEST: THYROID: The thyroid is unremarkable. LUNGS: There is a punctate nodule in the left upper lobe (series 4, image 49). The lungs are otherwise clear. MEDIASTINUM: Amorphous soft tissue density in the anterior mediastinum likely represents residual thymus. There is no mediastinal lymphadenopathy. VLADIMIR: Evaluation of the hilar regions is limited by lack of intravenous contrast material. CARDIOVASCULATURE: The heart is normal in size. There is no pericardial effusion. The thoracic aorta is normal in caliber. DEGREE OF CORONARY CALCIFICATION: none PLEURA: There is no pleural effusion. No pneumothorax. MAIN AIRWAYS: The mainstem bronchi and proximal branches are patent. AXILLA: There is no axillary lymphadenopathy. BONES AND SOFT TISSUES: Unremarkable UPPER ABDOMEN: The visualized portions of the liver, spleen, and adrenals have an unremarkable unenhanced appearance. CT/CT chest wo IV con IMPRESSION: Probable residual thymus in the anterior mediastinum. Punctate left upper lobe nodule. Otherwise unremarkable unenhanced chest CT. Electronically signed by: Carlin Rivera MD 02/27/2025 07:20 AM EDT Dictated By: Carlin Rivera MD Signed By: <Electronically signed by Carlin Rivera MD in OV> 02/27/25 0720 DD/ 0840 TD/TT: 02/25/25 0914 Manager Transition: [facility] External Provider IMG CT PROCEDURES Final Result * Hepatitis C Antibody with Reflex to HCV, RNA, Quantitative, Real-Time PCR (07/22/2024 3:38 PM EST) Hepatitis C Antibody Nonreactive Nonreactive [facility] Comment:Antibodies to HCV no t detected; does not exclude early acuteHCV infection. Blood Venous blood specimen / Unknown 07/22/2024 3:38 PM EST 07/22/2024 5:20 PM EST Sravani Haines MD LAB BLOOD ORDERABLES Final Result Performing Organization Address City/[facility]/ZIP Co de Phone Number [facility] [address] [place] [address] [phone] * HIV-1/2 Antigen and Antibodies, Fourth Generation, with Reflexes (07/22/2024 3:38 PM EST) HIV AB/AG Nonreactive Nonreactive [facility] Comment:HIV-1 p24 Ag and/or HIV-1/HIV-2 Ab not detected.A test result that is nonreactive does not exclude thepossibility of exposure to or infection with HIV-1 and/orHIV-2. Nonreactive results in this assay for individualswith prior exposure to HIV-1 and/or HIV-2 may be due toantigen and antibody levels that are below the limit ofdetection of this assay.The wishkicker HIV Ag/Ab Combo assay result andsupplemental assay results should be interpreted inconjunction with the patient's clinical presentation,history and other laboratory results. If the results areinconsistent with clinical evidence, additional testing issuggested to confirm the result. Blood Venous blood specimen / Unknown 07/22/2024 3:38 PM EST 07/22/2024 5:20 PM EST us Sravani Haines MD LAB BLOOD ORDERABLES Final Result Performing Organization Address City/[facility]/ZIP Co de Phone Number [facility] [address] [place] [address] [phone] * Hm Pap Smear (05/29/2021) Pap Negative for intraephithelial lesion or malignancy Negative for intraephithelial lesion or malignancy, Other HPV Undetected Undetected, Indeterminate, Quantitative, Not Detected us Historical Provider HEALTH MAINTENANCE Final Result from Last 3 Months or Most Recently Relevant to Health Maintenance Insurance [facility] STANDARD [facility] ONE CARE < 65 DENTAL-[facility] MEDICAID STAND ADULT Care Teams Harvest Contractor Relationship Specialty Start Date End Date Aleah Scherer ANP [address] [place] [phone] PCP - General Family Medicine 01/09/23
--- OUTSIDE RECORDS SUMMARY | 2025-04-04 22:35 | XMS_ITS | Encounter Summary ---
Author Organization [employer] Address [address] [place] [address] 7[address] [place] [address] Care Team Providers Care Binder Sorter Name Role Phone Aleah Scherer MARIAN Primary Care Provider [phone] Reason for Referral * Imaging (Routine) - Closed Specialty Diagnoses / Procedures Referred By Antoni fischer Referred To Contact Radiology Diagnoses Generalized abdominal pain Procedures US Abdomen Complete Annetta Mead FNP [address] [place] [address] Phone: tel: fax: [address] Phone: tel: fax: Referral ID Status Reason Start Date Expiration Date Visits Re quested Visits Authorized [id number] Closed 01/08/2024 01/07/2025 1 1 Encounter Details Date Type Department Care Team (Late st Contact Info) Description 01/08/2024 Orders Only [facility] [address] [place] [address] Annetta Mead FNP [address] [place] [address] Generalized abdominal pain (Primary Dx) Social History [...] AM EDT Narrative 01/19/2024 11:45 AM EDT [address] [address] Ultrasound Report Signed Patient: Sweta Corbin MR#: [id number] 6 : 1990 Acct:[id number] Age/Sex: 33 / F ADM Date: 01/12/24 Loc: HO.US Attending Dr: Annetta Botas SUPERVISOR CHLORINE LIQUEFACTION Ordering Physician: Annetta Mead NP Date of Service: 01/12/24 Procedure(s): US abdomen complete Accession Number(s): [id number] cc: Annetta Mead SUPERVISOR CHLORINE LIQUEFACTION; ALEAH SCHERER SUPERVISOR CHLORINE LIQUEFACTION EXAMINATION: US ABDOMEN COMPLETE CLINICAL INFORMATION: Abdominal [...] in OV> 01/19/24 0945 DD/ 1007 TD/TT: Work Checker: SS Procedure Note Donotuseinterpreter, Image - 01/19/2024 [place] [address] Ultrasound Report Signed Patient: Sweta CorbinMR#: [id number] 6 : 1990Acct:[id number] Age/Sex: 33 / FADM Date: 01/12/24 Loc: HO.US Attending Dr: Annetta Mead NP Ordering Physician: Botas,Annetta SUPERVISOR CHLORINE LIQUEFACTION Date of Service: 01/12/24 Procedure(s): US abdomen complete Accession Number(s): [id number] cc: Annetta Mead SUPERVISOR CHLORINE LIQUEFACTION; ALEAH SCHERER SUPERVISOR CHLORINE LIQUEFACTION EXAMINATION: US ABDOMEN COMPLETE CLINICAL INFORMATION: Abdominal [...] in OV> 01/19/24 0945 DD/ 1007 TD/TT: Work Checker: SS Annetta Mead [employer]ATHER IMG US PROCEDURES Final Result documented in this encounter Visit Diagnoses Diagnosis Generalized abdominal pain- Primary Abdominal pain, generalized documented in this encounter Additional Health Concerns Assessment Noted Time PHQ-9 Depression Total Score: 0 01/10/20 1:11 PM EDT documented as of this encounter Care Teams Binder Sorter Relationship Specialty Start Date End Date Aleah Scherer ANP [address] [place] [phone] PCP - General Family Medicine 01/09/23 documented as of this encounter
--- OUTSIDE RECORDS SUMMARY | 2025-04-04 22:35 | XMS_ITS | Encounter Summary ---
Author Organization [employer] Address [address] [facility] 7t [place] [address] Care Team Providers Care University Tutor Name Role Phone Disha Lackey MARIAN Primary Care Provider [phone] Encounter Details Date Type Department Care Team ([facility] st Contact Info) Description 10/09/2024 Orders Only [facility] [address] [place], [place] [phone] Pema Holbrook MD [address] [place], [place] [phone] Social History Tobacco Use Types Packs/Day Years [...] documented as of this encounter Care Teams University Tutor Relationship Specialty Start Date End Date Disha Lackey ANP [address] [place] [phone] PCP - General Family Medicine 01/09/23 documented as of this encounter
--- OUTSIDE RECORDS SUMMARY | 2025-04-04 22:35 | XMS_ITS | Clinical Summary ---
Author Organization [facility] Address [address] [place] [address] Care Team Providers Care Java Support Engineer Name Role Phone Unavailable Primary Care Provider [...] mcg/actuation nasal sprayIndications :Allergic rhinitis Place 1 [place] into the nostril(s) once daily. 16 g [...] inhalerIndicatio ns:Mild persistent asthma with acute exacerbation ([facility]) Inhale 2 Puffs into the lungs every [...] 02/15/2022 Overview (02/15/2022): 02/14/2022: US of chest: [facility]: Impression; No suspicious finding at the area of concern and over the sternum. Tinea pedis, bilateral 11/13/2014 Allergic rhinitis 11/13/2014 Proteinuria 08/30/2014 Asthma ([facility]) 08/30/2014 Low back pain 11/23/2013 h/o Asthma [...] Date Diagnosed Date Resolved Date Bronchial asthma ([facility]) 0 03/25/2013 Immunizations Immunization Administration Dates Next [...] Not on file Insurance [place]
--- OUTSIDE RECORDS SUMMARY | 2025-04-04 22:35 | XMS_ITS | Clinical Summary ---
Author Organization [facility] Address [address] [place] [address] Care Team Providers Care Jig Boring Machine Operator For Metal Name Role Phone Unavailable Primary Care Provider [...] exists Cervical Cancer Screening: Pap Smear 2013 HIV Screening 07/13/2022 Hepatitis C Screening 07/13/2022 Social Influencers of Health Screening 07/13/2022 COVID-19 Vaccine ( season) 2024 Depression Screening 08/10/2024 Influenza Vaccine (#1) 2025 Hepatitis B Vaccines Completed 1992, 1992, [...] 5 Years) and At-Risk Patients (6 to 49 Years) Aged Out No longer eligible based on patient's age to complete this topic RSV Immunization Patients Under 20 months Aged Out No longer eligible based on patient's age to complete this topic Varicella Vaccines Aged Out No longer eligible based on patient's age to complete this topic
--- OUTSIDE RECORDS SUMMARY | 2025-04-04 22:35 | XMS_ITS | Encounter Summary ---
Author Organization [employer] Address [address] [place] [address] [address] [place] [address] Care Team Providers Care Escort Vehicle Driver Name Role Phone Disha Lackey Primary Care Provider [phone] Reason for Visit * Reason Onset Date Comments ER Follow-up 08/31/2024 Encounter Details Date Type Department Care Team (Late st Contact Info) Description 08/31/2024 Telephone [facility] [address] [place], [place] [phone] Disha Lackey ANP [address] [place], [place] [phone] ER Follow-up Social History Tobacco Use Types [...] past 12 months, has t he electric, [employer], oil or water [employer] threatened to shut off services in your [...] Triage call Pt was seen in ED, [facility], 08/29/24. Pt had IUD removed 3 [...] ED visit on : Date: 08/29 Hospital: [facility] Seen for: Excessive Bleeding Symptomatic Yes *if yes message should go to Triage Patient advised will forward to team nurse for follow up Contact pt at [phone] documented in this encounter Plan of Treatment Not on file documented as of this encounter Visit Diagnoses Not on filedocumented in this encounter Additional Health Concerns Assessment Noted Time PHQ-9 Depression Total Score: 0 01/10/20 1:11 PM EDT documented as of this encounter Care Teams Escort Vehicle Driver Relationship Specialty Start Date End Date Disha Lackey ANP [address] [place] [address] PCP - General Family Medicine 01/09/23 documented as of this encounter
--- OUTSIDE RECORDS SUMMARY | 2025-04-04 22:35 | XMS_ITS | Encounter Summary ---
Author Organization [employer] Address [address] [place] [address] 7t [place] [address] Care Team Providers Care Head Shipper Name Role Phone Disha Lackey Primary Care Provider [phone] Reason for Visit * Reason Onset Date Comments Results 01/22/2024 Encounter Details Date Type Department Care Team (Late st Contact Info) Description 01/22/2024 Telephone [facility] MEDICINE 230 [place], [place] [phone] Disha Lackey ANP 230 [place] [address] Results Social History Tobacco Use Types Packs/Day [...] encounter Miscellaneous Notes * Telephone Encounter - Kishorksenia Romero - 01/22/2024 9:48 AM EDT TC from pt requesting call back regarding Results. Type of results: Ultrasound Date when done: 01/11 Facility: [facility] documented in this encounter Plan of Treatment Not on file documented as of this encounter Visit Diagnoses Not on filedocumented in this encounter Additional Health Concerns Assessment Noted Time PHQ-9 Depression Total Score: 0 01/10/20 1:11 PM EDT documented as of this encounter Care Teams Head Shipper Relationship Specialty Start Date End Date Disha Lackey ANP [address] [place] [address] PCP - General Family Medicine 01/09/23 documented as of this encounter
--- OUTSIDE RECORDS SUMMARY | 2025-04-04 22:35 | XMS_ITS | Encounter Summary ---
Author Organization [employer] Address [address] [facility] 7t [place] [address] Care Team Providers Care Furnace Tapper Name Role Phone Disha Lackey Primary Care Provider [phone] Reason for Visit * Reason Comments Med Refill Encounter Details Date Type Department Care Team (Late st Contact Info) Description 04/14/2024 Refill [facility] MEDICINE 230 [place], [place] [phone] Lauren Vizcarra MD 230 [place], [place] [phone] Acute COVID-19 Social History Tobacco Use Types [...] documented as of this encounter Care Teams Furnace Tapper Relationship Specialty Start Date End Date Disha Lackey ANP [address] [place] [address] PCP - General Family Medicine 01/09/23 documented as of this encounter
--- OUTSIDE RECORDS SUMMARY | 2025-04-04 22:35 | XMS_ITS | Encounter Summary ---
Author Organization [employer] Address [address] [place] [address] 7t [place] [address] Care Team Providers Care Health Careers Instructor Name Role Phone Disha Lackey Primary Care Provider [phone] Reason for Visit * Reason Onset Date Comments Results 01/07/2024 Encounter Details Date Type Department Care Team (Late st Contact Info) Description 01/07/2024 Telephone [facility] MEDICINE 230 [place], [place] [phone] Disha Lackey ANP 230 [place] [address] Results Social History Tobacco Use Types Packs/Day [...] results: culture Date when done: 01/04 Facility: [facility] Please contact pt at [phone] documented in this encounter Plan of Treatment Not on file documented as of this encounter Visit Diagnoses Not on filedocumented in this encounter Additional Health Concerns Assessment Noted Time PHQ-9 Depression Total Score: 0 01/10/20 1:11 PM EDT documented as of this encounter Care Teams Health Careers Instructor Relationship Specialty Start Date End Date Disha Lackey ANP [address] [place] [address] PCP - General Family Medicine 01/09/23 documented as of this encounter
[2025-04-04 23:44] VITALS: BP 127/78; PULSE 72; RESP 21; TEMP 36.7; O2SAT 98
[2025-04-04 23:55] VITALS: BP 127/78; PULSE 72; RESP 21; TEMP 36.7; O2SAT 98
== END 2025-04-04 23:57 | disposition home or self-care (01) ==
PROVIDERS: Emergency Provider Emergency Medicine
DX: T78.1XXA Other adverse food reactions, not elsewhere classified, initial encounter (principal); L50.0 Allergic urticaria
CPT/HCPCS: 99284; J1200; J1308; J2919

== ENCOUNTER 2025-06-11 21:57 | Emergency (ER) | payer OTHER, SELFPAY ==
[2025-06-11 21:59] VITALS: BP 154/75; PULSE 85; RESP 20; TEMP 36.6; O2SAT 96; BMI 43.6
--- OUTSIDE RECORDS SUMMARY | 2025-06-11 22:30 | XMS_ITS | Encounter Summary ---
Author Organization [employer] Address [address] [place] [address] 7t [place] [address] Care Team Providers Care Deli Manager Name Role Phone Disha Lackey Primary Care Provider [phone] Reason for Visit * Reason Onset Date Comments ER Follow-up 08/31/2024 Encounter Details Date Type Department Care Team (Late st Contact Info) Description 08/31/2024 Telephone [facility] MEDICINE 230 [place], [place] [phone] Disha Lackey ANP 230 [place], [place] [phone] ER Follow-up Social History Tobacco Use Types [...] past 12 months, has t he electric, [employer], oil or water [employer] threatened to shut off services in your [...] Triage call Pt was seen in ED, [facility], 08/29/24. Pt had IUD removed 3 months [...] ED visit on : Date: 08/29 Hospital: [facility] Seen for: Excessive Bleeding Symptomatic Yes *if yes message should go to Triage Patient advised will forward to team nurse for follow up Contact pt at [phone] documented in this encounter Plan of Treatment Not on file documented as of this encounter Visit Diagnoses Not on filedocumented in this encounter Additional Health Concerns Assessment Noted Time PHQ-9 Depression Total Score: 0 01/10/20 1:11 PM EDT documented as of this encounter Care Teams Deli Manager Relationship Specialty Start Date End Date Disha Lackey ANP 230 [place] [address] PCP - General Family Medicine 01/09/23 documented as of this encounter
--- OUTSIDE RECORDS SUMMARY | 2025-06-11 22:30 | XMS_ITS | Encounter Summary ---
Author Organization [employer] Address [address] [place] [address] 7t [place] [address] Care Team Providers Care Rf Test Engineer Name Role Phone Disha Lackey Primary Care Provider [phone] Reason for Visit * Reason Onset Date Comments Results 01/22/2024 Encounter Details Date Type Department Care Team (Late st Contact Info) Description 01/22/[address] [facility] MEDICINE 230 [place], [place] [phone] Disah Lackey ANP 230 [place] [address] Results Social History Tobacco Use Types Packs/Day [...] documented as of this encounter Care Teams Rf Test Engineer Relationship Specialty Start Date End Date Disha Lackey ANP [address] [place] [address] PCP - General Family Medicine 01/09/23 documented as of this encounter
--- OUTSIDE RECORDS SUMMARY | 2025-06-11 22:30 | XMS_ITS | Clinical Summary ---
Author Organization [facility] ity Address [address] [place] [address] Care Team Providers Care Beeswax Bleacher Name Role Phone Unavailable Primary Care Provider [...] exists Cervical Cancer Screening: Pap Smear 2013 HPV Vaccines (1 - 3-dose SCDM series) 2019 HIV Screening 07/13/2022 Hepatitis C Screening 07/13/2022 Social Influencers of Health Screening 07/13/2022 Depression Screening 08/10/2024 COVID-19 Vaccine ( season) 2025 Influenza Vaccine (#1) 2025 RSV Immunization Adult Patients (1 - 1-dose 75+ series) 2067 Hepatitis B Vaccines Completed 1992, 1992, 1992 HIB Vaccines Completed 05/20/1995, 08/1992, 1992 IPV Vaccines Completed 05/04/1996, 05/10, 11/11/1993, Additional history exists MMR Vaccines Completed 02/12/1998, 05/20/1995 Hepatitis A Vaccines Aged Out No long [...]
--- OUTSIDE RECORDS SUMMARY | 2025-06-11 22:30 | XMS_ITS | Encounter Summary ---
Author Organization [employer] Address [address] [place] [address] 7t [place] [address] Care Team Providers Care Automotive Mechanic Name Role Phone Aleah Scherer MARIAN Primary Care Provider [phone] Reason for Referral * Imaging (Routine) - Closed Specialty Diagnoses / Procedures Referred By Antoni fischer Referred To Contact Radiology Diagnoses Generalized abdominal pain Procedures US Abdomen Complete Annetta Mead FNP 230 [place] [address] Phone: tel: fax: [address] Phone: tel: fax: Referral ID Status Reason Start Date Expiration Date Visits Re quested Visits Authorized [id number] Closed 01/08/2024 01/07/2025 1 1 Encounter Details Date Type Department Care Team (Late st Contact Info) Description 01/08/2024 Orders Only [facility] MED & PEDS [address] [place] [address] Annetta Mead FNP [address] [place] [address] Generalized abdominal pain (Primary Dx) Social History [...] AM EDT Narrative 01/19/2024 11:45 AM EDT [address] [address] Ultrasound Report Signed Patient: Sweta Corbin MR#: [id number] 6 : 1990 Acct:[id number] Age/Sex: 33 / F ADM Date: 01/12/24 Loc: HO.US Attending Dr: Annetta Botas IT RISK AND ASSURANCE MANAGER Ordering Physician: Annetta Mead NP Date of Service: 01/12/24 Procedure(s): US abdomen complete Accession Number(s): [id number] cc: Annetta Mead IT RISK AND ASSURANCE MANAGER; ALEAH SCHERER IT RISK AND ASSURANCE MANAGER EXAMINATION: US ABDOMEN COMPLETE CLINICAL INFORMATION: Abdominal [...] in OV> 01/19/24 0945 DD/ 1007 TD/TT: Yarding Engineer: SS Procedure Note Donotuseinterpreter, Image - 01/19/2024 [place] [address] Ultrasound Report Signed Patient: Sweta CorbinMR#: [id number] 6 : 1990Acct:[id number] Age/Sex: 33 / FADM Date: 01/12/24 Loc: HO.US Attending Dr: Annetta Mead NP Ordering Physician: Botas,Annetta IT RISK AND ASSURANCE MANAGER Date of Service: 01/12/24 Procedure(s): US abdomen complete Accession Number(s): [id number] cc: Annetta Mead IT RISK AND ASSURANCE MANAGER; ALEAH SCHERER IT RISK AND ASSURANCE MANAGER EXAMINATION: US ABDOMEN COMPLETE CLINICAL INFORMATION: Abdominal [...] in OV> 01/19/24 0945 DD/ 1007 TD/TT: Yarding Engineer: SS Annetta Mead ENVIRONMENTAL AIR SPECIALIST IMG US PROCEDURES Final Result documented in this encounter Visit Diagnoses Diagnosis Generalized abdominal pain- Primary Abdominal pain, generalized documented in this encounter Additional Health Concerns Assessment Noted Time PHQ-9 Depression Total Score: 0 01/10/20 1:11 PM EDT documented as of this encounter Care Teams Automotive Mechanic Relationship Specialty Start Date End Date Aleah Scherer ANP [address] [place] [address] PCP - General Family Medicine 01/09/23 documented as of this encounter
--- OUTSIDE RECORDS SUMMARY | 2025-06-11 22:30 | XMS_ITS | Clinical Summary ---
Author Organization [facility] Address [address] [place] [address] Care Team Providers Care Veneer Sawyer Name Role Phone Unavailable Primary Care Provider [...] mcg/actuation nasal sprayIndications :Allergic rhinitis Place 1 [place] into the nostril(s) once daily. 16 g [...] 02/15/2022 Overview (02/15/2022): 02/14/2022: US of chest: [facility]: Impression; No suspicious finding at the [...] Date Resolved Date Bronchial asthma 03/25/2013 Immunizations Immunization Administration Dates Next Due [...] Treatment Not on file [place]
--- OUTSIDE RECORDS SUMMARY | 2025-06-11 22:30 | XMS_ITS | Clinical Summary ---
Author Organization [employer] Address [address] [place] [address] 7t [place] [address] Care Team Providers Care Morals Squad Police Officer Name Role Phone Disha Lackey Primary Care Provider [phone] Allergies Active Allergy Reactions Criticality Noted Date Comments [place] Oil Anaphylaxis High 11/06/2022 Doxycycline 11/06/2022 Other reaction(s): Gastrointestinal upset Potato 11/06/2022 Other reaction(s): Hives Medications EPINEPHrine (Epipen) 0.3 MG/0.3ML injection syringeIndications :Food allergy Inject 0.3 mL (0.3 mg) as directed 1 (one) time for 1 dose. use as directed for allergic reaction and then call 911 2 each 1 01/10/20 23 Active SUMAtriptan (Imitrex) 50 MG tabletIndications: Migraine without aura and without status migrainosus, not intractable Take 1 tablet (50 mg) by mouth 1 (one) time if needed for migraine. May repeat dose once in 2 hours if no relief. Do not exceed 2 doses in 24 hours. 9 tablet 08/13/19 24 Active ipratropium-albute rol (Duo-Neb) 0.5-2.5 mg/3 [...] of breath. 75 mL 1 12/11/19 24 Active Nebulizer misc 1 Device every 6 (six) hours if needed. The patient was prescribed a nebulizer from the [facility] vendor [employer] on 12/11/23. Instructions on how to use the nebulizer were provided. Active fluticasone furoate (Arnuity Ellipta) 100 MCG/ACT inhalerIndications :Asthma Inhale 1 PUFF EVERY DAY RINSE MOUTH AFTER USING. 30 each 2 12/21/19 24 Active cyclobenzaprine (Flexeril) 5 MG tablet 12/26/19 24 Active dicyclomine (Bentyl) 20 MG tablet 01/19/20 24 Active famotidine (Pepcid) 40 MG tablet Take 40 mg by mouth Once per day. 01/19/20 24 Active COVID-19 Antigen Test kit 1 each by In Vitro route if needed each day (COVID symptoms). 4 kit 3 03/23/20 24 Active ferrous sulfate (Fe Tabs) 325 (65 Fe) MG EC tabletIndications: Iron deficiency Take 1 tablet (325 mg) by mouth every other day. Do not crush, chew, or split. 15 tablet 2 07/27/20 24 025 Active senna-docusate sodium (Senokot-S) 8.6-50 MG tabletIndications: Constipation, unspecified constipation type Take 1 tablet by mouth Once per day. 30 tablet 11 10/12/19 25 026 Active polyethylene glycol, PEG, 3350 (MiraLax) 17 GM/SCOOP powderIndications: Constipation, unspecified constipation type 17g once daily as needed for constipation 238 g 10/12/19 25 Active pantoprazole (Protonix) 40 MG EC tabletIndications: Gastroesophageal reflux disease without esophagitis Take 1 tablet (40 mg) by mouth before breakfast. Do not crush, chew, or split. 30 tablet 2 10/25/19 25 026 Active polycarbophil (FiberCon) 625 MG tabletIndications: Constipation, unspecified constipation type Take 1 tablet (625 mg) by mouth Once per day. 90 tablet 3 12/02/19 25 026 Active ibuprofen 800 MG tabletIndications: Vaginal bleeding TAKE 1 TABLET (800 MG) BY MOUTH 3 TIMES DAILY. FOR 7 DAYS, THEN NEEDED 60 tablet 12/13/19 25 Active D3-1000 25 MCG (1000 UT) tabletIndications: Vitamin D deficiency TAKE 1 TABLET (25 MCG) BY MOUTH ONCE PER DAY. 90 tablet 1 12/14/19 25 Active triamcinolone (Kenalog) 0.1 % creamIndications:E czema, unspecified type Apply topically if needed in the morning and at bedtime for rash. 45 g 12/28/19 25 Active hydrOXYzine HCl (Atarax) 50 MG tabletIndications: Difficulty sleeping TAKE 1 TABLET (50 MG) BY MOUTH IF NEEDED AT BEDTIME FOR ANXIETY (INSOMNIA). 30 tablet 2 03/06/20 25 Active Active Problems Problem Noted Date Diagnosed [...] Morbid obesity with BMI of 45.0-49.9, adult ([facility]) 10/30/2023 Severe obesity ([facility]) 10/30/2023 Elevated blood pressure read ing in [...] Low back pain at multiple sites 11/23/2013 Immunizations Immunization Administration Dates Next Due HPV, [...] 11/08/2023 11/06/2022 COVID-19 Vaccine (3 - season) 2025 11/25/2021, 11/04/2021 Influenza Vaccine (#1) 2025 9, 07/04/2019, 11/26/2015, Additional history exists Alcohol/Substance Use [...] 75+ series) 2067 HIB Vaccines Completed 05/20/1995, 0408/1992, 1992 Hepatitis B Vaccines Completed 02/11/2022, 1992, [...] Procedure Name Priority Date/Time Associated Diagnosis Comments HEPATITIS C AB W/REFL TO HCV RNA, QN, PCR Routine 07/22/2024 3:38 PM EST Hypersomnia HIV 1/2 ANTIGEN/ANTIBODY, FOURTH GENERATION W/RFL Routine 07/22/2024 3:38 PM EST Hypersomnia BITEWING - SINGLE RADIOGRAPHIC IMAGE Routine 11/06/2022 1:00 PM EDT Maxillary sinusitis, unspecified chronicity HM PAP/HPV Routine 05/29/2021 from Last 3 Months or Most Recently Relevant to Health Maintenance Results * Hepatitis C Antibody with Reflex to HCV, RNA, Quantitative, Real-Time PCR (07/22/2024 3:38 PM EST) Hepatitis C Antibody Nonreactive Nonreactive [facility] Comment:Antibodies to HCV no t detected; does not exclude early acuteHCV infection. Blood Venous blood specimen / Unknown 07/22/2024 3:38 PM EST 07/22/2024 5:20 PM EST Sravani Haines MD LAB BLOOD ORDERABLES Final Result Performing Organization Address [facility] Co de Phone Number [facility] [address] [place] [phone] * HIV-1/2 Antigen and Antibodies, Fourth Generation, with Reflexes (07/22/2024 3:38 PM EST) HIV AB/AG Nonreactive Nonreactive [facility] Comment:HIV-1 p24 Ag and/or HIV-1/HIV-2 Ab not detected.A test result that is nonreactive does not exclude thepossibility of exposure to or infection with HIV-1 and/orHIV-2. Nonreactive results in this assay for individualswith prior exposure to HIV-1 and/or HIV-2 may be due toantigen and antibody levels that are below the limit ofdetection of this assay.The [employer] HIV Ag/Ab Combo assay result andsupplemental assay results should be interpreted inconjunction with the patient's clinical presentation,history and other laboratory results. If the results areinconsistent with clinical evidence, additional testing issuggested to confirm the result. Blood Venous blood specimen / Unknown 07/22/2024 3:38 PM EST 07/22/2024 5:20 PM EST Sravani Haines MD LAB BLOOD ORDERABLES Final Result Performing Organization Address [facility] Co de Phone Number [facility] [address] [place] [phone] * Hm Pap Smear (05/29/2021) Pap Negative for intraephithelial lesion or malignancy Negative for intraephithelial lesion or malignancy, Other HPV Undetected Undetected, Indeterminate, Quantitative, Not Detected Rusty Nickerson MD HEALTH MAINTENANCE Final Result from Last 3 Months or Most Recently Relevant to Health Maintenance Insurance [facility] ONE CARE < 65 * Guarantor: Sweta Corbin Account Type Relation to Patient Date of Phone Billing Address Dental Self 1990 [address] [facility] [address] [place] [address] [facility] MEDICAID STAND ADULT Care Teams Morals Squad Police Officer Relationship Specialty Start Date End Date Disha Lackey ANP [address] [place] [address] PCP - General Family Medicine 01/09/23
--- OUTSIDE RECORDS SUMMARY | 2025-06-11 22:30 | XMS_ITS | Encounter Summary ---
Author Organization [email or web address] Address [address] [place] [address] 7t [place] [address] Care Team Providers Care Shop Fitter Name Role Phone Disha Lackey Primary Care Provider [phone] Reason for Visit * Reason Onset Date Comments Results 01/07/2024 Encounter Details Date Type Department Care Team (Late st Contact Info) Description 01/07/2024 Telephone [facility] MEDICINE 230 [place], [place] [phone] Disha aLckey ANP 230 [place] [address] Results Social History Tobacco Use Types Packs/Day [...] results: culture Date when done: 01/04 Facility: [facility] Please contact pt at [phone] documented in this encounter Plan of Treatment Not on file documented as of this encounter Visit Diagnoses Not on filedocumented in this encounter Additional Health Concerns Assessment Noted Time PHQ-9 Depression Total Score: 0 01/10/20 1:11 PM EDT documented as of this encounter Care Teams Shop Fitter Relationship Specialty Start Date End Date Disha Lackey ANP [address] [place] [phone] PCP - General Family Medicine 01/09/23 documented as of this encounter
--- OUTSIDE RECORDS SUMMARY | 2025-06-11 22:30 | XMS_ITS | Encounter Summary ---
Author Organization [employer] Address [address] [facility] 7t [place] [address] Care Team Providers Care Car Inspector Name Role Phone Disha Lackey MARIAN Primary Care Provider [phone] Encounter Details Date Type Department Care Team ([facility] st Contact Info) Description 10/09/2024 Orders Only [facility] MEDICINE 230 [place], [place] [phone] Pema Holbrook MD 230 [place], [place] [phone] Social History Tobacco Use Types Packs/Day Years [...] documented as of this encounter Care Teams Car Inspector Relationship Specialty Start Date End Date Disha Lackey ANP [address] [place] [address] PCP - General Family Medicine 01/09/23 documented as of this encounter
--- OUTSIDE RECORDS SUMMARY | 2025-06-11 22:30 | XMS_ITS | Encounter Summary ---
Author Organization [employer] Address [address] [facility] 7t [place] [address] Care Team Providers Care Supervisor Keymodule Assembly Name Role Phone Disha Lackey Primary Care Provider [phone] Reason for Visit * Reason Comments Med Refill Encounter Details Date Type Department Care Team (Late st Contact Info) Description 04/14/2024 Refill [facility] MEDICINE 230 [place], [place] [phone] Lauren Vizcarra MD 230 [place], [place] [phone] Acute COVID-19 Social History Tobacco Use Types [...] documented as of this encounter Care Teams Supervisor Keymodule Assembly Relationship Specialty Start Date End Date Disha Lackey ANP [address] [place] [phone] PCP - General Family Medicine 01/09/23 documented as of this encounter
[2025-06-11 22:33] LABS: MANUAL DIFF FLAG NO
[2025-06-11 22:37] LABS: Hematocrit 40.3 % (37.0-47.0); Hemoglobin 12.7 g/dl (12.0-16.0); Imm Gran Abs Auto 0.02 X10*3/uL (0.00-0.03); Imm Gran Pct Auto 0.3 % (0.0-0.4); Lymphocytes Absolute Auto 2.1 X10*3/uL (1.2-4.9); Mean Corpuscular HGB Conc 31.5 g/dl (31.0-35.0); Mean Corpuscular Hemoglobin 26.6 pg (27.0-33.0); Mean Corpuscular Volume 84.3 fL (80.0-98.0); NRBC Abs Auto 0.000 X10*3/uL (0.0-0.012); NRBC Pct Auto 0.0 /100WBC (0.0-0.2); Platelet Count 296 X10*3/uL (160-400); Red Blood Count 4.78 X10*6/uL (4.20-5.50); White Blood Count 7.7 X10*3/uL (4.8-10.8)
[2025-06-11 22:37] LABS: Appearance Urine Clear; Glucose Urine UA Negative (Negative); PH 5.5 (5.0-9.0); Specific Gravity - Urine >= 1.030 (1.005-1.025); UMIC TRIGGER UACC YES
[2025-06-11 22:58] LABS: Alanine Aminotransferase 16 U/L (0-31); Albumin Level 4.0 g/dL (3.5-5.0); Alkaline Phosphatase 88 U/L (39-117); Anion Gap 12 (12-20); Aspartate Amino Transferase 25 U/L (5-31); Blood Urea Nitrogen 16 mg/dL (9-16); Calcium 8.5 mg/dL (8.4-10.2); Carbon Dioxide 24 mmol/L (22-29); Chloride 107 mmol/L (96-108); Creatinine Clr Calc Pharmacy 144.3; Estimated Glomerular Filt Rate > 60; Potassium 4.0 mmol/L (3.3-5.1); Sodium 139 mmol/L (135-145); Total Protein 6.9 g/dL (6.5-8.0)
[2025-06-11 23:35] LABS: UACC Culture Trigger YES
--- NOTE | 2025-06-12 00:40 | PC.NURSE ---
pt unhappy with wait time to see provider. informed pt that she is at the top of the list and should be seen soon. pt and significant other remain agitated. animal herder aware
--- NOTE | 2025-06-12 00:53 | ED_ITS ---
HPI - General Adult General Chief complaint: General Medical Stated complaint: + test, spotting Time Seen by Provider: 06/12/25 00:53 History of Present Illness ED Provider: Renee AGUILA narrative: The patient is a 35-year-old female who comes to the emergency room who believes she might be . She has had 2 previous pregnancies both of which went to full-term and she has 2 children. She says that she missed a period a few weeks ago and recently took a home test which was positive. She says that she has been trying to get . She had a gynecological operative procedure on 01/05/2025 because of abnormal uterine bleeding and difficulty with conception. At the procedure she had hysteroscopy with endometrial curettage sent for pathology. The patient has been taking vitamins. The patient has been wondering if she might be after missing her period a few weeks ago. She has had positive home tests over the last couple of days. Tonight at around 20:00 she had a sensation of lower abdominal cramping that she was concerned about and she came to the emergency room. She arrived here at around 21:30. After arriving here she went to the bathroom and when she wiped herself after urinating noted a small amount of blood on the paper. There was no other vaginal bleeding. The patient says that she has had urinary frequency for at least 5 days. No dysuria however. No flank pain. No fever, sweats, chills. No nausea or vomiting. At the moment the patient is asymptomatic. Related Data Home Medications ?Medication ?Instructions ?Recorded ?Confirmed albuterol sulfate 90 mcg/actuation 2 puff inhalation Q 4-6H PRN 10/12/23 02/02/25 aerosol inhaler (Ventolin HFA) wheezing cetirizine 10 mg tablet 10 mg PO DAILY 10/12/2301/09 cholecalciferol (vitamin D3) 25 25 mcg PO QAM 10/12/23 02/02/25 mcg (1,000 unit) tablet epinephrine 0.3 mg/0.3 mL IM DIRECTED 10/12/2301/09 injection, auto-injector semaglutide 0.25 mg or 0.5 mg (2 mg subcut 10/12/23 mg/3 mL) subcutaneous pen injector (Ozempic) sumatriptan succinate 50 mg tablet mg PO 10/12/2301/09 tizanidine 2 mg tablet 2 mg PO QD-TID PRN muscle pa in 10/12/23 02/02/25 topiramate 25 mg tablet mg PO 10/12/23 02/02/25 valacyclovir 1 gram tablet 1,000 mg PO TID 10/12/23 Previous Rx's ?Medication ?Instructions ?Recorded albuterol sulfate 90 mcg/actuation 1 inh inhalation Q2 0M PRN 10/28/23 aerosol inhaler shortness of breath or wheez ing #8.5 grams benzonatate 100 mg capsule 100 mg PO BID PRN cough #20 caps 10/28/23 dicyclomine 20 mg tablet 20 mg PO TID PRN abdominal p ain 01/19/24 #20 tabs famotidine 40 mg tablet (Pepcid) 40 mg PO DAILY #14 ta bs 01/19/24 nitrofurantoin 100 mg PO Q12H 5 days #10 ca ps 01/19/24 monohydrate/macrocrystals 100 mg capsule (Macrobid) azithromycin 250 mg tablet 250 mg PO DAILY 6 days #6 t abs 09/07/24 peg 3350-electrolytes 236 240 ml PO Q10M #4,000 mL gram-22.74 gram-6.74 gram-5.86 gram solution (GaviLyte-G) polyethylene glycol 3350 17 17 g PO DAILY 2 weeks #238 grams 10/23/24 gram/dose oral powder (Miralax) diphenhydramine HCl 25 mg capsule 25 mg PO TID PRN all ergic reaction 04/04/25 #14 caps famotidine 20 mg tablet (Pepcid) 20 mg PO BID 5 days # 10 tabs 04/04/25 prednisone 20 mg tablet 60 mg (3 x 20 mg) PO DAILY 5 days 04/04/25 #15 tabs cephalexin 500 mg capsule 500 mg PO BID #10 caps 06/12 vits no.130-ferrous fum 1 tab PO DAILY #30 ta bs 06/12/25 27 mg iron-folic acid 800 mcg tablet ( Vitamin) Allergies Allergy/AdvReac Type Severity Reaction Status Date / Time doxycycline Allergy Dizziness Verified 11/02/25 22:03 Review of Systems 2 Review of Systems: Yes all other systems are reviewed and are negative [facility] Past Medical History Medical History Hypertension Surgical History S/P excision of lipoma (10/12/23) Hx of cholecystectomy Hx of foot surgery Family History Family History Maternal Grandmother Liver cancer Social History Social History Alcohol intake: never Patient Tobacco Use Status: Never used Tobacco Advance Directives: No Advance Directives Information Provided: No Physical Exam ED Vital Signs: Vital Signs - 24 hr 06/11/25 21:59 Temperature 97.8 F Pulse Rate 85 Respiratory Rate 20 Blood Pressure 154/75 H Pulse Oximetry 96 Oxygen Delivery Method Room Air BMI result Body Mass Index 43.6 Const Other: The patient is a 35-year-old woman who was awake, alert, pleasant, cooperative. she says that she is tired and she looks slightly tired but she does not appear ill or in distress in any way. HENMT Other: The face is symmetrical. ?Mucous membranes moist. Eyes Other: Pupils are round equal, conjunctivae are clear, extraocular movements intact Neck Neck: Yes normal visual inspection and Yes full ROM Resp Effort & Inspection: normal respiratory effort Auscultation: clear to auscultation bilaterally Cardio Rate: regular rate Rhythm: regular rhythm Heart sounds: S1 normal heart sound present and S2 normal heart sound present GI Other: The abdomen is soft and nontender. Skin Other: The skin is dry and unremarkable Neuro Other: The patient is awake and alert with a normal mental status. She has a completely normal and nontoxic demeanor. Cranial nerves 2-12 are grossly intact. She moves her extremities normally and she has a normal gait. Extrem Other: No peripheral edema Medical Decision Making Medical Decision Making MDM Narrative: The patient is a 35-year-old female who has had 2 previous successful pregnancies and who has been trying to get for a 3rd recently. She missed a period a few weeks ago and over the last 2 days has taken some home tests which were positive. Tonight she was concerned because she had a sense of lower abdominal cramping that lasted for about an hour between a p.m. at 21:00. She came to the emergency room. By the time she arrived here her symptoms had resolved and she did not have any ongoing cramping. She also noticed 1 episode of small amount of blood on the toilet paper after wiping following urination. At the time that I saw the patient she was asymptomatic and looked entirely well. She has a benign abdominal exam. Her beta hCG is 563. Additionally the patient gave a urine sample and the urinalysis is suspicious for a possible UTI. The patient has also had urinary frequency over the last several days although she has not had dysuria. Given these symptoms of urinary frequency associated with her urinalysis I feel she probably has a UTI and I will place her on cephalexin. With regard to her chief complaint of the episode of abdominal cramping she had for about an hour before presenting to the emergency room and having a small amount of blood after wiping herself following urination I think these symptoms represent a threatened miscarriage. Clinically I think an ectopic is probably unlikely. I explained to the patient that we could call in an small electric engine technician to see if anything might be visible on ultrasound but that with a beta hCG of 563 there was a good chance that no significant findings would be made on ultrasound. I further said that the patient would need to have a repeat beta-hCG done in about 48 hours. Since the patient was feeling no ongoing symptoms we agreed that we would not obtain an ultrasound tonight but that we would discharge her to contact her OBGYN doctor in the morning to help arrange for an outpatient repeat of her beta hCG. I explained to the patient that her symptoms today might possibly represent the early stages of a miscarriage but that it would be impossible to be certain at this time. Additionally, and more importantly, I emphasized that there is still the possibility for an ectopic and that therefore she had any worsening symptoms she would need to return to the emergency room immediately. The patient was therefore discharged after receiving a 1st dose of cephalexin and with a prescription for additional cephalexin 500 mg b.i.d. x5 days. Also a prescription for vitamins. Lab Data 06/11/25 22:29 06/11/25 22:29 Labs: Lab Results 06/11/25 06/11/25 Range/Units 22:22 22:29 WBC 7.7 (4.8-10.8) X10*3/uL RBC 4.78 (4.20-5.50) X10*6/uL Hgb 12.7 (12.0-16.0) g/dl Hct 40.3 (37.0-47.0) % MCV 84.3 (80.0-98.0) fL MCH 26.6 L (27.0-33.0) pg MCHC 31.5 (31.0-35.0) g/dl RDW 13.7 (11.0-16.0) % Plt Count 296 (160-400) X10*3/uL MPV 9.9 (9.4-12.3) fL Immature Gran % (Auto) 0.3 (0.0-0.4) % Neut % (Auto) 63.8 (45-73) % Lymph % (Auto) 27.5 (20-40) % [place] % (Auto) 6.5 (2-11) % Eos % (Auto) 1.3 (0-4) % Baso % (Auto) 0.6 (0-2) % Lymph # (Auto) 2.1 (1.2-4.9) X10*3/uL [place] # (Auto) 0.5 (0.1-1.2) X10*3/uL Eos # (Auto) 0.1 (0.0-0.4) X10*3/uL Baso # (Auto) 0.1 (0.0-0.2) X10*3/uL Abs Immat Gran (auto) 0.02 (0.00-0.03) X10*3/uL Absolute Neuts (auto) 4.9 (2.0-8.3) x10*3/uL Absolute Nucleated RBC 0.000 (0.0-0.012) X10*3/uL Nucleated RBC % (auto) 0.0 (0.0-0.2) /100WBC Sodium 139 (135-145) mmol/L Potassium 4.0 (3.3-5.1) mmol/L Chloride 107 (96-108) mmol/L Carbon Dioxide 24 (22-29) mmol/L Anion Gap 12 (12-20) BUN 16 (9-16) mg/dL Creatinine 0.74 (0.5-1.4) mg/dL Estim Creat Clear Calc 144.3 Estimated GFR > 60 Random Glucose 120 H (60-115) mg/dL Calcium 8.5 (8.4-10.2) mg/dL Total Bilirubin 0.4 (0.0-1.0) mg/dL AST 25 (5-31) U/L ALT 16 (0-31) U/L Alkaline Phosphatase 88 (39-117) U/L Total Protein 6.9 (6.5-8.0) g/dL Albumin 4.0 (3.5-5.0) g/dL Beta HCG, Quant 563 mIU/mL Urine Color Yellow Urine Appearance Clear Urine pH 5.5 (5.0-9.0) Ur Specific [place] >= 1.030 H (1.005-1.025) Urine Protein Trace (Neg-Trace) mg/dL Urine Glucose (UA) Negative (Negative) mg/dL Urine Ketones Trace (Negative) mg/dL Urine Blood Large (3+) H (Negative) Urine Nitrite Negative (Negative) Ur Leukocyte Esterase Moderate (2+) H (Negative) Urine RBC 3-5 H (0-2) /HPF Urine WBC >50 H (0-5) /HPF Urine WBC Clumps Present Ur Squamous Epith Cells 0-2 (0-2) /HPF Urine Bacteria 1+ (None Seen) Hyaline Casts 0-2 (0-2) /LPF Discharge Plan Discharge Clinical Impression: Early stage of , Bilateral lower abdominal cramping, Urinary tract infection Patient Disposition: Home, Self-Care Instructions: Threatened Miscarriage (ED), Urinary Tract Infection in (ED) Additional Instructions: Your testing in the emergency room today shows a positive test. The test that we used to test in the blood is called a beta hCG test. The value for your beta hCG test is 563. This is a number that would be consistent with a very early . It is not clear if your episode of abdominal cramping earlier this evening could potentially represent the early stages of a miscarriage for this . Since you were not having any ongoing symptoms I think being discharged from the emergency room today is safe. The usual recommendation for a case like yours is to have a repeat blood test in about 48 hours. This would be late on Thursday or early on Wednesday. If, when the beta hCG is repeated in 48 hours, the value of the test rises significantly than that would indicate that this is a viable . However if the number was not rising appropriately that would be consistent with a nonviable . Please contact your regular optimization analyst at [facility] tomorrow to see if they can arrange for this testing. Also, you may have a urinary tract infection. Your urine test today is consistent with a possible urinary tract infection. Since you have had symptoms of increased urinary frequency I believe you should certainly be on antibiotics. I have sent a prescription for cephalexin to your pharmacy. Please take this antibiotic 2 times a day for 5 days. Additionally I have sent a prescription for vitamins to your pharmacy. I think it is unlikely that your symptoms today could represent the presence of an ectopic . Nevertheless it is not impossible that that could be the case. If you have any significant worsening symptoms with regard to lower abdominal cramping or pain or vaginal bleeding than you need to be seen again right away and can return here to this emergency room or go to the emergency room at [facility]. Prescriptions: New Vitamin 27 mg iron- 800 mcg tablet 1 tab PO DAILY Qty: 30 0RF cephalexin 500 mg capsule 500 mg PO BID Qty: 10 0RF No Action benzonatate 100 mg capsule 100 mg PO BID PRN (Reason: cough) Qty: 20 0RF albuterol sulfate 90 mcg/actuation HFA aerosol inhaler 1 inh inhalation Q20M PRN (Reason: shortness of breath or wheezing) Qty: 8.5 0RF nitrofurantoin monohyd/m-cryst [Macrobid] 100 mg capsule 100 mg PO Q12H 5 Days Qty: 10 0RF Rx Instructions: must administer with a meal/food dicyclomine 20 mg tablet 20 mg PO TID PRN (Reason: abdominal pain) Qty: 20 0RF famotidine [Pepcid] 40 mg tablet 40 mg PO DAILY Qty: 14 0RF azithromycin 250 mg tablet 250 mg PO DAILY 6 Days Qty: 6 0RF Rx Instructions: start on day 2 of therapy peg 3350-electrolytes [GaviLyte-G] 236-22.74-6.74 -5.86 gram recon soln 240 ml PO Q10M Qty: 4000 0RF Rx Instructions: until you have a large bowel movement polyethylene glycol 3350 [Miralax] 17 gram/dose powder 17 g PO DAILY 14 Days Qty: 238 0RF tizanidine 2 mg tablet 2 mg PO QD-TID PRN (Reason: muscle pain) cetirizine 10 mg tablet 10 mg PO DAILY valacyclovir 1 gram tablet 1,000 mg PO TID sumatriptan succinate 50 mg tablet PO topiramate 25 mg tablet PO epinephrine 0.3 mg/0.3 mL auto-injector IM DIRECTED albuterol sulfate [Ventolin HFA] 90 mcg/actuation HFA aerosol inhaler 2 puff INHALATION Q4-6H PRN (Reason: wheezing) cholecalciferol (vitamin D3) 25 mcg (1,000 unit) tablet 25 mcg PO QAM Ozempic 0.25 mg or 0.5 mg (2 mg/3 mL) pen injector subcut prednisone 20 mg tablet 60 mg PO DAILY 5 Days Qty: 15 0RF famotidine [Pepcid] 20 mg tablet 20 mg PO BID 5 Days Qty: 10 0RF diphenhydramine HCl 25 mg capsule 25 mg PO TID PRN (Reason: allergic reaction) Qty: 14 0RF Referrals: [facility] CARDIOVASCULAR LAB DIRECTOR, Elsy [Outside] Tika Bonds DO [Physician, CARDIOVASCULAR LAB DIRECTOR] Stand Alone Forms: Work/School Release Interventions: ED Discharge Assessment Last Done: 06/12/25 01:23 Print Language: Choose Not To Answer
[2025-06-12 01:23] VITALS: BP 154/75; PULSE 85; RESP 20; TEMP 36.6; O2SAT 96
== END 2025-06-12 01:36 | disposition home or self-care (01) ==
PROVIDERS: Emergency Provider Emergency Medicine; PCP Nurse Practitioner Primary Care
DX: O20.9 Hemorrhage in early pregnancy, unspecified (principal); O23.41 Unspecified infection of urinary tract in pregnancy, first trimester; N39.0 Urinary tract infection, site not specified; R10.23 Pelvic and perineal pain bilateral; Z3A.01 Less than 8 weeks gestation of pregnancy; Z79.899 Other long term (current) drug therapy
CPT/HCPCS: 36415; 80053; 81001; 84702; 85025; 87086; 99283

== ENCOUNTER 2025-06-24 22:44 | Emergency (ER) | payer OTHER, SELFPAY ==
[2025-06-24 22:52] VITALS: BP 135/80; PULSE 85; RESP 20; TEMP 36.6; O2SAT 95; BMI 46.8
--- OUTSIDE RECORDS SUMMARY | 2025-06-25 00:18 | XMS_ITS | Clinical Summary ---
Author Organization [facility] ity Address [address] [place] [address] Care Team Providers Care Repairer Recreational Vehicle Name Role Phone Unavailable Primary Care Provider [...]
--- OUTSIDE RECORDS SUMMARY | 2025-06-25 00:18 | XMS_ITS | Clinical Summary ---
Author Organization [facility] Address [address] [place] [address] Care Team Providers Care Domestic Cleaner Name Role Phone Unavailable Primary Care Provider [...] mcg/actuation nasal sprayIndications :Allergic rhinitis Place 1 [place] into the nostril(s) once daily. 16 g [...] 02/15/2022 Overview (02/15/2022): 02/14/2022: [place] of chest: [facility]: Impression; No suspicious finding at the [...] Treatment Not on file Insurance MEDICARE - MD MD MEDICAID
== END 2025-06-25 02:16 | disposition left against medical advice (07) ==
PROVIDERS: Emergency Provider Emergency Medicine
DX: R10.9 Unspecified abdominal pain (principal)
CPT/HCPCS: 99281

== ENCOUNTER 2025-06-25 11:39 | Emergency (ER) | payer OTHER, SELFPAY ==
--- NOTE | ~2025-06-25 | US_ITS ---
CLINICAL HISTORY: +preg test at home, R lower abd pain Exam: Limited transvaginal 1st trimester obstetric ultrasound. Comparison: None. Findings: An intrauterine gestational sac with pole is present. [place]-rump length of 0.52 cm corresponds with gestational age 6 weeks and 2 days. cardiac activity is documented with heart rate of 116 beats per minute. Yolk sac is identified. Right ovary measures up to 4.6 cm and reveals blood flow by color Doppler interrogation. A tiny 16 mm cyst is present. Left ovary is not visualized. No adnexal lesions or free fluid. Impression: 1. Living intrauterine , with measurements corresponding with gestational age 6 weeks and 2 days. This document has been electronically signed by: Ryan Lopez MD on 06/25/2025 13:14:17
--- NOTE | 2025-06-25 11:43 | ED.GENADULT ---
HPI - General Adult General Chief complaint: Abdominal Pain Stated complaint: Stomach Pain Time Seen by Provider: 06/25/25 12:49 Source: patient, RN notes reviewed and old records reviewed Mode of arrival: ambulatory Limitations: no limitations History of Present Illness ED Provider: Lashell AGUILA narrative: Patient is a 35-year-old female currently , unknown last menstrual period, states it was sometime in May, presenting to the emergency department with complaint of right-sided abdominal pain since yesterday morning. She states that the pain began while straining to have a bowel movement. Reports recent constipation. Was prescribed rectal suppositories and use 1 yesterday and was then able to have a normal bowel movement, however, the pain has not subsided. She denies any lower abdominal cramping, vaginal bleeding or other abnormal vaginal discharge. Denies any dysuria, frequency, hematuria or other urinary symptoms. Denies fevers. Has not seen her OB yet for this but has a appointment scheduled for Thursday. She is following with [facility]. complaint: abdominal pain Onset (ago): day(s) Related Data Home Medications ?Medication ?Instructions ?Recorded ?Confirmed albuterol sulfate 90 mcg/actuation 2 puff inhalation Q4-6H PRN 10/12/23 02/02/25 aerosol inhaler (Ventolin HFA) wheezing cetirizine 10 mg tablet 10 mg PO DAILY 10/12/23 02/02/25 cholecalciferol (vitamin D3) 25 25 mcg PO QAM 10/12/23 02/02/25 mcg (1,000 unit) tablet epinephrine 0.3 mg/0.3 mL IM DIRECTED 10/12/23 02/02/25 injection, auto-injector semaglutide 0.25 mg or 0.5 mg (2 mg subcut 10/12/23 02/02/25 mg/3 mL) subcutaneous pen injector (Ozempic) sumatriptan succinate 50 mg tablet mg PO 10/12/23 02/02/25 tizanidine 2 mg tablet 2 mg PO QD-TID PRN muscle pain 10/12/23 02/02/25 topiramate 25 mg tablet mg PO 10/12/23 02/02/25 valacyclovir 1 gram tablet 1,000 mg PO TID 10/12/23 02/02/25 Previous Rx's ?Medication ?Instructions ?Recorded albuterol sulfate 90 mcg/actuation 1 inh inhalation Q20M PRN 10/28/23 aerosol inhaler shortness of breath or wheezing #8.5 grams benzonatate 100 mg capsule 100 mg PO BID PRN cough #20 caps 10/28/23 dicyclomine 20 mg tablet 20 mg PO TID PRN abdominal pain 01/19/24 #20 tabs famotidine 40 mg tablet (Pepcid) 40 mg PO DAILY #14 tabs 01/19/24 nitrofurantoin 100 mg PO Q12H 5 days #10 caps 01/19/24 monohydrate/macrocrystals 100 mg capsule (Macrobid) azithromycin 250 mg tablet 250 mg PO DAILY 6 days #6 tabs 09/07/24 peg 3350-electrolytes 236 240 ml PO Q10M #4,000 mL 10/23/24 gram-22.74 gram-6.74 gram-5.86 gram solution (GaviLyte-G) polyethylene glycol 3350 17 17 g PO DAILY 2 weeks #238 grams 10/23/24 gram/dose oral powder (Miralax) diphenhydramine HCl 25 mg capsule 25 mg PO TID PRN allergic reaction 04/04/25 #14 caps famotidine 20 mg tablet (Pepcid) 20 mg PO BID 5 days #10 tabs 04/04/25 prednisone 20 mg tablet 60 mg (3 x 20 mg) PO DAILY 5 days 04/04/25 #15 tabs cephalexin 500 mg capsule 500 mg PO BID #10 caps 06/12/25 vits no.130-ferrous fum 1 tab PO DAILY #30 tabs 06/12/25 27 mg iron-folic acid 800 mcg tablet ( Vitamin) docusate sodium 100 mg capsule 100 mg PO BID #14 caps 06/25/25 polyethylene glycol 3350 17 17 g PO DAILY #119 grams 06/25/25 gram/dose oral powder (Miralax) Allergies Allergy/AdvReac Type Severity Reaction Status Date / Time doxycycline Allergy Dizziness Verified 06/25/25 11:45 Review of Systems Review of Systems: As per HPI Yes all other systems are reviewed and are negative Constitutional: Constitutional: Reports as per HPI [facility] Past Medical History Medical History Hypertension Surgical History S/P excision of lipoma (10/12/23) Hx of cholecystectomy Hx of foot surgery Family History Family History Maternal Grandmother Liver cancer Social History Social History Alcohol intake: never Patient Tobacco Use Status: Never used Tobacco Physical Exam ED Vital Signs: Vital Signs - 24 hr 06/25/25 11:44 06/25/25 12:59 Temperature 98.2 F Pulse Rate 74 70 Respiratory Rate 18 16 Blood Pressure 137/80 128/70 Pulse Oximetry 98 99 Oxygen Delivery Method Room Air Room Air BMI result Body Mass Index 45.6 Vital signs have been reviewed and appear to be correct. Blood pressure normal. Heart rate normal. Respiratory rate normal. Temperature normal. Oxygen saturation normal. Const General: cooperative, healthy appearing and no acute distress Orientation/consciousness: oriented to person, oriented to place, oriented to time and patient oriented x3 Limitations: no limitations HENMT Head: Yes normocephalic and Yes atraumatic Ears: external ears normal General nose exam: Normal external nose present Face and sinus: Yes face symmetric Mouth: oropharynx normal and moist mucous membranes Throat: Yes uvula midline Eyes Pupils: Equal, round and reactive pupils present Neck Neck: Yes normal visual inspection and Yes supple Resp Effort & Inspection: normal respiratory effort and able to speak in complete sentences Auscultation: clear to auscultation bilaterally Cardio Rate: regular rate Rhythm: regular rhythm Heart sounds: S1 normal heart sound present and S2 normal heart sound present GI Palpation (GI): Soft to palpation and nontender Auscultation: normoactive bowel sounds General: Yes no CVA tenderness Back/Spine/Pelvis Back: no CVA tenderness Skin General skin exam: elasticity normal and turgor normal Neuro General: oriented to person, oriented to place, oriented to time, patient oriented x3, moves all extremities, no focal motor deficits and CN's II-XI intact bilaterally Cranial nerves: Yes Equal, round and reactive pupils present Cognition (Neuro): normal cognition Extrem General: Yes full ROM, Yes no pedal edema and Yes no calf tenderness Psych Mental Status: mental status grossly normal Affect: normal affect Thought process: Normal thought process present Course Course Course Narrative: This is a Rapid Medical Examination (RME) performed by eDlmar Wang PA-C in triage. Full HPI, ROS, assessment and treatment plan per primary provider in the Main ED. Hx: 35 yo F here for eval of right lower abdominal pain x yesterday. states she is currently - does not know how far along she is. LMP in May, does not recall the date. positive home preg test on 06/06/25. has an appointment w/ OBGYN on Thursday. no vaginal bleeding. Plan: labs, UA, ultrasound Medical Decision Making Medical Decision Making MDM Narrative: Patient is a 35-year-old female currently , unknown last menstrual period, states it was sometime in May, cholecystectomy presenting to the emergency department with complaint of right-sided abdominal pain since yesterday morning. On exam patient is awake, A+Ox3, VS WNL, afebrile, normal neurological exam without focal deficits, physical exam findings as above. Given reported symptoms and physical exam findings, initial differential includes but is not limited to etopic , constipation, UTI. Less likely appendicitis. Labs unremarkable, HCG has appropriately increased since prior visit on 06/11. Ultrasound notable for single intrauterine . My interpretation is in agreement with the radiologist's interpretation. UA notable for 2+ leukocytes, >50 WBCs, 1+ bacteria, 6-10 epithelial cells. Patient denies any current urinary symptoms. She was seen here on 06/11 and treated with a course of Keflex based on UA results from that day. Upon review of EMR, urine culture from that visit showed 10,000-50,000 cfu/mL of mixed joanne. Current ACOG recommendations for patients without symptoms suggestive of UTI is to wait for urine culture results showing >100,000 cfu/ml of a single organism. This was discussed with patient at bedside and she was advised that if her urine culture from today's visit results as positive, she will be contacted via telephone and prescribed antibiotics.Patient is without abdominal tenderness on exam, do not feel additional imaging is indicated at this time. Will treat for constipation with docusate and Miralax. Encouraged patient to keep follow-up appointment with OBGYN on Thursday. Strict return precautions discussed at bedside. Patient verbalized understanding of and agreement with plan. Differential Diagnosis Differential Diagnoses: The differential diagnosis associated with the presentation includes As per [facility] Admission/Observation Consideration of admission/observation: Escalation of care including admission/observation considered Patient would have been admitted to the hospital and transferred to appropriate facility had their clinical presentation warranted hospital admission. Lab Data [facility] Lab Attestation statement: I reviewed the patient's lab results. as per [facility] 06/25/25 11:56 06/25/25 11:56 Labs: Lab Results 06/25/25 Range/Units 11:56 WBC 5.8 (4.8-10.8) X10*3/uL RBC 4.70 (4.20-5.50) X10*6/uL Hgb 12.8 (12.0-16.0) g/dl Hct 40.0 (37.0-47.0) % MCV 85.1 (80.0-98.0) fL MCH 27.2 (27.0-33.0) pg MCHC 32.0 (31.0-35.0) g/dl RDW 13.7 (11.0-16.0) % Plt Count 277 (160-400) X10*3/uL MPV 10.1 (9.4-12.3) fL Immature Gran % (Auto) 0.3 (0.0-0.4) % Neut % (Auto) 60.5 (45-73) % Lymph % (Auto) 29.4 (20-40) % [place] % (Auto) 7.7 (2-11) % Eos % (Auto) 1.4 (0-4) % Baso % (Auto) 0.7 (0-2) % Lymph # (Auto) 1.7 (1.2-4.9) X10*3/uL [place] # (Auto) 0.5 (0.1-1.2) X10*3/uL Eos # (Auto) 0.1 (0.0-0.4) X10*3/uL Baso # (Auto) 0.0 (0.0-0.2) X10*3/uL Abs Immat Gran (auto) 0.02 (0.00-0.03) X10*3/uL Absolute Neuts (auto) 3.5 (2.0-8.3) x10*3/uL Absolute Nucleated RBC 0.000 (0.0-0.012) X10*3/uL Nucleated RBC % (auto) 0.0 (0.0-0.2) /100WBC Sodium 137 (135-145) mmol/L Potassium 3.6 (3.3-5.1) mmol/L Chloride 104 (96-108) mmol/L Carbon Dioxide 26 (22-29) mmol/L Anion Gap 11 L (12-20) BUN 13 (9-16) mg/dL Creatinine 0.68 (0.5-1.4) mg/dL Estim Creat Clear Calc 161.4 Estimated GFR > 60 Random Glucose 91 (60-115) mg/dL Calcium 8.5 (8.4-10.2) mg/dL Magnesium 1.8 (1.6-2.6) mg/dL Total Bilirubin 0.4 (0.0-1.0) mg/dL AST 20 (5-31) U/L ALT 17 (0-31) U/L Alkaline Phosphatase 76 (39-117) U/L Total Protein 6.5 (6.5-8.0) g/dL Albumin 3.9 (3.5-5.0) g/dL Lipase 12 (8-78) U/L Beta HCG, Quant 15305 mIU/mL Urine Color Yellow Urine Appearance Cloudy Urine pH 6.0 (5.0-9.0) Ur Specific [place] 1.020 (1.005-1.025) Urine Protein Negative (Neg-Trace) mg/dL Urine Glucose (UA) Negative (Negative) mg/dL Urine Ketones Negative (Negative) mg/dL Urine Blood Negative (Negative) Urine Nitrite Negative (Negative) Ur Leukocyte Esterase Moderate (2+) H (Negative) Urine RBC 0-2 (0-2) /HPF Urine WBC >50 H (0-5) /HPF Ur Squamous Epith Cells 6-10 (0-2) /HPF Urine Bacteria 1+ (None Seen) Hyaline Casts 0-2 (0-2) /LPF Independent Interpretation I performed an independent interpretation of an: Ultrasound Interpretation: Ultrasound notable for single intrauterine . My interpretation is in agreement with the radiologist's interpretation. Radiology Impression Discussion of test interpretation with radiology: I have reviewed the radiologist's reading. Radiologist Impression: Exam: Limited transvaginal 1st trimester obstetric ultrasound. Comparison: None. Findings: An intrauterine gestational sac with pole is present. Nixon-rump length of 0.52 cm corresponds with gestational age 6 weeks and 2 days. cardiac activity is documented with heart rate of 116 beats per minute. Yolk sac is identified. Right ovary measures up to 4.6 cm and reveals blood flow by color Doppler interrogation. A tiny 16 mm cyst is present. Left ovary is not visualized. No adnexal lesions or free fluid. Impression: 1. Living intrauterine , with measurements corresponding with gestational age 6 weeks and 2 days. External Record Review External record reviewed: Inpatient record, Office record and Outpatient record Prescription Management I considered prescription management with: Antibiotic Discharge Plan Discharge Clinical Impression: Constipation Patient Disposition: Home, Self-Care Instructions: Constipation (DC) Additional Instructions: You were evaluated in the emergency department today for abdominal pain in . Your ultrasound showed a single intrauterine . Your urine showed some white blood cells which could indicate infection, however, you were recently treated with a course of antibiotics. We will wait until your urine culture is resulted and if you require treatment with an additional course of antibiotics, you will be contacted via telephone. You have been prescribed MiraLax and docusate for constipation, take these medications as prescribed. Follow-up with your OBGYN as previously scheduled on Thursday. Return to the emergency department if you develop worsening pain, vomiting, vaginal bleeding or other abnormal vaginal discharge, fever 100.4? F or greater or any other new or concerning symptoms. Prescriptions: New polyethylene glycol 3350 [Miralax] 17 gram/dose powder 17 g PO DAILY Qty: 119 0RF docusate sodium 100 mg capsule 100 mg PO BID Qty: 14 0RF No Action benzonatate 100 mg capsule 100 mg PO BID PRN (Reason: cough) Qty: 20 0RF albuterol sulfate 90 mcg/actuation HFA aerosol inhaler 1 inh inhalation Q20M PRN (Reason: shortness of breath or wheezing) Qty: 8.5 0RF nitrofurantoin monohyd/m-cryst [Macrobid] 100 mg capsule 100 mg PO Q12H 5 Days Qty: 10 0RF Rx Instructions: must administer with a meal/food dicyclomine 20 mg tablet 20 mg PO TID PRN (Reason: abdominal pain) Qty: 20 0RF famotidine [Pepcid] 40 mg tablet 40 mg PO DAILY Qty: 14 0RF azithromycin 250 mg tablet 250 mg PO DAILY 6 Days Qty: 6 0RF Rx Instructions: start on day 2 of therapy peg 3350-electrolytes [GaviLyte-G] 236-22.74-6.74 -5.86 gram recon soln 240 ml PO Q10M Qty: 4000 0RF Rx Instructions: until you have a large bowel movement polyethylene glycol 3350 [Miralax] 17 gram/dose powder 17 g PO DAILY 14 Days Qty: 238 0RF Vitamin 27 mg iron- 800 mcg tablet 1 tab PO DAILY Qty: 30 0RF cephalexin 500 mg capsule 500 mg PO BID Qty: 10 0RF tizanidine 2 mg tablet 2 mg PO QD-TID PRN (Reason: muscle pain) cetirizine 10 mg tablet 10 mg PO DAILY valacyclovir 1 gram tablet 1,000 mg PO TID sumatriptan succinate 50 mg tablet PO topiramate 25 mg tablet PO epinephrine 0.3 mg/0.3 mL auto-injector IM DIRECTED albuterol sulfate [Ventolin HFA] 90 mcg/actuation HFA aerosol inhaler 2 puff INHALATION Q4-6H PRN (Reason: wheezing) cholecalciferol (vitamin D3) 25 mcg (1,000 unit) tablet 25 mcg PO QAM Ozempic 0.25 mg or 0.5 mg (2 mg/3 mL) pen injector subcut prednisone 20 mg tablet 60 mg PO DAILY 5 Days Qty: 15 0RF famotidine [Pepcid] 20 mg tablet 20 mg PO BID 5 Days Qty: 10 0RF diphenhydramine HCl 25 mg capsule 25 mg PO TID PRN (Reason: allergic reaction) Qty: 14 0RF Print Language: Estonian
[2025-06-25 11:44] VITALS: BP 137/80; PULSE 74; RESP 18; TEMP 36.8; O2SAT 98; BMI 45.6
[2025-06-25 12:02] LABS: MANUAL DIFF FLAG NO
[2025-06-25 12:11] LABS: Hematocrit 40.0 % (37.0-47.0); Hemoglobin 12.8 g/dl (12.0-16.0); Imm Gran Abs Auto 0.02 X10*3/uL (0.00-0.03); Imm Gran Pct Auto 0.3 % (0.0-0.4); Lymphocytes Absolute Auto 1.7 X10*3/uL (1.2-4.9); Mean Corpuscular HGB Conc 32.0 g/dl (31.0-35.0); Mean Corpuscular Hemoglobin 27.2 pg (27.0-33.0); Mean Corpuscular Volume 85.1 fL (80.0-98.0); NRBC Abs Auto 0.000 X10*3/uL (0.0-0.012); NRBC Pct Auto 0.0 /100WBC (0.0-0.2); Platelet Count 277 X10*3/uL (160-400); Red Blood Count 4.70 X10*6/uL (4.20-5.50); White Blood Count 5.8 X10*3/uL (4.8-10.8)
[2025-06-25 12:12] LABS: Appearance Urine Cloudy; Glucose Urine UA Negative (Negative); PH 6.0 (5.0-9.0); Specific Gravity - Urine 1.020 (1.005-1.025); UMIC TRIGGER UACC YES
[2025-06-25 12:31] LABS: Alanine Aminotransferase 17 U/L (0-31); Albumin Level 3.9 g/dL (3.5-5.0); Alkaline Phosphatase 76 U/L (39-117); Anion Gap 11 (12-20); Aspartate Amino Transferase 20 U/L (5-31); Blood Urea Nitrogen 13 mg/dL (9-16); Calcium 8.5 mg/dL (8.4-10.2); Carbon Dioxide 26 mmol/L (22-29); Chloride 104 mmol/L (96-108); Creatinine Clr Calc Pharmacy 161.4; Estimated Glomerular Filt Rate > 60; Lipase 12 U/L (8-78); Magnesium 1.8 mg/dL (1.6-2.6); Potassium 3.6 mmol/L (3.3-5.1); Sodium 137 mmol/L (135-145); Total Protein 6.5 g/dL (6.5-8.0)
[2025-06-25 12:51] LABS: UACC Culture Trigger YES
[2025-06-25 12:59] VITALS: BP 128/70; PULSE 70; RESP 16; O2SAT 99
--- OUTSIDE RECORDS SUMMARY | 2025-06-25 13:05 | XMS_ITS | Clinical Summary ---
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 16 g [...] 02/15/2022 Overview (02/15/2022): 02/14/2022: US of chest: [facility]: Impression; No suspicious finding at the [...] Treatment Not on file [place]
[2025-06-25 14:12] VITALS: BP 128/70; PULSE 70; RESP 16; TEMP 36.9; O2SAT 99
== END 2025-06-25 14:12 | disposition home or self-care (01) ==
PROVIDERS: Physician Assistant Medical; Emergency Provider Emergency Medicine; PCP Nurse Practitioner Primary Care
DX: O99.611 Diseases of the digestive system complicating pregnancy, first trimester (principal); K59.00 Constipation, unspecified; Z3A.01 Less than 8 weeks gestation of pregnancy; Z90.49 Acquired absence of other specified parts of digestive tract; Z88.1 Allergy status to other antibiotic agents
CPT/HCPCS: 36415; 76801; 76817; 80053; 81001; 83690; 83735; 84702; 85025; 87086; 87147; 99281; 99283; 99284

== ENCOUNTER → 2025-06-25 11:46 | Outpatient (BNV) | payer OTHER, SELFPAY | PROVIDERS: Emergency Provider Emergency Medicine; PCP Nurse Practitioner Primary Care; Visit Provider Radiology Diagnostic Radiology | DX: O26.891 Other specified pregnancy related conditions, first trimester (principal); R10.31 Right lower quadrant pain; Z3A.01 Less than 8 weeks gestation of pregnancy | CPT/HCPCS: 76801; 76817 ==

== ENCOUNTER 2025-06-29 21:58 | Emergency (ER) | payer OTHER, SELFPAY ==
[2025-06-29 22:06] VITALS: BP 115/70; PULSE 70; RESP 18; TEMP 36.2; O2SAT 99; BMI 45.3
[2025-06-29 22:28] LABS: MANUAL DIFF FLAG NO
[2025-06-29 22:29] LABS: Hematocrit 40.9 % (37.0-47.0); Hemoglobin 13.1 g/dl (12.0-16.0); Imm Gran Abs Auto 0.02 X10*3/uL (0.00-0.03); Imm Gran Pct Auto 0.2 % (0.0-0.4); Lymphocytes Absolute Auto 2.1 X10*3/uL (1.2-4.9); Mean Corpuscular HGB Conc 32.0 g/dl (31.0-35.0); Mean Corpuscular Hemoglobin 27.0 pg (27.0-33.0); Mean Corpuscular Volume 84.2 fL (80.0-98.0); NRBC Abs Auto 0.000 X10*3/uL (0.0-0.012); NRBC Pct Auto 0.0 /100WBC (0.0-0.2); Platelet Count 275 X10*3/uL (160-400); Red Blood Count 4.86 X10*6/uL (4.20-5.50); White Blood Count 8.1 X10*3/uL (4.8-10.8)
--- OUTSIDE RECORDS SUMMARY | 2025-06-29 22:43 | XMS_ITS | Encounter Summary ---
Author Organization [employer] Address [address] [place] [address] [address] [place] [address] Care Team Providers Care Driver Wheelchair Name Role Phone Disha Lackey Primary Care Provider [phone] Reason for Visit * Reason Onset Date Comments Results 01/07/2024 Encounter Details Date Type Department Care Team (Late st Contact Info) Description 01/07/2024 Telephone [facility] [address] [place], [place] [phone] Disha Lackey ANP [address] [place] [address] Results Social History Tobacco Use Types Packs/Day [...] results: culture Date when done: 01/04 Facility: [facility] Please contact pt at [phone] documented in this encounter Plan of Treatment Not on file documented as of this encounter Visit Diagnoses Not on filedocumented in this encounter Additional Health Concerns Assessment Noted Time PHQ-9 Depression Total Score: 0 01/10/20 1:11 PM EDT documented as of this encounter Care Teams Driver Wheelchair Relationship Specialty Start Date End Date Disha Lackey ANP [address] [place] [id number] PCP - General Family Medicine 01/09/23 documented as of this encounter
--- OUTSIDE RECORDS SUMMARY | 2025-06-29 22:43 | XMS_ITS | Clinical Summary ---
Author Organization [employer] Address [address] [place] [address] [address] [place] [address] Care Team Providers Care Gem Cutter Name Role Phone Aleah Scherer Primary Care Provider [phone] Allergies Active Allergy Reactions Criticality Noted Date Comments [place] Oil Anaphylaxis High 11/06/2022 Doxycycline 11/06/2022 Other [...] patient was prescribed a nebulizer from the [facility] on 12/11/23. Instructions on how to use [...] MOUTH ONCE PER DAY. 90 tablet 1 Active triamcinolone (Kenalog) 0.1 % creamIndications: Eczema, unspecified type Apply topically if needed in the morning and at bedtime for rash. 45 g Active hydrOXYzine HCl (Atarax) 50 MG tabletIndications :Difficulty sleeping TAKE 1 TABLET (50 MG) BY MOUTH IF NEEDED AT BEDTIME FOR ANXIETY (INSOMNIA). 30 tablet 2 Active ondansetron ODT (Zofran-ODT) 4 MG disintegrating tabletIndications :Influenza-like symptoms,Pregnanc y, unspecified gestational age Take 1 tablet (4 mg) by mouth every 8 (eight) hours if needed for nausea or vomiting. 15 tablet Active glycerin (Adult) 2 g suppositoryIndica tions:Constipatio n, unspecified constipation type Insert 1 suppository (2 g) into the rectum if needed each day for constipation for up to 5 days. 5 suppository 2024 Discontin ued(Alter jc therapy) glycerin, laxative, (Fleet Liquid Glycerin Supp) 5.4 gram/5.4 mL enema rectal enema (adult)Indication s:Constipation, unspecified constipation type Insert 5.4 mL into the rectum 1 (one) time for 1 dose. 5.4 mL 2024 ondansetron (Zofran) 4 MG tabletIndications :Influenza-like symptoms Take 1 tablet (4 mg) by mouth every 8 (eight) hours if needed for nausea or vomiting. 15 tablet 025 2024 Discontin ued(Alter jc therapy) Active Problems Problem Noted Date Diagnosed Date [...] Morbid obesity with BMI of 45.0-49.9, adult (CMS /[facility]) 10/30/2023 Severe obesity ([facility]) 10/30/2023 Elevated blood pressure read ing in office without diagnosis of hypertension 09/18/2023 Assessment & Plan (06/14/2025 4:28 PM EST): -no repeat as patient in a [place] to pickle sorter child -recommend home monitoring and dietary modifications Cholelithiases 01/09/2023 Overview (01/09/2023): [facility] [...] Low back pain at multiple sites 11/23/2013 Comments Yes Encounters Date Type Department Care Team Description 06/29/2025 Orders Only GENERIC EXTERNAL DATA DEPARTMENT Provider, Generic External Data 06/21/2025 10:20 AM EST Office Visit [facility] [address] [address] Kenny Reddy MD Influenza-like symptoms (Primary Dx); , unspecified gestational age; Sore throat; Nasal congestion 06/21/2025 Travel 06/14/2025 3:00 PM EST Office Visit [facility] [address] [place] [address] Irene Horne NP Constipation, unspecified constipation type (Primary Dx); Elevated blood pressure reading in office without diagnosis of hypertension; , unspecified gestational age 1106/14/2025 Travel 06/14/2025 Telephone [facility] [address] [place] [address] Aleah Scherer ANP NTTS admissions officer 06/11/2025 Orders Only GENERIC EXTERNAL DATA DEPARTMENT Provider, Generic External Data from Last 3 Months Immunizations Immunization Administration [...] housing situation today? I have kate steiner 12/27/[address] you [...] Access Q2 Not on file 04/11/2024 Comments Yes Sex and Gender Information Value Date Recorded Sex Assigned at Female 11/06/2022 10:17 AM EDT Legal Sex Female 10:14 AM EDT Gender Identity Female 11/06/2022 10:17 AM EDT Sexual Orientation Choose not to disclose 2022 10:17 AM EDT Last Filed Vital Signs Vital Sign Reading Time Taken Comments Blood Pressure 126/82 06/21/2025 10:33 AM EST ma nually Pulse 75 06/21/2025 10:32 AM EST Temperature 36.8 C (98.3 F) 06/21/2025 10:32 AM EST Respiratory Rate 20 06/21/2025 10:32 AM EST Oxygen Saturation 100% 06/21/2025 10:32 AM EST Inhaled Oxygen Concentration - - Weight 129 kg (284 lb 9.6 oz) 06/21/2025 10:32 A M EST Height 167.6 cm (5' 6 ) 06/21/2025 10:32 AM EST Body Mass Index 45.94 06/21/2025 10:32 AM EST Plan of Treatment Health Maintenance Due Date [...] Screening 12/01/2025 12/01/2024 SDOH Screening 12/27/2025 12/27/2024 Cervical Cancer Screening 05/29/2026 HPV/Cotest 05/29/2026 05/29/2021 Pap Smear 05/29/2026 05/29/2021 Tobacco Screening 06/21/2026 06/21/2025 DTaP/Tdap/Td Vaccines (9 - Td or Tdap) [...] Procedure Name Priority Date/Time Associated Diagnosis Comments CBC WITH AUTO DIFFERENTIAL Routine 06/29/2025 10:23 PM EST US OB PELVIS TRANSVAGINAL Routine 06/25/2025 1:14 PM EST POCT INFLUENZA A (ID NOW RAPID MOLECULAR) Routine 06/21/2025 11:06 AM EST Nasal congestion POCT INFLUENZA B (ID NOW RAPID MOLECULAR) Routine 06/21/2025 11:06 AM EST Nasal congestion POCT COVID-19 AG GILL ID NOW Routine 06/21/2025 10:52 AM EST Sore throat POC GILL ID NOW STREP A Routine 06/21/2025 10:51 AM EST Sore throat HCG, TOTAL, QN Routine 06/11/2025 10:29 PM EST COMPREHENSIVE METABOLIC PANEL Routine 06/11/2025 10:29 PM EST CBC WITH AUTO DIFFERENTIAL Routine 06/11/2025 10:29 PM EST URINALYSIS, COMPLETE, WITH REFLEX TO CULTURE Routine 06/11/2025 10:22 PM EST CULTURE, URINE, ROUTINE Routine 06/11/2025 12:00 AM EDT HEPATITIS C AB W/REFL TO HCV RNA, QN, PCR Routine 07/22/2024 3:38 PM EST Hypersomnia HIV 1/2 ANTIGEN/ANTIBODY, FOURTH GENERATION W/RFL Routine 07/22/2024 3:38 PM EST Hypersomnia BITEWING - SINGLE RADIOGRAPHIC IMAGE Routine 11/06/2022 1:00 PM EDT Maxillary sinusitis, unspecified chronicity HM PAP/HPV Routine 05/29/2021 from Last 3 Months or Most Recently Relevant to Health Maintenance Results * CBC auto differential (06/29/2025 10:23 PM EST) Only the most recent of2 resultswithin the time period is included. White Blood Count 8.1 4.8 - 10.8 X10*3/uL [facility] Red Blood Count 4.86 4.20 - 5.50 X10*6/uL [facility] Hemoglobin 13.1 12.0 - 16.0 g/dl [facility] Hematocrit 40.9 37.0 - 47.0 % [facility] Mean Corpuscular Volume 84.2 80.0 - 98.0 fL [facility] Mean Corpuscular Hemoglobin 27.0 27.0 - 33.0 pg [facility] Mean Corpuscular HGB Conc 32.0 31.0 - 35.0 g/dl [facility] Red Cell Distribution Width 13.5 11.0 - 16.0 % [facility] Platelet Count 275 160 - 400 X10*3/uL [facility] Mean Platelet Volume 10.0 9.4 - 12.3 fL [facility] Neutrophils Percent Auto 64.3 45 - 73 % [facility] Imm Gran Pct Auto 0.2 0.0 - 0.4 % [facility] Lymphocytes Percent Auto 26.1 20 - 40 % [facility] Monocytes Percent Auto 7.4 2 - 11 % [facility] Eosinophils Percent Auto 1.5 0 - 4 % [facility] Basophils Percent Auto 0.5 0 - 2 % [facility] NRBC Pct Auto 0.0 0.0 - 0.2 /100WBC [facility] Neutrophils Absolute Auto 5.2 2.0 - 8.3 x10*3/uL [facility] Imm Gran Abs Auto 0.02 0.00 - 0.03 X10*3/uL [facility] Lymphocytes Absolute Auto 2.1 1.2 - 4.9 X10*3/uL [facility] Monocytes Absolute Auto 0.6 0.1 - 1.2 X10*3/uL [facility] Eosinophils Absolute Auto 0.1 0.0 - 0.4 X10*3/uL [facility] Basophils Absolute Auto 0.0 0.0 - 0.2 X10*3/uL [facility] NRBC Abs Auto 0.000 0.0 - 0.012 X10*3/uL [facility] 06/29/2025 10:2 3 PM EST 06/29/2025 10:26 PM EST us Generic External Data Provider LAB BLOOD ORDERAB LES Final Result [facility] [address] [place] [phone] * US OB Pelvis with Transvaginal (06/25/2025 1:14 PM EST) Anatomical Region Laterality Modality Pelvis Ultrasound 06/25/2025 1:14 PM EST Narrative 06/25/2025 1:15 PM EST [address] [address] Ultrasound Report Signed Patient: Sweta Corbin MR#: [id number] 6 : 1990 Acct:[id number] Age/Sex: 35 / F ADM Date: 06/25/25 Loc: HO.ED Attending Dr: Ordering Physician: Cristal Wang Date of Service: 06/25/25 Procedure(s): US OB pelvic and transvaginal Accession Number(s): [id number] cc: Cristal Wang; ALEAH SCHERER NP Reason for Exam: +preg test at home, R lower abd pain CLINICAL HISTORY: +preg test at home, R lower abd pain Exam: Limited transvaginal 1st trimester obstetric ultrasound. Comparison: None. Findings: An intrauterine gestational sac with pole is present. [place]-rump length of 0.52 cm corresponds with gestational age 6 weeks and 2 days. cardiac activity is documented with heart rate of 116 beats per minute. Yolk sac is identified. Right ovary measures up to 4.6 cm and reveals blood flow by color Doppler interrogation. A tiny 16 mm cyst is present. Left ovary is not visualized. No adnexal lesions or free fluid. Impression: 1. Living intrauterine , with measurements corresponding with gestational age 6 weeks and 2 days. This document has been electronically signed by: Ryan Lopez MD on 06/25/2025 13:14:17 Dictated By: Ryan Lopez MD Signed By: <Electronically signed by Ryan Lopez MD in OV> 06/25/25 1314 DD/ 1314 TD/TT: 06/25/25 1314 Sock Examiner: Procedure Note Donotuseinterpreter, Image - 06/25/[address] [address] Ultrasound Report Signed Patient: Sweta oCrbinMR#: [id number] 6 : 1990Acct:[id number] Age/Sex: 35 / FADM Date: 06/25/25 Loc: HO.ED Attending Dr: Ordering Physician: Cristal Wang Date of Service: 06/25/25 Procedure(s): US OB pelvic and transvaginal Accession Number(s): [id number] cc: Cristal Wang; ALEAH SCHERER NP Reason for Exam: +preg test at home, R lower abd pain CLINICAL HISTORY: +preg test at home, R lower abd pain Exam: Limited transvaginal 1st trimester obstetric ultrasound. Comparison: None. Findings: An intrauterine gestational sac with pole is present. [place]-rump length of 0.52 cm corresponds with gestational age 6 weeks and 2 days. cardiac activity is documented with heart rate of 116 beats per minute. Yolk sac is identified. Right ovary measures up to 4.6 cm and reveals blood flow by color Doppler interrogation. A tiny 16 mm cyst is present. Left ovary is not visualized. No adnexal lesions or free fluid. Impression: 1. Living intrauterine , with measurements corresponding with gestational age 6 weeks and 2 days. This document has been electronically signed by: Ryan Lopez MD on 06/25/2025 13:14:17 Dictated By: Ryan Lopez MD Signed By: <Electronically signed by Ryan Lopez MD in OV> 06/25/25 1314 DD/ 1314 TD/TT: 06/25/25 1314 Sock Examiner: [facility] External Provider IMG US PROCEDURES Final Result * POCT Rapid Influenza B GILL ID NOW (06/21/2025 11:06 AM EST) Influenza B Negative Negative, Indeterminate [facility] QC Media Lot # [id number] [facility] Lot# Expiration Date [id number] [facility] Swab 06/21/2025 11:0 6 AM EST Kenny Reddy MD POINT OF CARE TEST ENTER/EDIT OR DERABLES Final Result [facility] [address] [place] [phone] * POCT Rapid Influenza A GILL ID NOW (06/21/2025 11:06 AM EST) Pathologist [facility] Influenza A Negative Negative, Indeterminate [facility] QC Media Lot # [id number] [facility] Lot# Expiration Date [facility] Swab 06/21/2025 11:0 6 AM EST us Kenny Reddy MD POINT OF CARE TEST ENTER/EDIT OR DERABLES Final Result [facility] [address] [place] [address] [phone] * POCT Rapid Covid-19 GILL ID NOW (06/21/2025 10:52 AM EST) [facility] Coronavirus Antigen PCR Negative Negative, Indeterminate, None Detected, Invalid, Specimen unsatisfactory for evaluation, Weakly Positive, 2+ QC Media Lot # [id number] Lot# Expiration Date Swab 06/21/2025 10:5 2 AM EST us Kenny Reddy MD POINT OF CARE TEST ENTER/EDIT OR DERABLES Final Result * POCT Rapid Strep A GILL ID NOW (06/21/2025 10:51 AM EST) [facility] Rapid Strep A Screen Negative Negative, None Detected QC Media Lot # [id number] Lot# Expiration Date Swab 06/21/2025 10:5 1 AM EST us Kenny Reddy MD POINT OF CARE TEST ENTER/EDIT OR DERABLES Final Result * hCG, Total, Quantitative (06/11/2025 10:29 PM EST) Pathologist [facility] HCG Quantitative 563 mIU/mL [facility] Comment:Weeks post LMP Appro ximate hCG(Last Menstrual Period) Range (mIU/ml)3 - 4 weeks 9 - 1304 - 5 weeks 75 - 2,6005 - 6 weeks 850 - 20,8006 - 7 weeks 4000 - 100,2007 - 12 weeks 11,500 - 289,12868 - 16 weeks 18,300 - 137,68534 - 29 weeks (2nd trimester) 1,400 - 53,91484 - 41 weeks (3rd trimester) 940 - 60,000The Gill B- hCG assay is used for the early detection ofpregnancy; it cannot be used to diagnose any conditionunrelated to . If a B-hCG level is not supportedby the clinical evidence, results should be confirmed by analternative method (qualitative urine hCG, for example). 06/11/2025 10:2 9 PM EST 06/11/2025 10:32 PM EST us Generic External Data Provider LAB BLOOD ORDERAB LES Final Result [facility] [address] [place] [phone] * (ABNORMAL) Comprehensive Metabolic Panel (06/11/2025 10:29 PM EST) Sodium 139 135 - 145 mmol/L [facility] Potassium 4.0 3.3 - 5.1 mmol/L [facility] Comment:Slight Hemolysis.Int erpret result with caution. Chloride 107 96 - 108 mmol/L [facility] Carbon Dioxide 24 22 - 29 mmol/L [facility] Anion Gap 12 12 - 20 [facility] Urea Nitrogen (BUN) 16 9 - 16 mg/dL [facility] Creatinine, Serum 0.74 0.5 - 1.4 mg/dL [facility] Creatinine Clr Calc Pharmacy 144.3 [facility] Comment:Provided height and weight: 167.64 cm,122.47 kg.eGFR (calculated from the MDRD study equation) and eCrCl(calculated from the Cockcroft-Gault equation) are based ondifferent parameters and may not yield comparable results.If eCrCl result is absurd, please check patient'sheight/weight. Estimated Glomerular Filt Rate >60 [facility] Comment:Chronic Kidney Disea se: Estimated GFR < 60 mL/min/1.44b9Bhcbuo Kidney Disease: Estimated GFR < 15 mL/min/1.73m2 Glucose 120(H) 60 - 115 mg/dL [facility] Calcium 8.5 8.4 - 10.2 mg/dL [facility] Bilirubin, Total 0.4 0.0 - 1.0 mg/dL [facility] Aspartate Amino Transferase 25 5 - 31 U/L [facility] Comment:Slight Hemolysis.Int erpret result with caution. Alanine Aminotransferase 16 0 - 31 U/L [facility] Total Protein 6.9 6.5 - 8.0 g/dL [facility] Albumin Level 4.0 3.5 - 5.0 g/dL [facility] Alkaline Phosphatase 88 39 - 117 U/L [facility] 06/11/2025 10:2 9 PM EST 06/11/2025 10:32 PM EST us Generic External Data Provider LAB BLOOD ORDERAB LES Final Result [facility] [address] [place] [phone] * (ABNORMAL) Urinalysis, Complete, with Reflex to Culture (06/11/2025 10:22 PM EST) Color Urine Yellow [facility] Appearance Urine Clear [facility] PH 5.5 5.0 - 9.0 [facility] Glucose Urine UA Negative Negative mg/dL [facility] Urine Blood Large (3+)(A) Negative [facility] Specific [place] - Urine >=1.030(H) 1.005 - 1.025 [facility] Urine Protein Trace Neg-Trace mg/dL [facility] Urine Ketones Trace Negative mg/dL [facility] Nitrite Urine Negative Negative [facility] Leukocyte Esterase Urine Moderate (2+)(A) Negative [facility] RBC Urine 3-5(A) 0 - 2 /HPF [facility] Urine WBC >50(A) 0 - 5 /HPF [facility] WBC CLUMPS, UR Present [facility] Urine Squamous Epithelial Cell 0-2 0 - 2 /HPF [facility] Urine Bacteria 1+ None Seen [facility] Hyaline Casts, Urine 0-2 0 - 2 /LPF [facility] 06/11/2025 10:2 2 PM EST 06/11/2025 10:32 PM EST Narrative [facility] - 06/11/2025 11:37 PM EST [id number], Clean Catch Generic External Data Provider LAB URINE ORDERAB LES Final Result Performing Organization Address City/[facility]/ZIP Co de Phone Number [facility] [address] [place] [phone] * Culture, Urine, Routine (06/11/2025 12:00 AM EDT) Urine Urine specimen obtained by clean catch procedure / Unknown 06/11/2025 06/11/2025 Comment:UACC Narrative [facility] - 06/14/2025 1:47 PM EST Urine Culture Report Result Urine Culture 10,000 to 50,000 cfu/ml Urine Culture Mixed bacterial joanne characteristic of Urine Culture urogenital contamination. Specimen Source: Urine clean catch [employer] External Data Provider LAB MICROBIOLOGY - GENERAL ORDERABLES Final Result Performing Organization Address City/[facility]/ZIP Co de Phone Number [facility] [address] [place] [phone] * Hepatitis C Antibody with Reflex to HCV, RNA, Quantitative, Real-Time PCR (07/22/2024 3:38 PM EST) Hepatitis C Antibody Nonreactive Nonreactive [facility] Comment:Antibodies to HCV no t detected; does not exclude early acuteHCV infection. Blood Venous blood specimen / Unknown 07/22/2024 3:38 PM EST 07/22/2024 5:20 PM EST us Sravani Haines MD LAB BLOOD ORDERABLES Final Result Performing Organization Address [facility] Co de Phone Number [facility] [address] [place] [phone] * HIV-1/2 Antigen and Antibodies, Fourth Generation, with Reflexes (07/22/2024 3:38 PM EST) HIV AB/AG Nonreactive Nonreactive [facility] Comment:HIV-1 p24 Ag and/or HIV-1/HIV-2 Ab not detected.A test result that is nonreactive does not exclude thepossibility of exposure to or infection with HIV-1 and/orHIV-2. Nonreactive results in this assay for individualswith prior exposure to HIV-1 and/or HIV-2 may be due toantigen and antibody levels that are below the limit ofdetection of this assay.The Piczo HIV Ag/Ab Combo assay result andsupplemental assay results should be interpreted inconjunction with the patient's clinical presentation,history and other laboratory results. If the results areinconsistent with clinical evidence, additional testing issuggested to confirm the result. Blood Venous blood specimen / Unknown 07/22/2024 3:38 PM EST 07/22/2024 5:20 PM EST us Sravani Haines MD LAB BLOOD ORDERABLES Final Result Performing Organization Address [facility] Co de Phone Number [facility] [address] [place] [phone] * Hm Pap Smear (05/29/2021) Pap Negative for intraephithelial lesion or malignancy Negative for intraephithelial lesion or malignancy, Other HPV Undetected Undetected, Indeterminate, Quantitative, Not Detected Historical Provider HEALTH MAINTENANCE Final Result from Last 3 Months or Most Recently Relevant to Health Maintenance Insurance [facility] STANDARD [employer] [facility] [employer] CARE < 65 * Guarantor: Sweta Corbin Account Type Relation to Patient Date of Phone Billing Address Dental Self 1990 [address] [place] [address] D[facility]AL-[facility] MEDICAID STAND ADULT Care Teams Gem Cutter Relationship Specialty Start Date End Date Aleah Scherer ANP [address] [place] [phone] PCP - General Family Medicine 01/09/23
--- OUTSIDE RECORDS SUMMARY | 2025-06-29 22:43 | XMS_ITS | Clinical Summary ---
Author Organization [facility] ity Address [address] [place] [address] Care Team Providers Care Client Portfolio Manager Name Role Phone Unavailable Primary Care Provider [...]
--- OUTSIDE RECORDS SUMMARY | 2025-06-29 22:43 | XMS_ITS | Encounter Summary ---
Author Organization [employer] Address [address] [place] [address] [address] [place] [address] Care Team Providers Care Program Advocate Name Role Phone Disha Lackey Primary Care Provider [phone] Reason for Visit * Reason Onset Date Comments Results 01/22/2024 Encounter Details Date Type Department Care Team (Late st Contact Info) Description 01/22/2024 Telephone [facility] [address], [place] [phone] Disha Lackey ANP [address] [place] [phone] Results Social History Tobacco Use Types Packs/Day [...] results: Ultrasound Date when done: 01/11 Facility: [facility] documented in this encounter Plan of Treatment Not on file documented as of this encounter Visit Diagnoses Not on filedocumented in this encounter Additional Health Concerns Assessment Noted Time PHQ-9 Depression Total Score: 0 01/10/20 1:11 PM EDT documented as of this encounter Care Teams Program Advocate Relationship Specialty Start Date End Date Disha Lackey ANP [address] [place] [phone] PCP - General Family Medicine 01/09/23 documented as of this encounter
--- OUTSIDE RECORDS SUMMARY | 2025-06-29 22:44 | XMS_ITS | Encounter Summary ---
Author Organization [employer] Address [address] [place] [address] 7[address] [place] [address] Care Team Providers Care Corporate Logistics Manager Name Role Phone Disha Lackey Primary Care Provider [phone] Encounter Details Date Type Department Care Team (Late st Contact Info) Description 06/29/2025 Orders Only GENERIC EXTERNAL DATA [...] AUTO DIFFERENTIAL Routine 06/29/2025 10:23 PM EST documented in this encounter Results * CBC auto differential (06/29/2025 10:23 PM EST) White Blood Count 8.1 4.8 - 10.8 X10*3/uL [facility] Red Blood Count 4.86 4.20 - 5.50 X10*6/uL [facility] Hemoglobin 13.1 12.0 - 16.0 g/dl [facility] Hematocrit 40.9 37.0 - 47.0 % [facility] Mean Corpuscular Volume 84.2 80.0 - 98.0 fL [facility] Mean Corpuscular Hemoglobin 27.0 27.0 - 33.0 pg [facility] Mean Corpuscular HGB Conc 32.0 31.0 - 35.0 g/dl [facility] Red Cell Distribution Width 13.5 11.0 - 16.0 % [facility] Platelet Count 275 160 - 400 X10*3/uL [facility] Mean Platelet Volume 10.0 9.4 - 12.3 fL [facility] Neutrophils Percent Auto 64.3 45 - 73 % [facility] Imm Gran Pct Auto 0.2 0.0 - 0.4 % [facility] Lymphocytes Percent Auto 26.1 20 - 40 % [facility] Monocytes Percent Auto 7.4 2 - 11 % [facility] Eosinophils Percent Auto 1.5 0 - 4 % [facility] Basophils Percent Auto 0.5 0 - 2 % [facility] NRBC Pct Auto 0.0 0.0 - 0.2 /100WBC [facility] Neutrophils Absolute Auto 5.2 2.0 - 8.3 x10*3/uL [facility] Imm Gran Abs Auto 0.02 0.00 - 0.03 X10*3/uL [facility] Lymphocytes Absolute Auto 2.1 1.2 - 4.9 X10*3/uL [facility] Monocytes Absolute Auto 0.6 0.1 - 1.2 X10*3/uL [facility] Eosinophils Absolute Auto 0.1 0.0 - 0.4 X10*3/uL [facility] Basophils Absolute Auto 0.0 0.0 - 0.2 X10*3/uL [facility] NRBC Abs Auto 0.000 0.0 - 0.012 X10*3/uL [facility] 06/29/2025 10:2 3 PM EST 06/29/2025 10:26 PM EST us Generic External Data Provider LAB BLOOD ORDERAB LES Final Result Performing Organization Address City/State/[facility] Co de Phone Number [facility] [address] [place] [phone] documented in this encounter Visit Diagnoses Not on filedocumented in this encounter Additional Health Concerns Assessment Noted Time PHQ-9 Depression Total Score: 0 12/02/19 25 10:25 AM EDT documented as of this encounter Care Teams Corporate Logistics Manager Relationship Specialty Start Date End Date Disha Lackey ANP [address] [place] [address] PCP - General Family Medicine 01/09/23 documented as of this encounter
--- OUTSIDE RECORDS SUMMARY | 2025-06-29 22:44 | XMS_ITS | Encounter Summary ---
Author Organization [employer] Address [address] [place] [address] 7[address] [place] [address] Care Team Providers Care Panel Edge Painter Name Role Phone Aleah Scherer MARIAN Primary Care Provider [phone] Reason for Referral * Imaging (Routine) - Closed Specialty Diagnoses / Procedures Referred By Antoni fischer Referred To Contact Radiology Diagnoses Generalized abdominal pain Procedures US Abdomen Complete Annetta Mead FNP [address] [place] [address] Phone: tel: fax: [address] Phone: tel: fax: Referral ID Status Reason Start Date Expiration Date Visits Re quested Visits Authorized [id number] Closed 01/08/2024 01/07/2025 1 1 Encounter Details Date Type Department Care Team (Late st Contact Info) Description 01/08/2024 Orders Only [facility] [address] [place] [address] Annetta Mead FNP [address] [place] [address] Generalized abdominal pain (Primary Dx) Social History [...] AM EDT Narrative 01/19/2024 11:45 AM EDT [address] [address] Ultrasound Report Signed Patient: Sweta Corbin MR#: [id number] 6 : 1990 Acct:[id number] Age/Sex: 33 / F ADM Date: 01/12/24 Loc: HO.US Attending Dr: Annetta Botas CARPET SEWING MACHINE OPERATOR Ordering Physician: Annetta Mead NP Date of Service: 01/12/24 Procedure(s): US abdomen complete Accession Number(s): [id number] cc: Annetta Mead CARPET SEWING MACHINE OPERATOR; ALEAH SCHERER CARPET SEWING MACHINE OPERATOR EXAMINATION: US ABDOMEN COMPLETE CLINICAL INFORMATION: Abdominal [...] in OV> 01/19/24 0945 DD/ 1007 TD/TT: Patient Admitting Clerk: SS Procedure Note Donotuseinterpreter, Image - 01/19/2024 [place] [address] Ultrasound Report Signed Patient: Sweta CorbinMR#: [id number] 6 : 1990Acct:[id number] Age/Sex: 33 / FADM Date: 01/12/24 Loc: HO.US Attending Dr: Annetta Mead NP Ordering Physician: Botas,Annetta CARPET SEWING MACHINE OPERATOR Date of Service: 01/12/24 Procedure(s): US abdomen complete Accession Number(s): [id number] cc: Annetta Mead CARPET SEWING MACHINE OPERATOR; ALEAH SCHERER CARPET SEWING MACHINE OPERATOR EXAMINATION: US ABDOMEN COMPLETE CLINICAL INFORMATION: Abdominal [...] in OV> 01/19/24 0945 DD/ 1007 TD/TT: Patient Admitting Clerk: SS Annetta Mead CAR CUSTOMIZER IMG US PROCEDURES Final Result documented in this encounter Visit Diagnoses Diagnosis Generalized abdominal pain- Primary Abdominal pain, generalized documented in this encounter Additional Health Concerns Assessment Noted Time PHQ-9 Depression Total Score: 0 01/10/20 1:11 PM EDT documented as of this encounter Care Teams Panel Edge Painter Relationship Specialty Start Date End Date Aleah Scherer ANP [address] [place] [address] PCP - General Family Medicine 01/09/23 documented as of this encounter
--- OUTSIDE RECORDS SUMMARY | 2025-06-29 22:44 | XMS_ITS | Encounter Summary ---
Author Organization [employer] Address [address] [facility] 7t [place] [address] Care Team Providers Care Field Sales Specialist Name Role Phone Disha Lackey MARIAN Primary Care Provider [phone] Encounter Details Date Type Department Care Team ([facility] st Contact Info) Description 10/09/2024 Orders Only [facility] [address] [place], [place] [phone] Pema Holbrook MD [address] [place], [place] [phone] Social History Tobacco Use Types Packs/Day Years [...] documented as of this encounter Care Teams Field Sales Specialist Relationship Specialty Start Date End Date Disha Lackey ANP [address] [place] [phone] PCP - General Family Medicine 01/09/23 documented as of this encounter
--- OUTSIDE RECORDS SUMMARY | 2025-06-29 22:44 | XMS_ITS | Encounter Summary ---
Author Organization [employer] Address [address] [facility] [address] [place] [address] Care Team Providers Care Clothes Separator Name Role Phone Disha Lackey Primary Care Provider Reason for Visit * Reason Comments Med Refill Encounter Details Date Type Department Care Team (Late st Contact Info) Description 04/14/2024 Refill [facility] [address] [place], [place] [phone] Lauren Vizcarra MD [address] [place], [place] [phone] Acute COVID-19 Social History Tobacco Use Types [...] documented as of this encounter Care Teams Clothes Separator Relationship Specialty Start Date End Date Disha Lackey ANP [address] [place] [address] PCP - General Family Medicine 01/09/23 documented as of this encounter
--- OUTSIDE RECORDS SUMMARY | 2025-06-29 22:44 | XMS_ITS | Encounter Summary ---
Author Organization [employer] Address [address] [place] [address] 7[address] [place] [address] Care Team Providers Care Adjunct Instructor Chemistry Name Role Phone Disha Lackey Primary Care Provider [phone] Reason for Visit * Reason Onset Date Comments ER Follow-up 08/31/2024 Encounter Details Date Type Department Care Team (Late st Contact Info) Description 08/31/2024 Telephone [facility] [address] [place], [place] [phone] Disha Lackey ANP [address] [place], [place] [phone] ER Follow-up Social History Tobacco Use Types [...] past 12 months, has t he electric, [employer], oil or water [employer]. threatened to shut off services in your [...] Triage call Pt was seen in ED, [facility], 08/29/24. Pt had IUD removed 3 [...] ED visit on : Date: 08/29 Hospital: [facility] Seen for: Excessive Bleeding Symptomatic Yes *if yes message should go to Triage Patient advised will forward to team nurse for follow up Contact pt at [phone] documented in this encounter Plan of Treatment Not on file documented as of this encounter Visit Diagnoses Not on filedocumented in this encounter Additional Health Concerns Assessment Noted Time PHQ-9 Depression Total Score: 0 01/10/20 1:11 PM EDT documented as of this encounter Care Teams Adjunct Instructor Chemistry Relationship Specialty Start Date End Date Disha Lackey ANP [address] [place] [address] PCP - General Family Medicine 01/09/23 documented as of this encounter
[2025-06-29 22:46] LABS: Alanine Aminotransferase 15 U/L (0-31); Albumin Level 4.0 g/dL (3.5-5.0); Alkaline Phosphatase 77 U/L (39-117); Anion Gap 10 (12-20); Aspartate Amino Transferase 18 U/L (5-31); Blood Urea Nitrogen 15 mg/dL (9-16); Calcium 8.8 mg/dL (8.4-10.2); Carbon Dioxide 26 mmol/L (22-29); Chloride 106 mmol/L (96-108); Creatinine Clr Calc Pharmacy 153.8; Estimated Glomerular Filt Rate > 60; Potassium 3.7 mmol/L (3.3-5.1); Sodium 138 mmol/L (135-145); Total Protein 6.8 g/dL (6.5-8.0)
--- NOTE | 2025-06-29 23:52 | ED.NAVMDI ---
HPI - Nausea/Vomiting/Diarrhea General Chief complaint: Nausea/Vomiting/Diarrhea Stated complaint: not feeling well, 8 wks Time Seen by Provider: 06/29/25 22:26 History of Present Illness ED Provider: Ana Laura Sinclair HPI Narrative: 35-year-old female currently G3, P2, A0 presents to the ED with her partner for evaluation reportedly feeling dehydrated, with several episodes of nausea and vomiting despite Zofran use at home. She reports that she is now unable to tolerate anything orally. Denies any abdominal pain or cramping. No abnormal vaginal bleeding or discharge. She recently had a confirmatory IUP ultrasound a few days ago. At that time she was prescribed Zofran for the nausea. Denies any chest pain or pressure, shortness of breath, urinary complaints. Related Data Home Medications ?Medication ?Instructions ?Recorded ?Confirmed albuterol sulfate 90 mcg/actuation 2 puff inhalation Q4-6H PRN 10/12/23 02/02/25 aerosol inhaler (Ventolin HFA) wheezing cetirizine 10 mg tablet 10 mg PO DAILY 10/12/23 02/02/25 cholecalciferol (vitamin D3) 25 25 mcg PO QAM 10/12/23 02/02/25 mcg (1,000 unit) tablet epinephrine 0.3 mg/0.3 mL IM DIRECTED 10/12/23 02/02/25 injection, auto-injector semaglutide 0.25 mg or 0.5 mg (2 mg subcut 10/12/23 02/02/25 mg/3 mL) subcutaneous pen injector (Ozempic) sumatriptan succinate 50 mg tablet mg PO 10/12/23 02/02/25 tizanidine 2 mg tablet 2 mg PO QD-TID PRN muscle pain 10/12/23 02/02/25 topiramate 25 mg tablet mg PO 10/12/23 02/02/25 valacyclovir 1 gram tablet 1,000 mg PO TID 10/12/23 02/02/25 Previous Rx's ?Medication ?Instructions ?Recorded albuterol sulfate 90 mcg/actuation 1 inh inhalation Q20M PRN 10/28/23 aerosol inhaler shortness of breath or wheezing #8.5 grams benzonatate 100 mg capsule 100 mg PO BID PRN cough #20 caps 10/28/23 dicyclomine 20 mg tablet 20 mg PO TID PRN abdominal pain 01/19/24 #20 tabs famotidine 40 mg tablet (Pepcid) 40 mg PO DAILY #14 tabs 01/19/24 nitrofurantoin 100 mg PO Q12H 5 days #10 caps 01/19/24 monohydrate/macrocrystals 100 mg capsule (Macrobid) azithromycin 250 mg tablet 250 mg PO DAILY 6 days #6 tabs 09/07/24 peg 3350-electrolytes 236 240 ml PO Q10M #4,000 mL 10/23/24 gram-22.74 gram-6.74 gram-5.86 gram solution (GaviLyte-G) polyethylene glycol 3350 17 17 g PO DAILY 2 weeks #238 grams 10/23/24 gram/dose oral powder (Miralax) diphenhydramine HCl 25 mg capsule 25 mg PO TID PRN allergic reaction 04/04/25 #14 caps famotidine 20 mg tablet (Pepcid) 20 mg PO BID 5 days #10 tabs 04/04/25 prednisone 20 mg tablet 60 mg (3 x 20 mg) PO DAILY 5 days 04/04/25 #15 tabs cephalexin 500 mg capsule 500 mg PO BID #10 caps 06/12/25 vits no.130-ferrous fum 1 tab PO DAILY #30 tabs 06/12/25 27 mg iron-folic acid 800 mcg tablet ( Vitamin) docusate sodium 100 mg capsule 100 mg PO BID #14 caps 06/25/25 polyethylene glycol 3350 17 17 g PO DAILY #119 grams 06/25/25 gram/dose oral powder (Miralax) prochlorperazine maleate 10 mg 10 mg PO BID PRN nausea and 06/29/25 tablet (Compazine) vomiting 7 days #14 tabs Allergies Allergy/AdvReac Type Severity Reaction Status Date / Time doxycycline Allergy Dizziness Verified 06/29/25 22:09 Review of Systems Review of Systems: ROS is otherwise negative unless mentioned in HPI. [facility] Past Medical History Medical History Hypertension Surgical History S/P excision of lipoma (10/12/23) Hx of cholecystectomy Hx of foot surgery Family History Family History Maternal Grandmother Liver cancer Social History Social History Alcohol intake: never Patient Tobacco Use Status: Never used Tobacco Smoked in Last 30 Days: No Use of substances other than those prescribed or required for medical reasons: No Advance Directives: No Advance Directives Information Provided: No Do you have a plan to hurt others: No Plan Patient : Yes Physical Exam Exam: Exam: Nursing notes and vital signs reviewed. Constitutional: Well-appearing, NAD. Alert. Oriented X3. Eyes: EOMI. ENT: Pharynx normal. Neck: Normal inspection. Neck supple. CVS: Normal heart rate and rhythm. Pulses normal. Respiratory: No respiratory distress. Breath sounds normal. Abdomen: Soft and nontender. +BSx4. No CVA tenderness bilaterally. Skin: Skin warm and dry. Normal skin color. Extremities: No lower extremity edema. Neuro: Oriented X 3. No motor deficit. Vital Signs: Vital Signs: Last Vital Signs Temp 97.2 F 06/30/25 00:04 Pulse 70 06/30/25 00:04 Resp 18 06/30/25 00:04 BP 115/70 06/30/25 00:04 Pulse Ox 99 06/30/25 00:04 O2 Del Method Room Air 06/30/25 00:04 BMI result Body Mass Index 45.3 Medications Administered Discontinued Medications Generic Name Dose Route Start Last Admin Trade Name Freq PRN Reason Stop Dose Admin Sodium Chloride 1,000 mls @ 999 mls/hr 06/29/25 22:30 06/29/25 23:59 Ns IV 06/29/25 23:30 Infused .Q1H1M ONE Infusion Prochlorperazine Edisylate 5 mg 06/29/25 22:30 06/29/25 22:57 Prochlorperazine Edisylate 10 Mg/2 Ml Vial IVPUSH 06/29/25 22:31 5 mg ONCE ONE Administration Medical Decision Making Medical Decision Making MDM Narrative: Well-appearing female, NAD, answering all questions appropriately. Reports that she was here few days ago for constipation, denies any abdominal pain. Now she is having nausea and vomiting, and was prescribed Zofran by the OBGYN when she had her confirmatory ultrasound for IUP the other day. This has not been helping her. Here her lab work has been overall reassuring. Her urinalysis from the other day was concerning for infection however microbiology shows strep B, and the patient is not on antibiotics for this. She was given an IV fluid bolus while in the ED, as well as a dose of Compazine with good effect. Reports significant improvement and is now requesting discharge to go home. I recommended that she follow up closely with her OBGYN, to discuss the use of antiemetics especially in . I have prescribed her a short course of Compazine that can be used as needed for nausea and vomiting. She expressed understanding of plan of care, provider return precautions to the ED. Differential Diagnosis Differential Diagnoses: The differential diagnosis associated with the presentation includes Nausea and vomiting related to , electrolyte abnormalities, cystitis Admission/Observation Consideration of admission/observation: Escalation of care including admission/observation considered (not indicated) Lab Data MDM Lab Attestation statement: I reviewed the patient's lab results. (reassuring overall) 06/29/25 22:23 06/29/25 22:23 Labs: Lab Results 06/29/25 Range/Units 22:23 WBC 8.1 (4.8-10.8) X10*3/uL RBC 4.86 (4.20-5.50) X10*6/uL Hgb 13.1 (12.0-16.0) g/dl Hct 40.9 (37.0-47.0) % MCV 84.2 (80.0-98.0) fL MCH 27.0 (27.0-33.0) pg MCHC 32.0 (31.0-35.0) g/dl RDW 13.5 (11.0-16.0) % Plt Count 275 (160-400) X10*3/uL MPV 10.0 (9.4-12.3) fL Immature Gran % (Auto) 0.2 (0.0-0.4) % Neut % (Auto) 64.3 (45-73) % Lymph % (Auto) 26.1 (20-40) % Garland % (Auto) 7.4 (2-11) % Eos % (Auto) 1.5 (0-4) % Baso % (Auto) 0.5 (0-2) % Lymph # (Auto) 2.1 (1.2-4.9) X10*3/uL [place] # (Auto) 0.6 (0.1-1.2) X10*3/uL Eos # (Auto) 0.1 (0.0-0.4) X10*3/uL Baso # (Auto) 0.0 (0.0-0.2) X10*3/uL Abs Immat Gran (auto) 0.02 (0.00-0.03) X10*3/uL Absolute Neuts (auto) 5.2 (2.0-8.3) x10*3/uL Absolute Nucleated RBC 0.000 (0.0-0.012) X10*3/uL Nucleated RBC % (auto) 0.0 (0.0-0.2) /100WBC Sodium 138 (135-145) mmol/L Potassium 3.7 (3.3-5.1) mmol/L Chloride 106 (96-108) mmol/L Carbon Dioxide 26 (22-29) mmol/L Anion Gap 10 L (12-20) BUN 15 (9-16) mg/dL Creatinine 0.71 (0.5-1.4) mg/dL Estim Creat Clear Calc 153.8 Estimated GFR > 60 Random Glucose 84 (60-115) mg/dL Calcium 8.8 (8.4-10.2) mg/dL Total Bilirubin 0.2 (0.0-1.0) mg/dL AST 18 (5-31) U/L ALT 15 (0-31) U/L Alkaline Phosphatase 77 (39-117) U/L Total Protein 6.8 (6.5-8.0) g/dL Albumin 4.0 (3.5-5.0) g/dL Independent Historian Clinical information obtained from an independent historian. History obtained from or confirmed by: Spouse (at bedside) External Record Review External record reviewed: Office record and Prior outpatient labs Discharge Plan Discharge Clinical Impression: Nausea and vomiting during Patient Disposition: Home, Self-Care Instructions: Acute Nausea and Vomiting (DC) Additional Instructions: As we discussed, your lab work was overall reassuring today. In the ER we gave you some IV fluids, and antinausea medication called Compazine. This medication appears to have helped you more than the previously prescribed Zofran. Therefore, please stop taking the Zofran and start taking the Compazine medication. Please follow up with your OBGYN within the next 1 week. With any worsening complaints at any time, please seek re-evaluation in the ED. Prescriptions: New prochlorperazine maleate [Compazine] 10 mg tablet 10 mg PO BID PRN (Reason: nausea and vomiting) 7 Days Qty: 14 0RF No Action benzonatate 100 mg capsule 100 mg PO BID PRN (Reason: cough) Qty: 20 0RF albuterol sulfate 90 mcg/actuation HFA aerosol inhaler 1 inh inhalation Q20M PRN (Reason: shortness of breath or wheezing) Qty: 8.5 0RF nitrofurantoin monohyd/m-cryst [Macrobid] 100 mg capsule 100 mg PO Q12H 5 Days Qty: 10 0RF Rx Instructions: must administer with a meal/food dicyclomine 20 mg tablet 20 mg PO TID PRN (Reason: abdominal pain) Qty: 20 0RF famotidine [Pepcid] 40 mg tablet 40 mg PO DAILY Qty: 14 0RF azithromycin 250 mg tablet 250 mg PO DAILY 6 Days Qty: 6 0RF Rx Instructions: start on day 2 of therapy peg 3350-electrolytes [GaviLyte-G] 236-22.74-6.74 -5.86 gram recon soln 240 ml PO Q10M Qty: 4000 0RF Rx Instructions: until you have a large bowel movement polyethylene glycol 3350 [Miralax] 17 gram/dose powder 17 g PO DAILY 14 Days Qty: 238 0RF Vitamin 27 mg iron- 800 mcg tablet 1 tab PO DAILY Qty: 30 0RF cephalexin 500 mg capsule 500 mg PO BID Qty: 10 0RF polyethylene glycol 3350 [Miralax] 17 gram/dose powder 17 g PO DAILY Qty: 119 0RF docusate sodium 100 mg capsule 100 mg PO BID Qty: 14 0RF tizanidine 2 mg tablet 2 mg PO QD-TID PRN (Reason: muscle pain) cetirizine 10 mg tablet 10 mg PO DAILY valacyclovir 1 gram tablet 1,000 mg PO TID sumatriptan succinate 50 mg tablet PO topiramate 25 mg tablet PO epinephrine 0.3 mg/0.3 mL auto-injector IM DIRECTED albuterol sulfate [Ventolin HFA] 90 mcg/actuation HFA aerosol inhaler 2 puff INHALATION Q4-6H PRN (Reason: wheezing) cholecalciferol (vitamin D3) 25 mcg (1,000 unit) tablet 25 mcg PO QAM Ozempic 0.25 mg or 0.5 mg (2 mg/3 mL) pen injector subcut prednisone 20 mg tablet 60 mg PO DAILY 5 Days Qty: 15 0RF famotidine [Pepcid] 20 mg tablet 20 mg PO BID 5 Days Qty: 10 0RF diphenhydramine HCl 25 mg capsule 25 mg PO TID PRN (Reason: allergic reaction) Qty: 14 0RF Referrals: Disha Lackey, LIEUTENANT/DEPUTY [Primary Care Provider, Internal Medicine] Interventions: ED Discharge Assessment Last Done: 06/30/25 00:04 Discharge Date/Time: 06/30/25 00:05 Print Language: Macedonian
[2025-06-30 00:04] VITALS: BP 115/70; PULSE 70; RESP 18; TEMP 36.2; O2SAT 99
== END 2025-06-30 00:05 | disposition home or self-care (01) ==
PROVIDERS: Emergency Provider Emergency Medicine; PCP Nurse Practitioner Primary Care
DX: O26.899 Other specified pregnancy related conditions, unspecified trimester (principal); O21.9 Vomiting of pregnancy, unspecified; Z79.899 Other long term (current) drug therapy
CPT/HCPCS: 36415; 80053; 85025; 96361; 96374; 99284; J0737

== ENCOUNTER 2025-07-21 09:02 | Emergency (ER) | payer OTHER, SELFPAY ==
--- NOTE | ~2025-07-21 | US_ITS ---
EXAMINATION: US OBSTETRICAL ULTRASOUND CLINICAL INFORMATION: R sided abd pain COMPARISON: Previous exam June 25, 2025 LMP: 05/16/2025. Gestational age by maternal dates is 9 weeks 3 days. Estimated date of delivery by maternal dates is 02/20/2026. TECHNIQUE: Transabdominal and transvaginal OB ultrasound FINDINGS: There is a single intrauterine gestational sac with visible yolk sac, embryo/fetus, and cardiac activity. There is no significant subchorionic hemorrhage or hematoma. HR: 165 beats per minute. CRL (crown rump length): 3.58 cm (10 weeks 4 days +/- 4 days). TITA (estimated date of delivery): 02/26/2026 +/- 4 days. MATERNAL ADNEXA: The right maternal ovary measures 4.3 x 2.5 x 2 cm. Normal The left maternal ovary measures 2.9 x 2.4 x 1.9 cm. Normal There is no significant maternal adnexal mass. No maternal pelvic ascites. US/US OB <= 14 weeks fetus IMPRESSION: 1. Single intrauterine gestation with ultrasound gestational age of 10 weeks 4 days +/- 4 days. 2. Estimated date of delivery is February 12, 2026 +/- 4 days. 3. No maternal adnexal mass or pelvic ascites. Electronically signed by: Kayleigh Gray MD 07/21/2025 01:01 PM [facility]
[2025-07-21 09:18] VITALS: BP 113/52; PULSE 78; RESP 18; TEMP 36.9; O2SAT 100; BMI 46.6
[2025-07-21 09:29] LABS: MANUAL DIFF FLAG NO
[2025-07-21 09:33] LABS: Hematocrit 39.7 % (37.0-47.0); Hemoglobin 12.7 g/dl (12.0-16.0); Imm Gran Abs Auto 0.02 X10*3/uL (0.00-0.03); Imm Gran Pct Auto 0.3 % (0.0-0.4); Lymphocytes Absolute Auto 1.7 X10*3/uL (1.2-4.9); Mean Corpuscular HGB Conc 32.0 g/dl (31.0-35.0); Mean Corpuscular Hemoglobin 27.0 pg (27.0-33.0); Mean Corpuscular Volume 84.5 fL (80.0-98.0); NRBC Abs Auto 0.000 X10*3/uL (0.0-0.012); NRBC Pct Auto 0.0 /100WBC (0.0-0.2); Platelet Count 265 X10*3/uL (160-400); Red Blood Count 4.70 X10*6/uL (4.20-5.50); White Blood Count 6.7 X10*3/uL (4.8-10.8)
--- NOTE | 2025-07-21 09:37 | ED.GENADULT ---
HPI - General Adult General Chief complaint: Headache Stated complaint: General Medical Time Seen by Provider: 07/21/25 09:31 Source: patient, RN notes reviewed and old records reviewed Mode of arrival: ambulatory Limitations: no limitations History of Present Illness ED Provider: Lashell AGUILA narrative: Patient is a 35-year-old reported female 10 weeks gestation presenting to the emergency department with complaint of headache, nausea, vomiting and diarrhea since yesterday. Also complaining of right lower quadrant abdominal pain. Denies any known sick contacts. States emesis has been nonbloody, nonbilious. Denies hematochezia or melena. Denies any issues with her thus far. States that she has seen [facility] and had an ultrasound to confirm intrauterine . Denies any vaginal bleeding or other abnormal vaginal discharge. MD complaint: Nausea, vomiting, diarrhea Related Data Home Medications ?Medication ?Instructions ?Recorded ?Confirmed albuterol sulfate 90 mcg/actuation 2 puff inhalation Q4-6H PRN 10/12/23 02/02/25 aerosol inhaler (Ventolin HFA) wheezing cetirizine 10 mg tablet 10 mg PO DAILY 10/12/23 02/02/25 cholecalciferol (vitamin D3) 25 25 mcg PO QAM 10/12/23 02/02/25 mcg (1,000 unit) tablet epinephrine 0.3 mg/0.3 mL IM DIRECTED 10/12/23 02/02/25 injection, auto-injector semaglutide 0.25 mg or 0.5 mg (2 mg subcut 10/12/23 02/02/25 mg/3 mL) subcutaneous pen injector (Ozempic) sumatriptan succinate 50 mg tablet mg PO 10/12/23 02/02/25 tizanidine 2 mg tablet 2 mg PO QD-TID PRN muscle pain 10/12/23 02/02/25 topiramate 25 mg tablet mg PO 10/12/23 02/02/25 valacyclovir 1 gram tablet 1,000 mg PO TID 10/12/23 02/02/25 Previous Rx's ?Medication ?Instructions ?Recorded albuterol sulfate 90 mcg/actuation 1 inh inhalation Q20M PRN 10/28/23 aerosol inhaler shortness of breath or wheezing #8.5 grams benzonatate 100 mg capsule 100 mg PO BID PRN cough #20 caps 10/28/23 dicyclomine 20 mg tablet 20 mg PO TID PRN abdominal pain 01/19/24 #20 tabs famotidine 40 mg tablet (Pepcid) 40 mg PO DAILY #14 tabs 01/19/24 nitrofurantoin 100 mg PO Q12H 5 days #10 caps 01/19/24 monohydrate/macrocrystals 100 mg capsule (Macrobid) azithromycin 250 mg tablet 250 mg PO DAILY 6 days #6 tabs 09/07/24 peg 3350-electrolytes 236 240 ml PO Q10M #4,000 mL 10/23/24 gram-22.74 gram-6.74 gram-5.86 gram solution (GaviLyte-G) polyethylene glycol 3350 17 17 g PO DAILY 2 weeks #238 grams 10/23/24 gram/dose oral powder (Miralax) diphenhydramine HCl 25 mg capsule 25 mg PO TID PRN allergic reaction 04/04/25 #14 caps famotidine 20 mg tablet (Pepcid) 20 mg PO BID 5 days #10 tabs 04/04/25 prednisone 20 mg tablet 60 mg (3 x 20 mg) PO DAILY 5 days 04/04/25 #15 tabs cephalexin 500 mg capsule 500 mg PO BID #10 caps 06/12/25 vits no.130-ferrous fum 1 tab PO DAILY #30 tabs 06/12/25 27 mg iron-folic acid 800 mcg tablet ( Vitamin) docusate sodium 100 mg capsule 100 mg PO BID #14 caps 06/25/25 polyethylene glycol 3350 17 17 g PO DAILY #119 grams 06/25/25 gram/dose oral powder (Miralax) prochlorperazine maleate 10 mg 10 mg PO BID PRN nausea and 06/29/25 tablet (Compazine) vomiting 7 days #14 tabs ondansetron 4 mg disintegrating 4 mg PO Q8H PRN nausea and 07/21/25 tablet vomiting #10 tabs Allergies Allergy/AdvReac Type Severity Reaction Status Date / Time doxycycline Allergy Dizziness Verified 07/21/25 09:19 Review of Systems Review of Systems: As per HPI Yes all other systems are reviewed and are negative Constitutional: Constitutional: Reports as per HPI [facility] Past Medical History Medical History Hypertension Surgical History S/P excision of lipoma (10/12/23) Hx of cholecystectomy Hx of foot surgery Family History Family History Maternal Grandmother Liver cancer Social History Social History Alcohol intake: never Patient Tobacco Use Status: Never used Tobacco Advance Directives: No Advance Directives Information Provided: No Patient : Yes Physical Exam ED Vital Signs: Vital Signs - 24 hr 07/21/25 09:18 07/21/25 12:22 Temperature 98.4 F 97.8 F Pulse Rate 78 69 Respiratory Rate 18 14 Blood Pressure 113/52 L 104/54 L Pulse Oximetry 100 100 Oxygen Delivery Method Room Air Room Air BMI result Body Mass Index 46.6 Vital signs have been reviewed and appear to be correct. Blood pressure normal. Heart rate normal. Respiratory rate normal. Temperature normal. Oxygen saturation normal. Const General: cooperative, healthy appearing and no acute distress Orientation/consciousness: oriented to person, oriented to place, oriented to time and patient oriented x3 Limitations: no limitations HENMT Head: Yes normocephalic and Yes atraumatic Ears: external ears normal General nose exam: Normal external nose present Face and sinus: Yes face symmetric Mouth: oropharynx normal and moist mucous membranes Throat: Yes uvula midline Eyes Pupils: Equal, round and reactive pupils present Neck Neck: Yes normal visual inspection and Yes supple Resp Effort & Inspection: normal respiratory effort and able to speak in complete sentences Auscultation: clear to auscultation bilaterally Cardio Rate: regular rate Rhythm: regular rhythm Heart sounds: S1 normal heart sound present and S2 normal heart sound present GI Palpation (GI): Soft to palpation, Tenderness to palpation present (GI) in the RLQ (mildly tender), no guarding and No Rebound tenderness present Auscultation: normoactive bowel sounds General: Yes no CVA tenderness Back/Spine/Pelvis Back: no CVA tenderness Skin General skin exam: elasticity normal and turgor normal Neuro General: oriented to person, oriented to place, oriented to time, patient oriented x3, moves all extremities, no focal motor deficits and CN's II-XI intact bilaterally Cranial nerves: Yes Equal, round and reactive pupils present Cognition (Neuro): normal cognition Extrem General: Yes full ROM, Yes no pedal edema and Yes no calf tenderness Psych Mental Status: mental status grossly normal Affect: normal affect Thought process: Normal thought process present Medications Administered Discontinued Medications Generic Name Dose Route Start Last Admin Trade Name Yelena PRN Reason Stop Dose Admin Sodium Chloride 1,000 mls @ 999 mls/hr 07/21/25 10:15 07/21/25 11:48 Ns IV 07/21/25 11:15 Infused .Q1H1M MARY Infusion Ondansetron HCl 4 mg 07/21/25 10:03 07/21/25 10:19 Ondansetron Hcl 4 Mg/2 Ml Vial IVPUSH 07/21/25 10:04 4 mg ONCE ONE Administration Medical Decision Making Medical Decision Making [facility] Narrative: Patient is a 35-year-old reported female 10 weeks gestation presenting to the emergency department with complaint of headache, nausea, vomiting and diarrhea since yesterday. On exam patient is awake, A+Ox3, VS WNL, afebrile, normal neurological exam without focal deficits, physical exam findings as above. Given reported symptoms and physical exam findings, initial differential includes but is not limited to viral illness, COVID, flu, gastroenteritis, electrolyte abnormality, dehydration. Do not suspect ectopic as patient has already had an ultrasound confirming IUP. Labs unremarkable. Viral serology negative. Patient unable to provide urine specimen while in the ED but denies any urinary symptoms. Ultrasound notable for single IUP with no adnexal masses or pelvic ascites. My interpretation is in agreement with the radiologist's interpretation. Patient reports improvement in symptoms after IV fluids and antiemetics. Able to tolerate p.o. food and fluids in the ED. Will discharge home with Zofran. Advised follow up with OBGYN. Return precautions discussed. Patient verbalized understanding of and agreement with plan. Differential Diagnosis Differential Diagnoses: The differential diagnosis associated with the presentation includes As per [facility] Admission/Observation Consideration of admission/observation: Escalation of care including admission/observation considered as per [facility] Lab Data [facility] Lab Attestation statement: I reviewed the patient's lab results. As per [facility] 07/21/25 09:26 07/21/25 09:26 Labs: Lab Results 07/21/25 Range/Units 09:26 WBC 6.7 (4.8-10.8) X10*3/uL RBC 4.70 (4.20-5.50) X10*6/uL Hgb 12.7 (12.0-16.0) g/dl Hct 39.7 (37.0-47.0) % MCV 84.5 (80.0-98.0) fL MCH 27.0 (27.0-33.0) pg MCHC 32.0 (31.0-35.0) g/dl RDW 14.1 (11.0-16.0) % Plt Count 265 (160-400) X10*3/uL MPV 9.7 (9.4-12.3) fL Immature Gran % (Auto) 0.3 (0.0-0.4) % Neut % (Auto) 68.9 (45-73) % Lymph % (Auto) 25.5 (20-40) % [place] % (Auto) 3.4 (2-11) % Eos % (Auto) 1.3 (0-4) % Baso % (Auto) 0.6 (0-2) % Lymph # (Auto) 1.7 (1.2-4.9) X10*3/uL [place] # (Auto) 0.2 (0.1-1.2) X10*3/uL Eos # (Auto) 0.1 (0.0-0.4) X10*3/uL Baso # (Auto) 0.0 (0.0-0.2) X10*3/uL Abs Immat Gran (auto) 0.02 (0.00-0.03) X10*3/uL Absolute Neuts (auto) 4.6 (2.0-8.3) x10*3/uL Absolute Nucleated RBC 0.000 (0.0-0.012) X10*3/uL Nucleated RBC % (auto) 0.0 (0.0-0.2) /100WBC Sodium 135 (135-145) mmol/L Potassium 3.7 (3.3-5.1) mmol/L Chloride 104 (96-108) mmol/L Carbon Dioxide 27 (22-29) mmol/L Anion Gap 8 L (12-20) BUN 9 (9-16) mg/dL Creatinine 0.62 (0.5-1.4) mg/dL Estim Creat Clear Calc 179.3 Estimated GFR > 60 Random Glucose 107 (60-115) mg/dL Calcium 8.4 (8.4-10.2) mg/dL Total Bilirubin 0.4 (0.0-1.0) mg/dL AST 14 (5-31) U/L ALT 9 (0-31) U/L Alkaline Phosphatase 69 (39-117) U/L Total Protein 6.3 L (6.5-8.0) g/dL Albumin 3.6 (3.5-5.0) g/dL Beta HCG, Quant 08959 mIU/mL Influenza Type A (PCR) NEGATIVE (Negative) Influenza Type B (PCR) NEGATIVE (Negative) RSV RNA Qual (PCR) NEGATIVE (Negative) SARS-CoV-2 RNA (RT-PCR) NEGATIVE (Negative) Independent Interpretation I performed an independent interpretation of an: Ultrasound Interpretation: Ultrasound notable for single IUP with no adnexal masses or pelvic ascites. Radiology Impression Discussion of test interpretation with radiology: I have reviewed the radiologist's reading. Radiologist Impression: US/US OB <= 14 weeks fetus IMPRESSION: 1. Single intrauterine gestation with ultrasound gestational age of 10 weeks 4 days +/- 4 days. 2. Estimated date of delivery is February 12, 2026 +/- 4 days. 3. No maternal adnexal mass or pelvic ascites. External Record Review External record reviewed: Inpatient record, Office record and Outpatient record Prescription Management I considered prescription management with: Other Discharge Plan Discharge Clinical Impression: Nausea, vomiting, and diarrhea Patient Disposition: Home, Self-Care Instructions: Acute Nausea and Vomiting (DC) Additional Instructions: You have been evaluated in the emergency department today for nausea, vomiting, and diarrhea. Your evaluation suggests that your symptoms are most likely due to a viral illness which will improve on it's own with rest and fluids. Remember to drink plenty of fluids at home. You are being prescribed ondansetron which you can use as per the prescription instructions for nausea. Please follow up with your [employer]ER and primary care provider within two days. Return to the emergency department if you experience worsening or uncontrolled pain, inability to tolerate fluids by mouth, difficulty breathing, fevers 100.4? F or greater, recurrent vomiting, or any other concerning symptoms. Prescriptions: New ondansetron 4 mg tablet,disintegrating 4 mg PO Q8H PRN (Reason: nausea and vomiting) Qty: 10 0RF No Action benzonatate 100 mg capsule 100 mg PO BID PRN (Reason: cough) Qty: 20 0RF albuterol sulfate 90 mcg/actuation HFA aerosol inhaler 1 inh inhalation Q20M PRN (Reason: shortness of breath or wheezing) Qty: 8.5 0RF nitrofurantoin monohyd/m-cryst [Macrobid] 100 mg capsule 100 mg PO Q12H 5 Days Qty: 10 0RF Rx Instructions: must administer with a meal/food dicyclomine 20 mg tablet 20 mg PO TID PRN (Reason: abdominal pain) Qty: 20 0RF famotidine [Pepcid] 40 mg tablet 40 mg PO DAILY Qty: 14 0RF azithromycin 250 mg tablet 250 mg PO DAILY 6 Days Qty: 6 0RF Rx Instructions: start on day 2 of therapy peg 3350-electrolytes [GaviLyte-G] 236-22.74-6.74 -5.86 gram recon soln 240 ml PO Q10M Qty: 4000 0RF Rx Instructions: until you have a large bowel movement polyethylene glycol 3350 [Miralax] 17 gram/dose powder 17 g PO DAILY 14 Days Qty: 238 0RF Vitamin 27 mg iron- 800 mcg tablet 1 tab PO DAILY Qty: 30 0RF cephalexin 500 mg capsule 500 mg PO BID Qty: 10 0RF polyethylene glycol 3350 [Miralax] 17 gram/dose powder 17 g PO DAILY Qty: 119 0RF docusate sodium 100 mg capsule 100 mg PO BID Qty: 14 0RF tizanidine 2 mg tablet 2 mg PO QD-TID PRN (Reason: muscle pain) cetirizine 10 mg tablet 10 mg PO DAILY valacyclovir 1 gram tablet 1,000 mg PO TID sumatriptan succinate 50 mg tablet PO topiramate 25 mg tablet PO epinephrine 0.3 mg/0.3 mL auto-injector IM DIRECTED albuterol sulfate [Ventolin HFA] 90 mcg/actuation HFA aerosol inhaler 2 puff INHALATION Q4-6H PRN (Reason: wheezing) cholecalciferol (vitamin D3) 25 mcg (1,000 unit) tablet 25 mcg PO QAM Ozempic 0.25 mg or 0.5 mg (2 mg/3 mL) pen injector subcut prednisone 20 mg tablet 60 mg PO DAILY 5 Days Qty: 15 0RF famotidine [Pepcid] 20 mg tablet 20 mg PO BID 5 Days Qty: 10 0RF diphenhydramine HCl 25 mg capsule 25 mg PO TID PRN (Reason: allergic reaction) Qty: 14 0RF prochlorperazine maleate [Compazine] 10 mg tablet 10 mg PO BID PRN (Reason: nausea and vomiting) 7 Days Qty: 14 0RF Print Language: Portuguese
[2025-07-21 09:47] LABS: Alanine Aminotransferase 9 U/L (0-31); Albumin Level 3.6 g/dL (3.5-5.0); Alkaline Phosphatase 69 U/L (39-117); Anion Gap 8 (12-20); Aspartate Amino Transferase 14 U/L (5-31); Blood Urea Nitrogen 9 mg/dL (9-16); Calcium 8.4 mg/dL (8.4-10.2); Carbon Dioxide 27 mmol/L (22-29); Chloride 104 mmol/L (96-108); Creatinine Clr Calc Pharmacy 179.3; Estimated Glomerular Filt Rate > 60; Potassium 3.7 mmol/L (3.3-5.1); Sodium 135 mmol/L (135-145); Total Protein 6.3 g/dL (6.5-8.0)
[2025-07-21 10:08] LABS: Resp Syncy Virus RNA Qual PCR NEGATIVE (Negative); SARS COV2 PCR INHOUSE NEGATIVE (Negative)
[2025-07-21 12:22] VITALS: BP 104/54; PULSE 69; RESP 14; TEMP 36.6; O2SAT 100
[2025-07-21 13:28] VITALS: BP 110/69; PULSE 72; RESP 14; TEMP 36.6; O2SAT 100
== END 2025-07-21 14:23 | disposition home or self-care (01) ==
PROVIDERS: Registered Nurse Emergency; Emergency Provider Emergency Medicine; PCP Nurse Practitioner Primary Care
DX: O21.9 Vomiting of pregnancy, unspecified (principal); O26.891 Other specified pregnancy related conditions, first trimester; R19.7 Diarrhea, unspecified; Z3A.10 10 weeks gestation of pregnancy; Z03.818 Encounter for observation for suspected exposure to other biological agents ruled out
CPT/HCPCS: 76801; 80053; 84702; 85025; 87637; 96361; 96374; 99284; J2405

== ENCOUNTER → 2025-07-21 10:06 | Outpatient (BNV) | payer OTHER, SELFPAY | PROVIDERS: Emergency Provider Emergency Medicine; PCP Nurse Practitioner Primary Care; Visit Provider Radiology Diagnostic Radiology | DX: R10.31 Right lower quadrant pain (principal); Z3A.09 9 weeks gestation of pregnancy | CPT/HCPCS: 76801; 76817 ==